=== PATIENT | female | born 1965 | race Caucasian/White ===

== ENCOUNTER 2016-08-18 15:58 | Emergency (ER) | payer SELFPAY ==
[~2016-08-18] VITALS: Ht 157.5 cm; Wt 110.0 kg
[~2016-08-18 15:58] MED LIST: CLON.2 PO; LISI-363 PO
[2016-08-18 16:00] VITALS: BP 185/118; PULSE 101; RESP 15; TEMP 97.7; O2SAT 98
[2016-08-18 16:05] VITALS: BP 176/95; PULSE 94; RESP 16
--- NOTE | 2016-08-18 16:17 | PD ---
HPI Chief Complaint: Skin Problem Time Seen by Provider: 16:17 Travel History International Travel<30 days: No Contact w/Intl Traveler<30days: No Traveled to known affect area: No History of Present Illness HPI 51-year-old female presents to the emergency Department with complaint of an abscess to her left hip area that has been there for a few days. Denies fever, chills, nausea, vomiting. Has history of abscess. Has not taken any medications or tried any treatments to alleviate her symptoms. Reports drainage coming from the abscess. Denies allergies. History of hypertension and ran out of her medications a couple weeks ago. He is asking for refill on her lisinopril. Denies chest pain, shortness of breath, headache, diaphoresis, nausea, vomiting, confusion. Does not know tetanus vaccination status. Denies other significant past medical history. No other modifying factors or associated signs and symptoms. PFSH Past Medical History Diminished Hearing: No Gastrointestinal Disorders: Yes (GALLSTONES) Hypertension: Yes Immunizations Current: No Menopausal: Yes : 1 Para: 0 : 1 Social History Alcohol Use: No Tobacco Use: No Substance Use: No Allergies-Medications (Allergen,Severity, Reaction): Coded Allergies: *MDRO Multi-Drug Resistant Organism (Verified Adverse Reaction, Unknown, 05/20/16) MRSA (abdominal abscess) - 07/22/2015 Reported Meds & Prescriptions Reported Meds & Active Scripts Active Lisinopril 20 Mg Tab 20 Mg PO DAILY Ibuprofen 800 Mg Tab 800 Mg PO Q6HR PRN Keflex (Cephalexin) 500 Mg Cap 500 Mg PO Q6H 10 Days Bactrim DS (Sulfamethoxazole-Trimethoprim) 800-160 Mg Tab 1 Tab PO BID 10 Days Reported Lisinopril 20 mg (Lisinopril) 20 Mg Tab 1 Tab PO DAILY Catapres 0.2 mg (Clonidine HCl) 0.2 Mg Tab 1 Tab PO BID Review of Systems Except as stated in HPI: all other systems reviewed are Neg Physical Exam Narrative GENERAL: Well-nourished, well-developed female patient, in no acute distress; afebrile, nontoxic-appearing SKIN: There is an indurated area to the left hip which measures about 1.5 cm in diameter. It is nonfluctuant and draining foul smelling purulent drainage. There is a zone of inflammation around it but no lymphangitis. No groin lymphadenopathy. HEAD: Atraumatic. Normocephalic. EYES: Pupils equal and round. No scleral icterus. No injection or drainage. ENT: Mucosa pink and moist. Airway patent. NECK: Trachea midline. CARDIOVASCULAR: Regular rate. RESPIRATORY: No accessory muscle use. GASTROINTESTINAL: Obese. MUSCULOSKELETAL: No obvious deformities. No clubbing. No cyanosis. No edema. NEUROLOGICAL: Awake and alert. Oriented 3. No obvious cranial nerve deficits. Motor grossly within normal limits. Normal speech. PSYCHIATRIC: Appropriate mood and affect; insight and judgment normal. Data Data Last Documented VS Vital Signs Date Time Temp Pulse Resp B/P Pulse Ox O2 Delivery O2 Flow Rate FiO2 08/18/16 16:05 94 16 176/95 08/18/16 16:00 97.7 98 Orders Wound Culture And Gram Stain (08/18/16 16:31) Tetanus/Diphtheria Tox Adult (Tetanus/Di (08/18/16 16:45) MDM Medical Decision Making Medical Screen Exam Complete: Yes Emergency Medical Condition: Yes Medical Record Reviewed: Yes Differential Diagnosis Abscess, cellulitis, folliculitis Narrative Course 51-year-old female with an abscess to her left hip area that is draining purulent drainage. The area is nonfluctuant. Area of cellulitis marked with a surgical marker. Wound culture pending. Tetanus updated in the ER. Patient is afebrile and nontoxic-appearing. She denies fever, chills, nausea and vomiting. Keflex, Bactrim, ibuprofen prescribed for home. She is also requesting prescription refill on her lisinopril. Lisinopril prescribed for home. Patient is medically cleared and stable for discharge. Discussed reasons to return to the emergency department. Instructed patient to follow up with primary care provider. Patient agrees with treatment plan. The patients vital signs are stable and the patient is stable for outpatient follow-up and treatment. Patient discharged home, stable and in no acute distress. Diagnosis Primary Impression: Abscess Additional Impression: Medication refill Referrals: Primary Care Physician Patient Instructions: Abscess (ED), Abscess Follow-up (ED), General Instructions, Hypertension (ED), Medication Refill, ED Departure Forms: Tests/Procedures, Work Release Enter return to work date: Aug 19, 2016 Additional Instructions: Complete full course of antibiotics Warm compresses to the affected area Keep area clean and dry Ibuprofen or Tylenol as directed and as needed for pain and inflammation Follow-up with primary care provider Return to emergency department immediately with worsening of symptoms Med/Other Pt SpecificInfo: Prescription(s) given Scripts Lisinopril 20 Mg Tab20 Mg PO DAILY #30 TAB Ref 0 Prov:Maria Guadalupe Toledo 08/18/16 Ibuprofen 800 Mg [id number] Mg PO Q6HR PRN (PAIN) #30 TAB Ref 0 Prov:Maria Guadalupe Toledo 08/18/16 Cephalexin (Keflex)500 Mg [id number] Mg PO Q6H 10 Days Ref 0 Prov:Maria Guadalupe Toledo 08/18/16 Sulfamethoxazole-Trimethoprim (Bactrim DS)800-160 Mg Tab1 Tab PO BID 10 Days Ref 0 Prov:Maria Guadalupe Toledo 08/18/16 Disposition: 01 DISCHARGE HOME Condition: Stable Maria Guadalupe Toledo Aug 18, 2016 16:17
[2016-08-18] MEDS ORDERED: IBUP800T23 PO (16:22)
[2016-08-18] MEDS ORDERED: BACT800T5 PO (16:22)
[2016-08-18] MEDS ORDERED: CEPH-460 PO (16:22)
[2016-08-18] MEDS ORDERED: LISI-515 PO (16:30)
[2016-08-18] MEDS ORDERED: TETANUS/DIPHTHERIA TOXOID ADULT 0.5 ML VIAL IM ONE (16:45)
== END 2016-08-18 17:44 | disposition home or self-care (01) ==
LOC: NEPB 15:58
DX: L02.416 Cutaneous abscess of left lower limb (principal); B95.62 Methicillin resistant Staphylococcus aureus infection as the cause of diseases classified elsewhere; I10 Essential (primary) hypertension; Z23 Encounter for immunization; Z76.0 Encounter for issue of repeat prescription
CPT/HCPCS: 86403; 87070; 87186; 90471; 90714

== ENCOUNTER 2016-08-25 07:57 | Emergency (ER) | payer SELFPAY ==
[~2016-08-25] VITALS: Ht 157.5 cm; Wt 105.0 kg
[~2016-08-25 07:57] MED LIST changes: +BACT800T5 PO; +CEPH-460 PO; +IBUP800T23 PO; +LISI-515 PO
[2016-08-25 07:58] VITALS: BP 193/113; PULSE 80; RESP 20; TEMP 97.8; O2SAT 97
[2016-08-25] MEDS ORDERED: SUDA120T PO (08:28)
[2016-08-25] MEDS ORDERED: IBUP-232 PO (08:28)
[2016-08-25] MEDS ORDERED: MUPI2%T TOPICAL (08:28)
[2016-08-25] MEDS ORDERED: BACT800T5 PO (08:28)
--- NOTE | 2016-08-25 08:33 | PD ---
HPI Chief Complaint: Eye Problems/Injury Time Seen by Provider: 08:28 Travel History International Travel<30 days: No Contact w/Intl Traveler<30days: No Traveled to known affect area: No History of Present Illness HPI 51-year-old female coming in with sudden onset soreness to the left nostril starting 2 days ago which has progressed to increased swelling, erythema , and tenderness. She now has swelling in the left lower and upper eyelid. She denies drainage from the left eye. She denies eye pain. She denies fever, chills, or dental pain. She denies sore throat or postnasal drip. She has no sinus headache. Patient has no ear pain. She does have a sore area under the left jaw but no dental pain. Patient was exposed to MRSA in the past, but has never been diagnosed with it herself. She has no known drug allergies. PFSH Past Medical History Diminished Hearing: No Gastrointestinal Disorders: Yes (GALLSTONES) Hypertension: Yes Immunizations Current: No ?: Not LMP: NONE Menopausal: Yes : 1 Para: 0 : 1 Social History Alcohol Use: No Tobacco Use: No Substance Use: No Allergies-Medications (Allergen,Severity, Reaction): Coded Allergies: *MDRO Multi-Drug Resistant Organism (Verified Adverse Reaction, Unknown, 05/20/16) MRSA (abdominal abscess) - 07/22/2015 Reported Meds & Prescriptions Reported Meds & Active Scripts Active Lisinopril 20 Mg Tab 20 Mg PO DAILY Ibuprofen 800 Mg Tab 800 Mg PO Q6HR PRN Keflex (Cephalexin) 500 Mg Cap 500 Mg PO Q6H 10 Days Bactrim DS (Sulfamethoxazole-Trimethoprim) 800-160 Mg Tab 1 Tab PO BID 10 Days Reported Lisinopril 20 mg (Lisinopril) 20 Mg Tab 1 Tab PO DAILY Catapres 0.2 mg (Clonidine HCl) 0.2 Mg Tab 1 Tab PO BID Review of Systems Except as stated in HPI: all other systems reviewed are Neg General / Constitutional: No: Fever Eyes: No: Visual changes HENT: No: Headaches Cardiovascular: No: Chest Pain or Discomfort Respiratory: No: Shortness of Breath Gastrointestinal: No: Abdominal Pain Genitourinary: No: Dysuria Musculoskeletal: No: Pain Skin: No Rash Neurologic: No: Weakness Psychiatric: No: Depression Endocrine: No: Polydipsia Hematologic/Lymphatic: No: Easy Bruising Physical Exam Narrative GENERAL: Patient appears in mild distress. SKIN: Warm and dry. Patient left naris shows swelling and erythema to the outer nares, without fascicular formations or obvious drainage. The left nasal cleft is somewhat swollen, but patient has no significant pain along the maxillary cheek. HEAD: Atraumatic. Normocephalic. EYES: Pupils equal and round. No scleral icterus. No injection or drainage. Left upper and lower eyelids show swelling, without erythema or drainage. ENT: No nasal bleeding or discharge. Mucous membranes pink and moist. No dental pain. Pharynx is normal. No significant lymphadenopathy. Patient does have 1 tender lymph node on the left jaw, but no rash to the face or scalp noted. NECK: Trachea midline. No JVD. CARDIOVASCULAR: Regular rate and rhythm. RESPIRATORY: No accessory muscle use. Clear to auscultation. Breath sounds equal bilaterally. GASTROINTESTINAL: Abdomen soft, non-tender, nondistended. Hepatic and splenic margins not palpable. NEUROLOGICAL: Awake and alert. No obvious cranial nerve deficits. Motor grossly within normal limits. Five out of 5 muscle strength in the arms and legs. Normal speech. PSYCHIATRIC: Appropriate mood and affect; insight and judgment normal. Data Data Last Documented VS Vital Signs Date Time Temp Pulse Resp B/P Pulse Ox O2 Delivery O2 Flow Rate FiO2 08/25/16 07:58 97.8 80 20 193/113 97 Room Air MDM Medical Decision Making Medical Screen Exam Complete: Yes Emergency Medical Condition: Yes Differential Diagnosis Facial cellulitis. MRSA. Possible early shingles. Narrative Course Patient is medically stable at time of exam. Patient is discussed with and examined with Dr. Gautam. Patient will be treated with Bactrim twice a day 7 days. Patient also given Bactroban to be placed in the nasal cavity as discussed twice daily. Patient is given ibuprofen 600 mg 4 times a day for pain. Patient is given a prescription for Sudafed for decongestant as directed for the next 7 days. Patient is to use hot compresses and ice as discussed. Patient should follow-up with her primary care physician or return to emergency Department with worsening symptoms as necessary. Diagnosis Primary Impression: Facial cellulitis Referrals: Primary Care Physician Patient Instructions: Cellulitis (DC), General Instructions Additional Instructions: Patient will be treated with Bactrim twice a day 7 days. Patient also given Bactroban to be placed in the nasal cavity as discussed twice daily. Patient is given ibuprofen 600 mg 4 times a day for pain. Patient is given a prescription for Sudafed for decongestant as directed for the next 7 days. Patient is to use hot compresses and ice as discussed. Patient should follow-up with her primary care physician or return to emergency Department with worsening symptoms as necessary. Med/Other Pt SpecificInfo: Prescription(s) given Scripts Pseudoephedrine ER 12 HR (Sudafed 12 Hour)120 Mg [id number] Mg PO BID 7 Days Prov:Jania Gautam MD 08/25/16 Ibuprofen 600 Mg [id number] Mg PO Q6H PRN (Pain/Inflammation) #40 TAB Prov:Jania Gautam MD 08/25/16 Mupirocin Topical (Bactroban Topical)2 % Cream1 Applic TOPICAL BID #1 TUBE Prov:Jania Gautam MD 08/25/16 Sulfamethoxazole-Trimethoprim (Bactrim DS)800-160 Mg Tab1 Tab PO BID #14 TAB Prov:Jania Gautam MD 08/25/16 Disposition: 01 DISCHARGE HOME Condition: Stable Scooby Treviño Aug 25, 2016 08:33
== END 2016-08-25 08:42 | disposition home or self-care (01) ==
LOC: NEPB 07:57
DX: L03.211 Cellulitis of face (principal); R51 Headache; I10 Essential (primary) hypertension; Z87.19 Personal history of other diseases of the digestive system
CPT/HCPCS: 99283

== ENCOUNTER 2016-11-17 09:51 | Emergency (ER) | payer SELFPAY ==
[~2016-11-17] VITALS: Ht 157.5 cm; Wt 108.5 kg
[~2016-11-17 09:51] MED LIST changes: +IBUP-232 PO; +MUPI2%T TOPICAL; +SUDA120T PO
[2016-11-17 09:54] VITALS: BP 187/88; PULSE 62; RESP 20; TEMP 97.8; O2SAT 99
[2016-11-17] MEDS ORDERED: SODIUM CHLOR 0.9% 1000 ML INJ 1,000 ML IV ONE (10:11)
[2016-11-17] MEDS ORDERED: diphenhydrAMINE HCL 50 MG/ML VIAL IVP ONE (10:15)
[2016-11-17] MEDS ORDERED: PROCHLORPERAZINE INJ 10 MG/2 ML VIAL IVP ONE (10:15)
[2016-11-17] MEDS ORDERED: KETOROLAC TROMETHAMINE 30 MG/ML (IVP) VIAL IVP ONE (10:15)
[2016-11-17] MEDS ORDERED: SODIUM CHLORIDE 0.9% FLUSH 10 ML FLUSH IVF PRN (10:15)
--- NOTE | 2016-11-17 10:26 | PD ---
HPI Chief Complaint: Headache Time Seen by Provider: 10:11 Travel History International Travel<30 days: No Contact w/Intl Traveler<30days: No Traveled to known affect area: No History of Present Illness HPI Patient is a 51 -year-old female presents emergency Department with headache generalized as well as left-sided neck pain for the past day. Denies any fever denies any nausea vomiting denies any visual changes. Patient states she doesn' t normally get headaches. Denies any history of feeling sick recently. She's tight some aspirin at home without any relief. Patient denies any focalized weakness or numbness. Denies any injury. PFSH Past Medical History Diminished Hearing: No Gastrointestinal Disorders: Yes (GALLSTONES) Hypertension: Yes Immunizations Current: No Influenza Vaccination: Yes ?: Not Menopausal: Yes : 1 Para: 0 : 1 Social History Alcohol Use: No Tobacco Use: No Substance Use: No Allergies-Medications (Allergen,Severity, Reaction): Coded Allergies: *MDRO Multi-Drug Resistant Organism (Verified Adverse Reaction, Unknown, 05/20/16) MRSA (abdominal abscess) - 07/22/2015 Reported Meds & Prescriptions Reported Meds & Active Scripts Active Lisinopril 20 Mg Tab 20 Mg PO DAILY Review of Systems Except as stated in HPI: all other systems reviewed are Neg Physical Exam Narrative GENERAL: Well-developed well-nourished, unkempt but in no apparent distress. SKIN: Focused skin assessment warm/dry. HEAD: Atraumatic. Normocephalic. EYES: Pupils equal and round. No scleral icterus. No injection or drainage. No papilledema ENT: No nasal bleeding or discharge. Mucous membranes pink and moist. Moderate Gingival disease present. NECK: Trachea midline. No JVD. CARDIOVASCULAR: Regular rate and rhythm. No murmur appreciated. RESPIRATORY: No accessory muscle use. Clear to auscultation. Breath sounds equal bilaterally. GASTROINTESTINAL: Abdomen soft, non-tender, nondistended. Hepatic and splenic margins not palpable. MUSCULOSKELETAL: No obvious deformities. No clubbing. No cyanosis. No edema. NEUROLOGICAL: Awake and alert. [place] nerves II through XII are grossly intact nonfocal, 5 out of 5 strength in all 4 extremity's, cerebellar testing negative. PSYCHIATRIC: Appropriate mood and affect; insight and judgment normal. Data Data Last Documented VS Vital Signs Date Time Temp Pulse Resp B/P Pulse Ox O2 Delivery O2 Flow Rate FiO2 11/17/16 09:54 97.8 62 20 187/88 99 Room Air Orders Complete Blood Count With Diff (11/17/16 10:11) Basic Metabolic Panel (Bmp) (11/17/16 10:11) Ecg Monitoring (11/17/16 10:11) Iv Access Insert/Monitor (11/17/16 10:11) Oximetry (11/17/16 10:11) Sodium Chloride 0.9% Flush (Ns Flush) (11/17/16 10:15) Ketorolac Inj (Toradol Inj) (11/17/16 10:15) Prochlorperazine Inj (Compazine Inj) (11/17/16 10:15) Diphenhydramine Inj (Benadryl Inj) (11/17/16 10:15) Sodium Chlor 0.9% 1000 Ml Inj (Ns 1000 M (11/17/16 10:11) Labs Laboratory Tests Test 11/17/16 10:30 White Blood Count 7.2 TH/MM3 Red Blood Count 4.30 MIL/MM3 Hemoglobin 12.5 GM/DL Hematocrit 36.9 % Mean Corpuscular Volume 85.9 FL Mean Corpuscular Hemoglobin 29.0 PG Mean Corpuscular Hemoglobin 33.8 % Concent Red Cell Distribution Width 13.5 % Platelet Count 246 TH/MM3 Mean Platelet Volume 8.3 FL Neutrophils (%) (Auto) 69.5 % Lymphocytes (%) (Auto) 22.7 % Monocytes (%) (Auto) 6.2 % Eosinophils (%) (Auto) 1.3 % Basophils (%) (Auto) 0.3 % Neutrophils # (Auto) 5.0 TH/MM3 Lymphocytes # (Auto) 1.6 TH/MM3 Monocytes # (Auto) 0.5 TH/MM3 Eosinophils # (Auto) 0.1 TH/MM3 Basophils # (Auto) 0.0 TH/MM3 CBC Comment DIFF FINAL Differential Comment Sodium Level 143 MEQ/L Potassium Level 3.3 MEQ/L Chloride Level 109 MEQ/L Carbon Dioxide Level 29.4 MEQ/L Anion Gap 5 MEQ/L Blood Urea Nitrogen 6 MG/DL Creatinine 0.88 MG/DL Estimat Glomerular Filtration 68 ML/MIN Rate Random Glucose 116 MG/DL Calcium Level 8.8 MG/DL MDM Medical Decision Making Medical Screen Exam Complete: Yes Emergency Medical Condition: Yes Differential Diagnosis Migraine, cluster, tension headache, meningitis unlikely, acute intracranial abnormality highly unlikely. Acute neck fracture highly unlikely. Narrative Course Patient roomed in the emergency department, she appears well in no apparent distress. She was given Benadryl and Compazine as she has a ride home. She had near resolution of her headache and felt well enough to go home. There is no indication for emergent imaging as the patient has no neurologic findings. Her labs are reassuring. Discussed symptomatic management of a headache and need follow-up with a primary care physician. She is stable for discharge at this time. Diagnosis Primary Impression: Headache Qualified Code: R51 - Acute nonintractable headache, unspecified headache type Additional Instructions: Follow-up the primary care clinic or the [place] [facility]. Med/Other Pt SpecificInfo: Prescription(s) given Scripts Lisinopril 20 Mg Tab20 Mg PO DAILY #30 TAB Ref 0 Prov:Aristides Russo MD 11/17/16 Disposition: 01 DISCHARGE HOME Condition: Stable Aristides Russo MD Nov 17, 2016 10:25
[2016-11-17 10:51] LABS: BASOPHIL % 0.3 % (0.0-2.0); EOSINOPHIL # 0.1 TH/MM3 (0-0.4); EOSINOPHIL % 1.3 % (0.0-4.0); HEMATOCRIT 36.9 % (35.0-46.0); HEMO FLAGS DIFF FINAL; LYMPH % 22.7 % (9.0-44.0); LYMPHOCYTE # 1.6 TH/MM3 (1.0-4.8); MEAN CELL VOLUME 85.9 FL (80.0-100.0); MEAN CORPUSCULAR HGB CONC 33.8 % (32.0-36.0); MONO % 6.2 % (0.0-8.0); NEUT % 69.5 % (16.0-70.0); PLATELET COUNT 246 TH/MM3 (150-450); RED CELL DISTRIBUTION WIDTH 13.5 % (11.6-17.2); WHITE BLOOD COUNT 7.2 TH/MM3 (4.0-11.0)
[2016-11-17 11:12] LABS: BICARBONATE 29.4 MEQ/L (21.0-32.0); POTASSIUM 3.3 MEQ/L (3.5-5.1)
[2016-11-17] MEDS ORDERED: LISI-515 PO (11:32)
== END 2016-11-17 11:55 | disposition home or self-care (01) ==
LOC: NEPD 09:51
DX: R51 Headache (principal); M54.2 Cervicalgia; I10 Essential (primary) hypertension; Z87.19 Personal history of other diseases of the digestive system
CPT/HCPCS: 80048; 85025; 96374; 96375; 99284; J0780; J1200; J1885; J7030

== ENCOUNTER 2016-11-24 19:17 | Emergency (ER) | payer SELFPAY ==
[~2016-11-24] VITALS: Ht 172.7 cm; Wt 88.0 kg
[~2016-11-24 19:17] MED LIST changes: -BACT800T5 PO; -CEPH-460 PO; -CLON.2 PO; -IBUP-232 PO; -IBUP800T23 PO; -LISI-363 PO; -MUPI2%T TOPICAL; -SUDA120T PO
[2016-11-24 19:19] VITALS: BP 187/106; PULSE 55; RESP 15; TEMP 98; O2SAT 98
[2016-11-24] MEDS ORDERED: SODIUM CHLOR 0.9% 1000 ML INJ 1,000 ML IV ONE (19:54)
--- NOTE | 2016-11-24 19:57 | PD ---
HPI Chief Complaint: Headache Time Seen by Provider: 19:50 Travel History International Travel<30 days: No Contact w/Intl Traveler<30days: No Traveled to known affect area: No History of Present Illness HPI This is a 51-year-old female who returns for reevaluation of a headache. Symptoms started 8 days ago. She describes it as a pressure in the frontal region of her head, associated with the sensation that her ears are clogged. Symptoms are constant with no aggravating or relieving factors. She is tried using [id number] aspirin but the headache persists which prompted evaluation. She was seen here on November 17 for evaluation of this headache. She had a CBC, BMP which were reassuring. She was given a migraine cocktail with near resolution of her symptoms. She was concerned that no neuroimaging had been done. She reports that she does not typically get headaches. There was no thunderclap nature involved in her headache. It was more of a gradual onset. Denies nasal congestion, sore throat, fevers or chills, blurred vision, chest pain or shortness of breath, weakness. She does have some nausea. No other complaints. History is only significant for hypertension. She denies any possibility of because she has not had intercourse in over 3 years. PFSH Past Medical History Diminished Hearing: No Gastrointestinal Disorders: Yes (GALLSTONES) Hypertension: Yes Immunizations Current: No ?: Not Menopausal: Yes : 1 Para: 0 : 1 Past Surgical History Surgical History: No Previous Surgery Social History Alcohol Use: No Tobacco Use: No Substance Use: No Allergies-Medications (Allergen,Severity, Reaction): Coded Allergies: *MDRO Multi-Drug Resistant Organism (Verified Adverse Reaction, Unknown, ) MRSA (abdominal abscess) - 07/22/2015 Reported Meds & Prescriptions Reported Meds & Active Scripts Active Lisinopril 20 Mg Tab 20 Mg PO DAILY Review of Systems Except as stated in HPI: all other systems reviewed are Neg Physical Exam Narrative GENERAL: Well-developed well-nourished female in no acute distress SKIN: Warm and dry. HEAD: Atraumatic. Normocephalic. EYES: Pupils equal and round reactive to light extraocular muscles are intact.. No scleral icterus. No injection or drainage. ENT: No nasal bleeding or discharge. Mucous membranes pink and moist. NECK: Trachea midline. No JVD. Neck supple with full range of motion. No lymphadenopathy. CARDIOVASCULAR: Regular rate and rhythm. No murmur appreciated. RESPIRATORY: No accessory muscle use. Clear to auscultation. Breath sounds equal bilaterally. GASTROINTESTINAL: Abdomen soft, non-tender, nondistended. Hepatic and splenic margins not palpable. MUSCULOSKELETAL: No obvious deformities. No edema. NEUROLOGICAL: Awake and alert. No obvious cranial nerve deficits. Motor grossly within normal limits. Normal speech. PSYCHIATRIC: Appropriate mood and affect; insight and judgment normal. Data Data Last Documented VS Vital Signs Date Time Temp Pulse Resp B/P Pulse Ox O2 Delivery O2 Flow Rate FiO2 11/24/16 19:19 98.0 55 15 187/[address] Brain W/O Iv Contrast(Rout) (11/24/16 19:54) Iv Access Insert/Monitor (11/24/16 19:54) Acetaminophen (Tylenol) (11/24/16 20:00) Diphenhydramine Inj (Benadryl Inj) (11/24/16 20:00) Metoclopramide Inj (Reglan Inj) (11/24/16 20:00) Sodium Chlor 0.9% 1000 Ml Inj (Ns 1000 M (11/24/16 19:54) Ketorolac Inj (Toradol Inj) (11/24/16 20:45) MDM Medical Decision Making Medical Screen Exam Complete: Yes Emergency Medical Condition: Yes Medical Record Reviewed: Yes Differential Diagnosis Tension headache, migraine headache, sinusitis, cluster headache, temporal arteritis, pseudotumor cerebri, intracranial mass Narrative Course 51-year-old female who is been experiencing a frontal headache for 8 days, the sensation of plugged ears. This is her second visit for evaluation of this. Therefore CT of the brain is normal. Physical examination is reassuring with no acute neurologic deficits. She is laughing during history taking and does not appear to be any significant discomfort. She does endorse slight nausea. CT of the brain is unremarkable. Upon reexamination the patient is sleeping. When she was awakened she still complains of a mild headache which has improved. She'll therefore be given Toradol. She is stable for discharge. She is hypertensive, history of hypertension, on lisinopril. She is encouraged to monitor her blood pressure frequently and follow up with primary care for further management. Diagnosis Primary Impression: Headache Qualified Code: R51 - Acute nonintractable headache, unspecified headache type Additional Instructions: Follow-up with primary care physician treated as discussed, monitor blood pressure and a regular basis and discussed with primary care. Return for any emergent medical conditions. Med/Other Pt SpecificInfo: No Change to Meds Disposition: 01 DISCHARGE HOME Condition: Stable Philipp Montesinos November 24, 2016 19:57
[2016-11-24] MEDS ORDERED: diphenhydrAMINE HCL 50 MG/ML VIAL IVP ONE (20:00)
[2016-11-24] MEDS ORDERED: METOCLOPRAMIDE HCL 10 MG/2 ML VIAL IVP ONE (20:00)
[2016-11-24] MEDS ORDERED: ACETAMINOPHEN 325 MG TAB PO ONE (20:00)
--- NOTE | 2016-11-24 20:29 | RADRPT ---
EXAM DATE/TIME: 11/24/2016 20:15 [facility] COMPARISON: No previous studies available for comparison. INDICATIONS : Headache X one week. RADIATION DOSE: 38.13 CTDIvol (mGy) MEDICAL HISTORY : None SURGICAL HISTORY : None. ENCOUNTER: Initial ACUITY: 1 week PAIN SCALE: 7/10 LOCATION: cranial TECHNIQUE: Multiple contiguous axial images were obtained of the head. Using automated exposure control and adj ustment of the mA and/or kV according to patient size, radiation dose was kept as low as reasonably a chievable to obtain optimal diagnostic quality images. FINDINGS: CEREBRUM: The ventricles are normal for age. No evidence of midline shift, mass lesion, hemorrhage or acute in farction. No extra-axial fluid collections are seen. POSTERIOR FOSSA: The cerebellum and brainstem are intact. The 4th ventricle is midline. The cerebellopontine angle i s unremarkable. EXTRACRANIAL: The visualized portion of the orbits is intact. SKULL: The calvaria is intact. No evidence of skull fracture. CONCLUSION: Negative noncontrast head CT. Bruce Sebastian MD on November 24, 2016 at 20:26 Board Certified Radiologist. This report was verified electronically.
[2016-11-24] MEDS ORDERED: KETOROLAC TROMETHAMINE 30 MG/ML (IVP) VIAL IV PUSH ONE (20:45)
[2016-11-24 21:25] VITALS: BP 163/80; PULSE 54; RESP 16; O2SAT 97
== END 2016-11-24 21:37 | disposition home or self-care (01) ==
LOC: NEPD 19:17
DX: R51 Headache (principal); I10 Essential (primary) hypertension
CPT/HCPCS: 70450; 96374; 96375; 99284; J1200; J1885; J2765; J7030

== ENCOUNTER 2016-12-03 19:15 | Inpatient (IN) | payer SELFPAY ==
[2016-12-03] VITALS (9 sets, daily range): BP systolic 139–214; BP diastolic 62–127; PULSE 44–54; RESP 14–20; TEMP 98.3; O2SAT 96–99
[~2016-12-03] VITALS: Ht 157.5 cm; Wt 101.3 kg
[2016-12-03] MEDS ORDERED: SODIUM CHLORIDE 0.9% FLUSH 10 ML FLUSH IVF PRN (19:30)
[2016-12-03] MEDS ORDERED: IOHEXOL 350 MG/ML 10 ML VIAL (for RAD DIAG) IV ONE (19:39)
--- NOTE | 2016-12-03 19:54 | RADRPT ---
EXAM DATE/TIME: 12/03/2016 19:25 [facility] COMPARISON: CT BRAIN W/O CONTRAST, November 24, 2016, 20:15. INDICATIONS : Fall yesterday. Altered mental status since. RADIATION DOSE: 35.18 CTDIvol (mGy) MEDICAL HISTORY : Hypertension. SURGICAL HISTORY : None. ENCOUNTER: Initial ACUITY: 2 days PAIN SCALE: 6/10 LOCATION: cranial TECHNIQUE: Multiple contiguous axial images were obtained of the head. Using automated exposure control and adj ustment of the mA and/or kV according to patient size, radiation dose was kept as low as reasonably a chievable to obtain optimal diagnostic quality images. FINDINGS: Compared to 11/24/16 there is what appears to be subtle subarachnoid hemorrhage in the left orbital fro ntal region. This could be confirmed by MRI. Hyperdense MCA on the 11th entirely excluded. Correla tion to exclude stroke is suggested. Ventricular size is appropriate. There is no probable hemorrha ge. Posterior fossa is unremarkable. CONCLUSION: Possible subtle subarachnoid hemorrhage left orbital frontal region; hyperdense MCA cannot be exclude d.. Schuyler Alcantar MD FACR on December 03, 2016 at 19:47 Board Certified Radiologist. This report was verified electronically.
[2016-12-03] MEDS ORDERED: niCARdipine INJ 25 MG in SODIUM CHLOR 0.9% 250 ML INJ 250 ML IV ONE (20:00)
--- NOTE | 2016-12-03 20:01 | RADRPT ---
EXAM DATE/TIME: 12/03/2016 19:35 [facility] COMPARISON: No previous studies available for comparison. INDICATIONS : Fall yesterday. Altered mental status since. IV CONTRAST: 100 cc Omnipaque 350 (iohexol) IV ; Cumulative dose for multiple exams. RADIATION DOSE: 27.76 CTDIvol (mGy) ; Combined studies MEDICAL HISTORY : Hypertension. SURGICAL HISTORY : None. ENCOUNTER: Initial ACUITY: 2 days PAIN SCALE: 5/10 LOCATION: cranial TECHNIQUE: Volumetric scanning was performed using a multi-row detector CT scanner. The data was post processed with a variety of visualization algorithms including full volume maximum intensity projection, multi -planar sliding thin slab reformation, curved planar reformation, and surface rendering techniques. Using automated exposure control and adjustment of the mA and/or kV according to patient size, radiat ion dose was kept as low as reasonably achievable to obtain optimal diagnostic quality images. FINDINGS: There is no aneurysm, embolic occlusion or vascular displacement. There is no major branch vessel oc clusion. Both vertebral arteries negative for aneurysm, major branch vessel occlusion. Basilar kylee ry is patent. CONCLUSION: Negative for aneurysm or major branch vessel occlusion. Schuyler Alcantar MD FACR on December 03, 2016 at 19:57 Board Certified Radiologist. This report was verified electronically.
[2016-12-03 20:07] LABS: AUTOMATED NEUTROPHIL # 13.9 TH/MM3 (1.8-7.7); BASOPHIL # 0.1 TH/MM3 (0-0.2); BASOPHIL % 0.3 % (0.0-2.0); HEMATOCRIT 37.5 % (35.0-46.0); HEMO FLAGS DIFF FINAL; LYMPH % 7.6 % (9.0-44.0); LYMPHOCYTE # 1.2 TH/MM3 (1.0-4.8); MEAN CORPUSCULAR HEMOGLOBIN 29.1 PG (27.0-34.0); MEAN CORPUSCULAR HGB CONC 34.3 % (32.0-36.0); MONO % 6.1 % (0.0-8.0); PLATELET COUNT 275 TH/MM3 (150-450); RED BLOOD COUNT 4.42 MIL/MM3 (4.00-5.30); RED CELL DISTRIBUTION WIDTH 13.8 % (11.6-17.2); WHITE BLOOD COUNT 16.2 TH/MM3 (4.0-11.0)
--- NOTE | 2016-12-03 20:08 | RADRPT ---
EXAM DATE/TIME: 12/03/2016 19:35 [facility] COMPARISON: No previous studies available for comparison. INDICATIONS : Fall yesterday. Altered mental status since. IV CONTRAST: 100 cc Omnipaque 350 (iohexol) IV ; Cumulative dose for multiple exams. RADIATION DOSE: 27.76 CTDIvol (mGy) ; Combined studies MEDICAL HISTORY : Hypertension. SURGICAL HISTORY : None. ENCOUNTER: Initial ACUITY: 2 days PAIN SCALE: 5/10 LOCATION: neck Elevated flow velocities and ICA/CCA ratios have been found to correlate with increased degrees of vessel stenosis, calculated as percentage of diameter relative to a normal segment of distal ICA/CCA. TECHNIQUE: Volumetric scanning was performed using a multirow detector CT scanner. The data was post processed with a variety of visualization algorithms including full-volume maximum intensity projection, multip lanar sliding thin-slab reformation, curved-planar reformation, and surface-rendering techniques. Us ing automated exposure control and adjustment of the mA and/or kV according to patient size, radiatio n dose was kept as low as reasonably achievable to obtain optimal diagnostic quality images. FINDINGS: AORTIC ARCH: There is a three-vessel origin of the great vessels from the aorta. No evidence of ostial narrowing. RIGHT CAROTID: The common carotid artery is intact. The carotid bulb has a normal configuration without ulceration o r narrowing. The internal carotid artery lumen is smooth without stenosis. The external carotid kylee ry is intact. LEFT CAROTID: The common carotid artery is intact. The carotid bulb has a normal configuration without ulceration or narrowing. The internal carotid artery lumen is smooth without stenosis. The external carotid ar vidal is intact. VERTEBRALS: The vertebral arteries have a symmetric diameter. No stenotic lesions are seen. CONCLUSION: Negative for hemodynamically significant carotid stenosis. Extensive tortuosity sugg esting hypertension. Schuyler Alcantar MD FACR on December 03, 2016 at 20:04 Board Certified Radiologist. This report was verified electronically.
--- NOTE | 2016-12-03 20:12 | RADRPT ---
EXAM DATE/TIME: 12/03/2016 19:25 [facility] COMPARISON: No previous studies available for comparison. INDICATIONS : Fall yesterday. Altered mental status since. RADIATION DOSE: 21.60 CTDIvol (mGy) MEDICAL HISTORY : Hypertension. SURGICAL HISTORY : None. ENCOUNTER: Initial ACUITY: 2 days PAIN SCALE: 6/10 LOCATION: neck TECHNIQUE: Volumetric scanning of the cervical spine was performed. Multiplanar reconstructions in the sagittal, coronal and oblique axial planes were performed. Using automated exposure control and adjustment o f the mA and/or kV according to patient size, radiation dose was kept as low as reasonably achievable to obtain optimal diagnostic quality images. FINDINGS: VERTEBRAE: Normal vertebral body height. ALIGNMENT: No evidence of subluxation. C2-C3: The bony spinal canal is normal in size. No evidence of disc bulge or herniation. The neural forami na are bilaterally patent. C3-C4: The bony spinal canal is normal in size. No evidence of disc bulge or herniation. The neural forami na are bilaterally patent. C4-C5: The bony spinal canal is normal in size. No evidence of disc bulge or herniation. The neural forami na are bilaterally patent. C5-C6: The bony spinal canal is normal in size. Mild uncinate ridging is evident. No evidence of disc bulg e or herniation. The neural foramina are bilaterally patent. C6-C7: The bony spinal canal is normal in size. No evidence of disc bulge or herniation. The neural forami na are bilaterally patent. C7-T1: The bony spinal canal is normal in size. No evidence of disc bulge or herniation. The neural forami na are bilaterally patent. CONCLUSION: Mild degenerative changes without fracture. Schuyler Alcantar MD FACR on December 03, 2016 at 20:07 Board Certified Radiologist. This report was verified electronically.
--- NOTE | 2016-12-03 20:12 | PD ---
HPI Chief Complaint: Fall Time Seen by Provider: 19:18 Travel History International Travel<30 days: No Contact w/Intl Traveler<30days: No Traveled to known affect area: No History of Present Illness HPI Patient is a 51-year-old female presents emergency department with complaint of severe headache after fall. History is obtained per EMS patient is a poor historian. Apparently patient had a fall sometime yesterday. This was unwitnessed. Unclear whether it was mechanical, syncopal. Unclear whether she even hit her head. Since however she's been complaining of a severe headache, primarily left-sided though retro-orbital bilaterally. She has not had any nausea or vomiting. She states that the headache is 10 out of 10 in the worse headache of her life. Friend states that she has been confused, alert to self and place only but not time. She believes it is 1966. Patient has had urinary and fecal incontinence which is new for her. Friend even stated that she took off her soiled clothes and then put them back on. Per EMS patient was hypertensive in the 190s systolic and bradycardic in the 50s. She is not anticoagulated. Interestingly patient was seen here twice recently over the last month with complaint of headache and had negative CT imaging and was treated symptomatically and discharged home. PFSH Past Medical History Diminished Hearing: No Gastrointestinal Disorders: Yes (GALLSTONES) Hypertension: Yes Immunizations Current: No ?: Not LMP: 2016 Menopausal: Yes : 1 Para: 0 : 1 Past Surgical History Surgical History: No Previous Surgery Social History Alcohol Use: No Tobacco Use: No Substance Use: No Allergies-Medications (Allergen,Severity, Reaction): Coded Allergies: *MDRO Multi-Drug Resistant Organism (Verified Adverse Reaction, Unknown, ) MRSA (abdominal abscess) - 07/22/2015 Reported Meds & Prescriptions Reported Meds & Active Scripts Active Lisinopril 20 Mg Tab 20 Mg PO DAILY Review of Systems ROS Limitations: Clinical Condition, Poor Historian Except as stated in HPI: all other systems reviewed are Neg Physical Exam Exam Limitations: Clinical Condition, Poor Historian Narrative GENERAL: Uncomfortable appearing middle-aged female covering eyes with her hands , grimacing SKIN: Focused skin assessment warm/dry. HEAD: Atraumatic. Normocephalic. EYES: Pupils equal and round. 3 mm. EOMI. No scleral icterus. No injection or drainage. ENT: Mucous membranes pink and moist. NECK: Supple without midline tenderness to palpation. In cervical collar CARDIOVASCULAR: Bradycardic with heart rate in the 50s, regular rhythm. No murmur appreciated. Hypertensive. RESPIRATORY: No accessory muscle use. Clear to auscultation. Breath sounds equal bilaterally. GASTROINTESTINAL: Abdomen soft, non-tender, nondistended. Obese MUSCULOSKELETAL: No obvious deformities. No clubbing. No cyanosis. No edema. NEUROLOGICAL: Awake and alert, answers basic questions and follows commands appropriately but confused about the events of the day. Alert to self, place only. Believes it is 1966.. No obvious cranial nerve deficits. Motor grossly within normal limits. Normal speech. PSYCHIATRIC: Deferred given mental status and acuity Data Data Last Documented VS Vital Signs Date Time Temp Pulse Resp B/P Pulse Ox O2 Delivery O2 Flow Rate FiO2 12/03/16 20:01 214/127 12/03/16 19:56 98.3 52 20 99 Room Air Orders Electrocardiogram (12/03/16 19:18) Prothrombin Time / Inr (Pt) (12/03/16 19:18) Act Partial Throm Time (Ptt) (12/03/16 19:18) Complete Blood Count With Diff (12/03/16 19:18) Basic Metabolic Panel (Bmp) (12/03/16 19:18) Troponin I (12/03/16 19:18) Ct Brain W/O Iv Contrast(Rout) (12/03/16 19:18) Ecg Monitoring (12/03/16 19:18) Iv Access Insert/Monitor (12/03/16 19:18) Oximetry (12/03/16 19:18) Sodium Chloride 0.9% Flush (Ns Flush) (12/03/16 19:30) Ct Cerv Spine W/O Contrast (12/03/16 ) Drug Screen, Random Urine (12/03/16 19:21) Alcohol (Ethanol) (12/03/16 19:21) Cta Brain W Iv Contrast W 3d (12/03/16 19:28) Cta Neck W Iv Contrast W 3d (12/03/16 19:28) Iohexol 350 Inj (Omnipaque 350 Inj) (12/03/16 19:39) Nicardipine Inj (Cardene Inj) (12/03/16 20:00) Consult Neurosurgery (12/03/16 ) Morphine Inj (Morphine Inj) (12/03/16 20:15) (Hub Use Only)Inp Phy Cons/Ref (12/03/16 ) Potassium Chloride (Kcl) (12/03/16 20:30) Labs Laboratory Tests Test 12/03/16 19:47 White Blood Count 16.2 TH/MM3 Red Blood Count 4.42 MIL/MM3 Hemoglobin 12.9 GM/DL Hematocrit 37.5 % Mean Corpuscular Volume 85.0 FL Mean Corpuscular Hemoglobin 29.1 PG Mean Corpuscular Hemoglobin 34.3 % Concent Red Cell Distribution Width 13.8 % Platelet Count 275 TH/MM3 Mean Platelet Volume 8.6 FL Neutrophils (%) (Auto) 86.0 % Lymphocytes (%) (Auto) 7.6 % Monocytes (%) (Auto) 6.1 % Eosinophils (%) (Auto) 0.0 % Basophils (%) (Auto) 0.3 % Neutrophils # (Auto) 13.9 TH/MM3 Lymphocytes # (Auto) 1.2 TH/MM3 Monocytes # (Auto) 1.0 TH/MM3 Eosinophils # (Auto) 0.0 TH/MM3 Basophils # (Auto) 0.1 TH/MM3 CBC Comment DIFF FINAL Differential Comment Prothrombin Time 11.2 SEC Prothromb Time International 1.0 RATIO Ratio Activated Partial 24.2 SEC Thromboplast Time Sodium Level 138 MEQ/L Potassium Level 3.0 MEQ/L Chloride Level 101 MEQ/L Carbon Dioxide Level 28.0 MEQ/L Anion Gap 9 MEQ/L Blood Urea Nitrogen 12 MG/DL Creatinine 0.85 MG/DL Estimat Glomerular Filtration 71 ML/MIN Rate Random Glucose 108 MG/DL Calcium Level 8.2 MG/DL Troponin I LESS THAN 0.02 NG/ML MDM Medical Decision Making Medical Screen Exam Complete: Yes Emergency Medical Condition: Yes Medical Record Reviewed: Yes Differential Diagnosis 51-year-old female here with complaint of severe headache, change in mentation and urinary/fecal incontinence since a fall yesterday. Differential includes closed head injury, skull fracture, ICH, SAH, hypertensive emergency, syncope, UTI, arrhythmia. Narrative Course Patient placed on monitor, IV established and blood obtained. Patient was expedited emergently to CT for imaging of the brain and neck. CT of the brain shows a possible subarachnoid hemorrhage left frontal orbital region. Hyperdense MCA cannot be excluded. Based on her physical exam she does not have any signs consistent with stroke. CTA of the brain and neck were then ordered which were negative for aneurysm or major branch vessel occlusion. No hemodynamically significant carotid stenosis. Tortuosity of the vessels suggesting hypertension. I spoke with Dr. Garcia of neurosurgery who recommended medical management given the question will CT findings. Patient remains hypertensive and was placed on nicardipine. Given morphine for headache. Twelve-lead EKG shows poor quality due to wavy baseline and patient' s tremor but looks like sinus bradycardia with rate of 46. CBC, BMP, troponin, coags, blood alcohol level and urine drug screen were obtained and notable for potassium 3.0, replaced with 60 mg orally. WBC 16.2. Patient will be admitted to intensive us for further management of blood pressure and frequent neuro exam. Critical Care Narrative Aggregate critical care time was 55 minutes. Time to perform other separately billable procedures was not included in the critical care time. My time did not include minutes spent treating any other patients simultaneously or on activities that did not directly contribute to the patient's treatment. The services I provided to this patient were to treat and/or prevent clinically significant deterioration that could result in: Cardiopulmonary decompensation, neurologic decompensation, , disability I provided critical care services requiring my management, as noted below: Chart data review, documentation time, medication orders and management, vital sign assessments/reviewing monitor data, ordering and reviewing lab tests, ordering and interpreting/reviewing x-rays and diagnostic studies, care of the patient and discussion of the patient with the admitting physicians. Diagnosis Primary Impression: Subarachnoid hemorrhage Additional Impressions: Severe headache Hypertensive emergency Hypokalemia Leukocytosis Qualified Code: D72.829 - Leukocytosis, unspecified type Admitting Information Admitting Physician Requests: Admit Paula Silva MD December 03, 2016 20:12
[2016-12-03 20:14] LABS: APTT (PATIENT) 24.2 SEC (24.3-30.1); PROTHROMBIN TIME - PATIENT 11.2 SEC (9.8-11.6)
[2016-12-03] MEDS ORDERED: MORPHINE SULFATE 4 MG/ML INJ IV PUSH ONE (20:15)
[2016-12-03 20:24] LABS: ANION GAP 9 MEQ/L (5-15); BLOOD UREA NITROGEN 12 MG/DL (7-18); CHLORIDE 101 MEQ/L (98-107); GLOMERULAR FILTRATION RATE 71 ML/MIN (>89); SODIUM (NA) 138 MEQ/L (136-145)
[2016-12-03] MEDS ORDERED: POTASSIUM CHLORIDE 20 MEQ CONTROLLED RELEASE TAB PO ONE (20:30)
[2016-12-03] MEDS ORDERED: METOCLOPRAMIDE HCL 10 MG/2 ML VIAL IV PRN (22:15)
[2016-12-03] MEDS ORDERED: CHLORHEXIDINE GLUCONATE 2 % 1 PACK (2 CLOTHS) TOP PRN (22:15)
[2016-12-03] MEDS ORDERED: RESP: ALBUTEROL 2.5 MG/IPRATROPIUM 0.5 MG NEB (PRN) INH (22:15)
[2016-12-03] MEDS ORDERED: MISCELLANEOUS NURSING INFORMATION XX SCH (22:15)
[2016-12-03] MEDS ORDERED: niCARdipine INJ 25 MG in SODIUM CHLOR 0.9% 250 ML INJ 250 ML IV SCH (22:15)
--- NOTE | 2016-12-03 22:20 | HHI.HP ---
HPI Service Critical Care Medicine Primary Care Physician No Primary Care Physician Admission Diagnosis SAH, htn emergency Diagnosis: Travel History International Travel<30 Days: No Contact w/Intl Traveler <30 Da: No Traveled to Known Affected Are: No History of Present Illness 51-year-old female presents with complaint of severe headache after fall. History is obtained per chart since patient is a poor historian. Apparently patient had a fall sometime yesterday. This was unwitnessed. Unclear whether it was mechanical, syncopal. Unclear whether she even hit her head. Since however she's been complaining of a severe headache, primarily left-sided though retro-orbital bilaterally. She has not had any nausea or vomiting. Her headache is 10 out of 10 and is the worse headache of her life. Friend states that she has been confused, alert to self and place only but not time. She believes it is 1966. Patient has had urinary and fecal incontinence which is new for her. Per EMS patient was hypertensive in the 190s systolic and bradycardic in the 50s. She is not anticoagulated. The patient was seen here twice recently over the last month with complaint of headache and had negative CT imaging, was treated symptomatically and discharged home. Review of Systems Constitutional: DENIES: Diaphoretic episodes, Fatigue, Fever, Weight gain, Weight loss, Chills, Dizziness, Change in appetite, Night Sweats Endocrine: DENIES: Abnorml menstrual pattern, Heat/cold intolerance, Polydipsia , Polyuria, Polyphagia Eyes: DENIES: Blurred vision, Diplopia, Eye inflammation, Eye pain, Vision loss , Photosensitivity, Double Vision Ears, nose, mouth, throat: DENIES: Tinnitus, Hearing loss, Vertigo, Nasal discharge, Oral lesions, Throat pain, Hoarseness, Ear Pain, Running Nose, Epistaxis, Sinus Pain, Toothache, Odynophagia Respiratory: DENIES: Apneas, Cough, Snoring, Wheezing, Hemoptysis, Sputum production, Shortness of breath Cardiovascular: DENIES: Chest pain, Palpitations, Syncope, Dyspnea on Exertion , PND, Lower Extremity Edema, Orthopnea, Claudication Gastrointestinal: DENIES: Abdominal pain, Black stools, Bloody stools, Constipation, Diarrhea, Nausea, Vomiting, Difficulty Swallowing, Anorexia Genitourinary: DENIES: Abnormal vaginal bleeding, Dysmenorrhea, Dyspareunia, Sexual dysfunction, Urinary frequency, Urinary incontinence, Urgency, Hematuria , Dysuria, Nocturia, Vaginal discharge Musculoskeletal: DENIES: Joint pain, Muscle aches, Stiffness, Joint Swelling, Back pain, Neck pain Integumentary: DENIES: Abnormal pigmentation, Pruritus, Rash, Nail changes, Breast masses, Breast skin changes, Nipple discharge Hematologic/lymphatic: DENIES: Bruising, Lymphadenopathy Immunologic/allergic: DENIES: Eczema, Urticaria Neurologic: COMPLAINS OF: Headache, DENIES: Abnormal gait, Localized weakness , Paresthesias, Seizures, Speech Problems, Tremor, Poor Balance Psychiatric: DENIES: Anxiety, Confusion, Mood changes, Depression, Hallucinations, Agitation, Suicidal Ideation, Homicidal Ideation, Delusions Past Family Social History Allergies: Coded Allergies: *MDRO Multi-Drug Resistant Organism (Verified Adverse Reaction, Unknown, ) MRSA (abdominal abscess) - 07/22/2015 Past Medical History Hypertension Gallstones Past Surgical History None Reported Medications Reported Meds & Active Scripts Active Lisinopril 20 Mg Tab 20 Mg PO DAILY Active Ordered Medications Current Medications Medications (Trade) Dose Ordered Sig/Rachel Route PRN Reason Start Time Stop Time Status Last Admin Dose Admin Sodium Chloride (NS 1000 ml Inj) 1,000 ml @ 84 mls/hr [id number] IV 12/03/16 22:11 Sodium Chloride (NS Flush) 2 ml UNSCH PRN .XX FLUSH AFTER USING IV ACCESS 12/03/16 22:15 Sodium Chloride (NS Flush) 2 ml BID .XX 12/04/16 09:00 Acetaminophen (Tylenol) 650 mg Q6H PRN PO PAIN 1-10 AND/OR FEVER >101F 12/03/16 22:15 Morphine Sulfate (Morphine Inj) 2 mg Q2H PRN IV PAIN SCALE 6 TO 10 12/03/16 22:15 Famotidine (Pepcid Inj) 20 mg Q12HR IV PUSH 12/04/16 09:00 Ondansetron HCl (Zofran Inj) 4 mg Q6H PRN IV NAUSEA OR VOMITING 12/03/16 22:15 Metoclopramide HCl (Reglan Inj) 10 mg Q6H PRN IV NAUSEA OR VOMITING 12/03/16 22:15 Docusate Sodium (Colace) 100 mg BID PO 12/04/16 09:00 Miscellaneous Information 1 [id number] XX 12/03/16 22:15 Chlorhexidine Gluconate (Chlorhexidine 2% Cloth) 3 pack Taper DAILY@04 TOP 12/04/16 04:00 11/30/17 03:59 Chlorhexidine Gluconate 3 pack 3 pack UNSCH PRN TOP HYGIENIC CARE 12/03/16 22:15 Nicardipine HCl/ Sodium Chloride (Cardene Inj/NS 250 ml Inj) 260 ml @ 0 mls/hr TITRATE IV 12/03/16 22:15 Hydralazine HCl (Apresoline Inj) 20 mg Q4H PRN IV PUSH SBP>160, DBP>90 12/03/16 22:15 Nimodipine (Nimotop) 60 mg Q4HR PO 12/04/16 00:00 Family History Unable to obtain patient is confused Social History Unable to obtain patient is confused Physical Exam Vital Signs Vital Signs Date Time Temp Pulse Resp B/P Pulse Ox O2 Delivery O2 Flow Rate FiO2 12/03/16 22:07 52 14 139/68 99 Room Air 12/03/16 21:45 54 14 155/64 96 Room Air 12/03/16 21:12 44 16 175/78 99 Room Air 12/03/16 20:51 44 211/93 12/03/16 20:01 214/127 12/03/16 19:56 98.3 52 20 99 Room Air 12/03/16 19:18 53 16 178/98 97 Physical Exam GENERAL: Well-nourished, well-developed patient. SKIN: Warm and dry. HEAD: Normocephalic. EYES: No scleral icterus. No injection or drainage. NECK: Supple, trachea midline. No JVD or lymphadenopathy. CARDIOVASCULAR: Regular rate and rhythm without murmurs, gallops, or rubs. RESPIRATORY: Breath sounds equal bilaterally. No accessory muscle use. GASTROINTESTINAL: Abdomen soft, non-tender, nondistended. MUSCULOSKELETAL: No cyanosis, or edema. BACK: Nontender without obvious deformity. No CVA tenderness. EXTREMITIES: No clubbing cyanosis or edema Laboratory Laboratory Tests Test 12/03/16 19:47 White Blood Count 16.2 Red Blood Count 4.42 Hemoglobin 12.9 Hematocrit 37.5 Mean Corpuscular Volume 85.0 Mean Corpuscular Hemoglobin 29.1 Mean Corpuscular Hemoglobin 34.3 Concent Red Cell Distribution Width 13.8 Platelet Count 275 Mean Platelet Volume 8.6 Neutrophils (%) (Auto) 86.0 Lymphocytes (%) (Auto) 7.6 Monocytes (%) (Auto) 6.1 Eosinophils (%) (Auto) 0.0 Basophils (%) (Auto) 0.3 Neutrophils # (Auto) 13.9 Lymphocytes # (Auto) 1.2 Monocytes # (Auto) 1.0 Eosinophils # (Auto) 0.0 Basophils # (Auto) 0.1 CBC Comment DIFF FINAL Differential Comment Prothrombin Time 11.2 Prothromb Time International 1.0 Ratio Activated Partial 24.2 Thromboplast Time Sodium Level 138 Potassium Level 3.0 Chloride Level 101 Carbon Dioxide Level 28.0 Anion Gap 9 Blood Urea Nitrogen 12 Creatinine 0.85 Estimat Glomerular Filtration 71 Rate Random Glucose 108 Calcium Level 8.2 Troponin I LESS THAN 0.02 Result Diagram: 12/03/16194612/03/161946 Imaging Last 24 hours Impressions Neck CTA 12/03/[id number] Signed Impressions: Service Date/Time: Saturday, December 03, 2016 19:35 - CONCLUSION: Negative for hemodynamically significant carotid stenosis. Extensive tortuosity suggesting hypertension. Schuyler Alcantar MD FACR Head CTA [id number] Signed Impressions: Service Date/Time: Saturday, December 03, 2016 19:35 - CONCLUSION: Negative for aneurysm or major branch vessel occlusion. Schuyler Alcantar MD FACR Head CT [id number] Signed Impressions: Service Date/Time: Saturday, December 03, 2016 19:25 - CONCLUSION: Possible subtle subarachnoid hemorrhage left orbital frontal region; hyperdense MCA cannot be excluded.. Schuyler Alcantar MD FACR Cervical Spine CT 12/03/16 0000 Signed Impressions: Service Date/Time: Saturday, December 03, 2016 19:25 - CONCLUSION: Mild degenerative changes without fracture. Schuyler Alcantar MD FACR Assessment and Plan Assessment and Plan Altered mental status - Status post questionable for - CT head with possible small subarachnoid humeri - Urine drug screen - LP Headaches - MRI brain to rule out mass - Considering cerebral angiogram to rule out aneurysm bleed - Neurology consult Subarachnoid hemorrhage - Lumbar puncture stat - Analysis for xanthochromia - Cerebral angiogram - if indicated by neurosurgery - Blood pressure control - Nimodipine prophylaxis Hypertension - Cardene drip - Hydralazine when necessary - SBP goal less than 140 DVT GI prophylaxis - Teds SCDs - No chemical DVT prophylaxis due to ICH - Pepcid Critical Care: The total critical care time was 35 minutes. Time to perform other separately billable procedures was not included in the critical care time. Lalo Pond MD December 03, 2016 22:20
[2016-12-03] MEDS ORDERED: SODIUM CHLOR 0.9% 250 ML INJ 250 ML ONE (23:42)
[2016-12-03] MEDS: niMODipine 30 MG CAP PO SCH (23:44)
[2016-12-03] MEDS ORDERED: MAGNESIUM SULFATE INJ 2 GM in SODIUM CHLORIDE 0.9% INJ 96 ML IV PRN (23:45)
[2016-12-03] MEDS ORDERED: MAGNESIUM SULFATE INJ 4 GM in SODIUM CHLORIDE 0.9% INJ 92 ML IV PRN (23:45)
[2016-12-03] MEDS ORDERED: POTASSIUM CHLORIDE 25 MEQ EFFERVESCENT TAB PO PRN (23:45)
[2016-12-03] MEDS ORDERED: MAGNESIUM OXIDE 400 MG TAB PO PRN (23:45)
[2016-12-03] MEDS ORDERED: POTASSIUM PHOSPHATE MONOBASIC 500 MG TAB PO PRN (23:45)
[2016-12-03] MEDS ORDERED: POTASSIUM PHOSPHATE MONOBASIC 500 MG TAB PO/TUBE PRN (23:45)
[2016-12-03] MEDS ORDERED: SODIUM PHOSPHATE INJ 30 MMOL in SODIUM CHLOR 0.9% 250 ML INJ 240 ML IV PRN (23:45)
[2016-12-03] MEDS ORDERED: POTASSIUM CHLOR 20 MEQ PREMIX 100 ML IV PRN (23:45)
[2016-12-04] VITALS (14 sets, daily range): BP systolic 104–156; BP diastolic 51–80; PULSE 42–74; RESP 15–27; TEMP 98.3–98.8; O2SAT 91–99
[2016-12-04 00:48] LABS: AMPHETAMINE, URINE NEG (NEG); BARBITURATES, URINE NEG (NEG); COCAINE, URINE NEG (NEG)
[2016-12-04] MEDS: SODIUM CHLOR 0.9% 1000 ML INJ 1,000 ML IV SCH ×3 (00:50→19:29)
[2016-12-04 01:09] LABS: GROSS BLOOD TUBE #1 4+ (0); GROSS BLOOD TUBE #2 4+ (0); SUPERNATE COLOR TUBE #1 SLIGHTLY XANTHOCHROM (CLEAR); SUPERNATE COLOR TUBE #2 SLIGHTLY XANTHOCHROM (CLEAR)
[2016-12-04 01:10] LABS: GROSS BLOOD TUBE #3 4+ (0); GROSS BLOOD TUBE #4 4+ (0); SUPERNATE COLOR TUBE #3 SLIGHTLY XANTHOCHROM (CLEAR); SUPERNATE COLOR TUBE #4 SLIGHTLY XANTHOCHROM (CLEAR); VOLUME TUBE # 2 2.5 ML; VOLUME TUBE # 3 1.5 ML
[2016-12-04 01:21] LABS: LACTIC ACID,CSF 3.7 MMOL/L (0.0-3.0)
[2016-12-04 01:27] LABS: WBC TUBE #4 46 /MM3 (0-10)
[2016-12-04 02:47] LABS: CSF LYMPHOCYTES 32 %; CSF NEUTROPHILS 68 %
[2016-12-04] MEDS: CHLORHEXIDINE GLUCONATE 2 % 1 PACK (2 CLOTHS) TOP SCH (03:10)
[2016-12-04] MEDS: MORPHINE SULFATE 4 MG/ML INJ IV PRN ×3 (03:10→14:38)
[2016-12-04] MEDS: niMODipine 30 MG CAP PO SCH ×5 (03:10→20:52)
[2016-12-04 04:08] LABS: AUTOMATED NEUTROPHIL # 16.6 TH/MM3 (1.8-7.7); BASOPHIL % 0.2 % (0.0-2.0); HEMATOCRIT 39.5 % (35.0-46.0); HEMO FLAGS DIFF FINAL; LYMPH % 6.2 % (9.0-44.0); LYMPHOCYTE # 1.2 TH/MM3 (1.0-4.8); MEAN CELL VOLUME 86.2 FL (80.0-100.0); MEAN CORPUSCULAR HEMOGLOBIN 29.4 PG (27.0-34.0); MEAN CORPUSCULAR HGB CONC 34.2 % (32.0-36.0); MONO % 4.1 % (0.0-8.0); NEUT % 89.5 % (16.0-70.0); PLATELET COUNT 257 TH/MM3 (150-450); RED BLOOD COUNT 4.58 MIL/MM3 (4.00-5.30); RED CELL DISTRIBUTION WIDTH 13.8 % (11.6-17.2); WHITE BLOOD COUNT 18.6 TH/MM3 (4.0-11.0)
[2016-12-04 04:57] LABS: ALKALINE PHOSPHATASE 79 U/L (45-117); ALT (GPT) 22 U/L (10-53); ANION GAP 10 MEQ/L (5-15); AST (GOT) 17 U/L (15-37); BICARBONATE 26.3 MEQ/L (21.0-32.0); BLOOD UREA NITROGEN 13 MG/DL (7-18); CHLORIDE 107 MEQ/L (98-107); GLOMERULAR FILTRATION RATE 81 ML/MIN (>89); MAGNESIUM 2.6 MG/DL (1.5-2.5); POTASSIUM 3.2 MEQ/L (3.5-5.1); SODIUM (NA) 143 MEQ/L (136-145); TOTAL BILIRUBIN ADULT 0.7 MG/DL (0.2-1.0)
[2016-12-04] MEDS: POTASSIUM CHLOR 20 MEQ PREMIX 100 ML IV PRN ×4 (05:41→11:39)
--- NOTE | 2016-12-04 08:00 | HHI.CCPN ---
Subjective Remarks/Hospital Course 51-year-old female presents with complaint of severe headache after fall. History is obtained per chart since patient is a poor historian. Apparently patient had a fall sometime yesterday. This was unwitnessed. Unclear whether it was mechanical, syncopal. Unclear whether she even hit her head. Since however she's been complaining of a severe headache, primarily left-sided though retro-orbital bilaterally. She has not had any nausea or vomiting. Her headache is 10 out of 10 and is the worse headache of her life. Friend states that she has been confused, alert to self and place only but not time. She believes it is 1966. Patient has had urinary and fecal incontinence which is new for her. Per EMS patient was hypertensive in the 190s systolic and bradycardic in the 50s. She is not anticoagulated. The patient was seen here twice recently over the last month with complaint of headache and had negative CT imaging, was treated symptomatically and discharged home. SUBJ 12/04: Patient continues to have headache and vomiting. Variable level of alertness, orientation. MRI shows septal subarachnoid hemorrhage ACOM towards left. Neurosurgery Dr. Garcia, neurology Dr. Montilla Objective Vital Signs Date Time Temp Pulse Resp B/P Pulse Ox O2 Delivery O2 Flow Rate FiO2 12/04/16 06:00 42 17 133/68 95 12/04/16 04:00 98.8 12/04/16 00:00 Room Air Result Diagram: 12/04/16 0356 12/04/16 0356 Imaging Last 24 hours Impressions Neck CTA 12/03/161927 Signed Impressions: Service Date/Time: Saturday, December 03, 2016 19:35 - CONCLUSION: Negative for hemodynamically significant carotid stenosis. Extensive tortuosity suggesting hypertension. Schuyler Alcantar MD FACR Head CTA 12/03/161927 Signed Impressions: Service Date/Time: Saturday, December 03, 2016 19:35 - CONCLUSION: Negative for aneurysm or major branch vessel occlusion. Schuyler Alcantar MD FACR Head CT 12/03/161917 Signed Impressions: Service Date/Time: Saturday, December 03, 2016 19:25 - CONCLUSION: Possible subtle subarachnoid hemorrhage left orbital frontal region; hyperdense MCA cannot be excluded.. Schuyler Alcantar MD FACR Cervical Spine CT 12/03/16 0000 Signed Impressions: Service Date/Time: Saturday, December 03, 2016 19:25 - CONCLUSION: Mild degenerative changes without fracture. Schuyler Alcantar MD FACR Objective Remarks GENERAL: Well-nourished, well-developed patient. Moderate distress due to headache and nausea vomiting SKIN: Warm and dry. HEAD: Normocephalic. EYES: No scleral icterus. No injection or drainage. MANJU NECK: Supple, trachea midline. No JVD or lymphadenopathy. CARDIOVASCULAR: Bradycardic rate and rhythm without murmurs, gallops, or rubs. RESPIRATORY: Breath sounds equal bilaterally. No accessory muscle use. GASTROINTESTINAL: Abdomen soft, non-tender, nondistended. MUSCULOSKELETAL: No cyanosis, or edema. BACK: Nontender without obvious deformity. No CVA tenderness. EXTREMITIES: No clubbing cyanosis or edema NEURO: Patient is alert awake complaints of severe headache. No focal deficits. Oriented to person place and time but intermittently oriented to person only Urinary Catheter: Yes Assessment to: Continue A/P Assessment and Plan A/P NEURO: Acute subarachnoid hemorrhage Acute encephalopathy Severe headaches - CT head with possible small subarachnoid hemorrhage. MRI confirms SAH to the left side of ACOM - CTA did not show aneurysm, will need cerebral angio. Defer to neurosurgery - Neurosurgery Dr. Garcia, Neurology Dr. Victoria - Keep Na >145, Mag>2. Avoid hypoxia hypercarbia - Nimodipine 60 mg every 4 hours to prevent vasospasm - Urine drug screen positive for opiates only - LP xanthochromia, no evidence of infection CVS Uncontrolled hypertension Hypertensive emergency - Target SBP <140-150. Currently off Cardene - Nimodipine prophylaxis - Cardene drip - Hydralazine when necessary RESP: - Aggressive pulmonary toilet - O2 by NC GI: - Nothing by mouth except meds - IV Protonix. Zofran when necessary : - Monitor renal function closely. Maintain urine output more than 0.5 mL per KG per hour ID: Leukocytosis - Monitor for infection - UA, blood cultures Endo: - Electrolyte replacement per protocol DVT GI prophylaxis - Teds SCDs - No chemical DVT prophylaxis due to ICH - Pepcid Critical Care: The total critical care time was 35 minutes. Time to perform other separately billable procedures was not included in the critical care time. Lonnie Barrera MD December 04, 2016 08:00
[2016-12-04] MEDS: DOCUSATE SODIUM 100 MG CAP PO SCH ×2 (08:03→19:39)
[2016-12-04] MEDS: SODIUM CHLORIDE 0.9% FLUSH 10 ML FLUSH SCH ×2 (08:03→19:41)
[2016-12-04] MEDS: FAMOTIDINE 20 MG/2 ML VIAL IV PUSH SCH ×2 (08:03→19:39)
--- NOTE | 2016-12-04 08:55 | MB ---
cc: JOSEF NEGRON DATE OF CONSULTATION: 12/04/2016 HISTORY OF PRESENT ILLNESS A 51-year-old right-handed woman with hypertension, otherwise has been very healthy with no history of headache. She does not take any aspirin or blood thinners. On about November 22 she had a sudden onset worst headache of her life. She has had a headache ever since, had some vomiting yesterday and came to the hospital. She had a CAT scan of the brain done on November 24 in the ER that was read as negative with normal ventricle size for her age. She has not had a fever, no double vision. No blood was evident at that time. She presented yesterday with a headache after a fall unwitnessed. A CAT scan showed some blood in the posterior falx and the left MCA region, small amount, along with increased ventricular size now compared to the CAT scan done on November 24. CTA of the neck and [place] were no abnormal. She had an LP done which showed xanthochromia, 88,000 red cells, protein 62, glucose 54. Opening pressure not stated. 68% polys, 32% lymphocytes. No organisms seen on the Gram stain. REVIEW OF SYSTEMS Denies any diabetes, hypercholesterolemia, [place], stent, angioplasty, atrial fibrillation, Coumadin, renal, hepatic or pulmonary disease, thyroid disease, lupus, ulcer, cancer, seizure, stroke or significant headache history. SOCIAL HISTORY Non-smoker, non-drinker. Lives with her cousin. FAMILY HISTORY Negative for cancer, seizure or stroke. PHYSICAL EXAMINATION VITAL SIGNS: Highest blood pressure yesterday 214/127, down to 133/68. She has been afebrile. Pulse 52. Respiratory rate 17. NECK: No carotid bruits. HEART: Regular rhythm. I do not detect a murmur. NEUROLOGIC: Disk is sharp on the right. Pupils are equal. Visual leal are full. Extraocular movements intact without nystagmus. Face is symmetric with normal station. Tongue is midline. No drift. Normal strength in upper and lower extremities bilaterally. Toes downgoing bilaterally. DTRs 2+ symmetric. She is awake and alert. Speech fluent. She is not aphasic. IMAGING CT and CTA as noted above. LABORATORY LP results as above. Urine drug screen positive for opiates only. Basic metabolic profile essentially normal. LFTs normal. Troponin negative. IMPRESSION AND RECOMMENDATIONS Some hydrocephalous. Some subarachnoid blood. I would check an MRI of the brain, MR venogram. Have neurosurgery way in. I am not sure why she has developed hydrocephalous since November 24. I will be following her with you in the hospital. MD XI Johns/AMELIA /8:30 AM /8:46 AM
[2016-12-04] MEDS ORDERED: GADODIAMIDE PF 287 MG/ML 20 ML VIAL (for RAD MRI) IV ONE (09:26)
--- NOTE | 2016-12-04 09:52 | RADRPT ---
EXAM DATE/TIME: 12/04/2016 08:46 [facility] COMPARISON: CTA BRAIN W 3D RECON, December 03, 2016, 19:35. CT BRAIN W/O CONTRAST, December 03, 2016, 19:25. INDICATIONS : Cephalgia. Mass. CONTRAST: 20 cc Omniscan (gadodiamide) IV MEDICAL HISTORY : Hypertension. Cholelithiasis. SURGICAL HISTORY : None. ENCOUNTER: Initial ACUITY: 2 day PAIN SCORE: 5/10 LOCATION: Head TECHNIQUE: Multiplanar, multisequence MRI of the brain was performed both prior to and following the administrat ion of paramagnetic contrast. FINDINGS: There are scattered areas of high signal intensity in the periventricular white matter. There is no evidence for restricted diffusion. Ventricular size is appropriate. There are no extraaxial fluid collections appreciated. There is some very subtle hemorrhage adjacent to the A-com slightly to the left of midline. The ante rior cerebral artery through this area looks very normal. There is no abnormal contrast enhancement. The posterior fossa is unremarkable. CONCLUSION: 1. Subtle hemorrhage as described above. Etiology for this is not apparent. 2. Careful followup is suggested. 3. Minimal periventricular white matter changes. Schuyler Alcantar MD FACR on December 04, 2016 at 9:34 Board Certified Radiologist. This report was verified electronically.
[2016-12-04] MEDS: ONDANSETRON HCL 4 MG/2 ML VIAL IV PRN ×2 (10:33→14:38)
[2016-12-04 11:11] LABS: BLOOD, URINE TRACE (NEG); GLUCOSE,URINE NEG (NEG); HYALINE CAST, URINE 1 /lpf (RARE); KETONE, URINE 40 mg/dL (NEG); MUCUS URINE FEW /lpf (OCC); NITRITE,URINE NEG (NEG); URINE COLOR YELLOW (YELLW/STRAW)
[2016-12-04 11:26] LABS: COMMENT (UR) CULT NOT INDICATED; CULTURE IF INDICATED CULT NOT INDICATED
--- NOTE | 2016-12-04 11:47 | RADRPT ---
EXAM DATE/TIME: 12/04/2016 00:00 COMPARISON: No previous studies available for comparison. INDICATIONS : Cephalgia. CONTRAST: 20 cc Omniscan (gadodiamide) IV MEDICAL HISTORY : Hypertension. Cholelithiasis. SURGICAL HISTORY : None. ENCOUNTER: Initial ACUITY: 2 day PAIN SCORE: 5/10 LOCATION: Head FINDINGS: The superior sagittal sinus, cortical veins, internal cerebral veins, straight sinus, transverse sinu ses, sigmoid sinuses and proximal jugular veins are patent. CONCLUSION: No findings to indicate venous sinus thrombosis identified. Nic Alcantar MD on December 04, 2016 at 11:21 Board Certified Radiologist. This report was verified electronically.
[2016-12-04 12:31] LABS: FREE T4 1.28 NG/DL (0.76-1.46)
--- NOTE | 2016-12-04 13:30 | EC ---
Study Study Date:12/04/2016 STUDY CONCLUSIONS SUMMARY - Left ventricle: The cavity size was normal. Wall thickness was normal. Systolic function was normal. The estimated ejection fraction was in the range of 55% to 60%. Wall motion was normal; there were no regional wall motion abnormalities. - Pulmonary arteries: PA peak pressure: 42mm Hg (S). Impressions: No cardiac source of emboli was indentified. If LV function is below 40, please consider prescribing an ACEI or ARB or document rationale for non-use. PROCEDURE DATA STUDY STATUS: Elective. Procedure: Transthoracic echocardiography. Image quality was good. Scanning was performed from the parasternal, apical, and subcostal acoustic windows. Study completion: The patient tolerated the procedure well. Transthoracic echocardiography. M-mode, complete 2D, complete spectral Doppler, and color Doppler. Patient status: Inpatient. CARDIAC ANATOMY LEFT VENTRICLE: The cavity size was normal. Wall thickness was normal. Systolic function was normal. The estimated ejection fraction was in the range of 55% to 60%. Wall motion was normal; there were no regional wall motion abnormalities. AORTIC VALVE: Trileaflet; normal thickness leaflets. Doppler: Transvalvular velocity was within the normal range. There was no stenosis. No regurgitation. AORTA: Aortic root: The aortic root was normal in size. MITRAL VALVE: Structurally normal valve. Doppler: Transvalvular velocity was within the normal range. There was no evidence for stenosis. No regurgitation. LEFT ATRIUM: The atrium was normal in size. RIGHT VENTRICLE: The cavity size was normal. Wall thickness was normal. PULMONIC VALVE: Doppler: Transvalvular velocity was within the normal range. There was no evidence for stenosis. No regurgitation. TRICUSPID VALVE: Structurally normal valve. Doppler: Transvalvular velocity was within the normal range. No regurgitation. PULMONARY ARTERY: The main pulmonary artery was normal-sized. Systolic pressure was within the normal range. RIGHT ATRIUM: The atrium was normal in size. PERICARDIUM: There was no pericardial effusion. SYSTEMIC VEINS: Inferior vena cava: The vessel was normal in size. BASIC MEASUREMENTS ADULT Normal Left ventricle LV internal dimension, ED, chordal level, 46.6 mm 43-52 PLAX LV internal dimension, ES, chordal level, 30.7 mm 23-38 PLAX Fractional shortening, chordal level, PLAX 34 % >29 LV posterior wall thickness, ED 10.6 mm IVS/LVPW ratio, ED *1.33 <1.3 Ventricular septum Septal thickness, ED 14.1 mm Aortic valve Leaflet separation 21 mm 15-26 Right ventricle RV internal dimension, ED, PLAX 27.2 mm 19-38 BASIC MEASUREMENTS ADULT Normal Aortic valve Leaflet separation 21 mm 15-26 Aorta Root diameter, ED 27 mm 20-37 Left atrium Anterior-posterior dimension, ES 40 mm 19-40 LA/aortic root ratio 1.48 DOPPLER MEASUREMENTS ADULT Normal Main pulmonary artery Pressure, S *42 mm Hg =30 Mitral valve Peak E-wave velocity 62.2 cm/s Peak A-wave velocity 62.2 cm/s Peak E/A ratio 1 Tricuspid valve Regurgitant peak velocity 276 cm/s Peak RV-RA gradient, S 30 mm Hg Maximal regurgitant velocity 276 cm/s Systemic veins Estimated CVP 10 mm Hg Right ventricle RV pressure, S *42 mm Hg <30 LEGEND: Mean values are shown as u=mean value. Asterisk (*) pruitt values outside specified normal range. Prepared and signed by Jaime Hdz [id number]
--- NOTE | 2016-12-04 14:47 | MB ---
cc: ENDY GIBSON M.D. DATE OF CONSULTATION 12/04/2016 REASON FOR CONSULTATION Possible subarachnoid hemorrhage. HISTORY OF PRESENT ILLNESS A 51-year-old female who presented to the emergency room last evening with complaints of headaches which apparently she has had for the last several weeks and has had two previous evaluations initially on November 17 and then on November [address] of the head obtained at that time was negative. She has undergone extensive imaging studies as well as neurology evaluation since last evening. CT of the head suggests small areas of hyperdensity in the interhemispheric fissure and the frontal aspect and the sylvian fissure and questionable subarachnoid hemorrhage. CT angiogram of the brain is negative for any obvious aneurysm. She also had a lumbar puncture undertaken by the [employer] architect which was basically grossly bloody with a slight xanthochromia. Subsequently, this morning she has also had an MRI scan of the brain which did not reveal any underlying mass or abnormality. The radiologist mention of the ventricle size is appropriate with no restricted diffusion changes. There is a subtle hemorrhage adjacent to the anterior communicating artery left of the midline. Magnetic resonance venogram of the brain does not reveal any venous thrombosis. CT of the cervical spine reveals a mild degenerate changes. In comparison to the current CT from 12/03/2016 and the previous one on 11/24/2016 the ventricle size does appear to be slightly enlarged. The patient other than complaints of headache and some nausea denies any other symptoms. She was hypertensive during the initial presentation of the systolic blood pressure in the 214 and diastolic 127 with bradycardia. At this point blood pressure has been normalized although still has heart rate in the 40s to 50s. Neurology was undertaken for further workup for vasculitis. An EEG is pending. PAST MEDICAL HISTORY Hypertension, cholelithiasis. MEDICATIONS 1. Lisinopril 20 milligrams daily. ALLERGIES No known drug allergies. SOCIAL HISTORY Denies alcohol or tobacco use. She is a . REVIEW OF SYSTEMS Complains of headache, complaints of nausea, complains of vomiting. Denies any double vision or blurred vision. Denies any chest pain. Complains of abdominal pain. Denies any shortness of breath. Denies any numbness or paresthesias of the face, arms or legs. She does relate that she fell yesterday, although, unclear whether she struck her head or lost consciousness and had some incontinence subsequently. No history of easy bleeding or bruising. No fevers or chills. No recent weight gain or weight loss and. PHYSICAL EXAMINATION HEENT: Normocephalic, atraumatic. Neck is supple with no guarding or rigidity. CHEST: Clear to auscultation bilaterally. HEART: Mild bradycardia. Normal S1-S2. ABDOMEN: Soft, nontender. EXTREMITIES: No cyanosis or edema. NEUROLOGIC: She is awake. Pupils are equal, reactive. Extraocular muscles are intact. Face is symmetric. Tongue is midline. She moves all four extremities with 5/5 strength. Negative Babinski. Speech is fluent. She is oriented to name, location and knows the year but not the exact date. VITAL SIGNS: Temperature 98.6, pulse is 44, respiratory rate 18, blood pressure 128/61, oxygen saturations 95% on 2 liters nasal canula, oxygen saturation 93% on room air. IMPRESSION 1. Probable frontal interhemispheric and proximal MCA area subarachnoid hemorrhage. It is unclear whether this is a post traumatic or spontaneous. At this point we do not find any cerebral aneurysm or vascular abnormality or venous thrombosis on the CT angiogram, MR venogram and MRI of the brain with contrast. The ventricles on the MRI scan seem fairly normal in size, although, when compared to the CT scan from a few weeks ago there does appear to be a slight enlargement. 2. Hypertension which at this point is well regulated. PLAN Continue with regulation of her hypertension and close neurologic monitoring. Keep her head of bed elevated at 30 degrees. Sequential compression device for DVT prophylaxis along with gastrointestinal stress ulcer prophylaxis. We may have to undertake a conventional cerebral angiogram to rule out any small aneurysm that was not visualized on the CT angiogram. If her ventricle increase in size or she becomes more symptomatic then we may entertain either ventriculostomy placement or lumbar spinal drain since this appears to be a communicating CSF space and there is no obvious obstruction of the ventricle space. I have discussed with the [employer] architect, Dr. Barrera. MD ELEONORA Berumen/MOHINDER /12:26 PM /2:30 PM DERRICK
--- NOTE | 2016-12-04 14:50 | EKG ---
Date Performed: 12/03/2016 Time Performed: 19:58:04 PTAGE: 51 years EKG: Ectopic Atrial Bradycardia LEFT VENTRICULAR HYPERTROPHY AND ST-T CHANGE ABNORMAL ECG Since prior tracing, heart rate is slightly slower. Origin of rhythm appears to be from an ectopic focus. T wave appears more permanent, consider hypokalemia. PREVIOUS TRACING : 01/15/2016 17.28 DOCTOR: Romel Ansari Interpretating Date/Time 12/04/2016 14:44:49
[2016-12-04] MEDS: MUPIROCIN 2% OINT 1 APPLIC/GM SYR NASAL SCH (19:39)
--- NOTE | 2016-12-04 19:39 | HHI.PR ---
Subjective Remarks i see some blood in occipital horn right side on flairs i wonder if a third vent mass or intraventricular bleed on 11/22/16? unclear Objective Vital Signs Date Time Temp Pulse Resp B/P Pulse Ox O2 Delivery O2 Flow Rate FiO2 12/04/16 18:00 46 12/04/16 16:00 98.3 47 18 156/80 95 12/04/16 16:00 47 12/04/16 14:00 53 12/04/16 12:00 98.6 54 20 135/64 94 12/04/16 12:00 54 12/04/16 10:52 93 Room Air 12/04/16 10:00 44 12/04/16 08:00 43 12/04/16 08:00 98 Nasal Cannula 2.00 12/04/16 08:00 98.6 43 18 128/61 98 12/04/16 06:00 42 17 133/68 95 12/04/16 06:00 42 12/04/16 05:00 44 18 116/61 97 12/04/16 04:00 48 12/04/16 04:00 98.8 48 23 117/56 91 12/04/16 03:00 52 27 140/73 95 12/04/16 02:00 98.3 48 27 132/69 95 12/04/16 02:00 48 12/04/16 01:00 48 20 104/51 95 12/04/16 00:00 98.3 74 19 121/65 94 12/04/16 00:00 74 12/04/16 00:00 94 Room Air 12/03/16 23:03 140/65 12/03/16 22:46 54 16 142/62 96 Room Air 12/03/16 22:07 52 14 139/68 99 Room Air 12/03/16 21:45 54 14 155/64 96 Room Air 12/03/16 21:12 44 16 175/78 99 Room Air 12/03/16 20:51 44 211/93 12/03/16 20:01 214/127 12/03/16 19:56 98.3 52 20 99 Room Air I/O 12/03/16 12/03/16 12/03/16 12/04/16 12/04/16 12/04/16 07:00 15:00 23:00 07:00 15:00 23:00 Intake Total 889 ml 448 ml Output Total 400 ml 325 ml Balance 489 ml 123 ml Intake IV Total 889 ml 448 ml Output Urine Total 400 ml 325 ml Result Diagram: 12/04/16 0356 12/04/16 0356 Rayray Victoria MD December 04, 2016 19:39
[2016-12-04] MEDS: CYANOCOBALAMIN 1000 MCG/ML VIAL SQ SCH (20:52)
[2016-12-04] MEDS: hydrALAZINE HCL 20 MG/ML VIAL IV PUSH PRN (22:32)
[2016-12-05] VITALS (11 sets, daily range): BP systolic 123–165; BP diastolic 60–92; PULSE 47–70; RESP 10–20; TEMP 98.4–98.8; O2SAT 96–99
[2016-12-05] MEDS: niMODipine 30 MG CAP PO SCH ×6 (00:16→20:07)
[2016-12-05] MEDS: CHLORHEXIDINE GLUCONATE 2 % 1 PACK (2 CLOTHS) TOP SCH (03:18)
--- NOTE | 2016-12-05 07:31 | MG ---
cc: JOSEF NEGRON Lab No: [id number] Date: 12/05/2016 Age: 51 Sex: F Race: __ INDICATIONS This is a 51 year-old. Hyperventilation not performed. Subarachnoid hemorrhage. Some increased size of the ventricle, headache. MEDICATIONS Nimodipine DESCRIPTION A 7 Hz 60-70 microvolt diffuse rhythm is seen. At times, some slowing down into the 5 Hz region is noted bilaterally. Movement artifact is noted. Diffuse 6 Hz slowing is then seen. Some bitemporal slowing is noted in the delta range. At times, this slowing is slightly sharply contoured. Overall the recording is synchronous and symmetric. Photic stimulation was performed without significant posterior driving. Hyperventilation is not performed. IMPRESSION Diffuse slowing consistent with a moderate diffuse encephalopathy. Some slightly sharply contoured features are seen. No sheri seizure is noted. MD XI Johns/SHAR /6:20 AM /7:26 AM
--- NOTE | 2016-12-05 07:46 | HHI.PR ---
Subjective Remarks i see some blood in occipital horn right side on flairs i wonder if a third vent mass or intraventricular bleed on 11/22/16? unclear Objective Vital Signs Date Time Temp Pulse Resp B/P Pulse Ox O2 Delivery O2 Flow Rate FiO2 12/05/16 07:00 98 Room Air 12/05/16 04:00 98.8 54 18 123/60 97 12/05/16 00:00 98.4 59 20 136/60 98 12/04/16 20:00 98.8 44 15 155/75 99 12/04/16 20:00 48 12/04/16 19:53 Room Air 2.00 12/04/16 18:00 46 12/04/16 16:00 98.3 47 18 156/80 95 12/04/16 16:00 47 12/04/16 14:00 53 12/04/16 12:00 98.6 54 20 135/64 94 12/04/16 12:00 54 12/04/16 10:52 93 Room Air 12/04/16 10:00 44 12/04/16 08:00 43 12/04/16 08:00 98 Nasal Cannula 2.00 12/04/16 08:00 98.6 43 18 128/61 98 I/O 12/04/16 12/04/16 12/04/16 12/05/16 12/05/16 12/05/16 07:00 15:00 23:00 07:00 15:00 23:00 Intake Total 889 ml 448 ml 822 ml 662 ml Output Total 400 ml 325 ml 400 ml 500 ml Balance 489 ml 123 ml 422 ml 162 ml Intake Oral 240 ml IV Total 889 ml 448 ml 582 ml 662 ml Output Urine Total 400 ml 325 ml 400 ml 500 ml # Bowel Movements 0 0 Result Diagram: 12/04/16 0356 12/04/162036 Objective Remarks awake alert vff face sym moves all well odell a bit better Assessment and Plan Assessment and Plan imp feels a bit better eeg mild sharp keppra started some blood in r occ horn for john alicea and Rayray Wilde MD December 05, 2016 07:46
[2016-12-05] MEDS: DOCUSATE SODIUM 100 MG CAP PO SCH ×2 (07:51→20:06)
[2016-12-05] MEDS: levETIRAcetam 500 MG TAB PO SCH ×2 (07:51→20:06)
[2016-12-05] MEDS: FAMOTIDINE 20 MG/2 ML VIAL IV PUSH SCH ×2 (07:51→20:07)
[2016-12-05] MEDS: SODIUM CHLORIDE 0.9% FLUSH 10 ML FLUSH SCH ×2 (07:51→20:07)
[2016-12-05] MEDS: MUPIROCIN 2% OINT 1 APPLIC/GM SYR NASAL SCH ×2 (07:52→20:07)
[2016-12-05] MEDS: CYANOCOBALAMIN 1000 MCG/ML VIAL SQ SCH (08:40)
[2016-12-05] MEDS: SODIUM CHLOR 0.9% 1000 ML INJ 1,000 ML IV SCH (09:08)
[2016-12-05 09:44] LABS: RAPID PLASMA REAGIN SCREEN NON-REACTIVE (NON-REACTVE)
--- NOTE | 2016-12-05 10:20 | HHI.NSPN ---
(Floyd Dior) History Chief Complaint: headache. (Folyd Dior) Interval History A 51-year-old female who presented to the emergency room last evening with complaints of headaches which apparently she has had for the last several weeks and has had two previous evaluations initially on November 17 and then on November [address] of the head obtained at that time was negative. She has undergone extensive imaging studies as well as neurology evaluation since last evening. CT of the head suggests small areas of hyperdensity in the interhemispheric fissure and the frontal aspect and the sylvian fissure and questionable subarachnoid hemorrhage. CT angiogram of the brain is negative for any obvious aneurysm. She also had a lumbar puncture undertaken by the equipment scheduler which was basically grossly bloody with a slight xanthochromia. Subsequently, this morning she has also had an MRI scan of the brain which did not reveal any underlying mass or abnormality. The radiologist mention of the ventricle size is appropriate with no restricted diffusion changes. There is a subtle hemorrhage adjacent to the anterior communicating artery left of the midline. Magnetic resonance venogram of the brain does not reveal any venous thrombosis. CT of the cervical spine reveals a mild degenerate changes. In comparison to the current CT from 12/03/2016 and the previous one on 11/24/2016 the ventricle size does appear to be slightly enlarged. The patient other than complaints of headache and some nausea denies any other symptoms. She was hypertensive during the initial presentation of the systolic blood pressure in the 214 and diastolic 127 with bradycardia. At this point blood pressure has been normalized although still has heart rate in the 40s to 50s. Neurology was undertaken for further workup for vasculitis. An EEG is pending. 12/05/16: Pt awake and alert. Complains of frontal headache with mild blurred vision. No nausea or vomiting. No muscle weakness other than generalized. ( Floyd Dior) Review of Systems General: Negative for: fever, chills, insomnia Respiratory: Negative for: shortness of breath, cough, sputum Cardiovascular: Negative for: chest pain Gastrointestinal: Negative for: nausea, vomitting, diarrhea, constipation ( Floyd Dior) Exam Results Vital Signs Date Time Temp Pulse Resp B/P Pulse Ox O2 Delivery O2 Flow Rate FiO2 12/05/16 08:00 48 12/05/16 08:00 98.6 15 155/70 99 12/05/16 07:00 Room Air 12/04/16 19:53 2.00 Intake and Output 12/04/16 12/04/16 12/05/16 08:00 16:00 00:00 Intake Total 889 ml 448 ml 822 ml Output Total 400 ml 325 ml 400 ml Balance 489 ml 123 ml 422 ml (Floyd Dior) Physical Examination Resp: CTA bilaterally Heart: NSR no murmurs Abd: Soft positive bs. Obese Skin: No cyanosis or erythema. Muscle: Moves all 4 extremities symmetrically. Neuro: Pt awake and alert. Pupils equal. Speech clear and appropriate. Follows commands well. (Floyd Dior) Lab, Micro, Other Results Last Impressions Head/Brain Mag Res Venography 12/04/16 0000 Signed Impressions: Service Date/Time: Sunday, December 04, 2016 00:00 - CONCLUSION: No findings to indicate venous sinus thrombosis identified. Nic Alcantar MD Neck CTA 12/03/161927 Signed Impressions: Service Date/Time: Saturday, December 03, 2016 19:35 - CONCLUSION: Negative for hemodynamically significant carotid stenosis. Extensive tortuosity suggesting hypertension. Schuyler Alcantar MD FACR Head CTA 12/03/161927 Signed Impressions: Service Date/Time: Saturday, December 03, 2016 19:35 - CONCLUSION: Negative for aneurysm or major branch vessel occlusion. Schuyler Alcantar MD FACR Head CT 12/03/161917 Signed Impressions: Service Date/Time: Saturday, December 03, 2016 19:25 - CONCLUSION: Possible subtle subarachnoid hemorrhage left orbital frontal region; hyperdense MCA cannot be excluded.. Schuyler Alcantar MD FACR Cervical Spine CT 12/03/16 0000 Signed Impressions: Service Date/Time: Saturday, December 03, 2016 19:25 - CONCLUSION: Mild degenerative changes without fracture. Schuyler Alcantar MD FACR Laboratory Tests Test 12/04/16 12/04/16 12/04/16 10:30 10:47 20:37 Urine Color YELLOW Urine Turbidity CLEAR Urine pH 6.0 Urine Specific Johnson 1.032 Urine Protein TRACE mg/dL Urine Glucose (UA) NEG mg/dL Urine Ketones 40 mg/dL Urine Occult Blood TRACE Urine Nitrite NEG Urine Bilirubin NEG Urine Urobilinogen LESS THAN 2.0 MG/DL Urine Leukocyte Esterase TRACE Urine RBC 1 /hpf Urine WBC 5 /hpf Urine Hyaline Casts 1 /lpf Urine Mucus FEW /lpf Microscopic Urinalysis Comment CULT NOT INDICATED Vitamin B12 Level 291 PG/ML Free Thyroxine 1.28 NG/DL Thyroid Stimulating Hormone 1.020 uIU/ML 3rd Gen Rapid Plasma Reagin NON-REACTIVE Potassium Level 3.7 MEQ/L 12/04/16 12/04/16 12/05/16 15:00 23:00 07:00 Intake Total 448 ml 822 ml 662 ml Output Total 325 ml 400 ml 500 ml Balance 123 ml 422 ml 162 ml Intake Oral 240 ml IV Total 448 ml 582 ml 662 ml Output Urine Total 325 ml 400 ml 500 ml # Bowel Movements 0 0 (Floyd Dior) Medical Decision Making Impression and Plan A: 51 y/o FM with probable frontal interhemispheric and proximal MCA area subarachnoid hemorrhage. It is unclear whether this is a post traumatic or spontaneous. At this point we do not find any cerebral aneurysm or vascular abnormality or venous thrombosis on the CT angiogram, MR venogram and MRI of the brain with contrast. The ventricles on the MRI scan seem fairly normal in size, although, when compared to the CT scan from a few weeks ago there does appear to be a slight enlargement. 2. Hypertension which at this point is well regulated. PLAN Continue blood pressure control. Continue with neuro checks Continue with Sequential compression device for DVT prophylaxis Continue with gastrointestinal stress ulcer prophylaxis. conventional cerebral angiogram has been ordered by critical care to rule out any small aneurysm that was not visualized on the CT angiogram. If her ventricle increase in size or she becomes more symptomatic then we may entertain either ventriculostomy placement or lumbar spinal drain since this appears to be a communicating CSF space and there is no obvious obstruction of the ventricle space. (Floyd Dior) Attending Statement The exam, history, and the medical decision-making described in the above note were completed with the assistance of the mid-level provider. I reviewed and agree with the findings presented. I attest that I had a [id number] encounter with the patient on the same day, and personally performed and documented my assessment and findings in the medical record. More alert today but complains of persistent headache. Scheduled for cerebral angiogram to rule out any vascular abnormality or aneurysm not visualized on the CT angiogram. Continue with supportive care. (Dayton Garcia MD) Floyd Dior December 05, 2016 10:20 Dayton Garcia MD December 05, 2016 12:40
--- NOTE | 2016-12-05 11:28 | HHI.CCPN ---
Subjective Remarks/Hospital Course 51-year-old female presents with complaint of severe headache after fall. History is obtained per chart since patient is a poor historian. Apparently patient had a fall sometime yesterday. This was unwitnessed. Unclear whether it was mechanical, syncopal. Unclear whether she even hit her head. Since however she's been complaining of a severe headache, primarily left-sided though retro-orbital bilaterally. She has not had any nausea or vomiting. Her headache is 10 out of 10 and is the worse headache of her life. Friend states that she has been confused, alert to self and place only but not time. She believes it is 1968. Patient has had urinary and fecal incontinence which is new for her. Per EMS patient was hypertensive in the 190s systolic and bradycardic in the 50s. She is not anticoagulated. The patient was seen here twice recently over the last month with complaint of headache and had negative CT imaging, was treated symptomatically and discharged home. SUBJ 12/04: Patient continues to have headache and vomiting. Variable level of alertness, orientation. MRI shows septal subarachnoid hemorrhage ACOM towards left. Neurosurgery Dr. Garcia, neurology Dr. Montilla 12/05: Clinically improving slowly still has headache. MRI showing some blood in occipital horn right side on flair imaging per Dr. Victoria. According no his notes, he suspecting possibility of third ventricular mass or intraventricular bleed present from 11/22/16. Cerebral angiogram pending today Objective Vital Signs Date Time Temp Pulse Resp B/P Pulse Ox O2 Delivery O2 Flow Rate FiO2 12/05/16 10:00 47 12/05/16 08:00 98.6 15 155/70 99 12/05/16 07:00 Room Air 12/04/16 19:53 2.00 Intake and Output 12/04/16 12/04/16 12/04/16 07:59 15:59 23:59 Intake Total 889 ml 448 ml 822 ml Output Total 400 ml 325 ml 400 ml Balance 489 ml 123 ml 422 ml Result Diagram: 12/04/166 12/04/162036 Imaging Last 24 hours Impressions Neck CTA 12/03/161927 Signed Impressions: Service Date/Time: Saturday, December 03, 2016 19:35 - CONCLUSION: Negative for hemodynamically significant carotid stenosis. Extensive tortuosity suggesting hypertension. Schuyler Alcantar MD FACR Head CTA 12/03/161927 Signed Impressions: Service Date/Time: Saturday, December 03, 2016 19:35 - CONCLUSION: Negative for aneurysm or major branch vessel occlusion. Scuhyler Alcantar MD FACR Head CT 12/03/161917 Signed Impressions: Service Date/Time: Saturday, December 03, 2016 19:25 - CONCLUSION: Possible subtle subarachnoid hemorrhage left orbital frontal region; hyperdense MCA cannot be excluded.. Schuyler Alcantar MD FACR Cervical Spine CT 12/03/16 0000 Signed Impressions: Service Date/Time: Saturday, December 03, 2016 19:25 - CONCLUSION: Mild degenerative changes without fracture. Schuyler Alcantar MD FACR Objective Remarks GENERAL: Well-nourished, well-developed patient. Mild distress due to headache and nausea vomiting SKIN: Warm and dry. HEAD: Normocephalic. EYES: No scleral icterus. No injection or drainage. MANJU NECK: Supple, trachea midline. No JVD or lymphadenopathy. CARDIOVASCULAR: Bradycardic rate and rhythm without murmurs, gallops, or rubs. RESPIRATORY: Breath sounds equal bilaterally. No accessory muscle use. GASTROINTESTINAL: Abdomen soft, non-tender, nondistended. MUSCULOSKELETAL: No cyanosis, or edema. BACK: Nontender without obvious deformity. No CVA tenderness. EXTREMITIES: No clubbing cyanosis or edema NEURO: Patient is alert awake. No focal deficits. Oriented to person place and time A/P Assessment and Plan A/P NEURO: Acute subarachnoid hemorrhage Acute encephalopathy Severe headaches - CT head with possible small subarachnoid hemorrhage. MRI confirms SAH to the left side of ACOM - CTA did not show aneurysm, Cerebral angiogram today. - Keppra for seizure prophylaxis per Dr. Victoria - Neurosurgery Dr. Garcia, Neurology Dr. Victoria - Keep Na >145, Mag>2. Avoid hypoxia hypercarbia - Nimodipine 60 mg every 4 hours to prevent vasospasm - Urine drug screen positive for opiates only - LP xanthochromia, no evidence of infection, CSF culture negative CVS Uncontrolled hypertension Hypertensive emergency - Target SBP <140-150. Currently off Cardene - Nimodipine prophylaxis - Hydralazine when necessary RESP: - Aggressive pulmonary toilet - O2 by NC GI: - Heart healthy diet after cerebral angiogram - IV Protonix. Zofran when necessary : - Monitor renal function closely. Maintain urine output more than 0.5 mL per KG per hour ID: Leukocytosis - Monitor for infection - UA, blood cultures Endo: - Electrolyte replacement per protocol DVT GI prophylaxis - Teds SCDs - No chemical DVT prophylaxis due to ICH - Pepcid Critical Care: Level 3. Time to perform other separately billable procedures was not included in the critical care time. Lonnie Barrera MD December 05, 2016 11:28
[2016-12-05 11:35] LABS: HSV 1,PCR Negative (Negative)
[2016-12-05 13:12] LABS: ALBUMIN SERUM 4140 mg/dL (3200 - 4800); IGG CSF 7.3 mg/dL (<=8.1); IGG INDEX CSF 0.73 (<=0.85); IGG SERUM 1090 mg/dL (767 - 1590); IGG/ALBUMIN CSF 0.19 (<=0.21); IGG/ALBUMIN SERUM 0.26 (<=0.40); SYNTHESIS RATE CSF 12.42 mg/24 h (<=12)
[2016-12-05 13:15] LABS: AUTOMATED NEUTROPHIL # 11.3 TH/MM3 (1.8-7.7); BASOPHIL # 0.1 TH/MM3 (0-0.2); BASOPHIL % 0.4 % (0.0-2.0); EOSINOPHIL % 0.2 % (0.0-4.0); HEMATOCRIT 39.1 % (35.0-46.0); HEMO FLAGS DIFF FINAL; LYMPH % 11.5 % (9.0-44.0); LYMPHOCYTE # 1.6 TH/MM3 (1.0-4.8); MEAN CELL VOLUME 86.1 FL (80.0-100.0); MEAN CORPUSCULAR HEMOGLOBIN 29.4 PG (27.0-34.0); MEAN CORPUSCULAR HGB CONC 34.1 % (32.0-36.0); MONO % 6.4 % (0.0-8.0); NEUT % 81.5 % (16.0-70.0); PLATELET COUNT 275 TH/MM3 (150-450); RED BLOOD COUNT 4.54 MIL/MM3 (4.00-5.30); RED CELL DISTRIBUTION WIDTH 13.9 % (11.6-17.2); WHITE BLOOD COUNT 13.9 TH/MM3 (4.0-11.0)
[2016-12-05] MEDS: hydrALAZINE HCL 20 MG/ML VIAL IV PUSH PRN (15:27)
[2016-12-06] VITALS (11 sets, daily range): BP systolic 146–163; BP diastolic 67–89; PULSE 48–68; RESP 16–25; TEMP 98.2–99; O2SAT 95–100
[2016-12-06] MEDS: niMODipine 30 MG CAP PO SCH ×7 (00:17→23:58)
[2016-12-06] MEDS: SODIUM CHLOR 0.9% 1000 ML INJ 1,000 ML IV SCH ×4 (00:19→23:59)
[2016-12-06] MEDS: CHLORHEXIDINE GLUCONATE 2 % 1 PACK (2 CLOTHS) TOP SCH (03:27)
[2016-12-06] MEDS: CYANOCOBALAMIN 1000 MCG/ML VIAL SQ SCH (07:25)
[2016-12-06] MEDS: SODIUM CHLORIDE 0.9% FLUSH 10 ML FLUSH SCH ×2 (07:25→21:23)
[2016-12-06] MEDS: FAMOTIDINE 20 MG/2 ML VIAL IV PUSH SCH ×2 (07:25→21:23)
[2016-12-06] MEDS: hydrALAZINE HCL 20 MG/ML VIAL IV PUSH PRN ×2 (07:25→15:04)
[2016-12-06] MEDS: levETIRAcetam 500 MG TAB PO SCH ×2 (07:26→21:23)
[2016-12-06] MEDS: DOCUSATE SODIUM 100 MG CAP PO SCH ×2 (07:26→21:23)
[2016-12-06] MEDS: MUPIROCIN 2% OINT 1 APPLIC/GM SYR NASAL SCH ×2 (07:26→21:24)
--- NOTE | 2016-12-06 10:03 | HHI.NSPN ---
(Floyd Dior) History Chief Complaint: headache. (Floyd Dior) Interval History A 51-year-old female who presented to the emergency room last evening with complaints of headaches which apparently she has had for the last several weeks and has had two previous evaluations initially on November 17 and then on November [address] of the head obtained at that time was negative. She has undergone extensive imaging studies as well as neurology evaluation since last evening. CT of the head suggests small areas of hyperdensity in the interhemispheric fissure and the frontal aspect and the sylvian fissure and questionable subarachnoid hemorrhage. CT angiogram of the brain is negative for any obvious aneurysm. She also had a lumbar puncture undertaken by the automatic lathe operator which was basically grossly bloody with a slight xanthochromia. Subsequently, this morning she has also had an MRI scan of the brain which did not reveal any underlying mass or abnormality. The radiologist mention of the ventricle size is appropriate with no restricted diffusion changes. There is a subtle hemorrhage adjacent to the anterior communicating artery left of the midline. Magnetic resonance venogram of the brain does not reveal any venous thrombosis. CT of the cervical spine reveals a mild degenerate changes. In comparison to the current CT from 12/03/2016 and the previous one on 11/24/2016 the ventricle size does appear to be slightly enlarged. The patient other than complaints of headache and some nausea denies any other symptoms. She was hypertensive during the initial presentation of the systolic blood pressure in the 214 and diastolic 127 with bradycardia. At this point blood pressure has been normalized although still has heart rate in the 40s to 50s. Neurology was undertaken for further workup for vasculitis. An EEG is pending. 12/05/16: Pt awake and alert. Complains of frontal headache with mild blurred vision. No nausea or vomiting. No muscle weakness other than generalized. 12/06/16: Pt awakens to voice. Complains of frontal headache. No nausea or vomiting. No weakness or paresthesias. (Floyd Dior) Review of Systems General: Negative for: fever, chills, insomnia Respiratory: Negative for: shortness of breath, cough, sputum Cardiovascular: Negative for: chest pain Gastrointestinal: Negative for: nausea, vomitting, diarrhea, constipation ( Floyd Diro) Exam Results Vital Signs Date Time Temp Pulse Resp B/P Pulse Ox O2 Delivery O2 Flow Rate FiO2 12/06/16 08:00 63 12/06/16 08:00 98.9 16 155/68 95 12/06/16 07:00 Room Air 12/04/16 19:53 2.00 Intake and Output 12/05/16 12/05/16 12/06/16 08:00 16:00 00:00 Intake Total 662 ml 939 ml 1076 ml Output Total 500 ml 500 ml 500 ml Balance 162 ml 439 ml 576 ml (Floyd Dior) Physical Examination Resp: CTA bilaterally Heart: NSR no murmurs Abd: Soft positive bs. Obese Skin: No cyanosis or erythema. Muscle: Moves all 4 extremities symmetrically. Neuro: Pt awake and alert. Pupils equal. Speech clear and appropriate. Follows commands well. (Floyd Dior) Lab, Micro, Other Results Last Impressions Head/Brain Mag Res Venography 12/04/16 0000 Signed Impressions: Service Date/Time: Sunday, December 04, 2016 00:00 - CONCLUSION: No findings to indicate venous sinus thrombosis identified. Nic Alcantar MD Neck CTA 12/03/161927 Signed Impressions: Service Date/Time: Saturday, December 03, 2016 19:35 - CONCLUSION: Negative for hemodynamically significant carotid stenosis. Extensive tortuosity suggesting hypertension. Schuyler Alcantar MD FACR Head CTA 12/03/161927 Signed Impressions: Service Date/Time: Saturday, December 03, 2016 19:35 - CONCLUSION: Negative for aneurysm or major branch vessel occlusion. Schuyler Alcantar MD FACR Head CT 12/03/161917 Signed Impressions: Service Date/Time: Saturday, December 03, 2016 19:25 - CONCLUSION: Possible subtle subarachnoid hemorrhage left orbital frontal region; hyperdense MCA cannot be excluded.. Schuyler Alcantar MD FACR Cervical Spine CT 12/03/16 0000 Signed Impressions: Service Date/Time: Saturday, December 03, 2016 19:25 - CONCLUSION: Mild degenerative changes without fracture. Schuyler Alcantar MD FACR Laboratory Tests Test 12/05/16 12:20 White Blood Count 13.9 TH/MM3 Red Blood Count 4.54 MIL/MM3 Hemoglobin 13.3 GM/DL Hematocrit 39.1 % Mean Corpuscular Volume 86.1 FL Mean Corpuscular Hemoglobin 29.4 PG Mean Corpuscular Hemoglobin 34.1 % Concent Red Cell Distribution Width 13.9 % Platelet Count 275 TH/MM3 Mean Platelet Volume 8.7 FL Neutrophils (%) (Auto) 81.5 % Lymphocytes (%) (Auto) 11.5 % Monocytes (%) (Auto) 6.4 % Eosinophils (%) (Auto) 0.2 % Basophils (%) (Auto) 0.4 % Neutrophils # (Auto) 11.3 TH/MM3 Lymphocytes # (Auto) 1.6 TH/MM3 Monocytes # (Auto) 0.9 TH/MM3 Eosinophils # (Auto) 0.0 TH/MM3 Basophils # (Auto) 0.1 TH/MM3 CBC Comment DIFF FINAL Differential Comment Magnesium Level 2.4 MG/DL 12/05/16 12/05/16 12/06/16 15:00 23:00 07:00 Intake Total 939 ml 1076 ml 638 ml Output Total 500 ml 500 ml 450 ml Balance 439 ml 576 ml 188 ml Intake Oral 200 ml 360 ml 60 ml IV Total 739 ml 716 ml 578 ml Output Urine Total 500 ml 500 ml 450 ml # Bowel Movements 0 0 0 (Floyd Dior) Medical Decision Making Impression and Plan A: 51 y/o FM with probable frontal interhemispheric and proximal MCA area subarachnoid hemorrhage. It is unclear whether this is a post traumatic or spontaneous. At this point we do not find any cerebral aneurysm or vascular abnormality or venous thrombosis on the CT angiogram, MR venogram and MRI of the brain with contrast. The ventricles on the MRI scan seem fairly normal in size, although, when compared to the CT scan from a few weeks ago there does appear to be a slight enlargement. 2. Hypertension which at this point is well regulated. PLAN Continue blood pressure control. Continue with neuro checks Continue with Sequential compression device for DVT prophylaxis Continue with gastrointestinal stress ulcer prophylaxis. conventional cerebral angiogram has been ordered by critical care for today to rule out any small aneurysm that was not visualized on the CT angiogram. If her ventricle increase in size or she becomes more symptomatic then we may entertain either ventriculostomy placement or lumbar spinal drain since this appears to be a communicating CSF space and there is no obvious obstruction of the ventricle space. (Floyd Dior) Attending Statement The exam, history, and the medical decision-making described in the above note were completed with the assistance of the mid-level provider. I reviewed and agree with the findings presented. I attest that I had a [id number] encounter with the patient on the same day, and personally performed and documented my assessment and findings in the medical record. Stable neurologically with persistent headache. Scheduled for cerebral angiogram today. (Dayton Garcia MD) Floyd Dior December 06, 2016 10:03 Dayton Garcia MD December 06, 2016 12:47
--- NOTE | 2016-12-06 10:25 | HHI.CCPN ---
Subjective Remarks/Hospital Course 51-year-old female presents with complaint of severe headache after fall. History is obtained per chart since patient is a poor historian. Apparently patient had a fall sometime yesterday. This was unwitnessed. Unclear whether it was mechanical, syncopal. Unclear whether she even hit her head. Since however she's been complaining of a severe headache, primarily left-sided though retro-orbital bilaterally. She has not had any nausea or vomiting. Her headache is 10 out of 10 and is the worse headache of her life. Friend states that she has been confused, alert to self and place only but not time. She believes it is 1968. Patient has had urinary and fecal incontinence which is new for her. Per EMS patient was hypertensive in the 190s systolic and bradycardic in the 50s. She is not anticoagulated. The patient was seen here twice recently over the last month with complaint of headache and had negative CT imaging, was treated symptomatically and discharged home. SUBJ 12/04: Patient continues to have headache and vomiting. Variable level of alertness, orientation. MRI shows septal subarachnoid hemorrhage ACOM towards left. Neurosurgery Dr. Garcia, neurology Dr. Montilla 12/05: Clinically improving slowly still has headache. MRI showing some blood in occipital horn right side on flair imaging per Dr. Victoria. According no his notes, he suspecting possibility of third ventricular mass or intraventricular bleed present from 11/22/16. Cerebral angiogram pending today 12/06: headache persists. plan for 4-vessel angio today to r/o aneurysm. neuro exam stable from prior documented exams. Objective Vital Signs Date Time Temp Pulse Resp B/P Pulse Ox O2 Delivery O2 Flow Rate FiO2 12/06/16 10:00 55 12/06/16 08:00 98.9 16 155/68 95 12/06/16 07:00 Room Air 12/04/16 19:53 2.00 Intake and Output 12/05/16 12/05/16 12/06/16 08:00 16:00 00:00 Intake Total 662 ml 939 ml 1076 ml Output Total 500 ml 500 ml 500 ml Balance 162 ml 439 ml 576 ml Result Diagram: 12/05/16 1220 12/04/162036 Imaging Last 24 hours Impressions Neck CTA 12/03/161927 Signed Impressions: Service Date/Time: Saturday, December 03, 2016 19:35 - CONCLUSION: Negative for hemodynamically significant carotid stenosis. Extensive tortuosity suggesting hypertension. Schuyler Alcantar MD FACR Head CTA 12/03/161927 Signed Impressions: Service Date/Time: Saturday, December 03, 2016 19:35 - CONCLUSION: Negative for aneurysm or major branch vessel occlusion. Schuyler Alcantar MD FACR Head CT 12/03/161917 Signed Impressions: Service Date/Time: Saturday, December 03, 2016 19:25 - CONCLUSION: Possible subtle subarachnoid hemorrhage left orbital frontal region; hyperdense MCA cannot be excluded.. Schuyler Alcantar MD FACR Cervical Spine CT 12/03/16 0000 Signed Impressions: Service Date/Time: Saturday, December 03, 2016 19:25 - CONCLUSION: Mild degenerative changes without fracture. Schuyler Alcantar MD FACR Objective Remarks GENERAL: Well-nourished, well-developed patient. Mild distress due to headache and nausea vomiting SKIN: Warm and dry. HEAD: Normocephalic. EYES: No scleral icterus. No injection or drainage. MANJU NECK: Supple, trachea midline. No JVD or lymphadenopathy. CARDIOVASCULAR: normal rate, regular rhythm. sinus by tele. RESPIRATORY: Breath sounds equal bilaterally. No accessory muscle use. GASTROINTESTINAL: Abdomen soft, non-tender, nondistended. MUSCULOSKELETAL: No cyanosis, or edema. EXTREMITIES: No clubbing cyanosis or edema NEURO: Patient is alert awake. No focal deficits. Oriented to person place and time A/P Assessment and Plan A/P NEURO: Acute subarachnoid hemorrhage Acute encephalopathy Severe headaches - CT head with possible small subarachnoid hemorrhage. MRI confirms SAH to the left side of ACOM - CTA did not show aneurysm, Cerebral angiogram today. - Keppra for seizure prophylaxis per Dr. Victoria - Neurosurgery Dr. Garcia, Neurology Dr. Victoria - Keep Na >145, Mag>2. Avoid hypoxia hypercarbia - Nimodipine 60 mg every 4 hours to prevent vasospasm - Urine drug screen positive for opiates only - LP xanthochromia, no evidence of infection, CSF culture negative - will add 1 time dose of dexamethasone 2mg iv to see if it will help her headache. CVS Uncontrolled hypertension Hypertensive emergency- resolving. - Target SBP <140-150. Currently off Cardene - Nimodipine prophylaxis - Hydralazine when necessary - start hydralazine 50mg po q8hr. RESP: - Aggressive pulmonary toilet - O2 by NC GI: - Heart healthy diet after cerebral angiogram - IV Protonix. Zofran when necessary : - Monitor renal function closely. Maintain urine output more than 0.5 mL per KG per hour - d/c verde after angio. ID: Leukocytosis - Monitor for infection - UA, blood cultures Endo: - Electrolyte replacement per protocol DVT GI prophylaxis - Teds SCDs - No chemical DVT prophylaxis due to ICH - Pepcid Dispo: will discuss with neurosurgery, if angio is negative and this is more likely to be traumatic, then could transfer to the floor, but will discuss with neuro/nsgy after angio. Bryce Hobbs MD December 06, 2016 10:25
[2016-12-06] MEDS ORDERED: DEXAMETHASONE 0.5 MG TAB PO ONE (10:30)
[2016-12-06] MEDS: hydrALAZINE HCL 50 MG TAB PO SCH ×3 (11:00→15:25)
[2016-12-06] MEDS ORDERED: MIDAZOLAM HCL 5 MG/5 ML VIAL ONE ×2 (11:22→13:34)
[2016-12-06] MEDS ORDERED: fentaNYL CITRATE 250 MCG/5 ML AMP ONE ×2 (11:22→13:34)
[2016-12-06] MEDS ORDERED: HEPARIN SODIUM - IV 10,000 UNITS/10 ML VIAL ONE (13:03)
[2016-12-06] MEDS ORDERED: VERAPAMIL HCL 5 MG/2 ML VIAL ONE (13:03)
[2016-12-06 14:22] LABS: ANA SCREEN NEG (NEG)
--- NOTE | 2016-12-06 14:28 | PD.RAD ---
Post Procedure Progress Note Pre Procedure Diagnosis: (1) Subarachnoid hemorrhage (2) Severe headache Post Procedure Diagnosis: (1) Subarachnoid hemorrhage (2) Severe headache Procedure Date: December 06, 2016 Supervising Radiologist: Nic Alcantar Estimated blood loss: 20cc Anesthesia: Local, Conscious Sedation Plan of Activity Patient to Unit: Critical Care Patient Condition: Poor Additional Comments: cerebral angio completed 5mm right PCOM aneurism identified and coiled Good exclusion of the aneurism on the post coiling angio. excellent flow to the intracranial circulation See PACS Report for procedural detail/treatment Nic Alcantar MD December 06, 2016 14:28
[2016-12-06] MEDS ORDERED: ceFAZolin 2 GM PREMIX 50 ML ONE (14:39)
[2016-12-06] MEDS ORDERED: IODIXANOL 320 MG/ML 50 ML VIAL (for RAD SPEC) I-ARTERIAL ONE (14:49)
[2016-12-06] MEDS ORDERED: SODIUM CHLOR 0.9% 1000 ML INJ 1,000 ML IV SCH (15:00)
--- NOTE | 2016-12-06 15:31 | RADRPT ---
EXAM DATE/TIME: 12/06/2016 12:38 [facility] COMPARISON: CTA BRAIN W 3D RECON, December 03, 2016, 19:35. F/U THRU EXISTING CATHETER, December 06, 2016, 0:00. INDICATIONS : Patient with a history of subarachnoid hemmorhage, aneurysm. MEDICAL HISTORY : HTN Gallstones SURGICAL HISTORY : None ENCOUNTER: Initial ACUITY: 4-6 days PAIN SCORE: 10/10 LOCATION: Headache FLUORO TIME: 51.2 minutes IMAGE SERIES: 22 ACCESS SITE: Right Femoral artery SEDATION TIME: 120 minutes CONTRAST: 140 cc Visipaque (iodixanol) MEDICATION(S): 1.) 5.5 mg midazolam (Versed) IV 2.) 275 mcg fentanyl (Sublimaze) IV 3.) 10,000 units Heparin IV DEVICE(S): 1.) Posterior communicating artery [id number] embolic coil(s) 2.) Right common femoral artery 6FR Angio-Seal 3.) Right common femoral artery Syvek patch PROCEDURE : 1. Ultrasound-guided puncture of the access site. 2. Angiography of the access site prior to closure device. 3. Conscious sedation with continuous EKG and Oximetry monitoring. 4. Percutaneous closure of the access site. 5. Angiography of the right sided intracranial circulation 6. Angiography of the left internal carotid circulation 7. angiography of the posterior fossa via the left vertebral. 8. 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 The risks, benefits and alternatives to the procedure were explained to the patient's brother and the patient herself. Verbal and written consent was obtained. The site was prepped in sterile fashion. Full sterile technique was used, including cap, mask, sterile gloves and gown and a large sterile sh eet. Hand hygiene and 2% chlorhexidine and/or betadine/alcohol prep was utilized per protocol for cu taneous antisepsis. The skin and subcutaneous tissues were infiltrated with local anesthetic solutio n. With ultrasound and fluoroscopic guidance the selected artery was punctured and a vascular sheath was placed. Angiography of the common femoral artery was performed for evaluation prior to percutaneous closure device placement. A SHERYL 2 catheter was advanced from the right groin and into the origin of the right common carotid art esteban. Selective angiography of the intracranial circulation was performed. The catheter was withdrawn through the origin of the left common carotid was selected. Evaluation of the left cranial circulatio n was performed. The catheter was removed. It was advanced into the origin of the left vertebral kylee ry. Evaluation of the posterior fossa was performed. Results: The exam demonstrates a 4-5 mm aneurysm arising at the origin of the right P-comm. The P-comm itself on the right is not identified. The remainder of the intracranial circulation on the right is unremar kable. Injection on the left side was somewhat limited due to motion artifact. AP and lateral injecti ons were performed. No intracranial aneurysm was seen arising from the left circulation. The basilar and posterior cerebral circulation or unremarkable in appearance. A 7 [place] [employer] sheath was placed in the right groin. The right external carotid circulation was easily selected with a SHERYL 2 catheter and 0.035 angle Glidewire. This was exchanged for a Magic torque wire. A neuron guide sheath and glide catheter were combined and advanced over the Magic torque wire . This was pulled down advanced into the internal carotid circulation. This combination was advanced into the distal cervical carotid. A Prowler microcatheter and wire were advanced through the neuron guide catheter and positioned withi n the aneurysm. Initial attempt was made to place a 5 mm x 10 cm embolization coil into the lesion. T he lesion could be well filled however the distal portion of the coil prolapsed into the carotid circ ulation. This was removed. A 4 mm x 4 cm coil were advanced through the microcatheter. The aneurysm w as coiled. Followup angiography demonstrated complete exclusion of aneurysm from the circulation. The re was brisk flow within the intracranial circulation. On the lateral portion of the examination there is a small portion of the aneurysm which is filled wi th coil mass with some central lucency within the coil mass. Patient will need a followup exam in 3-6 months to assess for coil compaction. Hemostasis was obtained with the prescribed medicated closure device. Conscious sedation was perform ed with the prescribed dosages and duration as above in the presence of an independent trained radiol ogy nurse to assist in the monitoring of the patient. EKG and oximetry remained stable throughout th e procedure. CONCLUSION: 1. 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 Nic Alcantar MD on December 06, 2016 at 15:09 Board Certified Radiologist. This report was verified electronically.
[2016-12-06 17:32] LABS: LYME IGG IMMUNOBLOT CSF None Detected bands (None Detected); LYME IGM IMMUNOBLOT CSF None Detected bands (None Detected)
--- NOTE | 2016-12-06 17:42 | RADRPT ---
EXAM DATE/TIME: 12/06/2016 07:39 [facility] COMPARISON: No previous studies available for comparison. INDICATIONS : Subarachnoid hemorrhage. MEDICAL HISTORY : Hypertension. Headache. Gallstones. SURGICAL HISTORY : . ENCOUNTER: Initial ACUITY: 1 day PAIN SCORE: Nonresponsive. LOCATION: Bilateral cranial Current Exam: December 06, 2016 [place] Ratio: Right: 7.2 Left: 5.9 R[place]ussen Ratio: Right: 2.6 Left: 3.6 FINDINGS: Examination performed at bedside. Real-time ultrasound with the assistance of color and spectral Dop pler was utilized to evaluate the intracerebral circulation. Time-averaged maximal velocities are ca lculated in cm/s. There are findings of severe vasospasm on the right and moderate to severe vasospasm on the left. CT angiography is recommended for further evaluation if clinically indicated. CONCLUSION: 1. Findings characteristic of severe vasospasm as above. CT angiography is recommended for further ev aluation if clinically indicated. Rayray Iglesias MD on December 06, 2016 at 17:38 Board Certified Radiologist. This report was verified electronically.
[2016-12-06 17:54] LABS: B. BURGDORFERI DNA PCR CSF NOT DETECTED (())
[2016-12-06] MEDS ORDERED: HYDROmorphone HCL PF 1 MG/ML VIAL IV PUSH ONE (21:15)
--- NOTE | 2016-12-06 21:41 | RADRPT ---
EXAM DATE/TIME: 12/06/2016 21:06 [facility] COMPARISON: CHEST SINGLE AP, January 15, 2016, 14:16. INDICATIONS : Post central line placement. MEDICAL HISTORY : Hypertension. SURGICAL HISTORY : None. ENCOUNTER: Initial ACUITY: 1 day PAIN SCORE: Non-responsive. LOCATION: Bilateral chest FINDINGS: The cardiac silhouette is enlarged in transverse diameter. The lungs are free of acute parenchymal op acity. No effusions are identified. A left sided internal jugular vein catheter is in place without p neumothorax with its tip in the superior vena cava. CONCLUSION: 1. Uncomplicated line placement. No evidence of pneumothorax. Rayray Iglesias MD on December 06, 2016 at 21:38 Board Certified Radiologist. This report was verified electronically.
[2016-12-06] MEDS ORDERED: SODIUM CHLOR 0.9% 250 ML INJ 250 ML ONE (22:11)
[2016-12-06 22:20] LABS: AUTOMATED NEUTROPHIL # 14.2 TH/MM3 (1.8-7.7); BASOPHIL # 0.1 TH/MM3 (0-0.2); BASOPHIL % 0.4 % (0.0-2.0); HEMATOCRIT 35.5 % (35.0-46.0); HEMO FLAGS DIFF FINAL; LYMPH % 6.5 % (9.0-44.0); LYMPHOCYTE # 1.1 TH/MM3 (1.0-4.8); MEAN CELL VOLUME 85.8 FL (80.0-100.0); MEAN CORPUSCULAR HEMOGLOBIN 29.9 PG (27.0-34.0); MEAN CORPUSCULAR HGB CONC 34.8 % (32.0-36.0); MONO % 7.9 % (0.0-8.0); NEUT % 85.2 % (16.0-70.0); PLATELET COUNT 301 TH/MM3 (150-450); RED BLOOD COUNT 4.14 MIL/MM3 (4.00-5.30); RED CELL DISTRIBUTION WIDTH 13.8 % (11.6-17.2); WHITE BLOOD COUNT 16.6 TH/MM3 (4.0-11.0)
--- NOTE | 2016-12-06 23:22 | PD.PROCEDR ---
Procedure Note Procedure Left IJ Lalo Pond MD December 06, 2016 23:22
--- NOTE | 2016-12-06 23:22 | PD.PROCEDR ---
Procedure Note Procedure A.line - Radial Lalo Pond MD December 06, 2016 23:22
[2016-12-07] VITALS (14 sets, daily range): BP systolic 104–188; BP diastolic 73–87; PULSE 54–66; RESP 19–22; TEMP 98.1–98.6; O2SAT 94–98
[2016-12-07 00:05] LABS: ALKALINE PHOSPHATASE 80 U/L (45-117); ALT (GPT) 18 U/L (10-53); ANION GAP 13 MEQ/L (5-15); AST (GOT) 12 U/L (15-37); BICARBONATE 24.4 MEQ/L (21.0-32.0); BLOOD UREA NITROGEN 9 MG/DL (7-18); CHLORIDE 103 MEQ/L (98-107); GLOMERULAR FILTRATION RATE 144 ML/MIN (>89); MAGNESIUM 2.2 MG/DL (1.5-2.5); POTASSIUM 3.3 MEQ/L (3.5-5.1); SODIUM (NA) 140 MEQ/L (136-145); TOTAL BILIRUBIN ADULT 0.7 MG/DL (0.2-1.0)
[2016-12-07] MEDS: SODIUM CHLOR 0.9% 1000 ML INJ 1,000 ML IV SCH ×7 (01:54→23:12)
[2016-12-07] MEDS: niMODipine 30 MG CAP PO SCH ×6 (03:44→23:08)
[2016-12-07] MEDS: POTASSIUM CHLOR 40 MEQ PREMIX 100 ML IV PRN (03:44)
[2016-12-07] MEDS: CHLORHEXIDINE GLUCONATE 2 % 1 PACK (2 CLOTHS) TOP SCH (03:45)
[2016-12-07] MEDS: HYDROmorphone HCL PF 1 MG/ML VIAL IV PUSH PRN ×2 (05:15→20:35)
[2016-12-07] MEDS: SODIUM CHLORIDE 0.9% FLUSH 10 ML FLUSH PRN (05:15)
[2016-12-07] MEDS: ALBUMIN HUMAN 5% 25 GM/500 ML BOTTLE IV SCH ×4 (05:15→22:58)
[2016-12-07 05:48] LABS: BLOOD GAS BASE EXCESS -2.9 mmol/L (-2-2); BLOOD GAS CARBOXYHEMOGLOBIN 1.4 % (0-4); BLOOD GAS HCO3 21 mmol/L (22-26); BLOOD GAS METHEMOGLOBIN 0.8 % (0-2); BLOOD GAS O2 HGB SATURATION 95 % (90-100); BLOOD GAS OXYGEN CONTENT 16.1 Vol % (12.0-20.0); BLOOD GAS PCO2 33 mmHg (38-42); BLOOD GAS PO2 87 mmHg (61-120); CRITICAL VALUE NO; DRAW SITE LT RADIAL; FIO2 21 %; NUMBER OF ARTERIAL PUNCTURES 1; OXYGEN DEVICE ROOM AIR; STAT NO; TEMP CORR TO 98.6; ULNAR PULSE PRESENT
--- NOTE | 2016-12-07 07:07 | HHI.CCPN ---
Subjective Remarks/Hospital Course 51-year-old female presents with complaint of severe headache after fall. History is obtained per chart since patient is a poor historian. Apparently patient had a fall sometime yesterday. This was unwitnessed. Unclear whether it was mechanical, syncopal. Unclear whether she even hit her head. Since however she's been complaining of a severe headache, primarily left-sided though retro-orbital bilaterally. She has not had any nausea or vomiting. Her headache is 10 out of 10 and is the worse headache of her life. Friend states that she has been confused, alert to self and place only but not time. She believes it is 1965. Patient has had urinary and fecal incontinence which is new for her. Per EMS patient was hypertensive in the 190s systolic and bradycardic in the 50s. She is not anticoagulated. The patient was seen here twice recently over the last month with complaint of headache and had negative CT imaging, was treated symptomatically and discharged home. SUBJ 12/04: Patient continues to have headache and vomiting. Variable level of alertness, orientation. MRI shows septal subarachnoid hemorrhage ACOM towards left. Neurosurgery Dr. Garcia, neurology Dr. Montilla 12/05: Clinically improving slowly still has headache. MRI showing some blood in occipital horn right side on flair imaging per Dr. Victoria. According no his notes, he suspecting possibility of third ventricular mass or intraventricular bleed present from 11/22/16. Cerebral angiogram pending today 12/06: headache persists. plan for 4-vessel angio today to r/o aneurysm. neuro exam stable from prior documented exams. 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 now PBD 4. TCDs yesterday showed evidence of severe vasospasm, but 4-vessel angio done immediately prior demonstrated excellent flow without vasospasm. net euvolemic. Objective Vital Signs Date Time Temp Pulse Resp B/P Pulse Ox O2 Delivery O2 Flow Rate FiO2 12/07/16 06:00 54 12/07/16 04:00 98.1 19 94 104/79 12/06/16 20:08 Nasal Cannula 2.00 Intake and Output 12/06/16 12/06/16 12/07/16 08:00 16:00 00:00 Intake Total 638 ml 1332 ml Output Total 450 ml 450 ml 900 ml Balance 188 ml -450 ml 432 ml Result Diagram: 12/06/16220412/06/162204 Other Results Laboratory Tests Test 12/07/16 05:35 Blood Gas Puncture Site LT RADIAL Blood Gas Patient Temperature 98.6 Blood Gas HCO3 21 mmol/L (22-26) Blood Gas Base Excess -2.9 mmol/L (-2-2) Blood Gas Oxygen Saturation 95 % (90-100) Arterial Blood pH 7.41 (7.380-7.420) Arterial Blood Partial 33 mmHg (38-42) Pressure CO2 Arterial Blood Partial 87 mmHg Pressure O2 (61-120) Arterial Blood Oxygen Content 16.1 Vol % (12.0-20.0) Arterial Blood 1.4 % (0-4) Carboxyhemoglobin Arterial Blood Methemoglobin 0.8 % (0-2) Blood Gas Hemoglobin 12.0 G/DL (12.0-16.0) Oxygen Delivery Device ROOM AIR Blood Gas Inspired Oxygen 21 % Imaging Last 24 hours Impressions Neck CTA 12/03/[id number] Signed Impressions: Service Date/Time: Saturday, December 03, 2016 19:35 - CONCLUSION: Negative for hemodynamically significant carotid stenosis. Extensive tortuosity suggesting hypertension. Schuyler Alcantar MD FACR Head CTA [id number]/03/161927 Signed Impressions: Service Date/Time: Saturday, December 03, 2016 19:35 - CONCLUSION: Negative for aneurysm or major branch vessel occlusion. Schuyler Alcantar MD FACR Head CT 12/03/[id number] Signed Impressions: Service Date/Time: Saturday, December 03, 2016 19:25 - CONCLUSION: Possible subtle subarachnoid hemorrhage left orbital frontal region; hyperdense MCA cannot be excluded.. Schuyler Alcantar MD FACR Cervical Spine CT 12/03/16 0000 Signed Impressions: Service Date/Time: Saturday, December 03, 2016 19:25 - CONCLUSION: Mild degenerative changes without fracture. Schuyler Alcantar MD FACR Objective Remarks GENERAL: Well-nourished, well-developed patient. no distress this morning. SKIN: Warm and dry. HEAD: Normocephalic. EYES: No scleral icterus. No injection or drainage. MANJU NECK: trachea midline. No JVD. CARDIOVASCULAR: normal rate, regular rhythm. sinus by tele. RESPIRATORY: Breath sounds equal bilaterally. No accessory muscle use. GASTROINTESTINAL: Abdomen soft, non-tender, nondistended. MUSCULOSKELETAL: No cyanosis, or edema. EXTREMITIES: No clubbing cyanosis or edema NEURO: Patient is alert awake. No focal deficits. She does have a mild pronator drift on the right. Oriented to person place and time A/P Assessment and Plan Assessment: 51yF with aneurysmal SAH now PBD 4 and POD 1 s/p endovascular coiling of 5mm right PCOM aneurysm. Clinically stable, though getting into the vasospasm window. continue frequent neuro checks and goal euvolemia. continue nimodipine. A/P NEURO: Aneurysmal SAH, PBD 4 s/p endovascular coiling 5mm right PCOM aneurysm, 12/06 Acute encephalopathy- resolved. Severe headaches - Keppra for seizure prophylaxis per Dr. Victoria - Neurosurgery Dr. Garcia, Neurology Dr. Victoria - Keep Na >145, Mag>2. Avoid hypoxia hypercarbia - Nimodipine 60 mg every 4 hours to prevent vasospasm - Urine drug screen positive for opiates only - LP xanthochromia, no evidence of infection, CSF culture negative - frequent neuro checks - goal SBP 120 - 180. CVS Uncontrolled hypertension Hypertensive emergency- resolving. - Target SBP 120 - 180. Currently off Cardene - Nimodipine prophylaxis - Hydralazine when necessary - start hydralazine 50mg po q8hr. RESP: - Aggressive pulmonary toilet - O2 by NC - OOB and ambulating. PT consult. GI: Intravascular volume depletion - Heart healthy diet after cerebral angiogram - IV Protonix. Zofran when necessary - continue NS @ 160 cc/hr. : - Monitor renal function closely. - keep verde given getting into vasospasm window. q1h uop. ID: Leukocytosis - Monitor for infection - UA, blood cultures NGTD. Endo: - Electrolyte replacement per protocol DVT GI prophylaxis - Teds SCDs - No chemical DVT prophylaxis due to ICH - Pepcid Dispo: remain in ICU given aneurysmal SAH entering vasospasm window. Bryce Hobbs MD December 07, 2016 07:07
[2016-12-07 07:15] LABS: BASOPHIL % 0.2 % (0.0-2.0); EOSINOPHIL % 0.1 % (0.0-4.0); HEMATOCRIT 33.8 % (35.0-46.0); HEMO FLAGS DIFF FINAL; LYMPH % 7.3 % (9.0-44.0); LYMPHOCYTE # 1.1 TH/MM3 (1.0-4.8); MEAN CELL VOLUME 86.4 FL (80.0-100.0); MEAN CORPUSCULAR HEMOGLOBIN 29.7 PG (27.0-34.0); MEAN CORPUSCULAR HGB CONC 34.4 % (32.0-36.0); MONO % 8.3 % (0.0-8.0); NEUT % 84.1 % (16.0-70.0); PLATELET COUNT 243 TH/MM3 (150-450); RED BLOOD COUNT 3.91 MIL/MM3 (4.00-5.30); RED CELL DISTRIBUTION WIDTH 13.7 % (11.6-17.2); WHITE BLOOD COUNT 15.4 TH/MM3 (4.0-11.0)
[2016-12-07 07:33] LABS: ALKALINE PHOSPHATASE 70 U/L (45-117); ALT (GPT) 16 U/L (10-53); ANION GAP 9 MEQ/L (5-15); AST (GOT) 12 U/L (15-37); BICARBONATE 24.3 MEQ/L (21.0-32.0); BLOOD UREA NITROGEN 7 MG/DL (7-18); CHLORIDE 107 MEQ/L (98-107); GLOMERULAR FILTRATION RATE 144 ML/MIN (>89); MAGNESIUM 2.2 MG/DL (1.5-2.5); POTASSIUM 3.8 MEQ/L (3.5-5.1); SODIUM (NA) 140 MEQ/L (136-145); TOTAL BILIRUBIN ADULT 0.9 MG/DL (0.2-1.0)
[2016-12-07] MEDS: levETIRAcetam 500 MG TAB PO SCH ×2 (08:11→20:14)
[2016-12-07] MEDS: FAMOTIDINE 20 MG/2 ML VIAL IV PUSH SCH ×2 (08:12→20:14)
[2016-12-07] MEDS: CYANOCOBALAMIN 1000 MCG/ML VIAL SQ SCH (08:12)
[2016-12-07] MEDS: SODIUM CHLORIDE 0.9% FLUSH 10 ML FLUSH SCH ×2 (08:12→20:14)
[2016-12-07] MEDS: MUPIROCIN 2% OINT 1 APPLIC/GM SYR NASAL SCH ×2 (08:12→20:14)
[2016-12-07] MEDS: DOCUSATE SODIUM 100 MG CAP PO SCH ×2 (08:12→20:14)
[2016-12-07 08:18] LABS: BACTERIA, URINE OCC /hpf; BLOOD, URINE NEG (NEG); GLUCOSE,URINE NEG (NEG); KETONE, URINE 10 mg/dL (NEG); NITRITE,URINE NEG (NEG); PH, URINE 6.5 (5.0-8.5); URINE COLOR LIGHT-YELLOW (YELLW/STRAW)
[2016-12-07] MEDS: ONDANSETRON HCL 4 MG/2 ML VIAL IV PRN (09:00)
--- NOTE | 2016-12-07 09:19 | HHI.PR ---
Subjective Remarks agram showed pcomm aneurism right and coiled Objective Vital Signs Date Time Temp Pulse Resp B/P Pulse Ox O2 Delivery O2 Flow Rate FiO2 12/07/16 08:00 56 12/07/16 08:00 98.3 56 19 167/73 98 Arterial Line 12/07/16 07:00 100 Room Air 12/07/16 06:00 54 12/07/16 04:33 54 12/07/16 04:00 54 12/07/16 04:00 98.1 55 19 94 104/79 12/07/16 02:00 54 12/07/16 00:00 55 12/07/16 00:00 98.6 55 19 94 162/78 12/06/16 22:00 52 12/06/16 20:08 100 Nasal Cannula 2.00 12/06/16 20:00 68 12/06/16 20:00 98.9 68 25 148/89 100 12/06/16 19:00 100 Room Air 12/06/16 18:00 54 12/06/16 16:00 99.0 63 16 163/71 100 12/06/16 16:00 64 12/06/16 10:00 55 I/O 12/06/16 12/06/16 12/06/16 12/07/16 12/07/16 12/07/16 07:00 15:00 23:00 07:00 15:00 23:00 Intake Total 638 ml 1332 ml 2346 ml 1492 ml Output Total 450 ml 450 ml 900 ml 1800 ml 2400 ml Balance 188 ml -450 ml 432 ml 546 ml -908 ml Intake Oral 60 ml 60 ml 60 ml IV Total 578 ml 1272 ml 2286 ml 492 ml Albumin 1000 ml Output Urine Total 450 ml 450 ml 900 ml 1800 ml 2400 ml # Bowel Movements 0 0 0 Result Diagram: 12/07/16 0658 12/07/16 0752 Objective Remarks awake alert vff face sym moves all well odell a bit better still still 8/10 odell Assessment and Plan Assessment and Plan imp try some decadron for odell protonix eeg mild sharp keppra started some blood in r occ horn aneurism on agram 5mm agram echo neg Rayray Victoria MD December 07, 2016 09:19
[2016-12-07] MEDS ORDERED: DEXAMETHASONE SOD PHOS 20 MG/5 ML VIAL IV PUSH ONE (09:30)
[2016-12-07] MEDS: PANTOPRAZOLE SODIUM 40 MG VIAL IV PUSH SCH (09:30)
--- NOTE | 2016-12-07 10:11 | HHI.NSPN ---
(Floyd Dior) History Chief Complaint: headache. (Floyd Dior) Interval History A 51-year-old female who presented to the emergency room last evening with complaints of headaches which apparently she has had for the last several weeks and has had two previous evaluations initially on November 17 and then on November [address] of the head obtained at that time was negative. She has undergone extensive imaging studies as well as neurology evaluation since last evening. CT of the head suggests small areas of hyperdensity in the interhemispheric fissure and the frontal aspect and the sylvian fissure and questionable subarachnoid hemorrhage. CT angiogram of the brain is negative for any obvious aneurysm. She also had a lumbar puncture undertaken by the account relationship manager which was basically grossly bloody with a slight xanthochromia. Subsequently, this morning she has also had an MRI scan of the brain which did not reveal any underlying mass or abnormality. The radiologist mention of the ventricle size is appropriate with no restricted diffusion changes. There is a subtle hemorrhage adjacent to the anterior communicating artery left of the midline. Magnetic resonance venogram of the brain does not reveal any venous thrombosis. CT of the cervical spine reveals a mild degenerate changes. In comparison to the current CT from 12/03/2016 and the previous one on 11/24/2016 the ventricle size does appear to be slightly enlarged. The patient other than complaints of headache and some nausea denies any other symptoms. She was hypertensive during the initial presentation of the systolic blood pressure in the 214 and diastolic 127 with bradycardia. At this point blood pressure has been normalized although still has heart rate in the 40s to 50s. Neurology was undertaken for further workup for vasculitis. An EEG is pending. 12/05/16: Pt awake and alert. Complains of frontal headache with mild blurred vision. No nausea or vomiting. No muscle weakness other than generalized. 12/06/16: Pt awakens to voice. Complains of frontal headache. No nausea or vomiting. No weakness or paresthesias. 12/07/16: Pt complains of headache. Had nausea this morning. No paresthesias or weakness in extremities. Follows commands. Speech clear. (Floyd Dior ) Review of Systems General: Negative for: fever, chills, insomnia Respiratory: Negative for: shortness of breath, cough, sputum Cardiovascular: Negative for: chest pain Gastrointestinal: Positive for: nausea, vomitting, Negative for: diarrhea, constipation (Floyd Dior) Exam Results Vital Signs Date Time Temp Pulse Resp B/P Pulse Ox O2 Delivery O2 Flow Rate FiO2 12/07/16 08:00 56 12/07/16 08:00 98.3 19 167/73 98 Arterial Line 12/07/16 07:00 Room Air 12/06/16 20:08 2.00 Intake and Output 12/06/16 12/06/16 12/07/16 08:00 16:00 00:00 Intake Total 638 ml 1332 ml Output Total 450 ml 450 ml 900 ml Balance 188 ml -450 ml 432 ml (Floyd Dior) Physical Examination Resp: CTA bilaterally Heart: NSR no murmurs Abd: Soft positive bs. Obese Skin: No cyanosis or erythema. Muscle: Moves all 4 extremities symmetrically. Neuro: Pt awake and alert. Pupils equal 3 mm bilaterally. Speech clear and appropriate. Follows commands well. (Floyd Dior) Lab, Micro, Other Results Last Impressions Transcranial Doppler Study Complete 12/06/16 0600 Signed Impressions: Service Date/Time: Tuesday, December 06, 2016 07:39 - CONCLUSION: 1. Findings characteristic of severe vasospasm as above. CT angiography is recommended for further evaluation if clinically indicated. Rayray Iglesias MD Cerebral Arteriogram 12/06/16 0600 Signed Impressions: Service Date/Time: Tuesday, December 06, 2016 12:38 - CONCLUSION: 1. 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 Nic Alcantar MD Chest X-Ray 12/06/16 0000 Signed Impressions: Service Date/Time: Tuesday, December 06, 2016 21:06 - CONCLUSION: 1. Uncomplicated line placement. No evidence of pneumothorax. Rayray Iglesias MD Brain MRI 12/04/16 0412 Signed Impressions: Service Date/Time: Sunday, December 04, 2016 08:46 - CONCLUSION: 1. Subtle hemorrhage as described above. Etiology for this is not apparent. 2. Careful followup is suggested. 3. Minimal periventricular white matter changes. Schuyler Alcantar MD FACR Head/Brain Mag Res Venography 12/04/16 0000 Signed Impressions: Service Date/Time: Sunday, December 04, 2016 00:00 - CONCLUSION: No findings to indicate venous sinus thrombosis identified. Nic Alcantar MD Neck CTA [id number] Signed Impressions: Service Date/Time: Saturday, December 03, 2016 19:35 - CONCLUSION: Negative for hemodynamically significant carotid stenosis. Extensive tortuosity suggesting hypertension. Schuyler Alcantar MD FACR Head CTA [id number] Signed Impressions: Service Date/Time: Saturday, December 03, 2016 19:35 - CONCLUSION: Negative for aneurysm or major branch vessel occlusion. Schuyler Alcantar MD FACR Head CT [id number] Signed Impressions: Service Date/Time: Saturday, December 03, 2016 19:25 - CONCLUSION: Possible subtle subarachnoid hemorrhage left orbital frontal region; hyperdense MCA cannot be excluded.. Schuyler Alcantar MD FACR Cervical Spine CT 12/03/16 0000 Signed Impressions: Service Date/Time: Saturday, December 03, 2016 19:25 - CONCLUSION: Mild degenerative changes without fracture. Schuyler Alcantar MD FACR Laboratory Tests Test 12/06/16 12/07/16 12/07/16 12/07/16 22:05 05:35 06:58 07:52 White Blood Count 16.6 TH/MM3 15.4 TH/MM3 Red Blood Count 4.14 MIL/MM3 3.91 MIL/MM3 Hemoglobin 12.4 GM/DL 11.6 GM/DL Hematocrit 35.5 % 33.8 % Mean Corpuscular Volume 85.8 FL 86.4 FL Mean Corpuscular Hemoglobin 29.9 PG 29.7 PG Mean Corpuscular Hemoglobin 34.8 % 34.4 % Concent Red Cell Distribution Width 13.8 % 13.7 % Platelet Count 301 TH/MM3 243 TH/MM3 Mean Platelet Volume 8.1 FL 8.2 FL Neutrophils (%) (Auto) 85.2 % 84.1 % Lymphocytes (%) (Auto) 6.5 % 7.3 % Monocytes (%) (Auto) 7.9 % 8.3 % Eosinophils (%) (Auto) 0.0 % 0.1 % Basophils (%) (Auto) 0.4 % 0.2 % Neutrophils # (Auto) 14.2 TH/MM3 13.0 TH/MM3 Lymphocytes # (Auto) 1.1 TH/MM3 1.1 TH/MM3 Monocytes # (Auto) 1.3 TH/MM3 1.3 TH/MM3 Eosinophils # (Auto) 0.0 TH/MM3 0.0 TH/MM3 Basophils # (Auto) 0.1 TH/MM3 0.0 TH/MM3 CBC Comment DIFF FINAL DIFF FINAL Differential Comment Sodium Level 140 MEQ/L 140 MEQ/L 141 MEQ/L Potassium Level 3.3 MEQ/L 3.8 MEQ/L Chloride Level 103 MEQ/L 107 MEQ/L Carbon Dioxide Level 24.4 MEQ/L 24.3 MEQ/L Anion Gap 13 MEQ/L 9 MEQ/L Blood Urea Nitrogen 9 MG/DL 7 MG/DL Creatinine 0.46 MG/DL 0.46 MG/DL Estimat Glomerular Filtration 144 ML/MIN 144 ML/MIN Rate Random Glucose 104 MG/DL 108 MG/DL Calcium Level 8.3 MG/DL 8.1 MG/DL Phosphorus Level 3.5 MG/DL 2.2 MG/DL Magnesium Level 2.2 MG/DL 2.2 MG/DL Total Bilirubin 0.7 MG/DL 0.9 MG/DL Aspartate Amino Transf 12 U/L 12 U/L (AST/SGOT) Alanine Aminotransferase 18 U/L 16 U/L (ALT/SGPT) Alkaline Phosphatase 80 U/L 70 U/L Total Protein 6.4 GM/DL 6.4 GM/DL Albumin 3.2 GM/DL 3.5 GM/DL Blood Gas Puncture Site LT RADIAL Blood Gas Patient Temperature 98.6 Blood Gas HCO3 21 mmol/L Blood Gas Base Excess -2.9 mmol/L Blood Gas Oxygen Saturation 95 % Arterial Blood pH 7.41 Arterial Blood Partial 33 mmHg Pressure CO2 Arterial Blood Partial 87 mmHg Pressure O2 Arterial Blood Oxygen Content 16.1 Vol % Arterial Blood 1.4 % Carboxyhemoglobin Arterial Blood Methemoglobin 0.8 % Blood Gas Hemoglobin 12.0 G/DL Oxygen Delivery Device ROOM AIR Blood Gas Inspired Oxygen 21 % Urine Color LIGHT-YELLOW Urine Turbidity CLEAR Urine pH 6.5 Urine Specific [place] 1.006 Urine Protein NEG mg/dL Urine Glucose (UA) NEG mg/dL Urine Ketones 10 mg/dL Urine Occult Blood NEG Urine Nitrite NEG Urine Bilirubin NEG Urine Urobilinogen LESS THAN 2.0 MG/DL Urine Leukocyte Esterase NEG Urine RBC 3 /hpf Urine WBC 1 /hpf Urine Bacteria OCC /hpf Urine Osmolality 281 MOSM/KG Urine Random Sodium 122 MEQ/L Serum Osmolality 289 MOSM/KG 12/06/16 12/06/16 12/07/16 15:00 23:00 07:00 Intake Total 1332 ml 2346 ml Output Total 450 ml 900 ml 1800 ml Balance -450 ml 432 ml 546 ml Intake Oral 60 ml 60 ml IV Total 1272 ml 2286 ml Output Urine Total 450 ml 900 ml 1800 ml # Bowel Movements 0 0 (Floyd Dior) Medical Decision Making Impression and Plan A: 51 y/o FM with probable frontal interhemispheric and proximal MCA area subarachnoid hemorrhage. Pt had a 5mm right pcom aneurysm found on angiogram and underwent coiling by radiology special procedures. 2. Hypertension which at this point is well regulated. PLAN Continue blood pressure control. Continue with neuro checks Continue with Sequential compression device for DVT prophylaxis Continue with gastrointestinal stress ulcer prophylaxis. (Floyd Dior) Attending Statement The exam, history, and the medical decision-making described in the above note were completed with the assistance of the mid-level provider. I reviewed and agree with the findings presented. I attest that I had a [id number] encounter with the patient on the same day, and personally performed and documented my assessment and findings in the medical record. No significant vasospasm on cerebral arteriogram although did have a right posterior communicating artery aneurysm that was coiled yesterday. Headaches are slightly better today. Continue with close neurologic observation and monitoring for vasospasm. (Dayton Garcia MD) Floyd Dior December 07, 2016 10:11 Dayton Garcia MD December 07, 2016 18:41
--- NOTE | 2016-12-07 15:51 | RADRPT ---
EXAM DATE/TIME: 12/07/2016 11:08 [facility] COMPARISON: US TRANSCRANIAL DOPPLER COMPLETE, December 06, 2016, 7:39. INDICATIONS : Subarachnoid hemorrhage. MEDICAL HISTORY : Hypertension. Headache. Gallstones. SURGICAL HISTORY : Abdominal aortic aneurysm repair. . ENCOUNTER: Subsequent ACUITY: 2 days PAIN SCORE: 0/10 LOCATION: Bilateral cranial Current Exam: December 07, 2016 [place] Ratio: Right: 5.63 Left: 4.39 [place] Ratio: Right: 4.72 Left: 2.67 Previous Exam: December 06, 2016 [place] Ratio: Right: 7.2 Left: 5.9 [place]ussen Ratio: Right: 2.6 Left: 3.6 FINDINGS: Examination performed at bedside. Real-time ultrasound with the assistance of color and spectral Dop pler was utilized to evaluate the intracerebral circulation. Time-averaged maximal velocities are ca lculated in cm/s. There are findings of moderate vasospasm on the right with also findings of vasospasm involving the r ight anterior cerebral artery. The left side appears normal. When compared to the prior exam the rati o is decreased. CONCLUSION: Moderate right-sided spasm including the anterior cerebral artery. The ratios have improved when comp ared to the prior study Rayray Iglesias MD on December 07, 2016 at 15:47 Board Certified Radiologist. This report was verified electronically. 8
[2016-12-07] MEDS ORDERED: SODIUM CHLOR 0.9% 1000 ML INJ 1,000 ML IV ONE (16:15)
[2016-12-07 19:53] LABS: VDRL CSF NON-REACTIVE (())
[2016-12-08] VITALS (13 sets, daily range): BP systolic 154–196; BP diastolic 78–92; PULSE 52–66; RESP 13–24; TEMP 97.6–98.9; O2SAT 96–100
[2016-12-08] MEDS: SODIUM CHLOR 0.9% 1000 ML INJ 1,000 ML IV SCH ×6 (03:41→21:01)
[2016-12-08] MEDS: CHLORHEXIDINE GLUCONATE 2 % 1 PACK (2 CLOTHS) TOP SCH (03:52)
[2016-12-08] MEDS: niMODipine 30 MG CAP PO SCH ×6 (04:00→23:09)
[2016-12-08] MEDS: HYDROmorphone HCL PF 1 MG/ML VIAL IV PUSH PRN ×3 (04:12→23:09)
[2016-12-08 04:27] LABS: HEMATOCRIT 30.6 % (35.0-46.0); MEAN CELL VOLUME 86.2 FL (80.0-100.0); MEAN CORPUSCULAR HEMOGLOBIN 29.6 PG (27.0-34.0); MEAN CORPUSCULAR HGB CONC 34.3 % (32.0-36.0); PLATELET COUNT 180 TH/MM3 (150-450); RED BLOOD COUNT 3.55 MIL/MM3 (4.00-5.30); RED CELL DISTRIBUTION WIDTH 13.7 % (11.6-17.2); WHITE BLOOD COUNT 18.4 TH/MM3 (4.0-11.0)
[2016-12-08 04:33] LABS: REVIEW FLAG FINAL
[2016-12-08 04:41] LABS: BICARBONATE 25.5 MEQ/L (21.0-32.0)
[2016-12-08] MEDS ORDERED: SODIUM CHLOR 0.9% 1000 ML INJ 1,000 ML IV ONE (06:15)
--- NOTE | 2016-12-08 07:17 | HHI.CCPN ---
Subjective Remarks/Hospital Course 51-year-old female presents with complaint of severe headache after fall. History is obtained per chart since patient is a poor historian. Apparently patient had a fall sometime yesterday. This was unwitnessed. Unclear whether it was mechanical, syncopal. Unclear whether she even hit her head. Since however she's been complaining of a severe headache, primarily left-sided though retro-orbital bilaterally. She has not had any nausea or vomiting. Her headache is 10 out of 10 and is the worse headache of her life. Friend states that she has been confused, alert to self and place only but not time. She believes it is 1965. Patient has had urinary and fecal incontinence which is new for her. Per EMS patient was hypertensive in the 190s systolic and bradycardic in the 50s. She is not anticoagulated. The patient was seen here twice recently over the last month with complaint of headache and had negative CT imaging, was treated symptomatically and discharged home. SUBJ 12/04: Patient continues to have headache and vomiting. Variable level of alertness, orientation. MRI shows septal subarachnoid hemorrhage ACOM towards left. Neurosurgery Dr. Garcia, neurology Dr. Montilla 12/05: Clinically improving slowly still has headache. MRI showing some blood in occipital horn right side on flair imaging per Dr. Victoria. According no his notes, he suspecting possibility of third ventricular mass or intraventricular bleed present from 11/22/16. Cerebral angiogram pending today 12/06: headache persists. plan for 4-vessel angio today to r/o aneurysm. neuro exam stable from prior documented exams. 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 now PBD 4. TCDs yesterday showed evidence of severe vasospasm, but 4-vessel angio done immediately prior demonstrated excellent flow without vasospasm. net euvolemic. 12/08: moderate vasospasm by TCD. very high uop. Na stable. neuro exam stable. still complains of headache. sbp 160s-180s without supplementation. Objective Vital Signs Date Time Temp Pulse Resp B/P Pulse Ox O2 Delivery O2 Flow Rate FiO2 12/08/16 06:00 57 12/08/16 04:00 98.2 13 177/78 99 12/07/16 19:00 Room Air 12/06/16 20:08 2.00 Intake and Output 12/07/16 12/07/16 12/08/16 08:00 16:00 00:00 Intake Total 3667 ml 4128 ml 3195 ml Output Total 3650 ml 3800 ml 3600 ml Balance 17 ml 328 ml -405 ml Result Diagram: 12/08/16 0400 12/08/16 0400 Objective Remarks GENERAL: middle-aged female, lying in bed, mild distress due to headache this morning. SKIN: Warm and dry. HEAD: Normocephalic. EYES: No scleral icterus. No injection or drainage. MANJU NECK: trachea midline. No JVD. CARDIOVASCULAR: normal rate, regular rhythm. sinus by tele. RESPIRATORY: Breath sounds equal bilaterally. No accessory muscle use. GASTROINTESTINAL: Abdomen soft, non-tender, nondistended. MUSCULOSKELETAL: No cyanosis, or edema. EXTREMITIES: No clubbing cyanosis or edema NEURO: Patient is alert awake. No focal deficits. the pronator drift that was present yesterday on the right has almost completely resolved. Oriented to person place and time A/P Assessment and Plan Assessment: 51yF with aneurysmal SAH now PBD 5 and POD 2 s/p endovascular coiling of 5mm right PCOM aneurysm. Moderate vasospasm by TCD. continue frequent neuro checks and goal euvolemia. it continues to be difficult to maintain euvolemia due to high uop. continue nimodipine. will liberalize sbp goals 160 - 200. given TCD evidence of vasospasm, very high risk of morbidity and mortality with SAH with vasospasm, patient is critically ill at this time. A/P NEURO: Aneurysmal SAH, PBD 5 s/p endovascular coiling 5mm right PCOM aneurysm, 12/06 Acute encephalopathy- resolved. Severe headaches - Keppra for seizure prophylaxis per Dr. Victoria - Neurosurgery Dr. Garcia, Neurology Dr. Victoria - Keep Na >145, Mag>2. Avoid hypoxia hypercarbia - Nimodipine 60 mg every 4 hours to prevent vasospasm - Urine drug screen positive for opiates only - LP xanthochromia, no evidence of infection, CSF culture negative - frequent neuro checks - goal SBP 160 - 200. CVS Uncontrolled hypertension Hypertensive emergency- resolving. - Target SBP 160 - 200. - Nimodipine prophylaxis - Hydralazine when necessary RESP: - Aggressive pulmonary toilet - O2 by NC - OOB and ambulating. PT consult. GI: Intravascular volume depletion - Heart healthy diet after cerebral angiogram - IV Protonix. Zofran when necessary - continue NS @ 250 cc/hr. - 1 L NS bolus x 1 now. - aggressively replace uop losses. - continue serial sodiums q8h. : - Monitor renal function closely. - keep verde given getting into vasospasm window. q1h uop. ID: Leukocytosis - Monitor for infection - UA, blood cultures NGTD. Endo: - Electrolyte replacement per protocol DVT GI prophylaxis - Teds SCDs - No chemical DVT prophylaxis due to ICH - Pepcid Dispo: remain in ICU given aneurysmal SAH with moderate vasospasm. Critical care time: 49 minutes, exclusive of procedures. Bryce Hobbs MD December 08, 2016 07:17
[2016-12-08] MEDS: FAMOTIDINE 20 MG/2 ML VIAL IV PUSH SCH ×2 (08:29→21:01)
[2016-12-08] MEDS: PANTOPRAZOLE SODIUM 40 MG VIAL IV PUSH SCH (08:29)
[2016-12-08] MEDS: levETIRAcetam 500 MG TAB PO SCH ×2 (08:29→21:01)
[2016-12-08] MEDS: SODIUM CHLORIDE 0.9% FLUSH 10 ML FLUSH SCH ×2 (08:29→21:01)
[2016-12-08] MEDS: MUPIROCIN 2% OINT 1 APPLIC/GM SYR NASAL SCH ×2 (08:29→21:01)
[2016-12-08] MEDS: DOCUSATE SODIUM 100 MG CAP PO SCH ×2 (08:29→21:01)
--- NOTE | 2016-12-08 08:38 | HHI.PR ---
Subjective Remarks agram showed pcomm aneurism right and coiled Objective Vital Signs Date Time Temp Pulse Resp B/P Pulse Ox O2 Delivery O2 Flow Rate FiO2 12/08/16 06:00 57 12/08/16 04:00 98.2 53 13 177/78 99 12/08/16 04:00 53 12/08/16 02:00 55 12/08/16 00:00 52 12/08/16 00:00 97.6 52 16 154/78 96 12/07/16 22:00 64 12/07/16 20:00 64 12/07/16 20:00 98.4 64 22 188/87 95 12/07/16 19:35 97 12/07/16 19:00 100 Room Air 12/07/16 18:00 55 12/07/16 16:00 98.3 55 21 176/84 96 12/07/16 16:00 55 12/07/16 14:00 66 12/07/16 12:00 98.3 54 19 187/84 98 12/07/16 12:00 54 12/07/16 10:00 55 I/O 12/07/16 12/07/16 12/07/16 12/08/16 12/08/16 12/08/16 07:00 15:00 23:00 07:00 15:00 23:00 Intake Total 2346 ml 4302 ml 4117 ml 1819 ml Output Total 1800 ml 5450 ml 3400 ml 2950 ml Balance 546 ml -1148 ml 717 ml -1131 ml Intake Oral 60 ml 200 ml IV Total 2286 ml 2802 ml 2917 ml 1819 ml Albumin 1500 ml 1000 ml Output Urine Total 1800 ml 5450 ml 3400 ml 2950 ml # Bowel Movements 0 Result Diagram: 12/08/16 0400 12/08/16 0400 Objective Remarks awake alert vff face sym moves all well odell a bit better still still 8/10 odell no nystag Assessment and Plan Assessment and Plan imp try some steroids no effect yest retry today for odell protonix eeg mild sharp keppra started aneurism on agram 5mm agram echo neg will try some solumedrol and recheck ct as i would hope odell would get better on steroids make sure vent size not larger watch for any inc odell sitting in case some post LP odell? Rayray Conley MD December 08, 2016 08:38
[2016-12-08] MEDS ORDERED: methylPREDNISolone SOD SUCC 125 MG/2 ML VIAL IV PUSH ONE (08:45)
[2016-12-08] MEDS: POTASSIUM CHLOR 40 MEQ PREMIX 100 ML IV PRN ×2 (10:36→18:29)
--- NOTE | 2016-12-08 12:58 | RADRPT ---
EXAM DATE/TIME: 12/08/2016 12:15 [facility] COMPARISON: CT BRAIN W/O CONTRAST, December 03, 2016, 19:25. CTA CAROTID ARTERIES W 3D RECON, December 03, 2016, 19:35. INDICATIONS : Abnormal doppler, possible increased ventricular size RADIATION DOSE: 39.08 CTDIvol (mGy) MEDICAL HISTORY : Hypertension. SURGICAL HISTORY : None. ENCOUNTER: Subsequent ACUITY: 1 week PAIN SCALE: 0/10 LOCATION: cranial TECHNIQUE: Multiple contiguous axial images were obtained of the head. Using automated exposure control and adj ustment of the mA and/or kV according to patient size, radiation dose was kept as low as reasonably a chievable to obtain optimal diagnostic quality images. FINDINGS: The ventricles are normal in size and configuration. The ventricles have decreased in size when chrissie red to previous examination. There is a punctate area of increased density along the lateral wall of the left lateral ventricular system I believe this represents some calcified choroid plexus. It was n ot clearly evident on previous exam. Followup CT to assure this does not represent hemorrhage would b e warranted. No extra-axial hemorrhage is seen. Note is made of streak artifact from the patient's right P-comm aneurysm coiling. There is no evidenc e of acute cortical infarction. No mass lesion is seen. No extra-axial fluid collections are identified. The appearance of the certified hand therapist ior fossa is unremarkable. CONCLUSION: 1. Streak artifact from the coils in the patient's posterior communicating artery aneurysm. There is no evidence of acute cortical infarct. 2. 4 mm area of increased density along the lateral wall of the left lateral ventricle. I believe thi s may represent choroid however patient will need a followup to insure this does not represent a punc rodriguez area of hemorrhage. The ventricles themselves are decreased in size when compared to the patient 's previous examination. 3. No significant extra-axial hemorrhage is seen. Nic Alcantar MD on December 08, 2016 at 12:53 Board Certified Radiologist. This report was verified electronically.
--- NOTE | 2016-12-08 13:45 | RADRPT ---
EXAM DATE/TIME: 12/08/2016 10:05 [facility] COMPARISON: US TRANSCRANIAL DOPPLER COMPLETE, December 07, 2016, 11:08. INDICATIONS : Subarachnoid hemorrhage. MEDICAL HISTORY : Hypertension. Headache. Gallstones. SURGICAL HISTORY : Abdominal aortic aneurysm repair. . ENCOUNTER: Subsequent ACUITY: 2 days PAIN SCORE: 1/10 LOCATION: Bilateral cranial Current Exam: December 08, 2016 [place] Ratio: Right: 5.2 Left: 3.8 [place] Ratio: Right: 1.8 Left: 3.8 Previous Exam: December 07, 2016 [place] Ratio: Right: 5.63 Left: 4.39 [place] Ratio: Right: 4.72 Left: 2.67 FINDINGS: Examination performed at bedside. Real-time ultrasound with the assistance of color and spectral Dop pler was utilized to evaluate the intracerebral circulation. Time-averaged maximal velocities are ca lculated in cm/s. There is moderate vasospasm on the right though this improved when compare with the prior study. Ther e is mild spasm on the left CONCLUSION: 1. Findings of moderate spasm on the right and mild spasm on the left. This has improved when compare d with the prior study. Rayray Iglesias MD on December 08, 2016 at 13:33 Board Certified Radiologist. This report was verified electronically.
--- NOTE | 2016-12-08 15:35 | HHI.NSPN ---
History Chief Complaint: headache. Interval History 51-year-old female who presented to the emergency room last evening with complaints of headaches which apparently she has had for the last several weeks and has had two previous evaluations initially on November 17 and then on November [address] of the head obtained at that time was negative. She has undergone extensive imaging studies as well as neurology evaluation since last evening. CT of the head suggests small areas of hyperdensity in the interhemispheric fissure and the frontal aspect and the sylvian fissure and questionable subarachnoid hemorrhage. CT angiogram of the brain is negative for any obvious aneurysm. She also had a lumbar puncture undertaken by the hot metal mixer operator which was basically grossly bloody with a slight xanthochromia. Subsequently, this morning she has also had an MRI scan of the brain which did not reveal any underlying mass or abnormality. The radiologist mention of the ventricle size is appropriate with no restricted diffusion changes. There is a subtle hemorrhage adjacent to the anterior communicating artery left of the midline. Magnetic resonance venogram of the brain does not reveal any venous thrombosis. CT of the cervical spine reveals a mild degenerate changes. In comparison to the current CT from 12/03/2016 and the previous one on 11/24/2016 the ventricle size does appear to be slightly enlarged. The patient other than complaints of headache and some nausea denies any other symptoms. She was hypertensive during the initial presentation of the systolic blood pressure in the 214 and diastolic 127 with bradycardia. At this point blood pressure has been normalized although still has heart rate in the 40s to 50s. Neurology was undertaken for further workup for vasculitis. An EEG is pending. 12/05/16: Pt awake and alert. Complains of frontal headache with mild blurred vision. No nausea or vomiting. No muscle weakness other than generalized. 12/06/16: Pt awakens to voice. Complains of frontal headache. No nausea or vomiting. No weakness or paresthesias. 12/07/16: Pt complains of headache. Had nausea this morning. No paresthesias or weakness in extremities. Follows commands. Speech clear. 12/08/16: Headaches have improved and sitting in chair. More conversant and smiling today. Exam Results Vital Signs Date Time Temp Pulse Resp B/P Pulse Ox O2 Delivery O2 Flow Rate FiO2 12/08/16 14:00 64 12/08/16 12:00 97.6 21 196/92 99 12/08/16 07:00 Room Air 12/06/16 20:08 2.00 Intake and Output 12/07/16 12/07/16 12/08/16 08:00 16:00 00:00 Intake Total 3667 ml 4128 ml 3195 ml Output Total 3650 ml 3800 ml 3600 ml Balance 17 ml 328 ml -405 ml Physical Examination Resp: CTA bilaterally Heart: NSR no murmurs Abd: Soft positive bs. Obese Skin: No cyanosis or erythema. Muscle: Moves all 4 extremities symmetrically. Neuro: Pt awake and alert. Pupils equal 3 mm bilaterally. Face is symmetric and tongue is midline. Speech clear and appropriate. Follows commands well. Lab, Micro, Other Results Last Impressions Transcranial Doppler Study Complete 12/08/16 06 Signed Impressions: Service Date/Time: Thursday, December 08, 2016 10:05 - CONCLUSION: 1. Findings of moderate spasm on the right and mild spasm on the left. This has improved when compared with the prior study. Rayray Iglesias MD Head CT 12/08/16 0000 Signed Impressions: Service Date/Time: Thursday, December 08, 2016 12:15 - CONCLUSION: 1. Streak artifact from the coils in the patient's posterior communicating artery aneurysm. There is no evidence of acute cortical infarct. 2. 4 mm area of increased density along the lateral wall of the left lateral ventricle. I believe this may represent choroid however patient will need a followup to insure this does not represent a punctate area of hemorrhage. The ventricles themselves are decreased in size when compared to the patient's previous examination. 3. No significant extra-axial hemorrhage is seen. Nic Alcantar MD Cerebral Arteriogram 12/06/16 0600 Signed Impressions: Service Date/Time: Tuesday, December 06, 2016 12:38 - CONCLUSION: 1. 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 Nic Alcantar MD Chest X-Ray 12/06/16 0000 Signed Impressions: Service Date/Time: Tuesday, December 06, 2016 21:06 - CONCLUSION: 1. Uncomplicated line placement. No evidence of pneumothorax. Rayray Iglesias MD Brain MRI 12/04/16 0412 Signed Impressions: Service Date/Time: Sunday, December 04, 2016 08:46 - CONCLUSION: 1. Subtle hemorrhage as described above. Etiology for this is not apparent. 2. Careful followup is suggested. 3. Minimal periventricular white matter changes. Schuyler Alcantar MD FACR Head/Brain Mag Res Venography 12/04/16 0000 Signed Impressions: Service Date/Time: Sunday, December 04, 2016 00:00 - CONCLUSION: No findings to indicate venous sinus thrombosis identified. Nic Alcantar MD Neck CTA [id number] Signed Impressions: Service Date/Time: Saturday, December 03, 2016 19:35 - CONCLUSION: Negative for hemodynamically significant carotid stenosis. Extensive tortuosity suggesting hypertension. Schuyler Alcantar MD FACR Head CTA [id number] Signed Impressions: Service Date/Time: Saturday, December 03, 2016 19:35 - CONCLUSION: Negative for aneurysm or major branch vessel occlusion. Schuyler Alcantar MD FACR Cervical Spine CT 12/03/16 0000 Signed Impressions: Service Date/Time: Saturday, December 03, 2016 19:25 - CONCLUSION: Mild degenerative changes without fracture. Schuyler Alcantar MD FACR Laboratory Tests Test 12/07/16 12/08/16 12/08/16 12/08/16 15:50 00:00 04:00 12:50 Sodium Level 142 143 142 138 White Blood Count 18.4 Red Blood Count 3.55 Hemoglobin 10.5 Hematocrit 30.6 Mean Corpuscular Volume 86.2 Mean Corpuscular Hemoglobin 29.6 Mean Corpuscular Hemoglobin 34.3 Concent Red Cell Distribution Width 13.7 Platelet Count 180 Mean Platelet Volume 8.8 Potassium Level 3.0 Chloride Level 108 Carbon Dioxide Level 25.5 Anion Gap 9 Blood Urea Nitrogen 6 Creatinine 0.46 Estimat Glomerular Filtration 144 Rate Random Glucose 86 Calcium Level 8.5 Date/Time Procedure Status Source Growth 12/04/16 12:51 Aerobic Blood Culture - Preliminary Resulted Blood Peripheral NO GROWTH IN 4 DAYS 12/04/16 12:51 Anaerobic Blood Culture - Preliminary Resulted Blood Peripheral NO GROWTH IN 4 DAYS 12/04/16 00:00 Gram Stain - Final Complete Cerebral Spinal Fluid Lumbar Puncture 12/04/16 00:00 CSF Culture - Final Complete Cerebral Spinal Fluid Lumbar Puncture NO GROWTH IN 72 HOURS Medical Decision Making Impression and Plan A: 51 y/o FM with frontal interhemispheric and proximal MCA area subarachnoid hemorrhage along with a slight intraventricular hemorrhage and hydrocephalus. Pt had a 5mm right pcom aneurysm found on angiogram and underwent coiling by radiology special procedures. Follow-up CT scan shows a ventricle size slightly decreased in her headaches have improved along with her level of alertness. 2. Hypertension on presentation currently on hypervolemic, hypertensive treatment for vasospasm. Continue with the transcranial Doppler monitoring, nimotop, and close observation in intensive care unit. Dayton Garcia MD December 08, 2016 15:35
[2016-12-08] MEDS ORDERED: ALBUMIN HUMAN 5% 25 GM/500 ML BOTTLE IV ONE (18:30)
[2016-12-09] VITALS (14 sets, daily range): BP systolic 151–191; BP diastolic 76–104; PULSE 43–74; RESP 16–20; TEMP 97.7–99.4; O2SAT 95–99
[2016-12-09] MEDS: SODIUM CHLOR 0.9% 1000 ML INJ 1,000 ML IV SCH ×6 (00:52→20:33)
[2016-12-09] MEDS: CHLORHEXIDINE GLUCONATE 2 % 1 PACK (2 CLOTHS) TOP SCH ×2 (03:24→19:45)
[2016-12-09] MEDS: niMODipine 30 MG CAP PO SCH ×5 (03:24→20:31)
[2016-12-09 03:38] LABS: HEMATOCRIT 30.3 % (35.0-46.0); MEAN CELL VOLUME 86.2 FL (80.0-100.0); MEAN CORPUSCULAR HEMOGLOBIN 29.8 PG (27.0-34.0); MEAN CORPUSCULAR HGB CONC 34.6 % (32.0-36.0); PLATELET COUNT 198 TH/MM3 (150-450); RED BLOOD COUNT 3.52 MIL/MM3 (4.00-5.30); RED CELL DISTRIBUTION WIDTH 13.6 % (11.6-17.2); REVIEW FLAG FINAL; WHITE BLOOD COUNT 16.2 TH/MM3 (4.0-11.0)
[2016-12-09 03:54] LABS: BICARBONATE 27.3 MEQ/L (21.0-32.0); POTASSIUM 3.7 MEQ/L (3.5-5.1)
[2016-12-09] MEDS ORDERED: SODIUM CHLOR 0.9% 1000 ML INJ 1,000 ML IV ONE (06:30)
--- NOTE | 2016-12-09 06:42 | HHI.CCPN ---
Subjective Remarks/Hospital Course 51-year-old female presents with complaint of severe headache after fall. History is obtained per chart since patient is a poor historian. Apparently patient had a fall sometime yesterday. This was unwitnessed. Unclear whether it was mechanical, syncopal. Unclear whether she even hit her head. Since however she's been complaining of a severe headache, primarily left-sided though retro-orbital bilaterally. She has not had any nausea or vomiting. Her headache is 10 out of 10 and is the worse headache of her life. Friend states that she has been confused, alert to self and place only but not time. She believes it is 1965. Patient has had urinary and fecal incontinence which is new for her. Per EMS patient was hypertensive in the 190s systolic and bradycardic in the 50s. She is not anticoagulated. The patient was seen here twice recently over the last month with complaint of headache and had negative CT imaging, was treated symptomatically and discharged home. SUBJ 12/04: Patient continues to have headache and vomiting. Variable level of alertness, orientation. MRI shows septal subarachnoid hemorrhage ACOM towards left. Neurosurgery Dr. Garcia, neurology Dr. Montilla 12/05: Clinically improving slowly still has headache. MRI showing some blood in occipital horn right side on flair imaging per Dr. Victoria. According no his notes, he suspecting possibility of third ventricular mass or intraventricular bleed present from 11/22/16. Cerebral angiogram pending today 12/06: headache persists. plan for 4-vessel angio today to r/o aneurysm. neuro exam stable from prior documented exams. 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 now PBD 4. TCDs yesterday showed evidence of severe vasospasm, but 4-vessel angio done immediately prior demonstrated excellent flow without vasospasm. net euvolemic. 12/08: moderate vasospasm by TCD. very high uop. Na stable. neuro exam stable. still complains of headache. sbp 160s-180s without supplementation. 12/09: slight improvement in TCDs yesterday. still net -1500/24h. neuro intact. sbp in the 190s with a goal of 160 - 200. Objective Vital Signs Date Time Temp Pulse Resp B/P Pulse Ox O2 Delivery O2 Flow Rate FiO2 12/09/16 06:00 47 12/09/16 04:00 98.7 16 191/90 97 12/08/16 19:00 Room Air 12/08/16 16:39 21 12/06/16 20:08 2.00 Intake and Output 12/08/16 12/08/16 12/09/16 08:00 16:00 00:00 Intake Total 2278 ml 2370 ml 1769 ml Output Total 3600 ml 2225 ml 675 ml Balance -1322 ml 145 ml 1094 ml Result Diagram: 12/09/16 0320 12/09/16 0320 Objective Remarks GENERAL: middle-aged female, lying in bed, no distress this morning. SKIN: Warm and dry. HEAD: Normocephalic. EYES: No scleral icterus. No injection or drainage. MANJU NECK: trachea midline. No JVD. CARDIOVASCULAR: normal rate, regular rhythm. sinus by tele. RESPIRATORY: Breath sounds equal bilaterally. No accessory muscle use. GASTROINTESTINAL: Abdomen soft, non-tender, nondistended. MUSCULOSKELETAL: No cyanosis, or edema. EXTREMITIES: No clubbing cyanosis or edema NEURO: Patient is alert awake. No focal deficits. no more pronator drift. Oriented to person place and time A/P Assessment and Plan Assessment: 51yF with aneurysmal SAH now PBD 6 and POD 3 s/p endovascular coiling of 5mm right PCOM aneurysm. Moderate vasospasm by TCD. continue frequent neuro checks and goal euvolemia. it continues to be difficult to maintain euvolemia due to high uop. continue nimodipine. Continue sbp goals of 160 - 200 while in moderate vasospasm. needs to remain in ICU. high risk. A/P NEURO: Aneurysmal SAH, PBD 6 s/p endovascular coiling 5mm right PCOM aneurysm, 12/06 Acute encephalopathy- resolved. Severe headaches - Keppra for seizure prophylaxis per Dr. Victoria - Neurosurgery Dr. Garcia, Neurology Dr. Victoria - Keep Na >145, Mag>2. Avoid hypoxia hypercarbia - Nimodipine 60 mg every 4 hours to prevent vasospasm - Urine drug screen positive for opiates only - LP xanthochromia, no evidence of infection, CSF culture negative - frequent neuro checks - goal SBP 160 - 200. CVS Uncontrolled hypertension Hypertensive emergency- resolving. - Target SBP 160 - 200. - Nimodipine prophylaxis - Hydralazine when necessary RESP: - Aggressive pulmonary toilet - O2 by NC - OOB and ambulating. PT consult. GI: Intravascular volume depletion - Heart healthy diet after cerebral angiogram - IV Protonix. Zofran when necessary - continue NS @ 250 cc/hr. - 1 L NS bolus x 1 now. - aggressively replace uop losses. - continue serial sodiums q8h. : - Monitor renal function closely. - keep verde given getting into vasospasm window. q1h uop. ID: Leukocytosis - Monitor for infection - UA, blood cultures NGTD. Endo: - Electrolyte replacement per protocol DVT GI prophylaxis - Teds SCDs - No chemical DVT prophylaxis due to ICH - Pepcid Lines: left IJ TLC 12/07, Verde. keep during vasospasm. Dispo: remain in ICU given aneurysmal SAH with moderate vasospasm. Bryce Hobbs MD December 09, 2016 06:42
[2016-12-09] MEDS: HYDROmorphone HCL PF 1 MG/ML VIAL IV PUSH PRN ×2 (08:15→13:54)
[2016-12-09] MEDS: FAMOTIDINE 20 MG/2 ML VIAL IV PUSH SCH ×2 (08:47→20:32)
[2016-12-09] MEDS: DOCUSATE SODIUM 100 MG CAP PO SCH ×2 (08:47→20:31)
[2016-12-09] MEDS: levETIRAcetam 500 MG TAB PO SCH ×2 (08:47→20:31)
[2016-12-09] MEDS: MUPIROCIN 2% OINT 1 APPLIC/GM SYR NASAL SCH ×2 (08:47→20:32)
[2016-12-09] MEDS: PANTOPRAZOLE SODIUM 40 MG VIAL IV PUSH SCH (08:48)
[2016-12-09] MEDS: SODIUM CHLORIDE 0.9% FLUSH 10 ML FLUSH SCH ×2 (08:48→20:32)
[2016-12-09] MEDS: MORPHINE SULFATE 4 MG/ML INJ IV PRN (08:50)
--- NOTE | 2016-12-09 15:21 | RADRPT ---
EXAM DATE/TIME: 12/09/2016 10:04 [facility] COMPARISON: US TRANSCRANIAL DOPPLER COMPLETE, December 08, 2016, 10:05. INDICATIONS : Subarachnoid hemorrhage. MEDICAL HISTORY : Hypertension. Headache. Gallstones. MRSA. SURGICAL HISTORY : Abdominal aortic aneurysm repair. . ENCOUNTER: [facility] ACUITY: 4-6 days PAIN SCORE: 4/10 LOCATION: Bilateral cranial Current Exam: December 09, 2016 [place] Ratio: Right: 4.6 Left: 4.0 Rasmussen Ratio: Right: 3.3 Left: 2.3 Previous Exam: December 08, 2016 [place] Ratio: Right: 5.2 Left: 3.8 Rasmussen Ratio: Right: 1.8 Left: 3.8 FINDINGS: Examination performed at bedside. Real-time ultrasound with the assistance of color and spectral Dop pler was utilized to evaluate the intracerebral circulation. Time-averaged maximal velocities are ca lculated in cm/s. There is elevated velocities on the right side and in the left middle cerebral artery. The Lindegaard ratios are elevated. There has been mild improvement in the Lindegaard ratio on the right and slight worsening on the left. CONCLUSION: Persistent moderate spasm. Bruce Whitman MD on December 09, 2016 at 15:18 Board Certified Radiologist. This report was verified electronically.
--- NOTE | 2016-12-09 18:43 | HHI.PR ---
Review/Management Diagnosis SAH Headache s/p PCOM aneurysm rupture s/p coiling Plan Neuro checks q 1h Keppra 500mg Q12h Dexamethasone 4mg Q12h - Nimodipine 60mg Q4h Follow up head CT scan next am Diagnosis/Plan: Subjective Subjective Comments Mild frontal headache Denies visual blurring, nausea or speech difficulty, no position related headache Angiogram revealed right PCOM aneurysm Head CT scan revealed Streak artifact from the coils in the patient's PCOM, aneurysm. There is no evidence of acute cortical infarct. 4 mm area of increased density along the lateral wall of the left lateral ventricle.The ventricles themselves are decreased in size when compared to the patient's previous examination.No significant extra-axial hemorrhage is seen. Active Medications Current Medications Medications (Trade) Dose Ordered Sig/Rachel Route Start Time Stop Time Status Last Admin (NS 1000 ml Inj) 1,000 ml @ 250 mls/hr Q4H IV 12/03/16 22:11 12/09/16 17:13 (NS Flush) 2 ml UNSCH PRN .XX 12/03/16 22:15 12/07/16 05:15 (NS Flush) 2 ml BID .XX 12/04/16 09:00 12/09/16 08:48 (Tylenol) 650 mg Q6H PRN PO 12/03/16 22:15 (Morphine Inj) 2 mg Q2H PRN IV 12/03/16 22:15 12/09/16 08:50 (Pepcid Inj) 20 mg Q12HR IV PUSH 12/04/16 09:00 12/09/16 08:47 (Zofran Inj) 4 mg Q6H PRN IV 12/03/16 22:15 12/07/16 09:00 (Reglan Inj) 10 mg Q6H PRN IV 12/03/16 22:15 (Colace) 100 mg BID PO 12/04/16 09:00 12/09/16 08:47 Miscellaneous Information 1 Q361D XX 12/03/16 22:15 (Chlorhexidine 2% Cloth) Taper DAILY@04 TOP 12/04/16 04:00 11/30/17 03:59 12/08/16 03:52 (Chlorhexidine 2% Cloth) 3 pack UNSCH PRN TOP 12/03/16 22:15 Nimodipine 60 mg 60 mg Q4HR PO 12/04/16 00:00 12/09/16 16:00 Potassium Chloride 100 ml @ 50 mls/hr Q2H PRN IV 12/03/16 23:45 12/08/16 10:36 (KCl 20 Meq Premix Inj) 100 ml @ 50 mls/hr Q2H PRN IV 12/03/16 23:45 12/04/16 11:39 Potassium Bicarb/ Potassium Chloride 50 meq 50 meq UNSCH PRN PO 12/03/16 23:45 Potassium Chloride 100 ml @ 25 mls/hr UNSCH PRN IV 12/03/16 23:45 12/08/16 18:29 Potassium Chloride 100 ml @ 50 mls/hr Q2H PRN IV 12/03/16 23:45 (Magnesium Sulfate Inj/NS Inj) 100 ml @ 50 mls/hr UNSCH PRN IV 12/03/16 23:45 Magnesium Oxide 800 mg 800 mg UNSCH PRN PO 12/03/16 23:45 (Magnesium Sulfate Inj/NS Inj) 100 ml @ 50 mls/hr UNSCH PRN IV 12/03/16 23:45 Potassium Phosphate 2000 mg 2,000 mg Q4H PRN PO 12/03/16 23:45 (Sodium Phosphate Inj/NS 250 ml Inj) 250 ml @ 42 mls/hr UNSCH PRN IV 12/03/16 23:45 (K-Phos) 2,000 mg UNSCH PRN PO/TUBE 12/03/16 23:45 (Bactroban Nasal 2% Oint) 1 applic BID NASAL 12/04/16 21:00 12/09/16 08:47 (Keppra) 500 mg Q12HR PO 12/05/16 09:00 12/09/16 08:47 (Dilaudid Pf Inj) 0.2 mg Q4H PRN IV PUSH 12/07/16 05:00 12/09/16 13:54 (Protonix Inj) 40 mg Q24H IV PUSH 12/07/16 10:00 12/09/16 08:48 (Oramorph Sr) 15 mg Q12HR PO 12/09/16 21:00 Allergies Allergies Coded Allergies *MDRO Multi-Drug Resistant Organism (Verified Adverse Reaction, Unknown, ) Exam I&O / VS 12/08/16 12/08/16 12/09/16 14:59 22:59 06:59 Intake Total 2497 ml 2326 ml 1898 ml Output Total 2975 ml 975 ml 4275 ml Balance -478 ml 1351 ml -2377 ml Intake Oral 240 ml IV Total 2257 ml 1826 ml 1898 ml Albumin 500 ml Output Urine Total 2975 ml 975 ml 4275 ml # Bowel Movements 2 0 Vital Signs Date Time Temp Pulse Resp B/P Pulse Ox O2 Delivery O2 Flow Rate FiO2 12/09/16 18:00 62 12/09/16 16:00 58 12/09/16 16:00 99.0 66 18 173/104 99 12/09/16 14:48 16 12/09/16 14:00 64 12/09/16 12:00 98.1 54 20 170/93 99 12/09/16 12:00 60 12/09/16 10:00 60 12/09/16 09:45 14 12/09/16 08:00 58 12/09/16 08:00 97.7 60 16 182/90 98 12/09/16 07:33 99 21 12/09/16 07:00 98 Room Air 12/09/16 06:00 47 12/09/16 04:00 56 12/09/16 04:00 98.7 56 16 191/90 97 12/09/16 02:00 43 12/09/16 00:00 64 12/09/16 00:00 99.4 64 20 151/76 95 12/08/16 22:00 66 12/08/16 20:34 100 12/08/16 20:00 62 12/08/16 20:00 98.8 62 20 195/91 96 12/08/16 19:00 97 Room Air General: Alert and Oriented, No acute distress Eye: PERRL, EOMI, Vision unchanged Respiratory: Lungs CTA, Non-labored respirations Cardiology: Normal rate, Normal peripheral perfusion Neurologic: Alert, Oriented, Normal sensory, Normal motor, No focal defects, CN II-XII intact, Normal DTR's Psychiatric: Cooperative, Appropriate mood & affect Objective Radiology Results Last 72 hours Impressions Transcranial Doppler Study Complete 12/09/16 0600 Signed Impressions: Service Date/Time: Friday, December 09, 2016 10:04 - CONCLUSION: Persistent moderate spasm. Bruce Whimtan MD Transcranial Doppler Study Complete 12/08/16 0600 Signed Impressions: Service Date/Time: Thursday, December 08, 2016 10:05 - CONCLUSION: 1. Findings of moderate spasm on the right and mild spasm on the left. This has improved when compared with the prior study. Rayray Iglesias MD Head CT 12/08/16 0000 Signed Impressions: Service Date/Time: Thursday, December 08, 2016 12:15 - CONCLUSION: 1. Streak artifact from the coils in the patient's posterior communicating artery aneurysm. There is no evidence of acute cortical infarct. 2. 4 mm area of increased density along the lateral wall of the left lateral ventricle. I believe this may represent choroid however patient will need a followup to insure this does not represent a punctate area of hemorrhage. The ventricles themselves are decreased in size when compared to the patient's previous examination. 3. No significant extra-axial hemorrhage is seen. Nic Alcantar MD Transcranial Doppler Study Complete 12/07/16 06 Signed Impressions: Service Date/Time: November 11:08 - CONCLUSION: Moderate right-sided spasm including the anterior cerebral artery. The ratios have improved when compared to the prior study Rayray Iglesias MD Micro and Labs Laboratory Tests Test 12/08/16 12/09/16 12/09/16 12/09/16 20:40 03:20 08:00 16:00 Sodium Level 138 143 142 140 White Blood Count 16.2 Red Blood Count 3.52 Hemoglobin 10.5 Hematocrit 30.3 Mean Corpuscular Volume 86.2 Mean Corpuscular Hemoglobin 29.8 Mean Corpuscular Hemoglobin 34.6 Concent Red Cell Distribution Width 13.6 Platelet Count 198 Mean Platelet Volume 8.2 Potassium Level 3.7 Chloride Level 109 Carbon Dioxide Level 27.3 Anion Gap 7 Blood Urea Nitrogen 6 Creatinine 0.55 Estimat Glomerular Filtration 117 Rate Random Glucose 119 Calcium Level 8.8 Jax Whitt MD December 09, 2016 18:43
[2016-12-09] MEDS: DEXAMETHASONE 4 MG TAB PO SCH (20:31)
[2016-12-09] MEDS: MORPHINE SULFATE 15 MG CONTROLLED RELEASE TAB PO SCH (20:31)
[2016-12-09] MEDS: ACETAMINOPHEN 325 MG TAB PO PRN (20:32)
[2016-12-10] VITALS (15 sets, daily range): BP systolic 155–201; BP diastolic 63–94; PULSE 52–72; RESP 13–25; TEMP 98.3–99; O2SAT 95–100
[2016-12-10] MEDS: niMODipine 30 MG CAP PO SCH ×7 (00:09→23:28)
[2016-12-10] MEDS: SODIUM CHLOR 0.9% 1000 ML INJ 1,000 ML IV SCH ×5 (01:13→19:57)
[2016-12-10 04:36] LABS: HEMATOCRIT 31.2 % (35.0-46.0); MEAN CELL VOLUME 85.7 FL (80.0-100.0); MEAN CORPUSCULAR HEMOGLOBIN 29.4 PG (27.0-34.0); MEAN CORPUSCULAR HGB CONC 34.3 % (32.0-36.0); PLATELET COUNT 223 TH/MM3 (150-450); RED BLOOD COUNT 3.64 MIL/MM3 (4.00-5.30); RED CELL DISTRIBUTION WIDTH 13.5 % (11.6-17.2); REVIEW FLAG FINAL; WHITE BLOOD COUNT 11.7 TH/MM3 (4.0-11.0)
[2016-12-10 04:47] LABS: BICARBONATE 26.6 MEQ/L (21.0-32.0); POTASSIUM 3.7 MEQ/L (3.5-5.1)
--- NOTE | 2016-12-10 06:09 | RADRPT ---
EXAM DATE/TIME: 12/10/2016 05:05 [facility] COMPARISON: CT BRAIN W/O CONTRAST, December 08, 2016, 12:15. INDICATIONS : Follow up subarachnoid hemorrhage; aneurysm. RADIATION DOSE: 43.48 CTDIvol (mGy) MEDICAL HISTORY : Hypertension. SURGICAL HISTORY : None. ENCOUNTER: Subsequent ACUITY: 3 days PAIN SCALE: 3/10 LOCATION: cranial TECHNIQUE: Multiple contiguous axial images were obtained of the head. Using automated exposure control and adj ustment of the mA and/or kV according to patient size, radiation dose was kept as low as reasonably a chievable to obtain optimal diagnostic quality images. FINDINGS: Aneurysm coil is again noted on the right in the parasellar region. No new intracranial hemorrhage. P reviously identified 4 mm suspected hemorrhage in the left lateral ventricle is less dense on the cur rent exam and probably represents a small evolving hemorrhage. Probable small lacunar infarct left ce rebellar hemisphere. CONCLUSION: 1. Evolving small hemorrhage in the wall of the left lateral ventricle. No new intracranial hemorrhag e. Ventricular size is stable. Bernard Vasquez MD on December 10, 2016 at 6:04 Board Certified Radiologist. This report was verified electronically.
--- NOTE | 2016-12-10 07:14 | HHI.CCPN ---
Subjective Remarks/Hospital Course 51-year-old female presents with complaint of severe headache after fall. History is obtained per chart since patient is a poor historian. Apparently patient had a fall sometime yesterday. This was unwitnessed. Unclear whether it was mechanical, syncopal. Unclear whether she even hit her head. Since however she's been complaining of a severe headache, primarily left-sided though retro-orbital bilaterally. She has not had any nausea or vomiting. Her headache is 10 out of 10 and is the worse headache of her life. Friend states that she has been confused, alert to self and place only but not time. She believes it is 1965. Patient has had urinary and fecal incontinence which is new for her. Per EMS patient was hypertensive in the 190s systolic and bradycardic in the 50s. She is not anticoagulated. The patient was seen here twice recently over the last month with complaint of headache and had negative CT imaging, was treated symptomatically and discharged home. SUBJ 12/04: Patient continues to have headache and vomiting. Variable level of alertness, orientation. MRI shows septal subarachnoid hemorrhage ACOM towards left. Neurosurgery Dr. Garcia, neurology Dr. Montilla 12/05: Clinically improving slowly still has headache. MRI showing some blood in occipital horn right side on flair imaging per Dr. Victoria. According no his notes, he suspecting possibility of third ventricular mass or intraventricular bleed present from 11/22/16. Cerebral angiogram pending today 12/06: headache persists. plan for 4-vessel angio today to r/o aneurysm. neuro exam stable from prior documented exams. 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 now PBD 4. TCDs yesterday showed evidence of severe vasospasm, but 4-vessel angio done immediately prior demonstrated excellent flow without vasospasm. net euvolemic. 12/08: moderate vasospasm by TCD. very high uop. Na stable. neuro exam stable. still complains of headache. sbp 160s-180s without supplementation. 12/09: slight improvement in TCDs yesterday. still net -1500/24h. neuro intact. sbp in the 190s with a goal of 160 - 200. 12/10: continues to be neuro intact. TCDs with persistence of moderate vasospasm. net euvolemic over last 24h. sodium stable. Objective Vital Signs Date Time Temp Pulse Resp B/P Pulse Ox O2 Delivery O2 Flow Rate FiO2 12/10/16 06:00 58 12/10/16 04:00 98.3 13 165/91 98 12/09/16 19:20 21 12/09/16 19:00 Room Air 12/06/16 20:08 2.00 Intake and Output 12/09/16 12/09/16 12/09/16 07:59 15:59 23:59 Intake Total 1898 ml 3539 ml 2549 ml Output Total 4275 ml 3400 ml 2350 ml Balance -2377 ml 139 ml 199 ml Result Diagram: 12/10/1641412/10/16414 Objective Remarks GENERAL: middle-aged female, lying in bed, no distress this morning. SKIN: Warm and dry. HEAD: Normocephalic. EYES: No scleral icterus. No injection or drainage. MANJU NECK: trachea midline. No JVD. CARDIOVASCULAR: normal rate, regular rhythm. sinus by tele. RESPIRATORY: Breath sounds equal bilaterally. No accessory muscle use. GASTROINTESTINAL: Abdomen soft, non-tender, nondistended. MUSCULOSKELETAL: No cyanosis, or edema. EXTREMITIES: No clubbing cyanosis or edema NEURO: Patient is alert awake. No focal deficits. no pronator drift. 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 Moderate vasospasm by TCD. continue frequent neuro checks and goal euvolemia. euvolemic today. continue nimodipine. Continue sbp goals of 160 - 200 while in moderate vasospasm. needs to remain in ICU. high risk. A/P NEURO: Aneurysmal SAH, PBD 6 s/p endovascular coiling 5mm right PCOM aneurysm, 12/06 Acute encephalopathy- resolved. Severe headaches - Keppra for seizure prophylaxis per Dr. Victoria - Neurosurgery Dr. Garcia, Neurology Dr. Victoria - Keep Na >145, Mag>2. Avoid hypoxia hypercarbia - Nimodipine 60 mg every 4 hours to prevent vasospasm - Urine drug screen positive for opiates only - LP xanthochromia, no evidence of infection, CSF culture negative - frequent neuro checks - goal SBP 160 - 200. CVS Uncontrolled hypertension Hypertensive emergency- resolving. - Target SBP 160 - 200. - Nimodipine prophylaxis - Hydralazine when necessary RESP: - Aggressive pulmonary toilet - O2 by NC - OOB and ambulating. PT consult. GI: Intravascular volume depletion- resolving. - Heart healthy diet - IV Protonix. Zofran when necessary - slight decrease in NS to 200cc/hr. - aggressively replace uop losses. - continue serial sodiums q8h. : - Monitor renal function closely. - keep verde given getting into vasospasm window. q1h uop. ID: Leukocytosis - Monitor for infection - UA, blood cultures NGTD. Endo: - Electrolyte replacement per protocol DVT GI prophylaxis - Teds SCDs - No chemical DVT prophylaxis due to ICH - Pepcid Lines: left IJ TLC 12/07, Verde. keep during vasospasm. Dispo: remain in ICU given aneurysmal SAH with moderate vasospasm. Bryce Hobbs MD December 10, 2016 07:14
[2016-12-10] MEDS: SODIUM CHLORIDE 0.9% FLUSH 10 ML FLUSH SCH ×2 (08:00→19:55)
[2016-12-10] MEDS: levETIRAcetam 500 MG TAB PO SCH ×2 (08:01→19:54)
[2016-12-10] MEDS: MORPHINE SULFATE 15 MG CONTROLLED RELEASE TAB PO SCH ×2 (08:01→19:54)
[2016-12-10] MEDS: MUPIROCIN 2% OINT 1 APPLIC/GM SYR NASAL SCH ×2 (08:01→19:54)
[2016-12-10] MEDS: FAMOTIDINE 20 MG/2 ML VIAL IV PUSH SCH ×2 (08:01→19:54)
[2016-12-10] MEDS: DOCUSATE SODIUM 100 MG CAP PO SCH ×2 (08:01→19:54)
[2016-12-10] MEDS: DEXAMETHASONE 4 MG TAB PO SCH ×2 (08:01→19:54)
[2016-12-10] MEDS: PANTOPRAZOLE SODIUM 40 MG VIAL IV PUSH SCH (10:00)
--- NOTE | 2016-12-10 10:24 | RADRPT ---
EXAM DATE/TIME: 12/10/2016 08:18 [facility] COMPARISON: US TRANSCRANIAL DOPPLER COMPLETE, December 06, 2016, 7:39. US TRANSCRANIAL DOPPLER COMPLETE, December 09, 2016 , 10:04. INDICATIONS : Subarachnoid hemorrhage. MEDICAL HISTORY : Hypertension. Methicillin-resistant Staphylococcus aureus. Headache. Gallstones. SURGICAL HISTORY : Abdominal aortic aneurysm repair. . ENCOUNTER: Subsequent ACUITY: 4-6 days PAIN SCORE: 2/10 LOCATION: Bilateral cranial Current Exam: December 10, 2016 [place] Ratio: Right: 5.0 Left: 2.4 [place] Ratio: Right: 2.1 Left: 1.6 Previous Exam: December 09, 2016 [place] Ratio: Right: 4.6 Left: 4.0 [place] Ratio: Right: 3.3 Left: 2.3 FINDINGS: Examination performed at bedside. Real-time ultrasound with the assistance of color and spectral Dop pler was utilized to evaluate the intracerebral circulation. Time-averaged maximal velocities are ca lculated in cm/s. Since the previous examination, there is moderate vasospasm noted at the right MCA, and this is incre ased from the previous study. There is improvement on the left since the previous examination with no rmalization of the ratio data. CONCLUSION: Moderate vasospasm on the right with improvement on the left. Marc Wren MD on December 10, 2016 at 10:18 Board Certified Radiologist. This report was verified electronically.
--- NOTE | 2016-12-10 10:25 | HHI.NSPN ---
(Regulo Dickinson) Note Status Status: Progress Note (Regulo Dickinson) Interval History Interval History 51-year-old female who presented to the emergency room last evening with complaints of headaches which apparently she has had for the last several weeks and has had two previous evaluations initially on November 17 and then on November [address] of the head obtained at that time was negative. She has undergone extensive imaging studies as well as neurology evaluation since last evening. CT of the head suggests small areas of hyperdensity in the interhemispheric fissure and the frontal aspect and the sylvian fissure and questionable subarachnoid hemorrhage. CT angiogram of the brain is negative for any obvious aneurysm. She also had a lumbar puncture undertaken by the steel hanger which was basically grossly bloody with a slight xanthochromia. Subsequently, this morning she has also had an MRI scan of the brain which did not reveal any underlying mass or abnormality. The radiologist mention of the ventricle size is appropriate with no restricted diffusion changes. There is a subtle hemorrhage adjacent to the anterior communicating artery left of the midline. Magnetic resonance venogram of the brain does not reveal any venous thrombosis. CT of the cervical spine reveals a mild degenerate changes. In comparison to the current CT from 12/03/2016 and the previous one on 11/24/2016 the ventricle size does appear to be slightly enlarged. The patient other than complaints of headache and some nausea denies any other symptoms. She was hypertensive during the initial presentation of the systolic blood pressure in the 214 and diastolic 127 with bradycardia. At this point blood pressure has been normalized although still has heart rate in the 40s to 50s. Neurology was undertaken for further workup for vasculitis. An EEG is pending. 12/05/16: Pt awake and alert. Complains of frontal headache with mild blurred vision. No nausea or vomiting. No muscle weakness other than generalized. 12/06/16: Pt awakens to voice. Complains of frontal headache. No nausea or vomiting. No weakness or paresthesias. 12/07/16: Pt complains of headache. Had nausea this morning. No paresthesias or weakness in extremities. Follows commands. Speech clear. 12/08/16: Headaches have improved and sitting in chair. More conversant and smiling today. 12/10/16: Patient wake & alert. Still with headache. Readily interacts & smiles. (Regulo Dickinson) Labs, Micro, & Vital Signs Results Allergies Coded Allergies Type Severity Reaction Last Updated Verified *MDRO Multi-Drug Resistant Organism Adverse Reaction Unknown 12/04/16 Yes Recent Impressions Head CT 12/10/16 06 Signed Impressions: Service Date/Time: Saturday, December 10, 2016 05:05 - CONCLUSION: 1. Evolving small hemorrhage in the wall of the left lateral ventricle. No new intracranial hemorrhage. Ventricular size is stable. Bernard Vasquez MD Transcranial Doppler Study Complete 12/09/16 06 Signed Impressions: Service Date/Time: Friday, December 09, 2016 10:04 - CONCLUSION: Persistent moderate spasm. Bruce Whitman MD Transcranial Doppler Study Complete 12/08/16 06 Signed Impressions: Service Date/Time: Thursday, December 08, 2016 10:05 - CONCLUSION: 1. Findings of moderate spasm on the right and mild spasm on the left. This has improved when compared with the prior study. Rayray Iglesias MD Head CT 12/08/16 0000 Signed Impressions: Service Date/Time: Thursday, December 08, 2016 12:15 - CONCLUSION: 1. Streak artifact from the coils in the patient's posterior communicating artery aneurysm. There is no evidence of acute cortical infarct. 2. 4 mm area of increased density along the lateral wall of the left lateral ventricle. I believe this may represent choroid however patient will need a followup to insure this does not represent a punctate area of hemorrhage. The ventricles themselves are decreased in size when compared to the patient's previous examination. 3. No significant extra-axial hemorrhage is seen. Nic Alcantar MD /// 06:00 18:00 06:00 18:00 06: 18:00 Intake Total 3802 ml 3559 ml 3162 ml 3539 ml 4309 ml Output Total 5050 ml 3600 ml 4625 ml 3400 ml 3625 ml Balance -1248 ml -41 ml -1463 ml 139 ml 684 ml Intake Oral 200 ml 240 ml 360 ml 960 ml IV Total 3102 ml 3319 ml 2662 ml 3179 ml 3349 ml Albumin 500 ml 500 ml Output Urine Total 5050 ml 3600 ml 4625 ml 3400 ml 3625 ml # Bowel Movements 2 1 1 Laboratory Tests Test 12/07/16 12/08/16 12/08/16 12/08/16 15:50 00:00 04:00 12:50 Sodium Level 142 MEQ/L 143 MEQ/L 142 MEQ/L 138 MEQ/L White Blood Count 18.4 TH/MM3 Red Blood Count 3.55 MIL/MM3 Hemoglobin 10.5 GM/DL Hematocrit 30.6 % Mean Corpuscular Volume 86.2 FL Mean Corpuscular Hemoglobin 29.6 PG Mean Corpuscular Hemoglobin 34.3 % Concent Red Cell Distribution Width 13.7 % Platelet Count 180 TH/MM3 Mean Platelet Volume 8.8 FL Potassium Level 3.0 MEQ/L Chloride Level 108 MEQ/L Carbon Dioxide Level 25.5 MEQ/L Anion Gap 9 MEQ/L Blood Urea Nitrogen 6 MG/DL Creatinine 0.46 MG/DL Estimat Glomerular Filtration 144 ML/MIN Rate Random Glucose 86 MG/DL Calcium Level 8.5 MG/DL Test 12/08/16 12/08/16 12/09/16 12/09/16 17:00 20:40 03:20 08:00 Potassium Level 3.4 MEQ/L 3.7 MEQ/L Sodium Level 138 MEQ/L 143 MEQ/L 142 MEQ/L White Blood Count 16.2 TH/MM3 Red Blood Count 3.52 MIL/MM3 Hemoglobin 10.5 GM/DL Hematocrit 30.3 % Mean Corpuscular Volume 86.2 FL Mean Corpuscular Hemoglobin 29.8 PG Mean Corpuscular Hemoglobin 34.6 % Concent Red Cell Distribution Width 13.6 % Platelet Count 198 TH/MM3 Mean Platelet Volume 8.2 FL Chloride Level 109 MEQ/L Carbon Dioxide Level 27.3 MEQ/L Anion Gap 7 MEQ/L Blood Urea Nitrogen 6 MG/DL Creatinine 0.55 MG/DL Estimat Glomerular Filtration 117 ML/MIN Rate Random Glucose 119 MG/DL Calcium Level 8.8 MG/DL Test 12/09/16 12/10/16 12/10/16 12/10/16 16:00 00:00 04:15 08:00 Sodium Level 140 MEQ/L 143 MEQ/L 143 MEQ/L 141 MEQ/L White Blood Count 11.7 TH/MM3 Red Blood Count 3.64 MIL/MM3 Hemoglobin 10.7 GM/DL Hematocrit 31.2 % Mean Corpuscular Volume 85.7 FL Mean Corpuscular Hemoglobin 29.4 PG Mean Corpuscular Hemoglobin 34.3 % Concent Red Cell Distribution Width 13.5 % Platelet Count 223 TH/MM3 Mean Platelet Volume 8.2 FL Potassium Level 3.7 MEQ/L Chloride Level 107 MEQ/L Carbon Dioxide Level 26.6 MEQ/L Anion Gap 9 MEQ/L Blood Urea Nitrogen 7 MG/DL Creatinine 0.59 MG/DL Estimat Glomerular Filtration 108 ML/MIN Rate Random Glucose 111 MG/DL Calcium Level 8.6 MG/DL Constitutional Vital Signs Date Time Temp Pulse Resp B/P Pulse Ox O2 Delivery O2 Flow Rate FiO2 12/10/16 08:43 14 12/10/16 08:00 99.0 52 16 201/94 100 12/10/16 08:00 56 12/10/16 07:46 100 21 12/10/16 07:45 100 21 12/10/16 06:00 58 12/10/16 04:00 98.3 58 13 165/91 98 12/10/16 04:00 58 12/10/16 02:00 53 12/10/16 00:00 98.6 60 14 169/94 95 12/10/16 00:00 60 12/09/16 22:00 70 12/09/16 20:00 69 12/09/16 20:00 99.3 74 17 184/97 99 12/09/16 19:20 99 21 12/09/16 19:00 100 Room Air 12/09/16 18:00 62 12/09/16 16:00 58 12/09/16 16:00 99.0 66 18 173/104 99 12/09/16 14:48 16 12/09/16 14:00 64 12/09/16 12:00 98.1 54 20 170/93 99 12/09/16 12:00 60 12/10/16 07:00 Intake Total 7848 ml Output Total 7025 ml Balance 823 ml (Regulo Dickinson) Review of Systems/Exam ROS Constitutional: The patient denies any fever or chills. Respiratory: The patient denies any shortness of breath or productive cough. Cardiac: The patient states she has an irregular heart beat. She denies any chest pain or palpitations. Gastrointestinal: The patient denies any abdominal, nausea, vomiting or bowel incontinence. Genitourinary: The patient denies bladder incontinence. Extremities: The patient states that she has pain to the right arm secondary to the blood pressure cuff having been on it. She denies any weakness or other pain to the extremities. Neurological: The patient states she does have a headache. She denies any dizziness, numbness or tingling. Exam General: Well developed, well nourished female who appears her stated age. No apparent distress. Affect normal. HEENT: Normocephalic, atraumatic. PERRL, EOM intact. MMM & pink. Respiratory: CTAB w/o W/R/R, equal excursion, non-laboured, on RA. Cardiovascular: S1S2 w/RRR w/o M/G/R, radial & pedal pulses 2+ bilaterally, cap refill < 2 sec. Monitor is sinus rhythm w/o any ectopy noted. Gastrointestinal: Abdomen soft & nontender, positive bowel sounds. Extremities: WRIGHT, right arm TTP, no evident deformity or clubbing. Neurological: AAOx3 Speech clear & appropriate CN II-XII appear grossly intact Sensation intact grossly intact to light touch to all extremities. Motor strength symmetrical & strong to all major flexion & extension muscle groups. (Regulo Dickinson) Medications Current Medications Current Medications Medications (Trade) Dose Ordered Sig/Rachel Route Start Time Stop Time Status Last Admin (NS 1000 ml Inj) 1,000 ml @ 200 mls/hr Q5H IV 12/03/16 22:11 12/10/16 05:23 (NS Flush) 2 ml UNSCH PRN .XX 12/03/16 22:15 12/07/16 05:15 (NS Flush) 2 ml BID .XX 12/04/16 09:00 12/10/16 08:00 (Tylenol) 650 mg Q6H PRN PO 12/03/16 22:15 12/09/16 20:32 (Morphine Inj) 2 mg Q2H PRN IV 12/03/16 22:15 12/09/16 08:50 (Pepcid Inj) 20 mg Q12HR IV PUSH 12/04/16 09:00 12/10/16 08:01 (Zofran Inj) 4 mg Q6H PRN IV 12/03/16 22:15 12/07/16 09:00 (Reglan Inj) 10 mg Q6H PRN IV 12/03/16 22:15 (Colace) 100 mg BID PO 12/04/16 09:00 12/10/16 08:01 Miscellaneous Information 1 Q361D XX 12/03/16 22:15 (Chlorhexidine 2% Cloth) Taper DAILY@04 TOP 12/04/16 04:00 11/30/17 03:59 12/08/16 03:52 (Chlorhexidine 2% Cloth) 3 pack UNSCH PRN TOP 12/03/16 22:15 Nimodipine 60 mg 60 mg Q4HR PO 12/04/16 00:00 12/10/16 08:00 Potassium Chloride 100 ml @ 50 mls/hr Q2H PRN IV 12/03/16 23:45 12/08/16 10:36 (KCl 20 Meq Premix Inj) 100 ml @ 50 mls/hr Q2H PRN IV 12/03/16 23:45 12/04/16 11:39 Potassium Bicarb/ Potassium Chloride 50 meq 50 meq UNSCH PRN PO 12/03/16 23:45 Potassium Chloride 100 ml @ 25 mls/hr UNSCH PRN IV 12/03/16 23:45 12/08/16 18:29 Potassium Chloride 100 ml @ 50 mls/hr Q2H PRN IV 12/03/16 23:45 (Magnesium Sulfate Inj/NS Inj) 100 ml @ 50 mls/hr UNSCH PRN IV 12/03/16 23:45 Magnesium Oxide 800 mg 800 mg UNSCH PRN PO 12/03/16 23:45 (Magnesium Sulfate Inj/NS Inj) 100 ml @ 50 mls/hr UNSCH PRN IV 12/03/16 23:45 Potassium Phosphate 2000 mg 2,000 mg Q4H PRN PO 12/03/16 23:45 (Sodium Phosphate Inj/NS 250 ml Inj) 250 ml @ 42 mls/hr UNSCH PRN IV 12/03/16 23:45 (K-Phos) 2,000 mg UNSCH PRN PO/TUBE 12/03/16 23:45 (Bactroban Nasal 2% Oint) 1 applic BID NASAL 12/04/16 21:00 12/10/16 08:01 (Keppra) 500 mg Q12HR PO 12/05/16 09:00 12/10/16 08:01 (Dilaudid Pf Inj) 0.2 mg Q4H PRN IV PUSH 12/07/16 05:00 12/09/16 13:54 (Protonix Inj) 40 mg Q24H IV PUSH 12/07/16 10:00 12/09/16 08:48 (Oramorph Sr) 15 mg Q12HR PO 12/09/16 21:00 12/10/16 08:01 (Decadron) 4 mg Q12HR PO 12/09/16 21:00 12/10/16 08:01 (Regulo Dickinson) Medical Decision Making MDM Remarks Impression 1. 51 y/o FM with frontal interhemispheric and proximal MCA area subarachnoid hemorrhage along with a slight intraventricular hemorrhage and hydrocephalus. Pt had a 5mm right pcom aneurysm found on angiogram and underwent coiling by radiology special procedures. Follow-up CT scan shows a ventricle size slightly decreased in her headaches have improved along with her level of alertness. 2. Hypertension on presentation currently on hypervolemic, hypertensive treatment for vasospasm. Patient remains neurologically intact. Still with headache. CT brain with evolving small haemorrhage left lateral ventricle wall , no new haemorrhage, ventricular size stable (Regulo Dickinson) Plan Plan Remarks Continue ISC monitoring Continue neuro checks Continue TCD studies Continue Nimotop (Regulo Dickinson) Attending Statement I have personally seen and examined the patient on the date of this note. Pertinent documentation and study results have been reviewed by the undersigned. I have personally developed the treatment plan and performed medical decision making. Agree with findings, exam, and treatment plan as noted above. Patient remains awake and alert No focal neurologic deficit Monitoring for vasospasm (Mikael Davey MD) Regulo Dickinson December 10, 2016 10:24 Mikael Davey MD December 10, 2016 16:00
--- NOTE | 2016-12-10 19:11 | HHI.PR ---
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 No new intracranial hemorrhage. Ventricular size is stable. Active Medications Current Medications Medications (Trade) Dose Ordered Sig/Rachel Route Start Time Stop Time Status Last Admin (NS 1000 ml Inj) 1,000 ml @ 150 mls/hr Q6H40M IV 12/03/16 22:11 12/10/16 15:00 (NS Flush) 2 ml UNSCH PRN .XX 12/03/16 22:15 12/07/16 05:15 (NS Flush) 2 ml BID .XX 12/04/16 09:00 12/10/16 08:00 (Tylenol) 650 mg Q6H PRN PO 12/03/16 22:15 12/09/16 20:32 (Morphine Inj) 2 mg Q2H PRN IV 12/03/16 22:15 12/09/16 08:50 (Pepcid Inj) 20 mg Q12HR IV PUSH 12/04/16 09:00 12/10/16 08:01 (Zofran Inj) 4 mg Q6H PRN IV 12/03/16 22:15 12/07/16 09:00 (Reglan Inj) 10 mg Q6H PRN IV 12/03/16 22:15 (Colace) 100 mg BID PO 12/04/16 09:00 12/10/16 08:01 Miscellaneous Information 1 Q361D XX 12/03/16 22:15 (Chlorhexidine 2% Cloth) Taper DAILY@04 TOP 12/04/16 04:00 11/30/17 03:59 12/08/16 03:52 (Chlorhexidine 2% Cloth) 3 pack UNSCH PRN TOP 12/03/16 22:15 Nimodipine 60 mg 60 mg Q4HR PO 12/04/16 00:00 12/10/16 16:00 Potassium Chloride 100 ml @ 50 mls/hr Q2H PRN IV 12/03/16 23:45 12/08/16 10:36 (KCl 20 Meq Premix Inj) 100 ml @ 50 mls/hr Q2H PRN IV 12/03/16 23:45 12/04/16 11:39 Potassium Bicarb/ Potassium Chloride 50 meq 50 meq UNSCH PRN PO 12/03/16 23:45 Potassium Chloride 100 ml @ 25 mls/hr UNSCH PRN IV 12/03/16 23:45 12/08/16 18:29 Potassium Chloride 100 ml @ 50 mls/hr Q2H PRN IV 12/03/16 23:45 (Magnesium Sulfate Inj/NS Inj) 100 ml @ 50 mls/hr UNSCH PRN IV 12/03/16 23:45 Magnesium Oxide 800 mg 800 mg UNSCH PRN PO 12/03/16 23:45 (Magnesium Sulfate Inj/NS Inj) 100 ml @ 50 mls/hr UNSCH PRN IV 12/03/16 23:45 Potassium Phosphate 2000 mg 2,000 mg Q4H PRN PO 12/03/16 23:45 (Sodium Phosphate Inj/NS 250 ml Inj) 250 ml @ 42 mls/hr UNSCH PRN IV 12/03/16 23:45 (K-Phos) 2,000 mg UNSCH PRN PO/TUBE 12/03/16 23:45 (Bactroban Nasal 2% Oint) 1 applic BID NASAL 12/04/16 21:00 12/10/16 08:01 (Keppra) 500 mg Q12HR PO 12/05/16 09:00 12/10/16 08:01 (Dilaudid Pf Inj) 0.2 mg Q4H PRN IV PUSH 12/07/16 05:00 12/09/16 13:54 (Oramorph Sr) 15 mg Q12HR PO 12/09/16 21:00 12/10/16 08:01 (Decadron) 4 mg Q12HR PO 12/09/16 21:00 12/10/16 08:01 Allergies Allergies Coded Allergies *MDRO Multi-Drug Resistant Organism (Verified Adverse Reaction, Unknown, ) Exam I&O / VS 12/09/16 12/09/16 12/10/16 15:00 23:00 07:00 Intake Total 3539 ml 2549 ml 1760 ml Output Total 3400 ml 2350 ml 1275 ml Balance 139 ml 199 ml 485 ml Intake Oral 360 ml 720 ml 240 ml IV Total 3179 ml 1829 ml 1520 ml Output Urine Total 3400 ml 2350 ml 1275 ml # Bowel Movements 1 1 0 Vital Signs Date Time Temp Pulse Resp B/P Pulse Ox O2 Delivery O2 Flow Rate FiO2 12/10/16 18:00 62 12/10/16 16:00 72 12/10/16 16:00 98.8 64 25 179/89 100 12/10/16 14:00 64 12/10/16 12:00 67 12/10/16 12:00 98.4 60 19 155/77 100 12/10/16 10:00 62 12/10/16 08:43 14 12/10/16 08:00 99.0 52 16 201/94 100 12/10/16 08:00 56 12/10/16 07:46 100 21 12/10/16 07:45 100 21 12/10/16 06:00 58 12/10/16 04:00 98.3 58 13 165/91 98 12/10/16 04:00 58 12/10/16 02:00 53 12/10/16 00:00 98.6 60 14 169/94 95 12/10/16 00:00 60 12/09/16 22:00 70 12/09/16 20:00 69 12/09/16 20:00 99.3 74 17 184/97 99 12/09/16 19:20 99 21 General: Alert and Oriented, No acute distress Eye: PERRL, EOMI, Vision unchanged Respiratory: Lungs CTA, Non-labored respirations Cardiology: Normal rate, Normal peripheral perfusion Neurologic: Alert, Oriented, Normal sensory, Normal motor, No focal defects, CN II-XII intact, Normal DTR's Psychiatric: Cooperative, Appropriate mood & affect Objective Radiology Results Last 72 hours Impressions Transcranial Doppler Study Complete 12/10/16599 Signed Impressions: Service Date/Time: Saturday, December 10, 2016 08:18 - CONCLUSION: Moderate vasospasm on the right with improvement on the left. Marc Wren MD Head CT 12/10/16599 Signed Impressions: Service Date/Time: Saturday, December 10, 2016 05:05 - CONCLUSION: 1. Evolving small hemorrhage in the wall of the left lateral ventricle. No new intracranial hemorrhage. Ventricular size is stable. Bernard Vasquez MD Transcranial Doppler Study Complete 12/09/16 06 Signed Impressions: Service Date/Time: Friday, December 09, 2016 10:04 - CONCLUSION: Persistent moderate spasm. Bruce Whitman MD Transcranial Doppler Study Complete 12/08/16 0600 Signed Impressions: Service Date/Time: Thursday, December 08, 2016 10:05 - CONCLUSION: 1. Findings of moderate spasm on the right and mild spasm on the left. This has improved when compared with the prior study. Rayray Iglesias MD Micro and Labs Laboratory Tests Test 12/10/16 12/10/16 12/10/16 12/10/16 00:00 04:15 08:00 16:00 Sodium Level 143 143 141 139 White Blood Count 11.7 Red Blood Count 3.64 Hemoglobin 10.7 Hematocrit 31.2 Mean Corpuscular Volume 85.7 Mean Corpuscular Hemoglobin 29.4 Mean Corpuscular Hemoglobin 34.3 Concent Red Cell Distribution Width 13.5 Platelet Count 223 Mean Platelet Volume 8.2 Potassium Level 3.7 Chloride Level 107 Carbon Dioxide Level 26.6 Anion Gap 9 Blood Urea Nitrogen 7 Creatinine 0.59 Estimat Glomerular Filtration 108 Rate Random Glucose 111 Calcium Level 8.6 Jax Whitt MD December 10, 2016 19:11
[2016-12-10] MEDS: HYDROmorphone HCL PF 1 MG/ML VIAL IV PUSH PRN (23:42)
[2016-12-11] VITALS (13 sets, daily range): BP systolic 152–192; BP diastolic 79–96; PULSE 44–86; RESP 10–20; TEMP 98.8–99.1; O2SAT 96–100
[2016-12-11] MEDS: SODIUM CHLOR 0.9% 1000 ML INJ 1,000 ML IV SCH ×4 (01:24→21:18)
[2016-12-11] MEDS: CHLORHEXIDINE GLUCONATE 2 % 1 PACK (2 CLOTHS) TOP SCH (03:19)
[2016-12-11] MEDS: niMODipine 30 MG CAP PO SCH ×6 (03:19→22:34)
[2016-12-11 05:53] LABS: HEMATOCRIT 28.9 % (35.0-46.0); MEAN CELL VOLUME 84.7 FL (80.0-100.0); MEAN CORPUSCULAR HEMOGLOBIN 30.1 PG (27.0-34.0); MEAN CORPUSCULAR HGB CONC 35.5 % (32.0-36.0); PLATELET COUNT 224 TH/MM3 (150-450); RED BLOOD COUNT 3.41 MIL/MM3 (4.00-5.30); RED CELL DISTRIBUTION WIDTH 13.5 % (11.6-17.2); REVIEW FLAG FINAL; WHITE BLOOD COUNT 12.8 TH/MM3 (4.0-11.0)
[2016-12-11 06:29] LABS: BICARBONATE 28.8 MEQ/L (21.0-32.0); POTASSIUM 3.4 MEQ/L (3.5-5.1)
[2016-12-11] MEDS: FAMOTIDINE 20 MG/2 ML VIAL IV PUSH SCH ×2 (08:14→20:38)
[2016-12-11] MEDS: levETIRAcetam 500 MG TAB PO SCH ×2 (08:15→20:38)
[2016-12-11] MEDS: DOCUSATE SODIUM 100 MG CAP PO SCH ×2 (08:15→20:38)
[2016-12-11] MEDS: DEXAMETHASONE 4 MG TAB PO SCH ×2 (08:15→20:39)
[2016-12-11] MEDS: MUPIROCIN 2% OINT 1 APPLIC/GM SYR NASAL SCH ×2 (08:15→20:39)
[2016-12-11] MEDS: SODIUM CHLORIDE 0.9% FLUSH 10 ML FLUSH SCH ×2 (08:15→20:39)
[2016-12-11] MEDS: MORPHINE SULFATE 15 MG CONTROLLED RELEASE TAB PO SCH ×2 (08:15→20:39)
--- NOTE | 2016-12-11 08:49 | HHI.PR ---
Subjective Remarks agram showed pcomm aneurism right and coiled Objective Vital Signs Date Time Temp Pulse Resp B/P Pulse Ox O2 Delivery O2 Flow Rate FiO2 12/11/16 06:00 46 12/11/16 04:00 99.0 46 14 161/79 97 12/11/16 04:00 46 12/11/16 02:00 52 12/11/16 00:00 52 12/11/16 00:00 99.0 52 18 192/95 97 12/10/16 22:00 62 12/10/16 20:00 98.6 66 20 177/63 100 12/10/16 20:00 66 12/10/16 19:05 99 21 12/10/16 18:00 62 12/10/16 16:00 72 12/10/16 16:00 98.8 64 25 179/89 100 12/10/16 14:00 64 12/10/16 12:00 67 12/10/16 12:00 98.4 60 19 155/77 100 12/10/16 10:00 62 I/O 12/10/16 12/10/16 12/10/16 12/11/16 12/11/16 12/11/16 06:59 14:59 22:59 06:59 14:59 22:59 Intake Total 1760 ml 2079 ml 1748 ml 1383 ml Output Total 1275 ml 2050 ml 1775 ml 1725 ml Balance 485 ml 29 ml -27 ml -342 ml Intake Oral 240 ml 480 ml 480 ml 240 ml IV Total 1520 ml 1599 ml 1268 ml 1143 ml Output Urine Total 1275 ml 2050 ml 1775 ml 1725 ml # Bowel Movements 0 1 0 1 Result Diagram: 12/11/16 0535 12/11/16 0535 Objective Remarks awake alert vff face sym moves all well hagone Assessment and Plan Assessment and Plan imp try some steroids no effect yest retry today for odell protonix eeg mild sharp keppra started aneurism on agram 5mm agram echo neg will try some solumedrol and recheck ct as i would hope odell would get better on steroids make sure vent size not larger watch for any inc odell sitting in case some post LP odell? oob 12/11/16 odell gone small left lat vent wall bleed up walking looks fine ok dc by me will sign off Rayray Victoria MD December 11, 2016 08:49
--- NOTE | 2016-12-11 10:30 | RADRPT ---
EXAM DATE/TIME: 12/11/2016 08:57 [facility] COMPARISON: US TRANSCRANIAL DOPPLER COMPLETE, December 10, 2016, 8:18. INDICATIONS : Subarachnoid hemorrhage. MEDICAL HISTORY : Hypertension. Methicillin-resistant Staphylococcus aureus. Headache. Gallstones. SURGICAL HISTORY : Abdominal aortic aneurysm repair. . ENCOUNTER: Subsequent ACUITY: 1 week PAIN SCORE: 2/10 LOCATION: Bilateral cranial Current Exam: December 11, 2016 [place] Ratio: Right: 2.6 Left: 2.3 [place] Ratio: Right: 1.1 Left: 1.3 Previous Exam: December 10, 2016 [place] Ratio: Right: 5.0 Left: 4.0 [place] Ratio: Right: 2.1 Left: 1.6 FINDINGS: Examination performed at bedside. Real-time ultrasound with the assistance of color and spectral Dop pler was utilized to evaluate the intracerebral circulation. Time-averaged maximal velocities are ca lculated in cm/s. There is a mildly elevated mean flow velocity in the right MCA distribution. However, ratios are with in normal limits. CONCLUSION: There are no findings to indicate vasospasm. Bruce Martinez MD on December 11, 2016 at 10:24 Board Certified Radiologist. This report was verified electronically.
--- NOTE | 2016-12-11 11:10 | HHI.CCPN ---
Subjective Remarks/Hospital Course 51-year-old female presents with complaint of severe headache after fall. History is obtained per chart since patient is a poor historian. Apparently patient had a fall sometime yesterday. This was unwitnessed. Unclear whether it was mechanical, syncopal. Unclear whether she even hit her head. Since however she's been complaining of a severe headache, primarily left-sided though retro-orbital bilaterally. She has not had any nausea or vomiting. Her headache is 10 out of 10 and is the worse headache of her life. Friend states that she has been confused, alert to self and place only but not time. She believes it is 1965. Patient has had urinary and fecal incontinence which is new for her. Per EMS patient was hypertensive in the 190s systolic and bradycardic in the 50s. She is not anticoagulated. The patient was seen here twice recently over the last month with complaint of headache and had negative CT imaging, was treated symptomatically and discharged home. SUBJ 12/04: Patient continues to have headache and vomiting. Variable level of alertness, orientation. MRI shows septal subarachnoid hemorrhage ACOM towards left. Neurosurgery Dr. Garcia, neurology Dr. Montilla 12/05: Clinically improving slowly still has headache. MRI showing some blood in occipital horn right side on flair imaging per Dr. Victoria. According no his notes, he suspecting possibility of third ventricular mass or intraventricular bleed present from 11/22/16. Cerebral angiogram pending today 12/06: headache persists. plan for 4-vessel angio today to r/o aneurysm. neuro exam stable from prior documented exams. 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 now PBD 4. TCDs yesterday showed evidence of severe vasospasm, but 4-vessel angio done immediately prior demonstrated excellent flow without vasospasm. net euvolemic. 12/08: moderate vasospasm by TCD. very high uop. Na stable. neuro exam stable. still complains of headache. sbp 160s-180s without supplementation. 12/09: slight improvement in TCDs yesterday. still net -1500/24h. neuro intact. sbp in the 190s with a goal of 160 - 200. 12/10: continues to be neuro intact. TCDs with persistence of moderate vasospasm. net euvolemic over last 24h. sodium stable. 12/11: no evidence of vasospasm on TCD this morning. net euvolemic. headache stable and tolerable. tolerating regular diet. sodium stable. ambulating. Objective Vital Signs Date Time Temp Pulse Resp B/P Pulse Ox O2 Delivery O2 Flow Rate FiO2 12/11/16 10:00 55 12/11/16 08:00 99.1 10 166/87 97 12/11/16 07:15 21 12/09/16 19:00 Room Air Intake and Output 12/10/16 12/10/16 12/11/16 08:00 16:00 00:00 Intake Total 1760 ml 2079 ml 1748 ml Output Total 1275 ml 2050 ml 1775 ml Balance 485 ml 29 ml -27 ml Result Diagram: 12/11/16 0535 12/11/16 1020 Objective Remarks GENERAL: middle-aged female, sitting in chair, no distress this morning. SKIN: Warm and dry. HEAD: Normocephalic. EYES: No scleral icterus. No injection or drainage. MANJU NECK: trachea midline. No JVD. CARDIOVASCULAR: normal rate, regular rhythm. sinus by tele. RESPIRATORY: Breath sounds equal bilaterally. No accessory muscle use. GASTROINTESTINAL: Abdomen soft, non-tender, nondistended. MUSCULOSKELETAL: No cyanosis, or edema. EXTREMITIES: No clubbing cyanosis or edema NEURO: Patient is alert awake. No focal deficits. no pronator drift. Oriented to person place and time A/P Assessment and Plan Assessment: 51yF with aneurysmal SAH now PBD 8 and POD 5 s/p endovascular coiling of 5mm right PCOM aneurysm. No evidence of vasospasm today by TCD. continue frequent neuro checks and goal euvolemia. euvolemic today. continue nimodipine. Slightly liberalize SBP goals to 140 - 200. needs to remain in ICU. high risk. A/P NEURO: Aneurysmal SAH, PBD 8 s/p endovascular coiling 5mm right PCOM aneurysm, 12/06 Acute encephalopathy- resolved. Severe headaches - Keppra for seizure prophylaxis per Dr. Victoria - Neurosurgery Dr. Garcia, Neurology Dr. Victoria - Keep Na >145, Mag>2. Avoid hypoxia hypercarbia - Nimodipine 60 mg every 4 hours to prevent vasospasm - Urine drug screen positive for opiates only - LP xanthochromia, no evidence of infection, CSF culture negative - frequent neuro checks - goal SBP 140 - 200. CVS Uncontrolled hypertension Hypertensive emergency- resolving. - Target SBP 140 - 200. - Nimodipine prophylaxis - Hydralazine when necessary RESP: - Aggressive pulmonary toilet - O2 by NC - OOB and ambulating. PT consult. GI: Intravascular volume depletion- resolving. - regular diet as tolerated. - IV Protonix. Zofran when necessary - slight decrease in NS to 150cc/hr. - aggressively replace uop losses. - continue serial sodiums q8h. : - Monitor renal function closely. - keep verde given getting into vasospasm window. q1h uop. ID: Leukocytosis - Monitor for infection - UA, blood cultures NGTD. Endo: - Electrolyte replacement per protocol DVT GI prophylaxis - Teds SCDs - No chemical DVT prophylaxis due to ICH - Pepcid Lines: left IJ TLC 12/07, Verde. keep during vasospasm. Dispo: remain in ICU given aneurysmal SAH with moderate vasospasm. Bryce Hobbs MD December 11, 2016 11:10
--- NOTE | 2016-12-11 11:20 | HHI.NSPN ---
(Floyd Dior) History Chief Complaint: headache. (Floyd Dior) Interval History A 51-year-old female who presented to the emergency room last evening with complaints of headaches which apparently she has had for the last several weeks and has had two previous evaluations initially on November 17 and then on November [address] of the head obtained at that time was negative. She has undergone extensive imaging studies as well as neurology evaluation since last evening. CT of the head suggests small areas of hyperdensity in the interhemispheric fissure and the frontal aspect and the sylvian fissure and questionable subarachnoid hemorrhage. CT angiogram of the brain is negative for any obvious aneurysm. She also had a lumbar puncture undertaken by the media specialist which was basically grossly bloody with a slight xanthochromia. Subsequently, this morning she has also had an MRI scan of the brain which did not reveal any underlying mass or abnormality. The radiologist mention of the ventricle size is appropriate with no restricted diffusion changes. There is a subtle hemorrhage adjacent to the anterior communicating artery left of the midline. Magnetic resonance venogram of the brain does not reveal any venous thrombosis. CT of the cervical spine reveals a mild degenerate changes. In comparison to the current CT from 12/03/2016 and the previous one on 11/24/2016 the ventricle size does appear to be slightly enlarged. The patient other than complaints of headache and some nausea denies any other symptoms. She was hypertensive during the initial presentation of the systolic blood pressure in the 214 and diastolic 127 with bradycardia. At this point blood pressure has been normalized although still has heart rate in the 40s to 50s. Neurology was undertaken for further workup for vasculitis. An EEG is pending. 12/05/16: Pt awake and alert. Complains of frontal headache with mild blurred vision. No nausea or vomiting. No muscle weakness other than generalized. 12/06/16: Pt awakens to voice. Complains of frontal headache. No nausea or vomiting. No weakness or paresthesias. 12/07/16: Pt complains of headache. Had nausea this morning. No paresthesias or weakness in extremities. Follows commands. Speech clear. 12/11/16: Patient complains of frontal headache. No nausea or vomiting. No weakness or paresthesias in the upper extremity. No blurred or double vision. She is sitting up in a chair. (Floyd Dior) Review of Systems General: Negative for: fever, chills, insomnia Respiratory: Negative for: shortness of breath, cough, sputum Cardiovascular: Negative for: chest pain Gastrointestinal: Negative for: nausea, vomitting, diarrhea, constipation ( Floyd Dior) Exam Results Vital Signs Date Time Temp Pulse Resp B/P Pulse Ox O2 Delivery O2 Flow Rate FiO2 12/11/16 10:00 55 12/11/16 08:00 99.1 10 166/87 97 12/11/16 07:15 21 12/09/16 19:00 Room Air Intake and Output 12/10/16 12/10/16 12/11/16 08:00 16:00 00:00 Intake Total 1760 ml 2079 ml 1748 ml Output Total 1275 ml 2050 ml 1775 ml Balance 485 ml 29 ml -27 ml (Floyd Dior) Physical Examination Resp: CTA bilaterally Heart: NSR no murmurs Abd: Soft positive bs Skin: No cyanosis or erythema Muscle: moves all 4 extremities symmetrically. Neuro: Pt awake and alert. Sitting up in chair. Speech clear and appropriate. Face symmetric. Pupils 3 mm bilaterally reactive bilaterally. ( Floyd Dior) Lab, Micro, Other Results Laboratory Tests Test 12/10/16 12/10/16 12/11/16 12/11/16 16:00 23:40 05:35 10:20 Sodium Level 139 MEQ/L 143 MEQ/L 142 MEQ/L 141 MEQ/L White Blood Count 12.8 TH/MM3 Red Blood Count 3.41 MIL/MM3 Hemoglobin 10.3 GM/DL Hematocrit 28.9 % Mean Corpuscular Volume 84.7 FL Mean Corpuscular Hemoglobin 30.1 PG Mean Corpuscular Hemoglobin 35.5 % Concent Red Cell Distribution Width 13.5 % Platelet Count 224 TH/MM3 Mean Platelet Volume 8.2 FL Potassium Level 3.4 MEQ/L Chloride Level 106 MEQ/L Carbon Dioxide Level 28.8 MEQ/L Anion Gap 7 MEQ/L Blood Urea Nitrogen 7 MG/DL Creatinine 0.59 MG/DL Estimat Glomerular Filtration 108 ML/MIN Rate Random Glucose 112 MG/DL Calcium Level 8.6 MG/DL 12/10/16 12/10/16 12/11/16 15:00 23:00 07:00 Intake Total 2079 ml 1748 ml 1383 ml Output Total 2050 ml 1775 ml 1725 ml Balance 29 ml -27 ml -342 ml Intake Oral 480 ml 480 ml 240 ml IV Total 1599 ml 1268 ml 1143 ml Output Urine Total 2050 ml 1775 ml 1725 ml # Bowel Movements 1 0 1 (Floyd Dior) Medical Decision Making Impression and Plan A: 51 y/o FM with probable frontal interhemispheric and proximal MCA area subarachnoid hemorrhage. Pt had a 5mm right pcom aneurysm found on angiogram and underwent coiling by radiology special procedures. 2. Hypertension which at this point is well regulated. PLAN Continue vasospasm prophylaxis. Continue with neuro checks Continue with Sequential compression device for DVT prophylaxis Continue with gastrointestinal stress ulcer prophylaxis. (Floyd Dior) Attending Statement The exam, history, and the medical decision-making described in the above note were completed with the assistance of the mid-level provider. I reviewed and agree with the findings presented. I attest that I had a [id number] encounter with the patient on the same day, and personally performed and documented my assessment and findings in the medical record. (Dayton Garcia MD) Floyd Dior December 11, 2016 11:20 Dayton Garcia MD December 11, 2016 17:44
[2016-12-11] MEDS: POTASSIUM CHLOR 40 MEQ PREMIX 100 ML IV PRN ×3 (15:33→23:34)
[2016-12-11 22:25] LABS: POTASSIUM 3.2 MEQ/L (3.5-5.1)
[2016-12-12] VITALS (15 sets, daily range): BP systolic 152–172; BP diastolic 77–89; PULSE 46–78; RESP 13–23; TEMP 98.5–99; O2SAT 96–100
[2016-12-12] MEDS: niMODipine 30 MG CAP PO SCH ×6 (03:05→22:28)
[2016-12-12] MEDS ORDERED: SODIUM CHLOR 0.9% 1000 ML INJ 1,000 ML IV ONE (03:15)
[2016-12-12] MEDS: CHLORHEXIDINE GLUCONATE 2 % 1 PACK (2 CLOTHS) TOP SCH (04:00)
[2016-12-12] MEDS: SODIUM CHLOR 0.9% 1000 ML INJ 1,000 ML IV SCH ×4 (04:32→23:41)
[2016-12-12] MEDS: HYDROmorphone HCL PF 1 MG/ML VIAL IV PUSH PRN (05:48)
[2016-12-12 06:07] LABS: HEMATOCRIT 29.4 % (35.0-46.0); MEAN CELL VOLUME 85.8 FL (80.0-100.0); MEAN CORPUSCULAR HEMOGLOBIN 29.9 PG (27.0-34.0); MEAN CORPUSCULAR HGB CONC 34.8 % (32.0-36.0); PLATELET COUNT 231 TH/MM3 (150-450); RED BLOOD COUNT 3.43 MIL/MM3 (4.00-5.30); RED CELL DISTRIBUTION WIDTH 13.8 % (11.6-17.2); REVIEW FLAG FINAL; WHITE BLOOD COUNT 14.3 TH/MM3 (4.0-11.0)
[2016-12-12 06:28] LABS: BICARBONATE 30.2 MEQ/L (21.0-32.0); POTASSIUM 4.1 MEQ/L (3.5-5.1)
--- NOTE | 2016-12-12 07:08 | HHI.CCPN ---
Subjective Remarks/Hospital Course 51-year-old female presents with complaint of severe headache after fall. History is obtained per chart since patient is a poor historian. Apparently patient had a fall sometime yesterday. This was unwitnessed. Unclear whether it was mechanical, syncopal. Unclear whether she even hit her head. Since however she's been complaining of a severe headache, primarily left-sided though retro-orbital bilaterally. She has not had any nausea or vomiting. Her headache is 10 out of 10 and is the worse headache of her life. Friend states that she has been confused, alert to self and place only but not time. She believes it is 1965. Patient has had urinary and fecal incontinence which is new for her. Per EMS patient was hypertensive in the 190s systolic and bradycardic in the 50s. She is not anticoagulated. The patient was seen here twice recently over the last month with complaint of headache and had negative CT imaging, was treated symptomatically and discharged home. SUBJ 12/04: Patient continues to have headache and vomiting. Variable level of alertness, orientation. MRI shows septal subarachnoid hemorrhage ACOM towards left. Neurosurgery Dr. Garcia, neurology Dr. Montilla 12/05: Clinically improving slowly still has headache. MRI showing some blood in occipital horn right side on flair imaging per Dr. Victoria. According no his notes, he suspecting possibility of third ventricular mass or intraventricular bleed present from 11/22/16. Cerebral angiogram pending today 12/06: headache persists. plan for 4-vessel angio today to r/o aneurysm. neuro exam stable from prior documented exams. 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 now PBD 4. TCDs yesterday showed evidence of severe vasospasm, but 4-vessel angio done immediately prior demonstrated excellent flow without vasospasm. net euvolemic. 12/08: moderate vasospasm by TCD. very high uop. Na stable. neuro exam stable. still complains of headache. sbp 160s-180s without supplementation. 12/09: slight improvement in TCDs yesterday. still net -1500/24h. neuro intact. sbp in the 190s with a goal of 160 - 200. 12/10: continues to be neuro intact. TCDs with persistence of moderate vasospasm. net euvolemic over last 24h. sodium stable. 12/11: no evidence of vasospasm on TCD this morning. net euvolemic. headache stable and tolerable. tolerating regular diet. sodium stable. ambulating. 12/12: uop increased overnight requiring ivf bolus. otherwise, no change. labs stable. neuro exam stable. Objective Vital Signs Date Time Temp Pulse Resp B/P Pulse Ox O2 Delivery O2 Flow Rate FiO2 12/12/16 06:00 48 12/12/16 04:00 98.9 14 152/77 97 12/12/16 00:20 21 12/09/16 19:00 Room Air Intake and Output 12/11/16 12/11/16 12/12/16 08:00 16:00 00:00 Intake Total 1383 ml 2514 ml 964 ml Output Total 1725 ml 1950 ml 400 ml Balance -342 ml 564 ml 564 ml Result Diagram: 12/12/1653912/12/16539 Objective Remarks GENERAL: middle-aged female, sitting in chair, no distress this morning. SKIN: Warm and dry. HEAD: Normocephalic. EYES: No scleral icterus. No injection or drainage. MANJU NECK: trachea midline. No JVD. CARDIOVASCULAR: normal rate, regular rhythm. sinus by tele. RESPIRATORY: Breath sounds equal bilaterally. No accessory muscle use. GASTROINTESTINAL: Abdomen soft, non-tender, nondistended. MUSCULOSKELETAL: No cyanosis, or edema. EXTREMITIES: No clubbing cyanosis or edema NEURO: Patient is alert awake. No focal deficits. slight right pronator drift this morning. 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 No evidence of vasospasm today by TCD. continue frequent neuro checks and goal euvolemia. continue nimodipine. SBP goals 140 - 200. needs to remain in ICU. high risk. A/P NEURO: Aneurysmal SAH, PBD 9 s/p endovascular coiling 5mm right PCOM aneurysm, 12/06 Acute encephalopathy- resolved. Severe headaches - Keppra for seizure prophylaxis per Dr. Victoria - Neurosurgery Dr. Garcia, Neurology Dr. Victoria - Keep Na >145, Mag>2. Avoid hypoxia hypercarbia - Nimodipine 60 mg every 4 hours to prevent vasospasm - Urine drug screen positive for opiates only - LP xanthochromia, no evidence of infection, CSF culture negative - frequent neuro checks - goal SBP 140 - 200. CVS Uncontrolled hypertension Hypertensive emergency- resolving. - Target SBP 140 - 200. - Nimodipine prophylaxis - Hydralazine when necessary RESP: - Aggressive pulmonary toilet - O2 by NC - OOB and ambulating. PT consult. GI: Intravascular volume depletion- resolving. - regular diet as tolerated. - IV Protonix. Zofran when necessary - NS at 150cc/hr. - aggressively replace uop losses. - continue serial sodiums q8h. : - Monitor renal function closely. - keep verde given getting into vasospasm window. q1h uop. ID: Leukocytosis - Monitor for infection - UA, blood cultures NGTD. Endo: - Electrolyte replacement per protocol DVT GI prophylaxis - Teds SCDs - No chemical DVT prophylaxis due to ICH - Pepcid Lines: left IJ TLC 5/18, Verde. keep during vasospasm. Dispo: remain in ICU given aneurysmal SAH with moderate vasospasm. Bryce Hobbs MD December 12, 2016 07:08
[2016-12-12] MEDS: MUPIROCIN 2% OINT 1 APPLIC/GM SYR NASAL SCH ×2 (09:00→20:12)
[2016-12-12] MEDS: DEXAMETHASONE 4 MG TAB PO SCH ×2 (10:00→20:12)
[2016-12-12] MEDS: levETIRAcetam 500 MG TAB PO SCH ×2 (10:00→20:12)
[2016-12-12] MEDS: FAMOTIDINE 20 MG/2 ML VIAL IV PUSH SCH ×2 (10:00→20:12)
[2016-12-12] MEDS: DOCUSATE SODIUM 100 MG CAP PO SCH ×2 (10:00→20:12)
[2016-12-12] MEDS: MORPHINE SULFATE 15 MG CONTROLLED RELEASE TAB PO SCH ×2 (10:01→20:12)
[2016-12-12] MEDS: SODIUM CHLORIDE 0.9% FLUSH 10 ML FLUSH SCH ×2 (10:02→20:12)
--- NOTE | 2016-12-12 10:14 | RADRPT ---
EXAM DATE/TIME: 12/12/2016 08:42 [facility] COMPARISON: US TRANSCRANIAL DOPPLER COMPLETE, December 11, 2016, 8:57. INDICATIONS : Subarachnoid hemorrhage. MEDICAL HISTORY : Hypertension. Methicillin-resistant Staphylococcus aureus. Headache. Gallstones. SURGICAL HISTORY : Abdominal aortic aneurysm repair. . ENCOUNTER: [facility] ACUITY: 1 day PAIN SCORE: 2/10 LOCATION: Bilateral cranial Current Exam: December 12, 2016 [place]ard Ratio: Right: 1.9 Left: 3.9 Rasmussen Ratio: Right: 2.3 Left: 3.8 Previous Exam: December 11, 2016 [place]ard Ratio: Right: 2.6 Left: 4.0 Rasmussen Ratio: Right: 2.1 Left: 1.6 FINDINGS: Examination performed at bedside. Real-time ultrasound with the assistance of color and spectral Dop pler was utilized to evaluate the intracerebral circulation. Time-averaged maximal velocities are ca lculated in cm/s. Velocities and ratios are within normal limits. CONCLUSION: There are no findings to indicate vasospasm. Bruce Martinez MD on December 12, 2016 at 10:12 Board Certified Radiologist. This report was verified electronically.
--- NOTE | 2016-12-12 12:50 | HHI.NSPN ---
(Floyd Dior) History Chief Complaint: headache. (Floyd Dior) Interval History A 51-year-old female who presented to the emergency room last evening with complaints of headaches which apparently she has had for the last several weeks and has had two previous evaluations initially on November 17 and then on November [address] of the head obtained at that time was negative. She has undergone extensive imaging studies as well as neurology evaluation since last evening. CT of the head suggests small areas of hyperdensity in the interhemispheric fissure and the frontal aspect and the sylvian fissure and questionable subarachnoid hemorrhage. CT angiogram of the brain is negative for any obvious aneurysm. She also had a lumbar puncture undertaken by the clinical resource director which was basically grossly bloody with a slight xanthochromia. Subsequently, this morning she has also had an MRI scan of the brain which did not reveal any underlying mass or abnormality. The radiologist mention of the ventricle size is appropriate with no restricted diffusion changes. There is a subtle hemorrhage adjacent to the anterior communicating artery left of the midline. Magnetic resonance venogram of the brain does not reveal any venous thrombosis. CT of the cervical spine reveals a mild degenerate changes. In comparison to the current CT from 12/03/2016 and the previous one on 11/24/2016 the ventricle size does appear to be slightly enlarged. The patient other than complaints of headache and some nausea denies any other symptoms. She was hypertensive during the initial presentation of the systolic blood pressure in the 214 and diastolic 127 with bradycardia. At this point blood pressure has been normalized although still has heart rate in the 40s to 50s. Neurology was undertaken for further workup for vasculitis. An EEG is pending. 12/05/16: Pt awake and alert. Complains of frontal headache with mild blurred vision. No nausea or vomiting. No muscle weakness other than generalized. 12/06/16: Pt awakens to voice. Complains of frontal headache. No nausea or vomiting. No weakness or paresthesias. 12/07/16: Pt complains of headache. Had nausea this morning. No paresthesias or weakness in extremities. Follows commands. Speech clear. 12/11/16: Patient complains of frontal headache. No nausea or vomiting. No weakness or paresthesias in the upper extremity. No blurred or double vision. She is sitting up in a chair. 12/12/16: Pt states frontal headache improving, not much h/a today. No nausea or vomiting. No paresthesias in face or extremities. Denies weakness. (Floyd Dior) Review of Systems General: Negative for: fever, chills, insomnia Respiratory: Negative for: shortness of breath, cough, sputum Cardiovascular: Negative for: chest pain Gastrointestinal: Negative for: nausea, vomitting, diarrhea, constipation ( Floyd Dior) Exam Results Vital Signs Date Time Temp Pulse Resp B/P Pulse Ox O2 Delivery O2 Flow Rate FiO2 12/12/16 10:00 56 12/12/16 08:18 100 12/12/16 08:00 98.5 13 170/83 12/12/16 00:20 21 12/09/16 19:00 Room Air Intake and Output 12/11/16 12/11/16 12/11/16 07:59 15:59 23:59 Intake Total 1383 ml 2514 ml 964 ml Output Total 1725 ml 1950 ml 400 ml Balance -342 ml 564 ml 564 ml (Floyd Dior) Physical Examination Resp: CTA bilaterally Heart: NSR no murmurs Abd: Soft positive bs Skin: No cyanosis or erythema Muscle: moves all 4 extremities symmetrically. Neuro: Pt awake and alert. Sitting up in chair. Speech clear and appropriate. Face symmetric. Pupils 3 mm bilaterally reactive bilaterally. ( Floyd Dior) Lab, Micro, Other Results Last Impressions Transcranial Doppler Study Complete 12/12/16599 Signed Impressions: Service Date/Time: Monday, December 12, 2016 08:42 - CONCLUSION: There are no findings to indicate vasospasm. Bruce Martinez MD Head CT 12/10/16599 Signed Impressions: Service Date/Time: Saturday, December 10, 2016 05:05 - CONCLUSION: 1. Evolving small hemorrhage in the wall of the left lateral ventricle. No new intracranial hemorrhage. Ventricular size is stable. Bernard Vasquez MD Cerebral Arteriogram 5/17/17 0600 Signed Impressions: Service Date/Time: Tuesday, December 06, 2016 12:38 - CONCLUSION: 1. 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 Nic Alcantar MD Chest X-Ray 12/06/16 0000 Signed Impressions: Service Date/Time: Tuesday, December 06, 2016 21:06 - CONCLUSION: 1. Uncomplicated line placement. No evidence of pneumothorax. Rayray Iglesias MD Brain MRI 12/04/16 0412 Signed Impressions: Service Date/Time: Sunday, December 04, 2016 08:46 - CONCLUSION: 1. Subtle hemorrhage as described above. Etiology for this is not apparent. 2. Careful followup is suggested. 3. Minimal periventricular white matter changes. Schuyler Alcantar MD FACR Head/Brain Mag Res Venography 12/04/16 0000 Signed Impressions: Service Date/Time: Sunday, December 04, 2016 00:00 - CONCLUSION: No findings to indicate venous sinus thrombosis identified. Nic Alcantar MD Neck CTA 12/03/168 Signed Impressions: Service Date/Time: Saturday, December 03, 2016 19:35 - CONCLUSION: Negative for hemodynamically significant carotid stenosis. Extensive tortuosity suggesting hypertension. Schuyler Alcantar MD FACR Head CTA 12/03/161927 Signed Impressions: Service Date/Time: Saturday, December 03, 2016 19:35 - CONCLUSION: Negative for aneurysm or major branch vessel occlusion. Schuyler Alcantar MD FACR Cervical Spine CT 12/03/16 0000 Signed Impressions: Service Date/Time: Saturday, December 03, 2016 19:25 - CONCLUSION: Mild degenerative changes without fracture. Schuyler Alcantar MD FACR Laboratory Tests Test 12/11/16 12/11/16 12/12/16 15:40 21:30 05:40 Sodium Level 139 MEQ/L 140 MEQ/L 143 MEQ/L Potassium Level 3.2 MEQ/L 4.1 MEQ/L White Blood Count 14.3 TH/MM3 Red Blood Count 3.43 MIL/MM3 Hemoglobin 10.2 GM/DL Hematocrit 29.4 % Mean Corpuscular Volume 85.8 FL Mean Corpuscular Hemoglobin 29.9 PG Mean Corpuscular Hemoglobin 34.8 % Concent Red Cell Distribution Width 13.8 % Platelet Count 231 TH/MM3 Mean Platelet Volume 8.2 FL Chloride Level 106 MEQ/L Carbon Dioxide Level 30.2 MEQ/L Anion Gap 7 MEQ/L Blood Urea Nitrogen 7 MG/DL Creatinine 0.62 MG/DL Estimat Glomerular Filtration 102 ML/MIN Rate Random Glucose 116 MG/DL Calcium Level 8.6 MG/DL 12/11/16 12/11/16 12/12/16 14:59 22:59 06:59 Intake Total 2234 ml 1244 ml 1862 ml Output Total 1750 ml 600 ml 3500 ml Balance 484 ml 644 ml -1638 ml Intake Oral 960 ml 480 ml 360 ml IV Total 1274 ml 764 ml 1502 ml Output Urine Total 1750 ml 600 ml 3500 ml # Bowel Movements 0 1 0 (Floyd Dior) Medical Decision Making Impression and Plan A: 51 y/o FM with probable frontal interhemispheric and proximal MCA area subarachnoid hemorrhage. Pt had a 5mm right pcom aneurysm found on angiogram and underwent coiling by radiology special procedures. 2. Hypertension which at this point is well regulated. PLAN Continue vasospasm prophylaxis. Continue with neuro checks Continue with Sequential compression device for DVT prophylaxis Continue with gastrointestinal stress ulcer prophylaxis. (Floyd Dior) Attending Statement The exam, history, and the medical decision-making described in the above note were completed with the assistance of the mid-level provider. I reviewed and agree with the findings presented. I attest that I had a [id number] encounter with the patient on the same day, and personally performed and documented my assessment and findings in the medical record. No vasospasm on transcranial Doppler studies. Headaches improved and overall she is doing well. If she remains stable next few days we can discontinue prophylactic hypervolemic hypertensive vasospasm treatment. (Dayton Garcia MD) Floyd Dior December 12, 2016 12:50 Dayton Garcia MD December 12, 2016 18:47
[2016-12-12] MEDS ORDERED: FLUCONAZOLE 100 MG TAB PO ONE (14:00)
[2016-12-12] MEDS: POTASSIUM CHLOR 40 MEQ PREMIX 100 ML IV PRN (20:02)
[2016-12-12 23:11] LABS: POTASSIUM 4.1 MEQ/L (3.5-5.1)
[2016-12-13] VITALS (12 sets, daily range): BP systolic 142–182; BP diastolic 74–88; PULSE 42–96; RESP 12–22; TEMP 97.9–100.7; O2SAT 97–99
[2016-12-13] MEDS: niMODipine 30 MG CAP PO SCH ×5 (03:49→19:53)
[2016-12-13] MEDS: CHLORHEXIDINE GLUCONATE 2 % 1 PACK (2 CLOTHS) TOP SCH (03:49)
[2016-12-13 04:42] LABS: MEAN CELL VOLUME 84.9 FL (80.0-100.0); MEAN CORPUSCULAR HEMOGLOBIN 30.1 PG (27.0-34.0); MEAN CORPUSCULAR HGB CONC 35.5 % (32.0-36.0); PLATELET COUNT 255 TH/MM3 (150-450); RED BLOOD COUNT 3.53 MIL/MM3 (4.00-5.30); REVIEW FLAG FINAL; WHITE BLOOD COUNT 13.8 TH/MM3 (4.0-11.0)
[2016-12-13 05:09] LABS: BICARBONATE 30.7 MEQ/L (21.0-32.0); POTASSIUM 4.3 MEQ/L (3.5-5.1)
[2016-12-13] MEDS: SODIUM CHLOR 0.9% 1000 ML INJ 1,000 ML IV SCH ×4 (05:56→19:54)
[2016-12-13] MEDS ORDERED: SODIUM CHLOR 0.9% 1000 ML INJ 1,000 ML IV ONE (06:30)
[2016-12-13] MEDS ORDERED: SODIUM CHLOR 0.9% 1000 ML INJ 2,000 ML IV ONE ×2 (06:30→08:45)
[2016-12-13] MEDS: MUPIROCIN 2% OINT 1 APPLIC/GM SYR NASAL SCH ×2 (09:00→19:53)
[2016-12-13] MEDS: SODIUM CHLORIDE 0.9% FLUSH 10 ML FLUSH SCH ×2 (09:03→19:52)
[2016-12-13] MEDS: FAMOTIDINE 20 MG/2 ML VIAL IV PUSH SCH ×2 (09:04→19:53)
[2016-12-13] MEDS: levETIRAcetam 500 MG TAB PO SCH ×2 (09:04→19:52)
[2016-12-13] MEDS: MORPHINE SULFATE 15 MG CONTROLLED RELEASE TAB PO SCH ×2 (09:04→19:52)
[2016-12-13] MEDS: DOCUSATE SODIUM 100 MG CAP PO SCH ×2 (09:04→19:52)
--- NOTE | 2016-12-13 13:51 | RADRPT ---
EXAM DATE/TIME: 12/13/2016 09:06 [facility] COMPARISON: US TRANSCRANIAL DOPPLER COMPLETE, December 12, 2016, 8:42. INDICATIONS : Subarachnoid hemorrhage. MEDICAL HISTORY : Hypertension. Methicillin-resistant Staphylococcus aureus. Headache. Gallstones. SURGICAL HISTORY : Abdominal aortic aneurysm repair. . ENCOUNTER: Subsequent ACUITY: 1 week PAIN SCORE: 2/10 LOCATION: Bilateral cranial Current Exam: December 13, 2016 Lind[place]ard Ratio: Right: 2.7 Left: 2.9 Rasmussen Ratio: Right: 1.6 Left: 1.8 Previous Exam: December 12, 2016 [place]ard Ratio: Right: 1.9 Left: 3.9 Rasmussen Ratio: Right: 2.3 Left: 3.8 FINDINGS: Examination performed at bedside. Real-time ultrasound with the assistance of color and spectral Dop pler was utilized to evaluate the intracerebral circulation. Time-averaged maximal velocities are ca lculated in cm/s. Right Lindegard ratio is slightly increased but still within the range of normal. Significant increas e in the left Lindegard ratio which has also returned to normal CONCLUSION: Normal ratios and velocities bilaterally with no Doppler evidence of significant vasospasm. Britton Nicole MD on December 13, 2016 at 13:48 Board Certified Radiologist. This report was verified electronically.
--- NOTE | 2016-12-13 14:34 | HHI.NSPN ---
History Chief Complaint: Denies any headaches today Interval History 51-year-old female who presented to the emergency room last evening with complaints of headaches which apparently she has had for the last several weeks and has had two previous evaluations initially on November 17 and then on November [address] of the head obtained at that time was negative. She has undergone extensive imaging studies as well as neurology evaluation since last evening. CT of the head suggests small areas of hyperdensity in the interhemispheric fissure and the frontal aspect and the sylvian fissure and questionable subarachnoid hemorrhage. CT angiogram of the brain is negative for any obvious aneurysm. She also had a lumbar puncture undertaken by the box nailer which was basically grossly bloody with a slight xanthochromia. Subsequently, this morning she has also had an MRI scan of the brain which did not reveal any underlying mass or abnormality. The radiologist mention of the ventricle size is appropriate with no restricted diffusion changes. There is a subtle hemorrhage adjacent to the anterior communicating artery left of the midline. Magnetic resonance venogram of the brain does not reveal any venous thrombosis. CT of the cervical spine reveals a mild degenerate changes. In comparison to the current CT from 12/03/2016 and the previous one on 11/24/2016 the ventricle size does appear to be slightly enlarged. The patient other than complaints of headache and some nausea denies any other symptoms. She was hypertensive during the initial presentation of the systolic blood pressure in the 214 and diastolic 127 with bradycardia. At this point blood pressure has been normalized although still has heart rate in the 40s to 50s. Neurology was undertaken for further workup for vasculitis. An EEG is pending. 12/05/16: Pt awake and alert. Complains of frontal headache with mild blurred vision. No nausea or vomiting. No muscle weakness other than generalized. 12/06/16: Pt awakens to voice. Complains of frontal headache. No nausea or vomiting. No weakness or paresthesias. 12/07/16: Pt complains of headache. Had nausea this morning. No paresthesias or weakness in extremities. Follows commands. Speech clear. 12/08/16: Headaches have improved and sitting in chair. More conversant and smiling today. 12/13/16: Headaches have resolved and she is awake and alert and eating breakfast. Wants to go home. Transcranial Doppler studies for the past few days reveal no vasospasm. Exam Results Vital Signs Date Time Temp Pulse Resp B/P Pulse Ox O2 Delivery O2 Flow Rate FiO2 12/13/16 10:30 15 12/13/16 10:00 58 12/13/16 08:00 98.0 182/88 99 12/12/16 00:20 21 12/09/16 19:00 Room Air Intake and Output 12/12/16 12/12/16 12/13/16 08:00 16:00 00:00 Intake Total 1862 ml 2180 ml 2044 ml Output Total 3500 ml 1450 ml 4000 ml Balance -1638 ml 730 ml -1956 ml Physical Examination Head: Normal cephalic atraumatic Neck: Supple Resp: CTA bilaterally Heart: NSR no murmurs Abd: Soft positive bs Skin: No cyanosis or erythema Muscle: moves all 4 extremities symmetrically. Neuro: Pt awake and alert. Sitting up in chair. Speech clear and appropriate. Face symmetric. Pupils 3 mm bilaterally reactive bilaterally. Lab, Micro, Other Results Laboratory Tests Test 12/12/16 12/13/16 22:35 04:35 Sodium Level 140 140 Potassium Level 4.1 4.3 White Blood Count 13.8 Red Blood Count 3.53 Hemoglobin 10.6 Hematocrit 30.0 Mean Corpuscular Volume 84.9 Mean Corpuscular Hemoglobin 30.1 Mean Corpuscular Hemoglobin 35.5 Concent Red Cell Distribution Width 14.0 Platelet Count 255 Mean Platelet Volume 7.7 Chloride Level 103 Carbon Dioxide Level 30.7 Anion Gap 6 Blood Urea Nitrogen 9 Creatinine 0.58 Estimat Glomerular Filtration 110 Rate Random Glucose 133 Calcium Level 9.1 Medical Decision Making Impression and Plan A: 51 y/o FM with frontal interhemispheric and proximal MCA area subarachnoid hemorrhage along with a slight intraventricular hemorrhage and hydrocephalus. Pt had a 5mm right pcom aneurysm found on angiogram and underwent coiling by radiology special procedures. Follow-up CT scan shows a ventricle size slightly decreased and her headaches have resolved. 2. Hypertension on presentation currently on hypervolemic, hypertensive treatment for vasospasm. Transcranial Doppler studies of last few days reveal no vasospasm. At this point we'll discontinue prophylactic vasospasm treatment and monitor neurologic status. Discussed with box nailer Dr. Joseph. Dayton Garcia MD December 13, 2016 14:34
--- NOTE | 2016-12-13 15:11 | HHI.CCPN ---
Subjective Remarks/Hospital Course 51-year-old female presents with complaint of severe headache after fall. History is obtained per chart since patient is a poor historian. Apparently patient had a fall sometime yesterday. This was unwitnessed. Unclear whether it was mechanical, syncopal. Unclear whether she even hit her head. Since however she's been complaining of a severe headache, primarily left-sided though retro-orbital bilaterally. She has not had any nausea or vomiting. Her headache is 10 out of 10 and is the worse headache of her life. Friend states that she has been confused, alert to self and place only but not time. She believes it is 1965. Patient has had urinary and fecal incontinence which is new for her. Per EMS patient was hypertensive in the 190s systolic and bradycardic in the 50s. She is not anticoagulated. The patient was seen here twice recently over the last month with complaint of headache and had negative CT imaging, was treated symptomatically and discharged home. SUBJ 12/04: Patient continues to have headache and vomiting. Variable level of alertness, orientation. MRI shows septal subarachnoid hemorrhage ACOM towards left. Neurosurgery Dr. Gracia, neurology Dr. Montilla 12/05: Clinically improving slowly still has headache. MRI showing some blood in occipital horn right side on flair imaging per Dr. Victoria. According no his notes, he suspecting possibility of third ventricular mass or intraventricular bleed present from 11/22/16. Cerebral angiogram pending today 12/06: headache persists. plan for 4-vessel angio today to r/o aneurysm. neuro exam stable from prior documented exams. 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 now PBD 4. TCDs yesterday showed evidence of severe vasospasm, but 4-vessel angio done immediately prior demonstrated excellent flow without vasospasm. net euvolemic. 12/08: moderate vasospasm by TCD. very high uop. Na stable. neuro exam stable. still complains of headache. sbp 160s-180s without supplementation. 12/09: slight improvement in TCDs yesterday. still net -1500/24h. neuro intact. sbp in the 190s with a goal of 160 - 200. 12/10: continues to be neuro intact. TCDs with persistence of moderate vasospasm. net euvolemic over last 24h. sodium stable. 12/11: no evidence of vasospasm on TCD this morning. net euvolemic. headache stable and tolerable. tolerating regular diet. sodium stable. ambulating. 12/12: uop increased overnight requiring ivf bolus. otherwise, no change. labs stable. neuro exam stable. 12/13: no evidence of vasospasm x 48h now. patient without headache. still with high uop, but this may be normalizing prior high volume resuscitation. Objective Vital Signs Date Time Temp Pulse Resp B/P Pulse Ox O2 Delivery O2 Flow Rate FiO2 12/13/16 10:30 15 12/13/16 10:00 58 12/13/16 08:00 98.0 182/88 99 12/12/16 00:20 21 12/09/16 19:00 Room Air Intake and Output 12/12/16 12/12/16 12/13/16 08:00 16:00 00:00 Intake Total 1862 ml 2180 ml 2044 ml Output Total 3500 ml 1450 ml 4000 ml Balance -1638 ml 730 ml -1956 ml Result Diagram: 12/13/16 0435 12/13/16 0435 Objective Remarks GENERAL: middle-aged female, sitting in chair, no distress this morning. SKIN: Warm and dry. HEAD: Normocephalic. EYES: No scleral icterus. No injection or drainage. MANJU NECK: trachea midline. No JVD. CARDIOVASCULAR: normal rate, regular rhythm. sinus by tele. RESPIRATORY: Breath sounds equal bilaterally. No accessory muscle use. GASTROINTESTINAL: Abdomen soft, non-tender, nondistended. MUSCULOSKELETAL: No cyanosis, or edema. EXTREMITIES: No clubbing cyanosis or edema NEURO: Patient is alert awake. No focal deficits. 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 No evidence of vasospasm today by TCD. continue frequent neuro checks. liberalize SBP goals to 120 - 180. needs to remain in ICU. high risk. A/P NEURO: Aneurysmal SAH, PBD 9 s/p endovascular coiling 5mm right PCOM aneurysm, 12/06 Acute encephalopathy- resolved. Severe headaches - Keppra for seizure prophylaxis per Dr. Victoria - Neurosurgery Dr. Garcia, Neurology Dr. Victoria - Keep Na >145, Mag>2. Avoid hypoxia hypercarbia - Nimodipine 60 mg every 4 hours to prevent vasospasm - Urine drug screen positive for opiates only - LP xanthochromia, no evidence of infection, CSF culture negative - frequent neuro checks - goal SBP 120 - 180 CVS Uncontrolled hypertension Hypertensive emergency- resolving. - Target SBP 120 - 180. - Nimodipine prophylaxis - Hydralazine when necessary RESP: - Aggressive pulmonary toilet - O2 by NC - OOB and ambulating. PT consult. GI: Intravascular volume depletion- resolving. - regular diet as tolerated. - IV Protonix. Zofran when necessary - decrease NS to 75 cc/hr. - aggressively replace uop losses. - d/c serial sodiums. : - Monitor renal function closely. - keep verde given getting into vasospasm window. q1h uop. if remains stable, will remove tomorrow. ID: Leukocytosis - Monitor for infection - UA, blood cultures NGTD. Endo: - Electrolyte replacement per protocol DVT GI prophylaxis - Teds SCDs - No chemical DVT prophylaxis due to ICH - Pepcid Lines: left IJ TLC 12/07, Verde. keep during vasospasm. Dispo: remain in ICU given aneurysmal SAH Bryce Hobbs MD December 13, 2016 15:11
[2016-12-14] VITALS (12 sets, daily range): BP systolic 111–131; BP diastolic 60–77; PULSE 50–94; RESP 10–18; TEMP 97.9–100.8; O2SAT 95–100
[2016-12-14] MEDS: niMODipine 30 MG CAP PO SCH ×6 (00:17→21:29)
[2016-12-14] MEDS: SODIUM CHLOR 0.9% 1000 ML INJ 1,000 ML IV SCH ×2 (01:07→04:17)
[2016-12-14] MEDS: CHLORHEXIDINE GLUCONATE 2 % 1 PACK (2 CLOTHS) TOP SCH (04:00)
[2016-12-14 05:47] LABS: HEMATOCRIT 28.4 % (35.0-46.0); MEAN CELL VOLUME 86.8 FL (80.0-100.0); MEAN CORPUSCULAR HEMOGLOBIN 29.4 PG (27.0-34.0); MEAN CORPUSCULAR HGB CONC 33.9 % (32.0-36.0); PLATELET COUNT 200 TH/MM3 (150-450); RED BLOOD COUNT 3.27 MIL/MM3 (4.00-5.30); RED CELL DISTRIBUTION WIDTH 14.4 % (11.6-17.2); REVIEW FLAG FINAL; WHITE BLOOD COUNT 20.4 TH/MM3 (4.0-11.0)
[2016-12-14 06:18] LABS: BICARBONATE 29.8 MEQ/L (21.0-32.0); POTASSIUM 3.5 MEQ/L (3.5-5.1)
--- NOTE | 2016-12-14 07:07 | HHI.CCPN ---
Subjective Remarks/Hospital Course 51-year-old female presents with complaint of severe headache after fall. History is obtained per chart since patient is a poor historian. Apparently patient had a fall sometime yesterday. This was unwitnessed. Unclear whether it was mechanical, syncopal. Unclear whether she even hit her head. Since however she's been complaining of a severe headache, primarily left-sided though retro-orbital bilaterally. She has not had any nausea or vomiting. Her headache is 10 out of 10 and is the worse headache of her life. Friend states that she has been confused, alert to self and place only but not time. She believes it is 1965. Patient has had urinary and fecal incontinence which is new for her. Per EMS patient was hypertensive in the 190s systolic and bradycardic in the 50s. She is not anticoagulated. The patient was seen here twice recently over the last month with complaint of headache and had negative CT imaging, was treated symptomatically and discharged home. SUBJ 12/04: Patient continues to have headache and vomiting. Variable level of alertness, orientation. MRI shows septal subarachnoid hemorrhage ACOM towards left. Neurosurgery Dr. Garcia, neurology Dr. Montilla 12/05: Clinically improving slowly still has headache. MRI showing some blood in occipital horn right side on flair imaging per Dr. Victoria. According no his notes, he suspecting possibility of third ventricular mass or intraventricular bleed present from 11/22/16. Cerebral angiogram pending today 12/06: headache persists. plan for 4-vessel angio today to r/o aneurysm. neuro exam stable from prior documented exams. 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 now PBD 4. TCDs yesterday showed evidence of severe vasospasm, but 4-vessel angio done immediately prior demonstrated excellent flow without vasospasm. net euvolemic. 12/08: moderate vasospasm by TCD. very high uop. Na stable. neuro exam stable. still complains of headache. sbp 160s-180s without supplementation. 12/09: slight improvement in TCDs yesterday. still net -1500/24h. neuro intact. sbp in the 190s with a goal of 160 - 200. 12/10: continues to be neuro intact. TCDs with persistence of moderate vasospasm. net euvolemic over last 24h. sodium stable. 12/11: no evidence of vasospasm on TCD this morning. net euvolemic. headache stable and tolerable. tolerating regular diet. sodium stable. ambulating. 12/12: uop increased overnight requiring ivf bolus. otherwise, no change. labs stable. neuro exam stable. 12/13: no evidence of vasospasm x 48h now. patient without headache. still with high uop, but this may be normalizing prior high volume resuscitation. 12/14: doing well. de-escalating ivf resuscitation. will continue to liberalize blood pressure goals. could go to floor today if remains stable. Objective Vital Signs Date Time Temp Pulse Resp B/P Pulse Ox O2 Delivery O2 Flow Rate FiO2 12/14/16 04:00 100.2 62 16 111/60 96 12/12/16 00:20 21 Intake and Output 12/13/16 12/13/16 12/14/16 08:00 16:00 00:00 Intake Total 1503 ml 4732 ml 646 ml Output Total 2700 ml 3950 ml 2000 ml Balance -1197 ml 782 ml -1354 ml Result Diagram: 12/14/16 0535 12/14/16 0535 Objective Remarks GENERAL: middle-aged female, sitting in chair, no distress this morning. SKIN: Warm and dry. HEAD: Normocephalic. EYES: No scleral icterus. No injection or drainage. MANJU NECK: trachea midline. No JVD. CARDIOVASCULAR: normal rate, regular rhythm. sinus by tele. RESPIRATORY: Breath sounds equal bilaterally. No accessory muscle use. GASTROINTESTINAL: Abdomen soft, non-tender, nondistended. MUSCULOSKELETAL: No cyanosis, or edema. EXTREMITIES: No clubbing cyanosis or edema NEURO: Patient is alert awake. No focal deficits. Oriented to person place and time A/P Assessment and Plan Assessment: 51yF with aneurysmal SAH now PBD 11 and POD 8 s/p endovascular coiling of 5mm right PCOM aneurysm. now out of vasospasm. liberalize SBP goals to 100 - 180. A/P NEURO: Aneurysmal SAH, PBD 11 s/p endovascular coiling 5mm right PCOM aneurysm, 12/06 Acute encephalopathy- resolved. Severe headaches - Keppra for seizure prophylaxis per Dr. Victoria - Neurosurgery Dr. Garcia, Neurology Dr. Victoria - Keep Na >145, Mag>2. Avoid hypoxia hypercarbia - Nimodipine 60 mg every 4 hours to prevent vasospasm - Urine drug screen positive for opiates only - LP xanthochromia, no evidence of infection, CSF culture negative - frequent neuro checks - goal SBP 100 - 180 CVS Uncontrolled hypertension Hypertensive emergency- resolving. - Target SBP 100 - 180. - Nimodipine prophylaxis - Hydralazine when necessary RESP: - Aggressive pulmonary toilet - O2 by NC - OOB and ambulating. PT consult. GI: Intravascular volume depletion- resolving. - regular diet as tolerated. - IV Protonix. Zofran when necessary - saline lock ivf - aggressively replace uop losses. : - Monitor renal function closely. - d/c verde ID: Leukocytosis - Monitor for infection - UA, blood cultures NGTD. - resent u/a. Endo: - Electrolyte replacement per protocol DVT GI prophylaxis - Teds SCDs - No chemical DVT prophylaxis due to ICH - Pepcid Lines: d/c CVL. Dispo: if she continues to improve, will transfer out of ICU. Bryce Hobbs MD December 14, 2016 07:07
[2016-12-14 07:31] LABS: BLOOD, URINE SMALL (NEG); GLUCOSE,URINE NEG (NEG); KETONE, URINE NEG (NEG); MUCUS URINE FEW /lpf (OCC); PH, URINE 5.5 (5.0-8.5); URINE COLOR LIGHT-YELLOW (YELLW/STRAW)
[2016-12-14 07:43] LABS: NITRITE,URINE POS (NEG)
[2016-12-14 07:44] LABS: BACTERIA, URINE MOD /hpf; COMMENT (UR) CATH-CULTURE IND; CULTURE IF INDICATED CATH CULTURE IND
[2016-12-14] MEDS: MUPIROCIN 2% OINT 1 APPLIC/GM SYR NASAL SCH ×2 (09:00→21:29)
--- NOTE | 2016-12-14 09:10 | HHI.NSPN ---
(Floyd Dior) History Chief Complaint: Denies any headaches today (Floyd Dior) Interval History A 51-year-old female who presented to the emergency room last evening with complaints of headaches which apparently she has had for the last several weeks and has had two previous evaluations initially on November 17 and then on November [address] of the head obtained at that time was negative. She has undergone extensive imaging studies as well as neurology evaluation since last evening. CT of the head suggests small areas of hyperdensity in the interhemispheric fissure and the frontal aspect and the sylvian fissure and questionable subarachnoid hemorrhage. CT angiogram of the brain is negative for any obvious aneurysm. She also had a lumbar puncture undertaken by the scrap iron cutter which was basically grossly bloody with a slight xanthochromia. Subsequently, this morning she has also had an MRI scan of the brain which did not reveal any underlying mass or abnormality. The radiologist mention of the ventricle size is appropriate with no restricted diffusion changes. There is a subtle hemorrhage adjacent to the anterior communicating artery left of the midline. Magnetic resonance venogram of the brain does not reveal any venous thrombosis. CT of the cervical spine reveals a mild degenerate changes. In comparison to the current CT from 12/03/2016 and the previous one on 11/24/2016 the ventricle size does appear to be slightly enlarged. The patient other than complaints of headache and some nausea denies any other symptoms. She was hypertensive during the initial presentation of the systolic blood pressure in the 214 and diastolic 127 with bradycardia. At this point blood pressure has been normalized although still has heart rate in the 40s to 50s. Neurology was undertaken for further workup for vasculitis. An EEG is pending. 12/05/16: Pt awake and alert. Complains of frontal headache with mild blurred vision. No nausea or vomiting. No muscle weakness other than generalized. 12/06/16: Pt awakens to voice. Complains of frontal headache. No nausea or vomiting. No weakness or paresthesias. 12/07/16: Pt complains of headache. Had nausea this morning. No paresthesias or weakness in extremities. Follows commands. Speech clear. 12/11/16: Patient complains of frontal headache. No nausea or vomiting. No weakness or paresthesias in the upper extremity. No blurred or double vision. She is sitting up in a chair. 12/12/16: Pt states frontal headache improving, not much h/a today. No nausea or vomiting. No paresthesias in face or extremities. Denies weakness. 12/14/16: Mild headache this morning. Follows commands well. Moves all 4 extremities. (Floyd Dior) Review of Systems General: Negative for: fever, chills, insomnia Respiratory: Negative for: shortness of breath, cough, sputum Cardiovascular: Negative for: chest pain Gastrointestinal: Negative for: nausea, vomitting, diarrhea, constipation ( Floyd Dior) Exam Results Vital Signs Date Time Temp Pulse Resp B/P Pulse Ox O2 Delivery O2 Flow Rate FiO2 12/14/16 08:40 100 21 12/14/16 04:00 100.2 62 16 111/60 Intake and Output 12/13/16 12/13/16 12/13/16 07:59 15:59 23:59 Intake Total 1503 ml 4732 ml 646 ml Output Total 2700 ml 3950 ml 2000 ml Balance -1197 ml 782 ml -1354 ml (Floyd Dior) Physical Examination Head: Normal cephalic atraumatic Resp: CTA bilaterally Heart: NSR no murmurs Abd: Soft positive bs Skin: No cyanosis or erythema Muscle: moves all 4 extremities symmetrically. Neuro: Pt awake and alert. Sits up to side of bed to eat breakfast. Speech clear and appropriate. Face symmetric. Pupils 3 mm bilaterally reactive bilaterally. (Floyd Dior) Lab, Micro, Other Results Last Impressions Transcranial Doppler Study Complete 12/13/16 06 Signed Impressions: Service Date/Time: Tuesday, December 13, 2016 09:06 - CONCLUSION: Normal ratios and velocities bilaterally with no Doppler evidence of significant vasospasm. Britton Nicole MD Head CT 12/10/16 0600 Signed Impressions: Service Date/Time: Saturday, December 10, 2016 05:05 - CONCLUSION: 1. Evolving small hemorrhage in the wall of the left lateral ventricle. No new intracranial hemorrhage. Ventricular size is stable. Bernard Vasquez MD Cerebral Arteriogram 12/06/16 0600 Signed Impressions: Service Date/Time: Tuesday, December 06, 2016 12:38 - CONCLUSION: 1. 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 Nic Alcantar MD Chest X-Ray 12/06/16 0000 Signed Impressions: Service Date/Time: Tuesday, December 06, 2016 21:06 - CONCLUSION: 1. Uncomplicated line placement. No evidence of pneumothorax. Rayray Iglesias MD Brain MRI 12/04/16 0412 Signed Impressions: Service Date/Time: Sunday, December 04, 2016 08:46 - CONCLUSION: 1. Subtle hemorrhage as described above. Etiology for this is not apparent. 2. Careful followup is suggested. 3. Minimal periventricular white matter changes. Schuyler Alcantar MD FACR Head/Brain Mag Res Venography 12/04/16 0000 Signed Impressions: Service Date/Time: Sunday, December 04, 2016 00:00 - CONCLUSION: No findings to indicate venous sinus thrombosis identified. Nic Alcantar MD Neck CTA [id number] Signed Impressions: Service Date/Time: Saturday, December 03, 2016 19:35 - CONCLUSION: Negative for hemodynamically significant carotid stenosis. Extensive tortuosity suggesting hypertension. Schuyler Alcantar MD FACR Head CTA [id number] Signed Impressions: Service Date/Time: Saturday, December 03, 2016 19:35 - CONCLUSION: Negative for aneurysm or major branch vessel occlusion. Schuyler Alcantar MD FACR Cervical Spine CT 12/03/16 0000 Signed Impressions: Service Date/Time: Saturday, December 03, 2016 19:25 - CONCLUSION: Mild degenerative changes without fracture. Schuyler Alcantar MD FACR Laboratory Tests Test 12/13/16 12/14/16 12/14/16 20:05 05:35 07:02 Sodium Level 140 MEQ/L 140 MEQ/L White Blood Count 20.4 TH/MM3 Red Blood Count 3.27 MIL/MM3 Hemoglobin 9.6 GM/DL Hematocrit 28.4 % Mean Corpuscular Volume 86.8 FL Mean Corpuscular Hemoglobin 29.4 PG Mean Corpuscular Hemoglobin 33.9 % Concent Red Cell Distribution Width 14.4 % Platelet Count 200 TH/MM3 Mean Platelet Volume 7.4 FL Potassium Level 3.5 MEQ/L Chloride Level 102 MEQ/L Carbon Dioxide Level 29.8 MEQ/L Anion Gap 8 MEQ/L Blood Urea Nitrogen 13 MG/DL Creatinine 0.81 MG/DL Estimat Glomerular Filtration 75 ML/MIN Rate Random Glucose 120 MG/DL Calcium Level 8.1 MG/DL Urine Color LIGHT-YELLOW Urine Turbidity HAZY Urine pH 5.5 Urine Specific [place] 1.012 Urine Protein 30 mg/dL Urine Glucose (UA) NEG mg/dL Urine Ketones NEG mg/dL Urine Occult Blood SMALL Urine Nitrite POS Urine Bilirubin NEG Urine Urobilinogen LESS THAN 2.0 MG/DL Urine Leukocyte Esterase LARGE Urine RBC 13 /hpf Urine WBC /hpf Urine WBC Clumps MOD Urine Amorphous Sediment RARE Urine Bacteria MOD /hpf Urine Mucus FEW /lpf Microscopic Urinalysis Comment CATH-CULTURE IND 12/13/16 12/13/16 12/14/16 14:59 22:59 06:59 Intake Total 4732 ml 646 ml 1226 ml Output Total 3950 ml 2000 ml 980 ml Balance 782 ml -1354 ml 246 ml Intake Oral 590 ml 240 ml 300 ml IV Total 4142 ml 406 ml 926 ml Output Urine Total 3950 ml 2000 ml 980 ml # Bowel Movements 0 0 0 (Floyd Dior) Medical Decision Making Impression and Plan A: 51 y/o FM with probable frontal interhemispheric and proximal MCA area subarachnoid hemorrhage. Pt had a 5mm right pcom aneurysm found on angiogram and underwent coiling by radiology special procedures. 2. Hypertension which at this point is well regulated. PLAN Continue vasospasm prophylaxis. Continue with neuro checks Continue with Sequential compression device for DVT prophylaxis Continue with gastrointestinal stress ulcer prophylaxis. Transfer to floor/Rehab placement. (Floyd Dior) Attending Statement The exam, history, and the medical decision-making described in the above note were completed with the assistance of the mid-level provider. I reviewed and agree with the findings presented. I attest that I had a [id number] encounter with the patient on the same day, and personally performed and documented my assessment and findings in the medical record. Stable neurologically with discontinuing prophylactic vasospasm treatment. Does have a UTI on urinalysis and was started on Cipro. Okay for floor transfer. (Dayton Garcia MD) Floyd Dior December 14, 2016 09:10 Dayton Garcia MD December 14, 2016 16:13
[2016-12-14] MEDS: levETIRAcetam 500 MG TAB PO SCH ×2 (09:23→21:29)
[2016-12-14] MEDS: FAMOTIDINE 20 MG/2 ML VIAL IV PUSH SCH ×2 (09:23→21:29)
[2016-12-14] MEDS: DOCUSATE SODIUM 100 MG CAP PO SCH ×2 (09:23→21:29)
[2016-12-14] MEDS: SODIUM CHLORIDE 0.9% FLUSH 10 ML FLUSH SCH ×2 (09:24→21:29)
[2016-12-14] MEDS: MORPHINE SULFATE 15 MG CONTROLLED RELEASE TAB PO SCH (09:24)
--- NOTE | 2016-12-14 11:04 | RADRPT ---
EXAM DATE/TIME: 12/14/2016 08:56 [facility] COMPARISON: US TRANSCRANIAL DOPPLER COMPLETE, December 13, 2016, 9:06. INDICATIONS : Subarachnoid hemorrhage. MEDICAL HISTORY : Hypertension. Methicillin-resistant Staphylococcus aureus. Headache. Gallstones. SURGICAL HISTORY : Abdominal aortic aneurysm repair. ENCOUNTER: Sequela ACUITY: 1 week PAIN SCORE: 1/10 LOCATION: Bilateral cranial Current Exam: December 14, 2016 [place] Ratio: Right: 3.4 Left: 3.9 [place] Ratio: Right: 1.1 Left: 2.8 Previous Exam: December 13, 2016 [place] Ratio: Right: 1.9 Left: 3.9 [place] Ratio: Right: 2.3 Left: 3.8 FINDINGS: Examination performed at bedside. Real-time ultrasound with the assistance of color and spectral Dop pler was utilized to evaluate the intracerebral circulation. Time-averaged maximal velocities are ca lculated in cm/s. The [place]ard ratios are mildly elevated bilaterally. However, the middle cerebral artery velocities remain within the normal range. CONCLUSION: 1. Mildly elevated [place]ard ratios bilaterally. However, the middle cerebral artery velocities are w ithin normal limits suggesting that this change is related to physiologic effects. 2. Remaining velocities and ratios are within normal limits. Bruce Martinez MD on December 14, 2016 at 11:00 Board Certified Radiologist. This report was verified electronically.
[2016-12-14] MEDS: CIPROFLOXACIN 500 MG TAB PO SCH ×2 (12:04→21:29)
[2016-12-14] MEDS ORDERED: cefTRIAXone INJ 1,000 MG in SODIUM CHLORIDE 0.9% INJ 100 ML IV SCH (19:15)
[2016-12-15] VITALS (8 sets, daily range): BP systolic 102–134; BP diastolic 67–75; PULSE 68–83; RESP 16–20; TEMP 96.4–100.4; O2SAT 93–99
[2016-12-15] MEDS: niMODipine 30 MG CAP PO SCH ×7 (00:48→23:20)
[2016-12-15] MEDS: CHLORHEXIDINE GLUCONATE 2 % 1 PACK (2 CLOTHS) TOP SCH (04:00)
[2016-12-15] MEDS: levETIRAcetam 500 MG TAB PO SCH (08:27)
[2016-12-15] MEDS: CIPROFLOXACIN 500 MG TAB PO SCH ×2 (08:27→20:00)
[2016-12-15] MEDS: DOCUSATE SODIUM 100 MG CAP PO SCH ×2 (08:27→19:59)
[2016-12-15] MEDS: FAMOTIDINE 20 MG/2 ML VIAL IV PUSH SCH ×2 (08:27→20:00)
[2016-12-15] MEDS: MUPIROCIN 2% OINT 1 APPLIC/GM SYR NASAL SCH ×2 (08:27→20:00)
[2016-12-15] MEDS: SODIUM CHLORIDE 0.9% FLUSH 10 ML FLUSH SCH ×2 (09:00→20:00)
--- NOTE | 2016-12-15 09:17 | HHI.NSPN ---
(Floyd Dior) History Chief Complaint: Denies any headaches today (Floyd Dior) Interval History A 51-year-old female who presented to the emergency room last evening with complaints of headaches which apparently she has had for the last several weeks and has had two previous evaluations initially on November 17 and then on November [address] of the head obtained at that time was negative. She has undergone extensive imaging studies as well as neurology evaluation since last evening. CT of the head suggests small areas of hyperdensity in the interhemispheric fissure and the frontal aspect and the sylvian fissure and questionable subarachnoid hemorrhage. CT angiogram of the brain is negative for any obvious aneurysm. She also had a lumbar puncture undertaken by the it account manager which was basically grossly bloody with a slight xanthochromia. Subsequently, this morning she has also had an MRI scan of the brain which did not reveal any underlying mass or abnormality. The radiologist mention of the ventricle size is appropriate with no restricted diffusion changes. There is a subtle hemorrhage adjacent to the anterior communicating artery left of the midline. Magnetic resonance venogram of the brain does not reveal any venous thrombosis. CT of the cervical spine reveals a mild degenerate changes. In comparison to the current CT from 12/03/2016 and the previous one on 11/24/2016 the ventricle size does appear to be slightly enlarged. The patient other than complaints of headache and some nausea denies any other symptoms. She was hypertensive during the initial presentation of the systolic blood pressure in the 214 and diastolic 127 with bradycardia. At this point blood pressure has been normalized although still has heart rate in the 40s to 50s. Neurology was undertaken for further workup for vasculitis. An EEG is pending. 12/05/16: Pt awake and alert. Complains of frontal headache with mild blurred vision. No nausea or vomiting. No muscle weakness other than generalized. 12/06/16: Pt awakens to voice. Complains of frontal headache. No nausea or vomiting. No weakness or paresthesias. 12/07/16: Pt complains of headache. Had nausea this morning. No paresthesias or weakness in extremities. Follows commands. Speech clear. 12/11/16: Patient complains of frontal headache. No nausea or vomiting. No weakness or paresthesias in the upper extremity. No blurred or double vision. She is sitting up in a chair. 12/12/16: Pt states frontal headache improving, not much h/a today. No nausea or vomiting. No paresthesias in face or extremities. Denies weakness. 12/14/16: Mild headache this morning. Follows commands well. Moves all 4 extremities. 12/15/16: No headaches today. Follows commands. Moves all 4 extremities symmetrically. Speech clear and appropriate. (Floyd Dior) Review of Systems General: Negative for: fever, chills, insomnia Respiratory: Negative for: shortness of breath, cough, sputum Cardiovascular: Negative for: chest pain Gastrointestinal: Negative for: nausea, vomitting, diarrhea, constipation ( Floyd Dior) Exam Results Vital Signs Date Time Temp Pulse Resp B/P Pulse Ox O2 Delivery O2 Flow Rate FiO2 12/15/16 04:00 100.4 77 18 134/74 98 12/14/16 08:40 21 Intake and Output 12/14/16 12/14/16 12/15/16 08:00 16:00 00:00 Intake Total 1226 ml 1475 ml Output Total 980 ml 850 ml Balance 246 ml 625 ml (Floyd Dior) Physical Examination Head: Normal cephalic atraumatic Resp: CTA bilaterally Heart: NSR no murmurs Abd: Soft positive bs Skin: No cyanosis or erythema Muscle: moves all 4 extremities symmetrically. Neuro: Pt awake and alert. Speech clear and appropriate. Face symmetric. Pupils 3 mm bilaterally reactive bilaterally. (Floyd Dior) Lab, Micro, Other Results Last Impressions Transcranial Doppler Study Complete 12/14/16 06 Signed Impressions: Service Date/Time: November 08:56 - CONCLUSION: 1. Mildly elevated Lindegard ratios bilaterally. However, the middle cerebral artery velocities are within normal limits suggesting that this change is related to physiologic effects. 2. Remaining velocities and ratios are within normal limits. Bruce Matrinez MD Head CT 12/10/16 06 Signed Impressions: Service Date/Time: Saturday, December 10, 2016 05:05 - CONCLUSION: 1. Evolving small hemorrhage in the wall of the left lateral ventricle. No new intracranial hemorrhage. Ventricular size is stable. Bernard Vasquez MD Cerebral Arteriogram 12/06/16 0600 Signed Impressions: Service Date/Time: Tuesday, December 06, 2016 12:38 - CONCLUSION: 1. 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 Nic Alcantar MD Chest X-Ray 12/06/16 0000 Signed Impressions: Service Date/Time: Tuesday, December 06, 2016 21:06 - CONCLUSION: 1. Uncomplicated line placement. No evidence of pneumothorax. Rayray Iglesias MD Brain MRI 12/04/16 0412 Signed Impressions: Service Date/Time: Sunday, December 04, 2016 08:46 - CONCLUSION: 1. Subtle hemorrhage as described above. Etiology for this is not apparent. 2. Careful followup is suggested. 3. Minimal periventricular white matter changes. Schuyler Alcantar MD FACR Head/Brain Mag Res Venography 12/04/16 0000 Signed Impressions: Service Date/Time: Sunday, December 04, 2016 00:00 - CONCLUSION: No findings to indicate venous sinus thrombosis identified. Nic Alcantar MD Neck CTA 12/03/161927 Signed Impressions: Service Date/Time: Saturday, December 03, 2016 19:35 - CONCLUSION: Negative for hemodynamically significant carotid stenosis. Extensive tortuosity suggesting hypertension. Schuyler Alcantar MD FACR Head CTA 12/03/161927 Signed Impressions: Service Date/Time: Saturday, December 03, 2016 19:35 - CONCLUSION: Negative for aneurysm or major branch vessel occlusion. Schuyler Alcantar MD FACR Cervical Spine CT 12/03/16 0000 Signed Impressions: Service Date/Time: Saturday, December 03, 2016 19:25 - CONCLUSION: Mild degenerative changes without fracture. Schuyler Alcantar MD FACR 12/14/16 12/14/16 12/15/16 15:00 23:00 07:00 Intake Total 1475 ml Output Total 850 ml 475 ml Balance 625 ml -475 ml Intake Oral 1180 ml IV Total 295 ml Output Urine Total 850 ml 475 ml # Voids 2 4 2 (Floyd Dior) Medical Decision Making Impression and Plan A: 51 y/o FM with probable frontal interhemispheric and proximal MCA area subarachnoid hemorrhage. Pt had a 5mm right pcom aneurysm found on angiogram and underwent coiling by radiology special procedures. 2. Hypertension which at this point is well regulated. PLAN Continue with neuro checks Continue with Sequential compression device for DVT prophylaxis Continue with gastrointestinal stress ulcer prophylaxis. Transfer to floor/Rehab placement. (Floyd Dior) Attending Statement The exam, history, and the medical decision-making described in the above note were completed with the assistance of the mid-level provider. I reviewed and agree with the findings presented. I attest that I had a [id number] encounter with the patient on the same day, and personally performed and documented my assessment and findings in the medical record. Stable neurologically. Okay from my standpoint to discharge home and follow-up with primary care physician. (Dayton Garcia MD) Floyd Dior December 15, 2016 09:17 Dayton Garcia MD December 15, 2016 13:33
[2016-12-15] MEDS: ACETAMINOPHEN 325 MG TAB PO PRN (12:35)
--- NOTE | 2016-12-15 14:23 | HHI.PR ---
Subjective Remarks Patient reports she is feeling tired. No headache or focal weakness. MAXIMUM TEMPERATURE 100.4 this morning Objective Vitals Vital Signs Date Time Temp Pulse Resp B/P Pulse Ox O2 Delivery O2 Flow Rate FiO2 12/15/16 12:00 99.4 74 16 131/70 93 12/15/16 12:00 74 12/15/16 10:10 94 21 12/15/16 08:00 68 12/15/16 08:00 99.4 68 17 134/73 96 12/15/16 04:00 100.4 77 18 134/74 98 12/15/16 04:00 77 12/15/16 00:00 100.3 80 20 127/72 97 12/15/16 00:00 80 12/14/16 22:00 79 12/14/16 20:05 98 12/14/16 20:00 68 12/14/16 20:00 99.1 68 17 131/77 98 12/14/16 18:00 86 12/14/16 16:00 99.0 65 18 127/69 97 12/14/16 16:00 65 I/O 12/14/16 12/14/16 12/14/16 12/15/16 12/15/16 12/15/16 06:59 14:59 22:59 06:59 14:59 22:59 Intake Total 1226 ml 1475 ml Output Total 980 ml 850 ml 475 ml Balance 246 ml 625 ml -475 ml Intake Oral 300 ml 1180 ml IV Total 926 ml 295 ml Output Urine Total 980 ml 850 ml 475 ml # Voids 2 4 2 # Bowel Movements 0 Result Diagram: 12/14/1635 12/14/16534 Imaging Last Impressions Transcranial Doppler Study Complete 12/14/16599 Signed Impressions: Service Date/Time: November 08:56 - CONCLUSION: 1. Mildly elevated Lindegard ratios bilaterally. However, the middle cerebral artery velocities are within normal limits suggesting that this change is related to physiologic effects. 2. Remaining velocities and ratios are within normal limits. Bruce Martinez MD Head CT 12/10/16599 Signed Impressions: Service Date/Time: Saturday, December 10, 2016 05:05 - CONCLUSION: 1. Evolving small hemorrhage in the wall of the left lateral ventricle. No new intracranial hemorrhage. Ventricular size is stable. Bernard Vasquez MD Cerebral Arteriogram 12/06/16 0600 Signed Impressions: Service Date/Time: Tuesday, December 06, 2016 12:38 - CONCLUSION: 1. 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 Nic Alcantar MD Chest X-Ray 12/06/16 0000 Signed Impressions: Service Date/Time: Tuesday, December 06, 2016 21:06 - CONCLUSION: 1. Uncomplicated line placement. No evidence of pneumothorax. Rayray Iglesias MD Brain MRI 12/04/16 0412 Signed Impressions: Service Date/Time: Sunday, December 04, 2016 08:46 - CONCLUSION: 1. Subtle hemorrhage as described above. Etiology for this is not apparent. 2. Careful followup is suggested. 3. Minimal periventricular white matter changes. Schuyler Alcantar MD FACR Head/Brain Mag Res Venography 12/04/16 0000 Signed Impressions: Service Date/Time: Sunday, December 04, 2016 00:00 - CONCLUSION: No findings to indicate venous sinus thrombosis identified. Nic Alcantar MD Neck CTA 12/03/161927 Signed Impressions: Service Date/Time: Saturday, December 03, 2016 19:35 - CONCLUSION: Negative for hemodynamically significant carotid stenosis. Extensive tortuosity suggesting hypertension. Schuyler Alcantar MD FACR Head CTA 12/03/161927 Signed Impressions: Service Date/Time: Saturday, December 03, 2016 19:35 - CONCLUSION: Negative for aneurysm or major branch vessel occlusion. Schuyler Alcantar MD FACR Cervical Spine CT 12/03/16 0000 Signed Impressions: Service Date/Time: Saturday, December 03, 2016 19:25 - CONCLUSION: Mild degenerative changes without fracture. Schuyler Alcantar MD FACR Objective Remarks GENERAL: This is a well-nourished, well-developed patient, in no apparent distress. CARDIOVASCULAR: Normal rate and regular rhythm without murmurs, gallops, or rubs. RESPIRATORY: Good respiratory efforts. Breath sounds equal and clear to auscultation bilaterally. GASTROINTESTINAL: Abdomen soft, non-tender, non-distended. Normal active bowel sounds MUSCULOSKELETAL: Extremities without cyanosis, or edema. NEURO: Alert & Oriented x4 to person, place, time, situation. Moves all ext x4 PSYCH: Somewhat flat affect. A/P Assessment and Plan 51 Y/O F admitted with a subarachnoid hemorrhage. Patient underwent endovascular coiling of 5 mm right PCO M aneurysm Aneurysmal SAH, patient is status post endovascular coiling 5mm right PCOM aneurysm, 12/06 Severe headaches - Kepp[place] for seizure prophylaxis per Dr. Victoria - Neurosurgery Dr. Garcia following. Patient cleared from a neurological and neurosurgical standpoint for discharge. - Nimodipine 60 mg every 4 hours to prevent vasospasm - Urine drug screen positive for opiates only - LP xanthochromia, no evidence of infection, CSF culture negative - frequent neuro checks - goal SBP 100 - 180 Uncontrolled hypertension Hypertensive emergency-resolved - Target SBP 100 - 180. - Nimodipine prophylaxis - Hydralazine when necessary UTI: Urine growing gram-negative rods. Continue ciprofloxacin. Follow urine cultures Leukocytosis - Patient previously received steroid. UTI may be contributing as well. - blood cultures NGTD. -Treat UTI as above DVT GI prophylaxis - Teds SCDs - No chemical DVT prophylaxis due to ICH - Pepcid Discharge Planning Transfer to floor. Follow urine cultures. Plan to discharge home tomorrow. Ranjan Raygoza MD December 15, 2016 14:22
[2016-12-16] VITALS (7 sets, daily range): BP systolic 120–144; BP diastolic 65–88; PULSE 62–96; RESP 18–22; TEMP 97–99.3; O2SAT 95–100
[2016-12-16] MEDS: CHLORHEXIDINE GLUCONATE 2 % 1 PACK (2 CLOTHS) TOP SCH (04:00)
[2016-12-16] MEDS: niMODipine 30 MG CAP PO SCH ×6 (04:57→23:58)
[2016-12-16] MEDS: MUPIROCIN 2% OINT 1 APPLIC/GM SYR NASAL SCH ×2 (08:27→20:56)
[2016-12-16] MEDS: FAMOTIDINE 20 MG/2 ML VIAL IV PUSH SCH ×2 (08:27→20:58)
[2016-12-16] MEDS: DOCUSATE SODIUM 100 MG CAP PO SCH ×2 (08:28→20:58)
[2016-12-16] MEDS: CIPROFLOXACIN 500 MG TAB PO SCH ×2 (08:28→20:58)
[2016-12-16] MEDS: SODIUM CHLORIDE 0.9% FLUSH 10 ML FLUSH PRN (08:32)
[2016-12-16] MEDS: SODIUM CHLORIDE 0.9% FLUSH 10 ML FLUSH SCH ×2 (08:35→20:59)
[2016-12-16 12:21] LABS: HEMATOCRIT 31.1 % (35.0-46.0); MEAN CORPUSCULAR HEMOGLOBIN 29.5 PG (27.0-34.0); MEAN CORPUSCULAR HGB CONC 33.9 % (32.0-36.0); PLATELET COUNT 205 TH/MM3 (150-450); RED BLOOD COUNT 3.58 MIL/MM3 (4.00-5.30); RED CELL DISTRIBUTION WIDTH 13.9 % (11.6-17.2); REVIEW FLAG FINAL; WHITE BLOOD COUNT 10.9 TH/MM3 (4.0-11.0)
[2016-12-17] VITALS: BP 143/91; PULSE 79; RESP 22; TEMP 98.3; O2SAT 98
[2016-12-17 04:00] VITALS: BP 161/93; PULSE 67; RESP 18; TEMP 97.8; O2SAT 94
[2016-12-17] MEDS: CHLORHEXIDINE GLUCONATE 2 % 1 PACK (2 CLOTHS) TOP SCH (04:06)
[2016-12-17] MEDS: niMODipine 30 MG CAP PO SCH ×2 (04:46→07:56)
[2016-12-17] MEDS: ACETAMINOPHEN/HYDROcodone 325 MG/10 MG TAB PO PRN ×2 (04:51→23:57)
[2016-12-17] MEDS: DOCUSATE SODIUM 100 MG CAP PO SCH ×2 (07:56→21:10)
[2016-12-17] MEDS: CIPROFLOXACIN 500 MG TAB PO SCH ×2 (07:56→21:10)
[2016-12-17] MEDS: FAMOTIDINE 20 MG/2 ML VIAL IV PUSH SCH ×2 (07:57→21:10)
[2016-12-17] MEDS: MUPIROCIN 2% OINT 1 APPLIC/GM SYR NASAL SCH ×2 (07:58→21:10)
[2016-12-17] MEDS: SODIUM CHLORIDE 0.9% FLUSH 10 ML FLUSH SCH ×2 (07:58→21:10)
[2016-12-17 08:00] VITALS: BP 113/77; PULSE 59; RESP 16; TEMP 97.6; O2SAT 96
[2016-12-17] MEDS ORDERED: CIPR500T2 PO (11:43)
[2016-12-17] MEDS ORDERED: [UNRECOGNIZED DRUG - CODE] PO (11:43)
[2016-12-17 12:11] VITALS: BP 138/79; PULSE 60; RESP 16; TEMP 97.6; O2SAT 97
[2016-12-17] MEDS ORDERED: NIFEdipine 30 MG SUSTAINED RELEASE TAB PO SCH (13:15)
[2016-12-17] MEDS ORDERED: LISI-515 PO (13:18)
[2016-12-17 14:51] VITALS: BP 148/90; PULSE 78; RESP 20; TEMP 98.3; O2SAT 98
[2016-12-17] MEDS ORDERED: LISINOPRIL 20 MG TAB PO ONE (16:00)
[2016-12-17] MEDS ORDERED: NIFEdipine 30 MG SUSTAINED RELEASE TAB PO ONE (18:00)
[2016-12-17 20:00] VITALS: BP 158/97; PULSE 86; RESP 24; TEMP 99; O2SAT 99
--- NOTE | 2016-12-17 23:12 | HHI.PR ---
Subjective Remarks Patient seen this morning. Says she feels all right. He would like to go home. Denies any focal signs or symptoms. patient seen [facility] afternoon, and blood pressure 175 systolic. She says she is upset due to her cousin not paying the rent at her [place] apartment. She is working on making sure she has a place to stay. Objective Vital Signs Date Time Temp Pulse Resp B/P Pulse Ox O2 Delivery O2 Flow Rate FiO2 12/17/16 20:00 99.0 86 24 158/97 99 12/17/16 14:51 98.3 78 20 148/90 98 12/17/16 12:11 97.6 60 16 138/79 97 12/17/16 08:00 97.6 59 16 113/77 96 12/17/16 04:00 97.8 67 18 161/93 94 12/17/16 00:00 98.3 79 22 143/91 98 I/O 12/16/16 12/16/16 12/16/16 12/17/16 12/17/16 12/17/16 07:00 15:00 23:00 07:00 15:00 23:00 Intake Total 600 ml 720 ml 120 ml 480 ml Output Total 650 ml 200 ml 900 ml 100 ml Balance 600 ml 70 ml -80 ml -900 ml 480 ml -100 ml Intake Oral 600 ml 720 ml 120 ml 480 ml Output Urine Total 650 ml 200 ml 900 ml 100 ml # Voids 2 # Bowel Movements 0 1 Result Diagram: 12/16/16 1208 12/14/16 0535 Objective Remarks GENERAL: patient sitting in chair. appears comfortable. SKIN: Warm and dry. HEAD: Normocephalic. EYES: No scleral icterus. No injection or drainage. NECK: Supple, trachea midline. No JVD or lymphadenopathy. CARDIOVASCULAR: Regular rate and rhythm without murmurs, gallops, or rubs. RESPIRATORY: Breath sounds equal bilaterally. No accessory muscle use. GASTROINTESTINAL: Abdomen soft, non-tender, nondistended. MUSCULOSKELETAL: No cyanosis, or edema. BACK: Nontender without obvious deformity. No CVA tenderness. A/P Assessment and Plan ==== 12/17/16 Had hoped to discharge patient home, however she has been on nimodipine every 4 hours for the past 12 days, and this medication cost thousands of dollars for a month's supply. Tried to switch to nifedipine, however blood pressure still elevated up to 175 systolic, will add back patient's lisinopril as well. Blood pressure. Important in this patient with aneurysmal subarachnoid hemorrhage. Continuing to treat UTI 51 Y/O F admitted with a subarachnoid hemorrhage. Patient underwent endovascular coiling of 5 mm right PCO M aneurysm //Aneurysmal SAH, patient is status post endovascular coiling 5mm right PCOM aneurysm, 12/06 Severe headaches - [place] for seizure prophylaxis per Dr. Victoria - Neurosurgery Dr. Garcia following. Patient cleared from a neurological and neurosurgical standpoint for discharge. - Nimodipine 60 mg every 4 hours to prevent vasospasm - Urine drug screen positive for opiates only - LP xanthochromia, no evidence of infection, CSF culture negative - frequent neuro checks - goal SBP 100 - 180 //Uncontrolled hypertension Hypertensive emergency-resolved - Target SBP 100 - 180. -Initially managed with nimodipine, however will need to switch to nifedipine, back on patient's lisinopril. - Hydralazine when necessary //UTI: Urine growing gram-negative rods. Continue ciprofloxacin. Follow urine cultures //Leukocytosis - Patient previously received steroid. UTI may be contributing as well. - blood cultures NGTD. -Treat UTI as above //DVT GI prophylaxis - Teds SCDs - No chemical DVT prophylaxis due to ICH - Pepcid Discharge Planning plan for discharge home tomorrow Sharath White MD December 17, 2016 23:12
[2016-12-18] VITALS: PULSE 75; RESP 20; TEMP 98.6; O2SAT 97
[2016-12-18 04:00] VITALS: BP 129/80; PULSE 67; RESP 16; TEMP 97.8; O2SAT 97
[2016-12-18] MEDS: CHLORHEXIDINE GLUCONATE 2 % 1 PACK (2 CLOTHS) TOP SCH (04:00)
[2016-12-18 08:00] VITALS: BP 109/71; PULSE 67; RESP 18; TEMP 96.7; O2SAT 98
[2016-12-18] MEDS ORDERED: NIFEdipine 60 MG SUSTAINED RELEASE TAB PO SCH (09:00)
[2016-12-18] MEDS ORDERED: LISINOPRIL 20 MG TAB PO SCH (09:00)
[2016-12-18] MEDS: SODIUM CHLORIDE 0.9% FLUSH 10 ML FLUSH SCH (09:26)
[2016-12-18] MEDS: CIPROFLOXACIN 500 MG TAB PO SCH (09:27)
[2016-12-18] MEDS: MUPIROCIN 2% OINT 1 APPLIC/GM SYR NASAL SCH (09:28)
[2016-12-18] MEDS: DOCUSATE SODIUM 100 MG CAP PO SCH (09:28)
[2016-12-18] MEDS: FAMOTIDINE 20 MG/2 ML VIAL IV PUSH SCH (09:36)
[2016-12-18] MEDS ORDERED: NIFE60TA8 PO (09:37)
--- NOTE | 2016-12-18 12:17 | HHI.NSPN ---
History Chief Complaint: Denies any headaches today Interval History A 51-year-old female who presented to the emergency room last evening with complaints of headaches which apparently she has had for the last several weeks and has had two previous evaluations initially on November 17 and then on November [address] of the head obtained at that time was negative. She has undergone extensive imaging studies as well as neurology evaluation since last evening. CT of the head suggests small areas of hyperdensity in the interhemispheric fissure and the frontal aspect and the sylvian fissure and questionable subarachnoid hemorrhage. CT angiogram of the brain is negative for any obvious aneurysm. She also had a lumbar puncture undertaken by the auto brake technician which was basically grossly bloody with a slight xanthochromia. Subsequently, this morning she has also had an MRI scan of the brain which did not reveal any underlying mass or abnormality. The radiologist mention of the ventricle size is appropriate with no restricted diffusion changes. There is a subtle hemorrhage adjacent to the anterior communicating artery left of the midline. Magnetic resonance venogram of the brain does not reveal any venous thrombosis. CT of the cervical spine reveals a mild degenerate changes. In comparison to the current CT from 12/03/2016 and the previous one on 11/24/2016 the ventricle size does appear to be slightly enlarged. The patient other than complaints of headache and some nausea denies any other symptoms. She was hypertensive during the initial presentation of the systolic blood pressure in the 214 and diastolic 127 with bradycardia. At this point blood pressure has been normalized although still has heart rate in the 40s to 50s. Neurology was undertaken for further workup for vasculitis. An EEG is pending. 12/05/16: Pt awake and alert. Complains of frontal headache with mild blurred vision. No nausea or vomiting. No muscle weakness other than generalized. 12/06/16: Pt awakens to voice. Complains of frontal headache. No nausea or vomiting. No weakness or paresthesias. 12/07/16: Pt complains of headache. Had nausea this morning. No paresthesias or weakness in extremities. Follows commands. Speech clear. 12/11/16: Patient complains of frontal headache. No nausea or vomiting. No weakness or paresthesias in the upper extremity. No blurred or double vision. She is sitting up in a chair. 12/12/16: Pt states frontal headache improving, not much h/a today. No nausea or vomiting. No paresthesias in face or extremities. Denies weakness. 12/14/16: Mild headache this morning. Follows commands well. Moves all 4 extremities. 12/15/16: No headaches today. Follows commands. Moves all 4 extremities symmetrically. Speech clear and appropriate. 12/18/16: Pt awake and alert. Denies headaches. no nausea or vomiting. Follows commands well. Review of Systems General: Negative for: fever, chills, insomnia Respiratory: Negative for: shortness of breath, cough, sputum Cardiovascular: Negative for: chest pain Gastrointestinal: Negative for: nausea, vomitting, diarrhea, constipation Exam Results Vital Signs Date Time Temp Pulse Resp B/P Pulse Ox O2 Delivery O2 Flow Rate FiO2 12/18/16 08:00 96.7 67 18 109/71 98 12/15/16 10:10 21 Intake and Output 12/17/16 12/17/16 12/18/16 08:00 16:00 00:00 Intake Total 480 ml Output Total 900 ml 100 ml Balance -900 ml 480 ml -100 ml Physical Examination Head: Normal cephalic atraumatic Resp: CTA bilaterally Heart: NSR no murmurs Abd: Soft positive bs Skin: No cyanosis or erythema Muscle: moves all 4 extremities symmetrically. Neuro: Pt awake and alert. Speech clear and appropriate. Face symmetric. Pupils 3 mm bilaterally reactive bilaterally. Lab, Micro, Other Results Last Impressions Transcranial Doppler Study Complete 12/14/16599 Signed Impressions: Service Date/Time: November 08:56 - CONCLUSION: 1. Mildly elevated Lindegard ratios bilaterally. However, the middle cerebral artery velocities are within normal limits suggesting that this change is related to physiologic effects. 2. Remaining velocities and ratios are within normal limits. Bruce Martienz MD Head CT 12/10/16599 Signed Impressions: Service Date/Time: Saturday, December 10, 2016 05:05 - CONCLUSION: 1. Evolving small hemorrhage in the wall of the left lateral ventricle. No new intracranial hemorrhage. Ventricular size is stable. Bernard Vasquez MD Cerebral Arteriogram 5/17/17 0600 Signed Impressions: Service Date/Time: Tuesday, December 06, 2016 12:38 - CONCLUSION: 1. 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 Nic Alcanatr MD Chest X-Ray 12/06/16 0000 Signed Impressions: Service Date/Time: Tuesday, December 06, 2016 21:06 - CONCLUSION: 1. Uncomplicated line placement. No evidence of pneumothorax. Rayray Iglesias MD Brain MRI 12/04/16 0412 Signed Impressions: Service Date/Time: Sunday, December 04, 2016 08:46 - CONCLUSION: 1. Subtle hemorrhage as described above. Etiology for this is not apparent. 2. Careful followup is suggested. 3. Minimal periventricular white matter changes. Schuyler Alcantar MD FACR Head/Brain Mag Res Venography 12/04/16 0000 Signed Impressions: Service Date/Time: Sunday, December 04, 2016 00:00 - CONCLUSION: No findings to indicate venous sinus thrombosis identified. Nic Alcantar MD Neck CTA 12/03/161927 Signed Impressions: Service Date/Time: Saturday, December 03, 2016 19:35 - CONCLUSION: Negative for hemodynamically significant carotid stenosis. Extensive tortuosity suggesting hypertension. Schuyler Alcantar MD FACR Head CTA 12/03/161927 Signed Impressions: Service Date/Time: Saturday, December 03, 2016 19:35 - CONCLUSION: Negative for aneurysm or major branch vessel occlusion. Schuyler Alcantar MD FACR Cervical Spine CT 12/03/16 0000 Signed Impressions: Service Date/Time: Saturday, December 03, 2016 19:25 - CONCLUSION: Mild degenerative changes without fracture. Schuyler Alcantar MD FACR 12/17/16 12/17/16 12/18/16 15:00 23:00 07:00 Intake Total 480 ml 240 ml Output Total 100 ml 500 ml Balance 480 ml -100 ml -260 ml Intake Oral 480 ml 240 ml Output Urine Total 100 ml 500 ml # Bowel Movements 1 Medical Decision Making Impression and Plan A: 51 y/o FM with probable frontal interhemispheric and proximal MCA area subarachnoid hemorrhage. Pt had a 5mm right pcom aneurysm found on angiogram and underwent coiling by radiology special procedures. 2. Hypertension which at this point is well regulated. PLAN Continue with neuro checks Continue with Sequential compression device for DVT prophylaxis Continue with gastrointestinal stress ulcer prophylaxis. Rehab placement. Floyd Dior December 18, 2016 12:17
[2016-12-18 12:56] VITALS: BP 125/84; PULSE 90; RESP 20; TEMP 98.6; O2SAT 99
[2016-12-18] MEDS ORDERED: NIFEdipine 30 MG SUSTAINED RELEASE TAB PO SCH (14:00)
--- NOTE | 2016-12-21 08:27 | HHI.DS ---
Discharge Summary Admission Date December 03, 2016 at 20:35 Discharge Date: December 18, 2016 Admitting Diagnosis SAH, htn emergency (1) Subarachnoid hemorrhage ICD Code: I60.9 Procedures endovascular coiling of 5 mm right PCOM aneurysm by interventional radiology Brief History - From Admission 51-year-old female presents with complaint of severe headache after fall. History is obtained per chart since patient is a poor historian. Apparently patient had a fall sometime yesterday. This was unwitnessed. Unclear whether it was mechanical, syncopal. Unclear whether she even hit her head. Since however she's been complaining of a severe headache, primarily left-sided though retro-orbital bilaterally. She has not had any nausea or vomiting. Her headache is 10 out of 10 and is the worse headache of her life. Friend states that she has been confused, alert to self and place only but not time. She believes it is 1966. Patient has had urinary and fecal incontinence which is new for her. Per EMS patient was hypertensive in the 190s systolic and bradycardic in the 50s. She is not anticoagulated. The patient was seen here twice recently over the last month with complaint of headache and had negative CT imaging, was treated symptomatically and discharged home. Imaging Last Impressions Transcranial Doppler Study Complete 12/14/16599 Signed Impressions: Service Date/Time: November 08:56 - CONCLUSION: 1. Mildly elevated Lindegard ratios bilaterally. However, the middle cerebral artery velocities are within normal limits suggesting that this change is related to physiologic effects. 2. Remaining velocities and ratios are within normal limits. Bruce Martinez MD Head CT 12/10/16599 Signed Impressions: Service Date/Time: Saturday, December 10, 2016 05:05 - CONCLUSION: 1. Evolving small hemorrhage in the wall of the left lateral ventricle. No new intracranial hemorrhage. Ventricular size is stable. Bernard Vasquez MD Cerebral Arteriogram 12/06/16599 Signed Impressions: Service Date/Time: Tuesday, December 06, 2016 12:38 - CONCLUSION: 1. 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 Nic Alcantar MD Chest X-Ray 12/06/16 0000 Signed Impressions: Service Date/Time: Tuesday, December 06, 2016 21:06 - CONCLUSION: 1. Uncomplicated line placement. No evidence of pneumothorax. Rayray Iglesias MD Brain MRI 12/04/16 0412 Signed Impressions: Service Date/Time: Sunday, December 04, 2016 08:46 - CONCLUSION: 1. Subtle hemorrhage as described above. Etiology for this is not apparent. 2. Careful followup is suggested. 3. Minimal periventricular white matter changes. Schuyler Alcantar MD FACR Head/Brain Mag Res Venography 12/04/16 0000 Signed Impressions: Service Date/Time: Sunday, December 04, 2016 00:00 - CONCLUSION: No findings to indicate venous sinus thrombosis identified. Nic Alcantar MD Neck CTA 12/03/161927 Signed Impressions: Service Date/Time: Saturday, December 03, 2016 19:35 - CONCLUSION: Negative for hemodynamically significant carotid stenosis. Extensive tortuosity suggesting hypertension. Schuyler Alcantar MD FACR Head CTA 12/03/161927 Signed Impressions: Service Date/Time: Saturday, December 03, 2016 19:35 - CONCLUSION: Negative for aneurysm or major branch vessel occlusion. Schuyler Alcantar MD FACR Cervical Spine CT 12/03/16 0000 Signed Impressions: Service Date/Time: Saturday, December 03, 2016 19:25 - CONCLUSION: Mild degenerative changes without fracture. Schuyler Alcantar MD FACR PE at Discharge GENERAL: This is a well-nourished, well-developed patient, in no apparent distress.sitting up in chair. Exam unchanged from day prior. CARDIOVASCULAR: Normal rate and regular rhythm without murmurs, gallops, or rubs. RESPIRATORY: Good respiratory efforts. Breath sounds equal and clear to auscultation bilaterally. GASTROINTESTINAL: Abdomen soft, non-tender, non-distended. Normal active bowel sounds MUSCULOSKELETAL: Extremities without cyanosis, or edema. NEURO: Alert & Oriented x4 to person, place, time, situation. Moves all ext x4 PSYCH: Somewhat flat affect. Pt update on day of discharge patient says she is feeling well. Would like to go home. She says that living arrangements have been resolved. Hospital Course Patient found to have subarachnoid hemorrhage, secondary to aneurysm. Patient underwent close blood pressure control, evaluation by neurosurgery. Patient underwent endovascular coiling of 5 mm right PCOM aneurysm by interventional radiology. Follow-up CT head showed stability of subarachnoid hemorrhage. Patient was also treated for UTI, for which she was discharged on Cipro to complete treatment course. On pressure elevated with systolics in the 180s, and transition to nifedipine. For problem-based summary from most recent progress note, please see below. ==== 12/17/16 Had hoped to discharge patient home, however she has been on nimodipine every 4 hours for the past 12 days, and this medication cost thousands of dollars for a month's supply. Tried to switch to nifedipine, however blood pressure still elevated up to 175 systolic, will add back patient's lisinopril as well. Blood pressure. Important in this patient with aneurysmal subarachnoid hemorrhage. Continuing to treat UTI 51 Y/O F admitted with a subarachnoid hemorrhage. Patient underwent endovascular coiling of 5 mm right PCO M aneurysm //Aneurysmal SAH, patient is status post endovascular coiling 5mm right PCOM aneurysm, 12/06 Severe headaches - Keppra for seizure prophylaxis per Dr. Victoria - Neurosurgery Dr. Garcia following. Patient cleared from a neurological and neurosurgical standpoint for discharge. - Nimodipine 60 mg every 4 hours to prevent vasospasm - Urine drug screen positive for opiates only - LP xanthochromia, no evidence of infection, CSF culture negative - frequent neuro checks - goal SBP 100 - 180 //Uncontrolled hypertension Hypertensive emergency-resolved - Target SBP 100 - 180. -Initially managed with nimodipine, however will need to switch to nifedipine, back on patient's lisinopril. - Hydralazine when necessary //UTI: Urine growing gram-negative rods. Continue ciprofloxacin. Follow urine cultures //Leukocytosis - Patient previously received steroid. UTI may be contributing as well. - blood cultures NGTD. -Treat UTI as above //DVT GI prophylaxis - Teds SCDs - No chemical DVT prophylaxis due to ICH - Pepcid Discharge Planning plan for discharge home tomorrow Pt Condition on Discharge: Good Discharge Disposition: Discharge Home Discharge Time: > 30 minutes Discharge Instructions DIET: Follow Instructions for: Heart Healthy Diet Activities you can perform: Regular-No Restrictions, See Additionl Instruction Activities to Avoid: Strenuous Activity Follow up Referrals: Neurology - 1 Week with Rayray Victoria MD Neurosurgery - 1 Week with Dayton Garcia MD PCP Follow-up - 1 Week New Medications: Ciprofloxacin (Ciprofloxacin) 500 Mg Tab 500 MG PO Q12HR uti Days 7 TAB Nifedipine ER 24 HR (Nifedipine ER 24 HR) 60 Mg Tab 60 MG PO DAILY prevent brain bleed Days 30 TAB Continued Medications: Lisinopril (Lisinopril) 20 Mg Tab 20 MG PO DAILY #30 Ref 0 TAB (This prescription has been renewed) Sharath White MD Dec 21, 2016 08:26
== END 2016-12-18 20:13 | disposition home or self-care (01) | DRG 20 ==
LOC: NEPE 19:15 → NEDA 20:35 → N03B 23:15 → N03A 12-08 19:28 → N05A 12-15 17:15
PROVIDERS: ADMIT Internal Medicine; ATTEND Internal Medicine
PROC: 0T9B70Z Drainage of Bladder with Drainage Device, Via Natural or Artificial Opening (ICD-10-PCS; 2016-12-03)
PROC: 05HN33Z Insertion of Infusion Device into Left Internal Jugular Vein, Percutaneous Approach (ICD-10-PCS; principal; 2016-12-06)
PROC: 03LG3DZ Occlusion of Intracranial Artery with Intraluminal Device, Percutaneous Approach (ICD-10-PCS; 2016-12-06)
PROC: 03HY32Z Insertion of Monitoring Device into Upper Artery, Percutaneous Approach (ICD-10-PCS; 2016-12-06)
PROC: 4A133B1 Monitoring of Arterial Pressure, Peripheral, Percutaneous Approach (ICD-10-PCS; 2016-12-06)
PROC: 4A133J1 Monitoring of Arterial Pulse, Peripheral, Percutaneous Approach (ICD-10-PCS; 2016-12-06)
PROC: B34 Imaging, Upper Arteries, Ultrasonography (ICD-10-PCS; 2016-12-06)
PROC: 009U3ZX Drainage of Spinal Canal, Percutaneous Approach, Diagnostic (ICD-10-PCS; 2016-12-06)
DX: I60.9 Nontraumatic subarachnoid hemorrhage, unspecified (principal); G93.40 Encephalopathy, unspecified; G91.9 Hydrocephalus, unspecified; I67.1 Cerebral aneurysm, nonruptured; I16.1 Hypertensive emergency; I67.848 Other cerebrovascular vasospasm and vasoconstriction; N39.0 Urinary tract infection, site not specified; I65.29 Occlusion and stenosis of unspecified carotid artery; I10 Essential (primary) hypertension; R00.1 Bradycardia, unspecified; E87.6 Hypokalemia; R15.9 Full incontinence of feces; R32 Unspecified urinary incontinence; W19.XXXA Unspecified fall, initial encounter; Z86.14 Personal history of Methicillin resistant Staphylococcus aureus infection; H53.8 Other visual disturbances; E66.9 Obesity, unspecified; E86.9 Volume depletion, unspecified
CPT/HCPCS: 36223; 36224; 36226; 36556; 36600; 61624; 70450; 70496; 70498; 70546; 70553; 71010; 72125; 75894; 76937; 80048; 80053; 80307; 81001; 82040; 82042; 82607; 82784; 82805; 82945; 82948; 83605; 83615; 83735; 83873; 83930; 83935; 84100; 84132; 84157; 84295; 84300; 84439; 84443; 84484; 85025; 85027; 85347; 85610; 85652; 85730; 86038; 86592; 86618; 87040; 87070; 87077; 87086; 87186; 87205; 87529; 87641; 87801; 89051; 93005; 93306; 93886; 95819; 96374; 99152; 99153; A9579; C1760; C1769; C1887; C1894; C9113; J0360; J0690; J1100; J1170; J1644; J2250; J2270; J2405; J2930; J3010; J3420; J3480; J7030; J7050; J8540; P9045; Q9967

== ENCOUNTER 2016-12-20 17:23 | Emergency (ER) | payer SELFPAY ==
[~2016-12-20] VITALS: Ht 157.5 cm; Wt 110.0 kg
[~2016-12-20 17:23] MED LIST changes: +CIPR500T2 PO; +NIFE60TA8 PO
[2016-12-20 17:25] VITALS: BP 130/69; PULSE 96; RESP 20; TEMP 98.6; O2SAT 98
--- NOTE | 2016-12-20 17:51 | PD ---
Physical Exam Time Seen by Provider: 17:48 Narrative 51yo F c/o AVILA and abd pain that started this morning. Was dc from here on Sunday after being seen for c/o AVILA. Denies N, V. Reports Subjective fever. Gennaro focal deficits or weakness. Patient seen in triage. VS reviewed. Awaiting bed placement. Data Data Last Documented VS Vital Signs Date Time Temp Pulse Resp B/P Pulse Ox O2 Delivery O2 Flow Rate FiO2 12/20/16 17:25 98.6 96 20 130/69 98 Room Air MDM Supervised Visit with BLANQUITA: Maria Guadalupe Walker December 20, 2016 17:51
--- NOTE | 2016-12-20 18:28 | PD ---
HPI Chief Complaint: Headache Time Seen by Provider: 17:57 Travel History International Travel<30 days: No Contact w/Intl Traveler<30days: No Traveled to known affect area: No History of Present Illness HPI 51yo F presents to the ED with c/o frontal headache that started at 7am today. States it has improved over time and feels product trainer the head. Denies any trauma , fever, neck pain, visual changes, chest pain, sob, n/v, abdominal pain, focal weakness or numbness. Pt was recently admitted for subarachnoid hemorrhage and discharged 2 days ago. 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 Pt has been taking her blood pressure medication and BP is controlled. [facility] Past Medical History Medical History: Denies Significant Hx Autoimmune Disease: No Cancer: No Diabetes: No Diminished Hearing: No Endocrine: No Gastrointestinal Disorders: Yes (GALLSTONES) Genitourinary: No Hypertension: Yes Immune Disorder: No Musculoskeletal: No Neurologic: No Reproductive: No Respiratory: No Immunizations Current: No Thyroid Disease: No ?: Not Menopausal: Yes : 1 Para: 0 : 1 Past Surgical History Section: Yes Eye Surgery: Yes Social History Alcohol Use: No Tobacco Use: No Substance Use: No Allergies-Medications (Allergen,Severity, Reaction): Coded Allergies: *MDRO Multi-Drug Resistant Organism (Verified Adverse Reaction, Unknown, ) MRSA (abdominal abscess) - 07/22/2015 MRSA PCR screen positive-12/03/16 Reported Meds & Prescriptions Reported Meds & Active Scripts Active Nifedipine ER 24 HR (Nifedipine) 60 Mg Tab 60 Mg PO DAILY 30 Days Lisinopril 20 Mg Tab 20 Mg PO DAILY Ciprofloxacin (Ciprofloxacin HCl) 500 Mg Tab 500 Mg PO Q12HR 7 Days Review of Systems Except as stated in HPI: all other systems reviewed are Neg Physical Exam Narrative GENERAL: 51yo F not in distress. SKIN: Focused skin assessment warm/dry. HEAD: Atraumatic. Normocephalic. EYES: Pupils equal and round at 3mm bilaterally. EOMI. No scleral icterus. No injection or drainage. ENT: No nasal bleeding or discharge. Mucous membranes pink and moist. NECK: Trachea midline. No JVD. CARDIOVASCULAR: Regular rate and rhythm. No murmur appreciated. RESPIRATORY: No accessory muscle use. Clear to auscultation. Breath sounds equal bilaterally. GASTROINTESTINAL: Abdomen soft, non-tender, nondistended. No rebound tenderness or guarding. MUSCULOSKELETAL: No obvious deformities. No clubbing. No cyanosis. No edema. NEUROLOGICAL: Awake and alert. No obvious cranial nerve deficits. Motor grossly within normal limits. Normal speech. PSYCHIATRIC: Appropriate mood and affect; insight and judgment normal. Data Data Last Documented VS Vital Signs Date Time Temp Pulse Resp B/P Pulse Ox O2 Delivery O2 Flow Rate FiO2 12/20/16 17:25 98.6 96 20 130/[address] Brain W/O Iv Contrast(Rout) (12/20/16 ) Complete Blood Count With Diff (12/20/16 18:16) Prothrombin Time / Inr (Pt) (12/20/16 18:16) Act Partial Throm Time (Ptt) (12/20/16 18:16) Prochlorperazine Inj (Compazine Inj) (12/20/16 18:30) Labs Laboratory Tests Test 12/20/16 18:27 White Blood Count 10.9 TH/MM3 Red Blood Count 3.84 MIL/MM3 Hemoglobin 11.3 GM/DL Hematocrit 34.2 % Mean Corpuscular Volume 89.0 FL Mean Corpuscular Hemoglobin 29.4 PG Mean Corpuscular Hemoglobin 33.0 % Concent Red Cell Distribution Width 14.0 % Platelet Count 384 TH/MM3 Mean Platelet Volume 7.6 FL Neutrophils (%) (Auto) 68.8 % Lymphocytes (%) (Auto) 18.7 % Monocytes (%) (Auto) 10.6 % Eosinophils (%) (Auto) 0.9 % Basophils (%) (Auto) 1.0 % Neutrophils # (Auto) 7.5 TH/MM3 Lymphocytes # (Auto) 2.0 TH/MM3 Monocytes # (Auto) 1.2 TH/MM3 Eosinophils # (Auto) 0.1 TH/MM3 Basophils # (Auto) 0.1 TH/MM3 CBC Comment DIFF FINAL Differential Comment Prothrombin Time 10.3 SEC Prothromb Time International 0.9 RATIO Ratio Activated Partial 24.9 SEC Thromboplast Time MDM Medical Decision Making Medical Screen Exam Complete: Yes Emergency Medical Condition: Yes Interpretation(s) Laboratory Tests Test 12/20/16 18:27 White Blood Count 10.9 TH/MM3 (4.0-11.0) Red Blood Count 3.84 MIL/MM3 (4.00-5.30) Hemoglobin 11.3 GM/DL (11.6-15.3) Hematocrit 34.2 % (35.0-46.0) Mean Corpuscular Volume 89.0 FL (80.0-100.0) Mean Corpuscular Hemoglobin 29.4 PG (27.0-34.0) Mean Corpuscular Hemoglobin 33.0 % Concent (32.0-36.0) Red Cell Distribution Width 14.0 % (11.6-17.2) Platelet Count 384 TH/MM3 (150-450) Mean Platelet Volume 7.6 FL (7.0-11.0) Neutrophils (%) (Auto) 68.8 % (16.0-70.0) Lymphocytes (%) (Auto) 18.7 % (9.0-44.0) Monocytes (%) (Auto) 10.6 % (0.0-8.0) Eosinophils (%) (Auto) 0.9 % (0.0-4.0) Basophils (%) (Auto) 1.0 % (0.0-2.0) Neutrophils # (Auto) 7.5 TH/MM3 (1.8-7.7) Lymphocytes # (Auto) 2.0 TH/MM3 (1.0-4.8) Monocytes # (Auto) 1.2 TH/MM3 (0-0.9) Eosinophils # (Auto) 0.1 TH/MM3 (0-0.4) Basophils # (Auto) 0.1 TH/MM3 (0-0.2) CBC Comment DIFF FINAL Differential Comment Prothrombin Time 10.3 SEC (9.8-11.6) Prothromb Time International 0.9 RATIO Ratio Activated Partial 24.9 SEC Thromboplast Time (24.3-30.1) Differential Diagnosis SAH vs. migraine headache vs. sinus headache vs. tension headache Narrative Course 51yo F with frontal headache that started at 7am today. Labs reviewed, normal platelet count. Normal coagulation. CT brain showed prior aneurysm coiling involving the middle cranial fossa on the right. Otherwise unremarkable CT. No acute hemorrhage observed. Pt given compazine 10mg IV and headache has completely resolved. However, due to pt's history of aneurysm and recently diagnosed SAH and the fact that she came to the ED more than 6 hours after start of her headache, the negative CT brain cannot 100% rule out SAH. I advised lumbar puncture to rule out SAH. However, pt is refusing lumbar puncture and knows that I cannot rule out SAH without it. I emphasized the importance of the exam since she has a recent history of SAH and aneurysm. She understands the risks and is leaving against medical advise without lumbar puncture. AMA: The risks of leaving against medical advice without further evaluation treatment were discussed with the patient. These risks include cardiac dysfunction, cardiac dysrhythmia, possible heart attack, possible stroke or . The patient indicated understanding of these risks and appeared to have the capacity to make this decision. Diagnosis Primary Impression: Headache Qualified Code: R51 - Acute nonintractable headache, unspecified headache type Patient Instructions: General Instructions Departure Forms: Tests/Procedures Additional Instructions: Please follow up with your PMD in 1-2 days. Return to the ED immediately if you change your mind. Med/Other Pt SpecificInfo: No Change to Meds Disposition: 07 AGAINST MEDICAL ADVICE Condition: Stable Latonya Infante DO December 20, 2016 18:28
[2016-12-20] MEDS ORDERED: PROCHLORPERAZINE INJ 10 MG/2 ML VIAL IV PUSH ONE (18:30)
[2016-12-20 18:47] LABS: AUTOMATED NEUTROPHIL # 7.5 TH/MM3 (1.8-7.7); BASOPHIL # 0.1 TH/MM3 (0-0.2); EOSINOPHIL # 0.1 TH/MM3 (0-0.4); EOSINOPHIL % 0.9 % (0.0-4.0); HEMATOCRIT 34.2 % (35.0-46.0); HEMO FLAGS DIFF FINAL; LYMPH % 18.7 % (9.0-44.0); MEAN CORPUSCULAR HEMOGLOBIN 29.4 PG (27.0-34.0); MONO % 10.6 % (0.0-8.0); NEUT % 68.8 % (16.0-70.0); PLATELET COUNT 384 TH/MM3 (150-450); RED BLOOD COUNT 3.84 MIL/MM3 (4.00-5.30); WHITE BLOOD COUNT 10.9 TH/MM3 (4.0-11.0)
[2016-12-20 18:58] LABS: APTT (PATIENT) 24.9 SEC (24.3-30.1); INTERNATIONAL NORMALIZED RATIO 0.9 RATIO; PROTHROMBIN TIME - PATIENT 10.3 SEC (9.8-11.6)
--- NOTE | 2016-12-20 19:09 | RADRPT ---
EXAM DATE/TIME: 12/20/2016 18:55 [facility] COMPARISON: CT BRAIN W/O CONTRAST, December 10, 2016, 5:05. INDICATIONS : Altered mental status. RADIATION DOSE: 56.35 CTDIvol (mGy) MEDICAL HISTORY : Hypertension. Methicillin-resistant Staphylococcus aureus. SURGICAL HISTORY : Cholecystectomy. ENCOUNTER: Initial ACUITY: 1 day PAIN SCALE: 4/10 LOCATION: cranial TECHNIQUE: Multiple contiguous axial images were obtained of the head. Using automated exposure control and adj ustment of the mA and/or kV according to patient size, radiation dose was kept as low as reasonably a chievable to obtain optimal diagnostic quality images. FINDINGS: CEREBRUM: A coil pack is seen involving the middle cranial fossa on the right. The ventricles are normal for ag e. No evidence of midline shift, mass lesion, hemorrhage or acute infarction. No extra-axial fluid collections are seen. POSTERIOR FOSSA: The cerebellum and brainstem are intact. The 4th ventricle is midline. The cerebellopontine angle i s unremarkable. EXTRACRANIAL: The visualized portion of the orbits is intact. SKULL: The calvaria is intact. No evidence of skull fracture. CONCLUSION: 1. Prior aneurysm coiling involving the middle cranial fossa on the right. 2. Otherwise, unremarkable CT of the brain. In particular, no acute hemorrhage observed. Jacky Joseph Jr., MD on December 20, 2016 at 19:05 Board Certified Radiologist. This report was verified electronically.
== END 2016-12-20 20:08 | disposition left against medical advice (07) ==
LOC: NEPD 17:23
DX: R51 Headache (principal); I10 Essential (primary) hypertension
CPT/HCPCS: 70450; 85025; 85610; 85730; 96374; 99285; J0780

== ENCOUNTER 2017-05-16 12:32 | Emergency (ER) | payer SELFPAY ==
[~2017-05-16] VITALS: Ht 157.5 cm; Wt 100.0 kg
[2017-05-16 12:33] VITALS: BP 197/99; PULSE 70; RESP 16; TEMP 98.3; O2SAT 100
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
[2017-05-16] MEDS ORDERED: LISI-515 PO (14:13)
[2017-05-16] MEDS ORDERED: IBUP800T23 PO (14:13)
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
== END 2017-05-16 14:56 | disposition home or self-care (01) ==
LOC: NEPD 12:32
DX: S70.01XA Contusion of right hip, initial encounter (principal); I10 Essential (primary) hypertension; V18.4XXA Pedal cycle driver injured in noncollision transport accident in traffic accident, initial encounter; Z79.899 Other long term (current) drug therapy
CPT/HCPCS: 73502; 99283

== ENCOUNTER 2017-06-09 08:58 | Emergency (ER) | payer OTHER ==
[~2017-06-09] VITALS: Ht 157.5 cm; Wt 100.0 kg
[~2017-06-09 08:58] MED LIST changes: +IBUP1TAB7 PO
[2017-06-09 09:03] VITALS: BP 172/78; PULSE 80; RESP 16; TEMP 97.8; O2SAT 97
[2017-06-09] MEDS ORDERED: TYLE325T PO (09:27)
[2017-06-09] MEDS ORDERED: CEPH500C PO (09:27)
--- NOTE | 2017-06-09 09:27 | PD ---
HPI Chief Complaint: ENT Complaint Time Seen by Provider: 09:12 Travel History International Travel<30 days: No Contact w/Intl Traveler<30days: No Traveled to known affect area: No History of Present Illness HPI 51yo F with PMH of HTN presents to the ED with redness, swelling on her nose for 1 week. Said she woke up with it and denies any trauma. Denies any epistaxis, drainage from nose, fever, chest pain, sob, n/v, abdominal pain, ear pain, throat pain, focal weakness or numbness. Pt said the swelling has improved on its own but it is still painful. Denies any itching. PFSH Past Medical History Hx Anticoagulant Therapy: No Autoimmune Disease: No Cancer: No Cardiovascular Problems: Yes (HTN) Chemotherapy: No Cerebrovascular Accident: No Diabetes: No Diminished Hearing: No Endocrine: No Gastrointestinal Disorders: Yes (GALLSTONES) Genitourinary: No Hypertension: Yes Immune Disorder: No Implanted Vascular Access Dvce: No Musculoskeletal: No Neurologic: No Reproductive: No Respiratory: No Immunizations Current: No Thyroid Disease: No ?: Not Menopausal: Yes : 1 Para: 0 : 1 Past Surgical History Section: Yes Eye Surgery: Yes Hysterectomy: No Social History Alcohol Use: No Tobacco Use: No Substance Use: No Allergies-Medications (Allergen,Severity, Reaction): Coded Allergies: *MDRO Multi-Drug Resistant Organism (Verified Adverse Reaction, Unknown, ) MRSA (abdominal abscess) - 07/22/2015 MRSA PCR screen positive-12/03/16 Reported Meds & Prescriptions Reported Meds & Active Scripts Active Tylenol (Acetaminophen) 325 Mg Tab 650 Mg PO Q6H PRN Cephalexin 500 Mg Cap 500 Mg PO Q12H 7 Days Lisinopril 20 Mg Tab 20 Mg PO DAILY Review of Systems Except as stated in HPI: all other systems reviewed are Neg Physical Exam Narrative GENERAL: 51yo F not in distress. SKIN: Focused skin assessment warm/dry. HEAD: Atraumatic. Normocephalic. EYES: Pupils equal and round. No scleral icterus. No injection or drainage. ENT: No nasal bleeding or discharge. Localized 3cm by 3cm erythema and mild edema on tip of nose that is ttp. Do not feel any fluctuance. No vesicles. TM wnl. Throat: Clear. Uvula midline and nonerythematous with no exudate. NECK: Trachea midline. No JVD. CARDIOVASCULAR: Regular rate and rhythm. No murmur appreciated. RESPIRATORY: No accessory muscle use. Clear to auscultation. Breath sounds equal bilaterally. GASTROINTESTINAL: Abdomen soft, non-tender, nondistended. MUSCULOSKELETAL: No obvious deformities. No clubbing. No cyanosis. No edema. NEUROLOGICAL: Awake and alert. No obvious cranial nerve deficits. Motor grossly within normal limits. Normal speech. PSYCHIATRIC: Appropriate mood and affect; insight and judgment normal. Data Data Last Documented VS Vital Signs Date Time Temp Pulse Resp B/P (MAP) Pulse Ox O2 Delivery O2 Flow Rate FiO2 06/09/17 09:11 16 06/09/17 09:03 97.8 80 172/78 (109) 97 Orders Orders Cephalexin (Keflex) (06/09/17 09:30) Acetaminophen (Tylenol) (06/09/17 09:30) Ed Discharge Order (06/09/17 09:43) MDM Medical Decision Making Medical Screen Exam Complete: Yes Emergency Medical Condition: Yes Differential Diagnosis Cellulitis vs. atopic dermatitis Narrative Course 51yo F with localized swelling, erythema and pain to the tip of the nose that has gotten better on its own. Pt is nontoxic appearing. Will give first dose of cephalexin and acetaminophen here. Instructed pt to follow up with PMD or return to the ED if symptoms do not improve in 2 days. Diagnosis Primary Impression: Cellulitis Qualified Codes: L03.211 - Cellulitis of face Patient Instructions: General Instructions Departure Forms: Tests/Procedures Additional Instructions: Please follow up with your primary care physician in 3-7 days. Return to the ED if you have fever, vomiting, worsening pain or swelling or redness. Med/Other Pt SpecificInfo: Prescription(s) given Scripts Acetaminophen (Tylenol) 325 Mg Tab 650 MG PO Q6H Y for PAIN SCALE 1 TO 4, #20 TAB 0 Refills Prov: Latonya Infante DO 06/09/17 Cephalexin (Cephalexin) 500 Mg Cap 500 MG PO Q12H for Infection for 7 Days, #14 CAP 0 Refills Prov: Latonya Infante DO 06/09/17 Disposition: 01 DISCHARGE HOME Condition: Stable Latonya Infante DO Jun 09, 2017 09:27
[2017-06-09] MEDS ORDERED: CEPHALEXIN MONOHYDRATE 500 MG CAP PO ONE (09:30)
[2017-06-09] MEDS ORDERED: ACETAMINOPHEN 325 MG TAB PO ONE (09:30)
== END 2017-06-09 10:13 | disposition home or self-care (01) ==
LOC: NEPD 08:58
DX: L03.211 Cellulitis of face (principal); I10 Essential (primary) hypertension
CPT/HCPCS: 99283

== ENCOUNTER 2017-09-06 17:17 | Emergency (ER) | payer OTHER ==
[~2017-09-06] VITALS: Ht 157.5 cm; Wt 100.0 kg
[~2017-09-06 17:17] MED LIST changes: +AMLO5TAB2 PO; -CIPR500T2 PO; -IBUP1TAB7 PO; -NIFE60TA8 PO
[2017-09-06 17:19] VITALS: BP 166/88; PULSE 69; RESP 14; TEMP 98.2; O2SAT 100
[2017-09-06 19:59] VITALS: BP 156/74; PULSE 48; RESP 18; O2SAT 98
[2017-09-06] MEDS ORDERED: SODIUM CHLORIDE 0.9% FLUSH 10 ML FLUSH IVF PRN (20:45)
--- NOTE | 2017-09-06 21:12 | PD ---
HPI Chief Complaint: Dizziness Time Seen by Provider: 20:24 Travel History International Travel<30 days: No Contact w/Intl Traveler<30days: No Traveled to known affect area: No History of Present Illness HPI Patient is a 52-year-old female presents emergency department for evaluation of vertiginous symptoms. Patient states this happened to her before but did not know what it was from. She states she was at the dentist 3 days ago and started a prescription of antibiotics for an infected tooth but she does not think this had anything to do with it. She states she was spinning around the room but during her waiting time in the waiting room her symptoms have gotten better. Denies any focalized weakness headaches nausea vomiting diarrhea constipation head injury. Symptoms were mild in severity. On first encounter the patient is asking for a work note. PFSH Past Medical History Hx Anticoagulant Therapy: No Autoimmune Disease: No Cancer: No Cardiovascular Problems: Yes (HTN) Chemotherapy: No Cerebrovascular Accident: No Diabetes: No Diminished Hearing: No Endocrine: No Gastrointestinal Disorders: Yes (GALLSTONES) Genitourinary: No Hypertension: Yes Immune Disorder: No Implanted Vascular Access Dvce: No Musculoskeletal: No Neurologic: No Reproductive: No Respiratory: No Immunizations Current: No Thyroid Disease: No ?: Not Menopausal: Yes : 1 Para: 0 : 1 Past Surgical History Surgical History: No Previous Surgery Section: Yes Eye Surgery: Yes Hysterectomy: No Social History Alcohol Use: No Tobacco Use: No Substance Use: No Allergies-Medications (Allergen,Severity, Reaction): Coded Allergies: *MDRO Multi-Drug Resistant Organism (Verified Adverse Reaction, Unknown, ) MRSA (abdominal abscess) - 07/22/2015 MRSA PCR screen positive-12/03/16 Reported Meds & Prescriptions Reported Meds & Active Scripts Active Meclizine (Meclizine HCl) 25 Mg Tab 25 Mg PO TID PRN Amlodipine (Amlodipine Besylate) 5 Mg Tab 5 Mg PO DAILY Lisinopril 20 Mg Tab 20 Mg PO DAILY Review of Systems Except as stated in HPI: all other systems reviewed are Neg Physical Exam Narrative GENERAL: Well-developed well-nourished no acute distress SKIN: Focused skin assessment warm/dry. HEAD: Atraumatic. Normocephalic. EYES: Pupils equal and round. No scleral icterus. No injection or drainage. ENT: No nasal bleeding or discharge. Mucous membranes pink and moist. Poor dentition but no swelling on the gums or face. NECK: Trachea midline. No JVD. CARDIOVASCULAR: Regular rate and rhythm. No murmur appreciated. RESPIRATORY: No accessory muscle use. Clear to auscultation. Breath sounds equal bilaterally. GASTROINTESTINAL: Abdomen soft, non-tender, nondistended. Hepatic and splenic margins not palpable. MUSCULOSKELETAL: No obvious deformities. No clubbing. No cyanosis. No edema. NEUROLOGICAL: Awake and alert. Cranial nerves II through XII grossly intact and nonfocal, 5 out of 5 strength in all 4 extremities, cerebellar testing with finger-nose finger and heel patel testing negative, walks with an even narrow- base gait PSYCHIATRIC: Appropriate mood and affect; insight and judgment normal. Data Data Last Documented VS Vital Signs Date Time Temp Pulse Resp B/P (MAP) Pulse Ox O2 Delivery O2 Flow Rate FiO2 09/06/17 22:24 46 18 160/83 (108) 99 09/06/17 19:59 Room Air 09/06/17 17:19 98.2 Orders Orders Electrocardiogram (09/06/17 20:44) Basic Metabolic Panel (Bmp) (09/06/17 20:44) Complete Blood Count With Diff (09/06/17 20:44) Ecg Monitoring (09/06/17 20:44) Iv Access Insert/Monitor (09/06/17 20:44) Oximetry (09/06/17 20:44) Sodium Chloride 0.9% Flush (Ns Flush) (09/06/17 20:45) Ed Discharge Order (09/06/17 22:17) Labs Laboratory Tests Test 09/06/17 20:45 White Blood Count 7.5 TH/MM3 Red Blood Count 4.27 MIL/MM3 Hemoglobin 12.4 GM/DL Hematocrit 36.4 % Mean Corpuscular Volume 85.3 FL Mean Corpuscular Hemoglobin 29.1 PG Mean Corpuscular Hemoglobin Concent 34.1 % Red Cell Distribution Width 14.0 % Platelet Count 234 TH/MM3 Mean Platelet Volume 8.4 FL Neutrophils (%) (Auto) 65.2 % Lymphocytes (%) (Auto) 25.6 % Monocytes (%) (Auto) 7.2 % Eosinophils (%) (Auto) 1.5 % Basophils (%) (Auto) 0.5 % Neutrophils # (Auto) 4.9 TH/MM3 Lymphocytes # (Auto) 1.9 TH/MM3 Monocytes # (Auto) 0.5 TH/MM3 Eosinophils # (Auto) 0.1 TH/MM3 Basophils # (Auto) 0.0 TH/MM3 CBC Comment DIFF FINAL Differential Comment Blood Urea Nitrogen 13 MG/DL Creatinine 0.87 MG/DL Random Glucose 76 MG/DL Calcium Level 8.8 MG/DL Sodium Level 142 MEQ/L Potassium Level 3.6 MEQ/L Chloride Level 108 MEQ/L Carbon Dioxide Level 26.9 MEQ/L Anion Gap 7 MEQ/L Estimat Glomerular Filtration Rate 69 ML/MIN MDM Medical Decision Making Medical Screen Exam Complete: Yes Emergency Medical Condition: Yes Differential Diagnosis Vertigo, labyrinthitis, otitis, intracranial pathology highly unlikely, anemia, electrolyte abnormality Narrative Course Patient room to emerge primary, basic labs are reassuring, likely etiology of her symptoms is peripheral vertigo as her neurologic exam is reassuring discussed with her symptomatic management and return to criteria. She is stable for discharge. Discussed Kimmy's maneuver. Follow-up with his daily health clinic or primary care physician. Given her benign exam and neurologic intact there is no indication for CT examination at this time. She does have a history of subarachnoid hemorrhage but she has no headache. Diagnosis Primary Impression: Vertigo Med/Other Pt SpecificInfo: Prescription(s) given Scripts Meclizine (Meclizine) 25 Mg Tab 25 MG PO TID Y for VERTIGO, #30 TAB 0 Refills Prov: Aristides Russo MD 09/06/17 Disposition: 01 DISCHARGE HOME Condition: Stable Aristides Russo MD Sep 06, 2017 21:12
[2017-09-06 21:16] LABS: AUTOMATED NEUTROPHIL # 4.9 TH/MM3 (1.8-7.7); BASOPHIL % 0.5 % (0.0-2.0); EOSINOPHIL # 0.1 TH/MM3 (0-0.4); EOSINOPHIL % 1.5 % (0.0-4.0); HEMATOCRIT 36.4 % (35.0-46.0); HEMOGLOBIN 12.4 GM/DL (11.6-15.3); LYMPH % 25.6 % (9.0-44.0); LYMPHOCYTE # 1.9 TH/MM3 (1.0-4.8); MEAN CELL VOLUME 85.3 FL (80.0-100.0); MEAN CORPUSCULAR HEMOGLOBIN 29.1 PG (27.0-34.0); MEAN CORPUSCULAR HGB CONC 34.1 % (32.0-36.0); MEAN PLATELET VOLUME 8.4 FL (7.0-11.0); MONO % 7.2 % (0.0-8.0); MONOCYTE # 0.5 TH/MM3 (0-0.9); NEUT % 65.2 % (16.0-70.0); PLATELET COUNT 234 TH/MM3 (150-450); RED BLOOD COUNT 4.27 MIL/MM3 (4.00-5.30); WHITE BLOOD COUNT 7.5 TH/MM3 (4.0-11.0)
[2017-09-06 21:42] LABS: BICARBONATE 26.9 MEQ/L (21.0-32.0); CALCIUM 8.8 MG/DL (8.5-10.1); CREATININE 0.87 MG/DL (0.50-1.00)
[2017-09-06] MEDS ORDERED: MECL-62 PO (22:17)
[2017-09-06 22:24] VITALS: BP 160/83
--- NOTE | 2017-09-08 00:24 | EKG ---
Date Performed: 09/06/2017 Time Performed: 21:22:03 PTAGE: 52 years EKG: SINUS BRADYCARDIA MODERATE VOLTAGE CRITERIA FOR LVH, CONSIDER NORMAL VARIANT NONSPECIFIC T- WAVE ABNORMALITY BORDERLINE ECG PREVIOUS TRACING : 12/03/2016 19.58 Since the prior tracing, there has been no significant jeff DOCTOR: Jose Mane Interpretating Date/Time 09/08/2017 00:22:22
== END 2017-09-06 22:39 | disposition home or self-care (01) ==
LOC: NEPD 17:17
DX: R42 Dizziness and giddiness (principal); R94.31 Abnormal electrocardiogram [ECG] [EKG]; I10 Essential (primary) hypertension
CPT/HCPCS: 80048; 85025; 93005

== ENCOUNTER 2017-10-12 00:42 | Emergency (ER) | payer OTHER ==
[~2017-10-12] VITALS: Ht 157.5 cm; Wt 105.0 kg
[~2017-10-12 00:42] MED LIST changes: +MECL-62 PO
[2017-10-12 00:52] VITALS: BP 173/86; PULSE 57; RESP 18; TEMP 97.4; O2SAT 98
[2017-10-12 02:04] VITALS: BP 146/72; PULSE 56; RESP 18; O2SAT 98
--- NOTE | 2017-10-12 02:08 | RADRPT ---
EXAM DATE/TIME: 10/12/2017 01:48 [facility] COMPARISON: CHEST SINGLE AP, December 06, 2016, 21:06. INDICATIONS : Chest pain. MEDICAL HISTORY : Hypertension. SURGICAL HISTORY : None. ENCOUNTER: Initial ACUITY: 1 day PAIN SCORE: 8/10 LOCATION: Bilateral chest FINDINGS: A single view of the chest demonstrates the lungs to be symmetrically aerated without evidence of mas s, infiltrate or effusion. The cardiomediastinal contours are unremarkable. Osseous structures are intact. CONCLUSION: No acute disease. Darius Garcia MD on October 12, 2017 at 2:06 Board Certified Radiologist. This report was verified electronically.
[2017-10-12 02:09] LABS: BASOPHIL # 0.1 TH/MM3 (0-0.2); BASOPHIL % 0.7 % (0.0-2.0); EOSINOPHIL # 0.1 TH/MM3 (0-0.4); HEMATOCRIT 36.1 % (35.0-46.0); HEMOGLOBIN 12.3 GM/DL (11.6-15.3); LYMPH % 15.6 % (9.0-44.0); LYMPHOCYTE # 1.4 TH/MM3 (1.0-4.8); MEAN CELL VOLUME 85.9 FL (80.0-100.0); MEAN CORPUSCULAR HEMOGLOBIN 29.4 PG (27.0-34.0); MEAN CORPUSCULAR HGB CONC 34.2 % (32.0-36.0); MEAN PLATELET VOLUME 8.2 FL (7.0-11.0); MONO % 7.2 % (0.0-8.0); MONOCYTE # 0.7 TH/MM3 (0-0.9); NEUT % 75.5 % (16.0-70.0); PLATELET COUNT 235 TH/MM3 (150-450); RED CELL DISTRIBUTION WIDTH 14.4 % (11.6-17.2); WHITE BLOOD COUNT 9.2 TH/MM3 (4.0-11.0)
[2017-10-12 02:22] LABS: ALBUMIN 3.5 GM/DL (3.4-5.0); ALT (GPT) 21 U/L (10-53); AST (GOT) 16 U/L (15-37); BICARBONATE 28.4 MEQ/L (21.0-32.0); BLOOD UREA NITROGEN 13 MG/DL (7-18); CALCIUM 8.3 MG/DL (8.5-10.1); CHLORIDE 108 MEQ/L (98-107); CREATININE 0.85 MG/DL (0.50-1.00); GLOMERULAR FILTRATION RATE 71 ML/MIN (>89); GLUCOSE,RANDOM 87 MG/DL (74-106); SODIUM (NA) 143 MEQ/L (136-145)
[2017-10-12 02:27] LABS: ALKALINE PHOSPHATASE 89 U/L (45-117); TOTAL BILIRUBIN ADULT 0.3 MG/DL (0.2-1.0); TROPONIN I LESS THAN 0.02 NG/ML (0.02-0.05)
[2017-10-12] MEDS ORDERED: SODIUM CHLORID 0.9% 500 ML INJ 500 ML IV ONE (02:30)
[2017-10-12] MEDS ORDERED: ONDANSETRON HCL 4 MG/2 ML VIAL IV PUSH ONE (02:30)
[2017-10-12] MEDS ORDERED: FAMOTIDINE 20 MG/2 ML VIAL IV PUSH SCH (02:30)
[2017-10-12 03:18] VITALS: BP 149/70; PULSE 49; RESP 16; O2SAT 99
--- NOTE | 2017-10-12 04:07 | PD ---
HPI Chief Complaint: Chest Pain Time Seen by Provider: 01:42 Travel History International Travel<30 days: No Contact w/Intl Traveler<30days: No Traveled to known affect area: No History of Present Illness HPI Patient is a 52-year-old female who has a history of hypertension on lisinopril 20 and Norvasc 5. 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 She is coming in tonight complaining of right upper quadrant and epigastric pain. She is not taking any medication for this and she is continuing to have pain. She has not had seen a doctor for this and the pain began earlier today PFSH Past Medical History Hx Anticoagulant Therapy: No Autoimmune Disease: No Cancer: No Cardiovascular Problems: Yes (HTN) Chemotherapy: No Cerebrovascular Accident: No Diabetes: No Diminished Hearing: No Endocrine: No Gastrointestinal Disorders: Yes (GALLSTONES) Genitourinary: No Hypertension: Yes Immune Disorder: No Implanted Vascular Access Dvce: No Musculoskeletal: No Neurologic: No Reproductive: No Respiratory: No Immunizations Current: No Thyroid Disease: No Influenza Vaccination: Yes ?: Not Menopausal: Yes : 1 Para: 0 : 1 Past Surgical History Section: Yes Eye Surgery: Yes Hysterectomy: No Social History Alcohol Use: No Tobacco Use: No Substance Use: No Allergies-Medications (Allergen,Severity, Reaction): Coded Allergies: *MDRO Multi-Drug Resistant Organism (Verified Adverse Reaction, Unknown, ) MRSA (abdominal abscess) - 07/22/2015 MRSA PCR screen positive-12/03/16 Reported Meds & Prescriptions Reported Meds & Active Scripts Active Amlodipine (Amlodipine Besylate) 5 Mg Tab 5 Mg PO DAILY Lisinopril 20 Mg Tab 20 Mg PO DAILY Review of Systems Except as stated in HPI: all other systems reviewed are Neg Gastrointestinal: Positive: Abdominal Pain Physical Exam Narrative GENERAL: Nontoxic in no acute distress SKIN: Warm and dry. HEAD: Atraumatic. Normocephalic. EYES: Pupils equal and round. No scleral icterus. No injection or drainage. ENT: No nasal bleeding or discharge. Mucous membranes pink and moist. NECK: Trachea midline. No JVD. CARDIOVASCULAR: Regular rate and rhythm. RESPIRATORY: No accessory muscle use. Clear to auscultation. Breath sounds equal bilaterally. GASTROINTESTINAL: Abdomen tender in the epigastrium area patient is obese. Hepatic and splenic margins not palpable. MUSCULOSKELETAL: Extremities without clubbing, cyanosis, or edema. No obvious deformities. NEUROLOGICAL: Awake and alert. No obvious cranial nerve deficits. Motor grossly within normal limits. Five out of 5 muscle strength in the arms and legs. Normal speech. PSYCHIATRIC: Appropriate mood and affect; insight and judgment normal. Data Data Last Documented VS Vital Signs Date Time Temp Pulse Resp B/P (MAP) Pulse Ox O2 Delivery O2 Flow Rate FiO2 10/12/17 03:18 49 16 149/70 (96) 99 Room Air 10/12/17 00:52 97.4 Orders Orders Electrocardiogram (10/12/17 ) Electrocardiogram (10/12/17 01:44) Complete Blood Count With Diff (10/12/17 01:44) Comprehensive Metabolic Panel (10/12/17 01:44) Ckmb (Isoenzyme) Profile (10/12/17 01:44) Troponin I (10/12/17 01:44) Lipase (10/12/17 01:44) Chest, Single Ap (10/12/17 01:44) Famotidine Inj (Pepcid Inj) (10/12/17 02:30) Ondansetron Inj (Zofran Inj) (10/12/17 02:30) Sodium Chlorid 0.9% 500 Ml Inj (Ns 500 M (10/12/17 02:30) CKMB (10/12/17 02:00) CKMB% (10/12/17 02:00) Labs Laboratory Tests Test 10/12/17 02:00 White Blood Count 9.2 TH/MM3 Red Blood Count 4.20 MIL/MM3 Hemoglobin 12.3 GM/DL Hematocrit 36.1 % Mean Corpuscular Volume 85.9 FL Mean Corpuscular Hemoglobin 29.4 PG Mean Corpuscular Hemoglobin Concent 34.2 % Red Cell Distribution Width 14.4 % Platelet Count 235 TH/MM3 Mean Platelet Volume 8.2 FL Neutrophils (%) (Auto) 75.5 % Lymphocytes (%) (Auto) 15.6 % Monocytes (%) (Auto) 7.2 % Eosinophils (%) (Auto) 1.0 % Basophils (%) (Auto) 0.7 % Neutrophils # (Auto) 7.0 TH/MM3 Lymphocytes # (Auto) 1.4 TH/MM3 Monocytes # (Auto) 0.7 TH/MM3 Eosinophils # (Auto) 0.1 TH/MM3 Basophils # (Auto) 0.1 TH/MM3 CBC Comment DIFF FINAL Differential Comment Blood Urea Nitrogen 13 MG/DL Creatinine 0.85 MG/DL Random Glucose 87 MG/DL Total Protein 7.0 GM/DL Albumin 3.5 GM/DL Calcium Level 8.3 MG/DL Alkaline Phosphatase 89 U/L Aspartate Amino Transf (AST/SGOT) 16 U/L Alanine Aminotransferase (ALT/SGPT) 21 U/L Total Bilirubin 0.3 MG/DL Sodium Level 143 MEQ/L Potassium Level 3.8 MEQ/L Chloride Level 108 MEQ/L Carbon Dioxide Level 28.4 MEQ/L Anion Gap 7 MEQ/L Estimat Glomerular Filtration Rate 71 ML/MIN Total Creatine Kinase 158 U/L Creatine Kinase MB 2.2 NG/ML Troponin I LESS THAN 0.02 NG/ML Lipase 133 U/L [facility] Medical Decision Making Medical Screen Exam Complete: Yes Emergency Medical Condition: Yes Differential Diagnosis Differential diagnoses include gastritis versus viral enteritis versus pancreatitis versus cholecystitis versus abdomen pain NOS versus adenitis Narrative Course Labs LFTs are all normal she feels complete relief with Zofran Pepcid IV. Bedside ultrasound done by this MD shows a single gallstone that is not in the neck of the gallbladder and the common bile duct is within normal limits there is no pericholecystic fluid. Patient is safe to be discharged to follow-up as an outpatient Diagnosis Primary Impression: Gastritis Qualified Codes: K29.70 - Gastritis, unspecified, without bleeding Additional Impression: Gallstone Qualified Codes: K80.20 - Calculus of gallbladder without cholecystitis without obstruction Referrals: Bernard Montgomery MD Patient Instructions: Gallstones (ED), Gastritis (ED), General Instructions Scripts Famotidine (Pepcid) 20 Mg Tab 20 MG PO BID, #20 TAB 0 Refills Prov: Amado Beck MD 10/12/17 Ondansetron Odt (Zofran Odt) 4 Mg Tab 4 MG SL Q6HR Y for Nausea/Vomiting, #15 TAB 0 Refills Prov: Amado Beck MD 10/12/17 Amado Beck MD Oct 12, 2017 04:07
[2017-10-12] MEDS ORDERED: FAMO1TAB37 PO (04:08)
[2017-10-12] MEDS ORDERED: ZOFR4TAB3 SL (04:08)
--- NOTE | 2017-10-12 20:17 | EKG ---
Date Performed: 10/12/2017 Time Performed: 01:11:04 PTAGE: 52 years EKG: SINUS BRADYCARDIA Since previous tracing, no significant change noted BORDERLINE ECG PREVIOUS TRACING : 09/06/2017 21.22.03 DOCTOR: Frantz Sepulveda Interpretating Date/Time 10/12/2017 20:16:57
== END 2017-10-12 04:58 | disposition home or self-care (01) ==
LOC: NEPC 00:42
DX: K29.70 Gastritis, unspecified, without bleeding (principal); K80.20 Calculus of gallbladder without cholecystitis without obstruction; R94.31 Abnormal electrocardiogram [ECG] [EKG]; I10 Essential (primary) hypertension; Z86.79 Personal history of other diseases of the circulatory system
CPT/HCPCS: 71045; 80053; 82550; 82552; 83690; 84484; 85025; 93005; 96361; 96374; 96375; 99285; J2405; J7040

== ENCOUNTER 2017-10-20 00:36 | Emergency (ER) | payer OTHER ==
[~2017-10-20] VITALS: Ht 157.5 cm; Wt 104.5 kg
[~2017-10-20 00:36] MED LIST changes: +FAMO1TAB37 PO; -MECL-62 PO; +ZOFR4TAB3 SL
[2017-10-20 00:56] VITALS: BP 162/88; PULSE 55; RESP 16; TEMP 98.1; O2SAT 99
--- NOTE | 2017-10-20 03:56 | PD ---
HPI Chief Complaint: Headache Time Seen by Provider: 02:43 Travel History International Travel<30 days: No Contact w/Intl Traveler<30days: No Traveled to known affect area: No History of Present Illness HPI headache frontal for 1 day took ASpirin without relief , Pt has HTN take lisinopril and Norvasc , BP is controlled in ER . no N/V no visual changes PFSH Past Medical History Hx Anticoagulant Therapy: No Autoimmune Disease: No Cancer: No Cardiovascular Problems: Yes (HTN) Chemotherapy: No Cerebrovascular Accident: No Diabetes: No Diminished Hearing: No Endocrine: No Gastrointestinal Disorders: Yes (GALLSTONES) Genitourinary: No Hypertension: Yes Immune Disorder: No Implanted Vascular Access Dvce: No Musculoskeletal: No Neurologic: No Reproductive: No Respiratory: No Immunizations Current: No Thyroid Disease: No Tetanus Vaccination: < 5 Years Influenza Vaccination: Yes ?: Not Menopausal: Yes : 1 Para: 0 : 1 Past Surgical History Surgical History: No Previous Surgery Section: Yes Eye Surgery: Yes Hysterectomy: No Social History Alcohol Use: No Tobacco Use: No Substance Use: No Allergies-Medications (Allergen,Severity, Reaction): Coded Allergies: *MDRO Multi-Drug Resistant Organism (Verified Adverse Reaction, Unknown, ) MRSA (abdominal abscess) - 07/22/2015 MRSA PCR screen positive-12/03/16 Reported Meds & Prescriptions Reported Meds & Active Scripts Active Fioricet (Vcpxstnwdn-Gahbrcbpoucfw-Tzmobpdk) 50-300-40 Mg Cap 1 Cap PO Q4H PRN Fioricet (Ybkjupbcjq-Ldwztuxbewwfh-Gmpxyjdc) 50-300-40 Mg Cap 1 Cap PO Q4H PRN Amlodipine (Amlodipine Besylate) 5 Mg Tab 5 Mg PO DAILY Lisinopril 20 Mg Tab 20 Mg PO DAILY Review of Systems Except as stated in HPI: all other systems reviewed are Neg Physical Exam Narrative GENERAL: seems slow to answer question and non specific responses SKIN: Warm and dry. HEAD: Atraumatic. Normocephalic. EYES: Pupils equal and round. No scleral icterus. No injection or drainage. ENT: No nasal bleeding or discharge. Mucous membranes pink and moist. NECK: Trachea midline. No JVD. no pain in pressure points of neck CARDIOVASCULAR: Regular rate and rhythm. RESPIRATORY: No accessory muscle use. Clear to auscultation. Breath sounds equal bilaterally. GASTROINTESTINAL: Abdomen soft, non-tender, nondistended. Hepatic and splenic margins not palpable. MUSCULOSKELETAL: Extremities without clubbing, cyanosis, or edema. No obvious deformities. NEUROLOGICAL: Awake and alert. No obvious cranial nerve deficits. Motor grossly within normal limits. Five out of 5 muscle strength in the arms and legs. Normal speech. PSYCHIATRIC: Appropriate mood and affect; insight and judgment normal. Data Data Last Documented VS Vital Signs Date Time Temp Pulse Resp B/P (MAP) Pulse Ox O2 Delivery O2 Flow Rate FiO2 10/20/17 07:30 97.8 86 17 120/69 (86) 99 10/20/17 07:05 Room Air Orders Orders Qchq-Vugzg-Sxmt 325-50-40 Mg (Fioricet 3 (10/20/17 04:00) Acetamin-Hydrocod 325-5 Mg ([place] 5-325 (10/20/17 04:00) Ct Brain W/O Iv Contrast(Rout) (10/20/17 ) Ed Discharge Order (10/20/17 07:29) MDM Medical Decision Making Medical Screen Exam Complete: Yes Emergency Medical Condition: Yes Differential Diagnosis AVILA vs subarachnoid rebleed aneurysmal leak other , vs sinus AVILA tension AVILA Narrative Course pt has CT negative for bleed and fioricet and [place] feels better d/c home follow up outpt Diagnosis Primary Impression: Headache Qualified Codes: R51 - Headache Patient Instructions: General Headache (ED), General Instructions Scripts Ffahzcgqdj-Ydvczntilmisg-Omuwvrvt (Fioricet) 50-300-40 Mg Cap 1 CAP PO Q4H Y for HEADACHE, #12 CAP 0 Refills Prov: Amado Beck MD 10/20/17 Vkavpmdljo-Pezzthpxetrcl-Kakewtds (Fioricet) 50-300-40 Mg Cap 1 CAP PO Q4H Y for HEADACHE, #12 CAP 0 Refills Prov: Amado Beck MD 10/20/17 Disposition: 01 DISCHARGE HOME Condition: Good Amado Beck MD Oct 20, 2017 03:56
[2017-10-20] MEDS ORDERED: ACETAMINOPHEN/HYDROcodone 325 MG/5 MG TAB PO ONE (04:00)
[2017-10-20] MEDS ORDERED: ACETAMIN 325 MG/BUTALBITAL 50 MG/CAFFEINE 40 MG TAB PO ONE (04:00)
[2017-10-20 06:16] VITALS: BP 118/63; PULSE 55; RESP 15; O2SAT 97
--- NOTE | 2017-10-20 06:54 | RADRPT ---
EXAM DATE/TIME: 10/20/2017 06:41 [facility] COMPARISON: CT BRAIN W/O CONTRAST, December 20, 2016, 18:55. INDICATIONS : Cephalgia. RADIATION DOSE: 56.35 CTDIvol (mGy) MEDICAL HISTORY : Aneurysm, intracranial. SURGICAL HISTORY : Aneurysm clip. ENCOUNTER: Initial ACUITY: 1 day PAIN SCALE: 5/10 LOCATION: cranial TECHNIQUE: Multiple contiguous axial images were obtained of the head. Using automated exposure control and adj ustment of the mA and/or kV according to patient size, radiation dose was kept as low as reasonably a chievable to obtain optimal diagnostic quality images. DICOM format image data is available electro nically for review and comparison. FINDINGS: CEREBRUM: The ventricles are normal for age. No evidence of midline shift, mass lesion, hemorrhage or acute in farction. No extra-axial fluid collections are seen. Surgical clip along the right internal carotid bifurcation POSTERIOR FOSSA: The cerebellum and brainstem are intact. The 4th ventricle is midline. The cerebellopontine angle i s unremarkable. EXTRACRANIAL: The visualized portion of the orbits is intact. SKULL: The calvaria is intact. No evidence of skull fracture. CONCLUSION: Previous aneurysm clipping. No evidence of acute leak or hemorrhage. Otherwise normal exam. Dez Chowdhury MD on October 20, 2017 at 6:52 Board Certified Radiologist. This report was verified electronically.
[2017-10-20 07:00] VITALS: RESP 16
[2017-10-20] MEDS ORDERED: BUTA1CAP PO ×2 (07:18→07:45)
[2017-10-20 07:30] VITALS: BP 120/69; TEMP 97.8
== END 2017-10-20 07:30 | disposition home or self-care (01) ==
LOC: NEPE 00:36
DX: R51 Headache (principal); I10 Essential (primary) hypertension; Z79.899 Other long term (current) drug therapy
CPT/HCPCS: 70450; 99283

== ENCOUNTER 2017-11-10 10:53 | Observation (INO) | payer OTHER ==
[~2017-11-10] VITALS: Ht 157.5 cm; Wt 105.0 kg
[~2017-11-10 10:53] MED LIST changes: +BUTA1CAP PO; -FAMO1TAB37 PO; -ZOFR4TAB3 SL
[2017-11-10 10:59] VITALS: BP 144/68; PULSE 53; RESP 17; TEMP 98.2; O2SAT 99
[2017-11-10 11:09] VITALS: BP 159/82; PULSE 51; RESP 17; O2SAT 100
--- NOTE | 2017-11-10 11:36 | PD ---
HPI Chief Complaint: Chest Pain Time Seen by Provider: 11:08 Travel History International Travel<30 days: No Contact w/Intl Traveler<30days: No Traveled to known affect area: No History of Present Illness HPI 52yo F with PMH of HTN here with c/o midsternal chest pain since last night. Pain is sharp intermittent and nonradiating. +Cough. Denies any fever, n/v, abdominal pain, focal weakness or numbness. Pt has never had this chest pain before. Denies any previous cardiac work up. Denies any hemoptysis, history of PE/DVT, cig smoking or recent travel. PFSH Past Medical History Hx Anticoagulant Therapy: No Autoimmune Disease: No Cancer: No Cardiovascular Problems: Yes (HTN) Chemotherapy: No Cerebrovascular Accident: No Diabetes: No Diminished Hearing: No Endocrine: No Gastrointestinal Disorders: Yes (GALLSTONES) Genitourinary: No Hypertension: Yes Immune Disorder: No Implanted Vascular Access Dvce: No Musculoskeletal: No Neurologic: No Reproductive: No Respiratory: No Immunizations Current: No Thyroid Disease: No ?: Not Menopausal: Yes : 1 Para: 0 : 1 Past Surgical History Section: Yes Eye Surgery: Yes Hysterectomy: No Social History Alcohol Use: No Tobacco Use: No Substance Use: No Allergies-Medications (Allergen,Severity, Reaction): Coded Allergies: *MDRO Multi-Drug Resistant Organism (Verified Adverse Reaction, Unknown, ) MRSA (abdominal abscess) - 07/22/2015 MRSA PCR screen positive-12/03/16 Reported Meds & Prescriptions Reported Meds & Active Scripts Active Fioricet (Qsqgducdwe-Epjufvglzswmg-Ntawzlot) 50-300-40 Mg Cap 1 Cap PO Q4H PRN Fioricet (Komzypzlqb-Rqfrexodwyobj-Rporqeto) 50-300-40 Mg Cap 1 Cap PO Q4H PRN Amlodipine (Amlodipine Besylate) 5 Mg Tab 5 Mg PO DAILY Lisinopril 20 Mg Tab 20 Mg PO DAILY Review of Systems Except as stated in HPI: all other systems reviewed are Neg Physical Exam Narrative GENERAL: 52yo F not in distress. SKIN: Focused skin assessment warm/dry. HEAD: Atraumatic. Normocephalic. EYES: Pupils equal and round. No scleral icterus. No injection or drainage. ENT: No nasal bleeding or discharge. Mucous membranes pink and moist. NECK: Trachea midline. No JVD. CARDIOVASCULAR: Regular rate and rhythm. No murmur appreciated. RESPIRATORY: No accessory muscle use. Clear to auscultation. Breath sounds equal bilaterally. GASTROINTESTINAL: Abdomen soft, non-tender, nondistended. MUSCULOSKELETAL: No obvious deformities. No clubbing. No cyanosis. No edema. NEUROLOGICAL: Awake and alert. No obvious cranial nerve deficits. Motor grossly within normal limits. Normal speech. PSYCHIATRIC: Appropriate mood and affect; insight and judgment normal. Data Data Last Documented VS Vital Signs Date Time Temp Pulse Resp B/P (MAP) Pulse Ox O2 Delivery O2 Flow Rate FiO2 11/10/17 11:09 51 17 159/82 (107) 100 Room Air 11/10/17 10:59 98.2 Orders Orders Basic Metabolic Panel (Bmp) (11/10/17 11:20) Complete Blood Count With Diff (11/10/17 11:20) Prothrombin Time / Inr (Pt) (11/10/17 11:20) Act Partial Throm Time (Ptt) (11/10/17 11:20) Troponin I (11/10/17 11:20) Chest, Single Ap (11/10/17 11:20) Aspirin (Aspirin) (11/10/17 11:45) Admit Order (Ed Use Only) (11/10/17 12:41) Labs Laboratory Tests Test 11/10/17 11:15 White Blood Count 5.1 TH/MM3 Red Blood Count 4.22 MIL/MM3 Hemoglobin 12.6 GM/DL Hematocrit 36.9 % Mean Corpuscular Volume 87.5 FL Mean Corpuscular Hemoglobin 29.8 PG Mean Corpuscular Hemoglobin Concent 34.0 % Red Cell Distribution Width 13.4 % Platelet Count 190 TH/MM3 Mean Platelet Volume 8.6 FL Neutrophils (%) (Auto) 60.6 % Lymphocytes (%) (Auto) 29.9 % Monocytes (%) (Auto) 8.1 % Eosinophils (%) (Auto) 1.0 % Basophils (%) (Auto) 0.4 % Neutrophils # (Auto) 3.1 TH/MM3 Lymphocytes # (Auto) 1.5 TH/MM3 Monocytes # (Auto) 0.4 TH/MM3 Eosinophils # (Auto) 0.1 TH/MM3 Basophils # (Auto) 0.0 TH/MM3 CBC Comment DIFF FINAL Differential Comment Prothrombin Time 9.4 SEC Prothromb Time International Ratio 0.9 RATIO Activated Partial Thromboplast Time 23.9 SEC Blood Urea Nitrogen 13 MG/DL Creatinine 0.91 MG/DL Random Glucose 80 MG/DL Calcium Level 8.3 MG/DL Sodium Level 145 MEQ/L Potassium Level 3.4 MEQ/L Chloride Level 110 MEQ/L Carbon Dioxide Level 28.9 MEQ/L Anion Gap 6 MEQ/L Estimat Glomerular Filtration Rate 65 ML/MIN Troponin I LESS THAN 0.02 NG/ML MDM Medical Decision Making Medical Screen Exam Complete: Yes Emergency Medical Condition: Yes Interpretation(s) EKG: Sinus bradycardia at 48bpm. LAD. No ST segment elevation or depression. Biphasic T wave III. Differential Diagnosis ACS vs. GERD vs. pneumonia vs. musculoskeletal pain Narrative Course 52yo F with midsternal chest pain that is intermittent since yesterday. Pt said she current has no chest pain. Has never had this before. Will give aspirin and do cardiac work up. Labs reviewed, no leukocytosis. H/H normal. Troponin negative. CXR negative. Pt has not had any cardiac work up and said never had pain like this. 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 Will admit to chest pain center for serial EKG and enzymes. Pt agrees with plan. Diagnosis Primary Impression: Chest pain Qualified Codes: R07.9 - Chest pain, unspecified Admitting Information Admitting Physician Requests: Latonya Apple DO Nov 10, 2017 11:36
--- NOTE | 2017-11-10 11:41 | RADRPT ---
EXAM DATE/TIME: 11/10/2017 11:23 [facility] COMPARISON: CHEST SINGLE AP, October 12, 2017, 1:48. INDICATIONS : Chest pain. MEDICAL HISTORY : None. SURGICAL HISTORY : None. ENCOUNTER: Initial ACUITY: 1 day PAIN SCORE: 6/10 LOCATION: Bilateral chest FINDINGS: A single view of the chest demonstrates the lungs to be symmetrically aerated without evidence of mas s, infiltrate or effusion. The cardiomediastinal contours are unremarkable. Osseous structures are intact. CONCLUSION: No acute disease. Darius Garcia MD on November 10, 2017 at 11:38 Board Certified Radiologist. This report was verified electronically.
[2017-11-10] MEDS ORDERED: ASPIRIN 325 MG TAB PO ONE (11:45)
[2017-11-10 12:02] LABS: AUTOMATED NEUTROPHIL # 3.1 TH/MM3 (1.8-7.7); BASOPHIL % 0.4 % (0.0-2.0); EOSINOPHIL # 0.1 TH/MM3 (0-0.4); HEMATOCRIT 36.9 % (35.0-46.0); HEMOGLOBIN 12.6 GM/DL (11.6-15.3); LYMPH % 29.9 % (9.0-44.0); LYMPHOCYTE # 1.5 TH/MM3 (1.0-4.8); MEAN CELL VOLUME 87.5 FL (80.0-100.0); MEAN CORPUSCULAR HEMOGLOBIN 29.8 PG (27.0-34.0); MEAN PLATELET VOLUME 8.6 FL (7.0-11.0); MONO % 8.1 % (0.0-8.0); MONOCYTE # 0.4 TH/MM3 (0-0.9); NEUT % 60.6 % (16.0-70.0); PLATELET COUNT 190 TH/MM3 (150-450); RED BLOOD COUNT 4.22 MIL/MM3 (4.00-5.30); RED CELL DISTRIBUTION WIDTH 13.4 % (11.6-17.2); WHITE BLOOD COUNT 5.1 TH/MM3 (4.0-11.0)
[2017-11-10 12:12] LABS: INTERNATIONAL NORMALIZED RATIO 0.9 RATIO; PROTHROMBIN TIME - PATIENT 9.4 SEC (9.8-11.6)
[2017-11-10 12:30] LABS: BICARBONATE 28.9 MEQ/L (21.0-32.0); BLOOD UREA NITROGEN 13 MG/DL (7-18); CALCIUM 8.3 MG/DL (8.5-10.1); CHLORIDE 110 MEQ/L (98-107); CREATININE 0.91 MG/DL (0.50-1.00); GLOMERULAR FILTRATION RATE 65 ML/MIN (>89); GLUCOSE,RANDOM 80 MG/DL (74-106); SODIUM (NA) 145 MEQ/L (136-145)
[2017-11-10 12:33] LABS: TROPONIN I LESS THAN 0.02 NG/ML (0.02-0.05)
[2017-11-10] MEDS ORDERED: IOHEXOL 350 MG/ML 50 ML BTL (for Cath Lab) OTHER ONE (12:44)
[2017-11-10] MEDS ORDERED: NITROGLYCERIN 0.4 MG SL 25 TABS/BTL SL PRN (13:15)
[2017-11-10] MEDS ORDERED: ACETAMINOPHEN 500 MG CPLT PO PRN (13:15)
[2017-11-10] MEDS ORDERED: ONDANSETRON HCL 4 MG/2 ML VIAL IV PUSH PRN (13:15)
[2017-11-10] MEDS ORDERED: SODIUM CHLORIDE 0.9% FLUSH 10 ML FLUSH IV FLUSH PRN (13:15)
[2017-11-10 13:29] VITALS: O2SAT 99
--- NOTE | 2017-11-10 14:55 | HHI.HP ---
HPI Primary Care Physician Unknown-([facility] located in [address] building) Chief Complaint Chest pain History of Present Illness 52 year old female with history of hypertension presents the emergency room for further evaluation of chest pain. Onset yesterday afternoon. Location upper midchest. Characterized as sharp "pin-like pain." Discomfort comes on quickly , gradually goes away. Total of 2 episodes. Duration 5-10. No radiation of pain. No precipitating or relieving factors. Denies similar pain in the past. No known coronary artery disease, history of DVT/PE, or recent illness. Review of Systems General: No fatigue,weakness, fever, chills, or recent illness. Has been under general state of health. HEENT: No AVILA, no vision changes, no nasal congestion or drainage, no dysphasia CV: As stated above. No current chest pain or pressure. No palpitations, intermittent leg pain, or dizziness RESP: No SOB, cough, wheeze, or recent URI. No history of asthma. GI: No nausea, vomiting, bowel changes, diarrhea, constipation, pain, distention. No change in appetite. Intentional weight loss. Lost a total of 170 pounds in last 1.5 years, weighing over 400 pounds at one time in her life. : No dysuria, urgency, frequency EXT: Chronic right ankle edema, no paraesthesias MS: No discomfort, injury, trauma, or change in ROM NEURO: No change in memory, difficulty with balance, LOC, motor/sensory deficits PSYCH: No anxiety, depression, or suicidal ideation SKIN: No rashes, no concerning lesions Past Family Social History Allergies: Coded Allergies: *MDRO Multi-Drug Resistant Organism (Verified Adverse Reaction, Unknown, ) MRSA (abdominal abscess) - 07/22/2015 MRSA PCR screen positive-12/03/16 Past Medical History Hypertension, gallstones Past Surgical History None Reported Medications Reported Meds & Active Scripts Active Fioricet (Zcswxvvxce-Mkxyigxypqahq-Qerwbltl) 50-300-40 Mg Cap 1 Cap PO Q4H PRN Fioricet (Tohfanrqou-Vjstocalykatt-Aazzdila) 50-300-40 Mg Cap 1 Cap PO Q4H PRN Amlodipine (Amlodipine Besylate) 5 Mg Tab 5 Mg PO DAILY Lisinopril 20 Mg Tab 20 Mg PO DAILY Active Ordered Medications Current Medications Medications (Trade) Dose Ordered Sig/Rachel Route Start Time Stop Time Status Last Admin (NS Flush) 2 ml UNSCH PRN IV FLUSH 11/10/17 13:15 (NS Flush) 2 ml BID IV FLUSH 11/10/17 21:00 (Tylenol) 500 mg Q4H PRN PO 11/10/17 13:15 (Zofran Inj) 4 mg Q6H PRN IV PUSH 11/10/17 13:15 (Nitrostat Sl) 0.4 mg Q5M PRN SL 11/10/17 13:15 (Aspirin) 325 mg DAILY PO 11/11/17 09:00 Family History Noncontributory for early onset cardiovascular disease. Social History No known coronary artery disease, diabetes, or hyperlipidemia. Known hypertension. Lifelong non-smoker. Denies any alcohol or illegal drug use. Lives with Fiance. Endorses active lifestyle, attending gym on regular basis. Works at local factory. Past cardiac testing None Physical Exam Vital Signs Vital Signs Date Time Temp Pulse Resp B/P (MAP) Pulse Ox O2 Delivery O2 Flow Rate FiO2 11/10/17 13:29 99 11/10/17 11:09 51 17 159/82 (107) 100 Room Air 11/10/17 10:59 98.2 53 17 144/68 (93) 99 Physical Exam GENERAL: Alert WN, WD, NAD, pleasant, obese, female HEAD: NC, AT EYES: Sclera clear, conjunctiva without injection, pupils equal and round ENT: Mucous membranes pink and moist CV: RRR, without murmur, rub, gallop, no JVD, S1-S2 no S3-S4. No carotid or femoral bruits. Chest wall nontender with palpation. RESP: Clear lungs throughout bilateral, no crackles, wheeze, rhonchi, symmetrical chest rise, nonlabored, able to speak in full sentences ABD: Soft, NT, ND, no masses, positive bowel tones, obese EXT: Pulses +2x4, no dependent edema MS: Normal tone x4 extremities, no obvious deformities, full range of motion NEURO: CN II through CN XII grossly intact, motor strength 5/5, gait WNL PSYCH: A+O x3, pleasant affect, appropriate speech, mood, insight and judgment SKIN: Normal turgor, normal texture, no lesions, no rashes, even hair distribution Laboratory Laboratory Tests Test 11/10/17 11:15 11/10/17 14:10 White Blood Count 5.1 Red Blood Count 4.22 Hemoglobin 12.6 Hematocrit 36.9 Mean Corpuscular Volume 87.5 Mean Corpuscular Hemoglobin 29.8 Mean Corpuscular Hemoglobin Concent 34.0 Red Cell Distribution Width 13.4 Platelet Count 190 Mean Platelet Volume 8.6 Neutrophils (%) (Auto) 60.6 Lymphocytes (%) (Auto) 29.9 Monocytes (%) (Auto) 8.1 Eosinophils (%) (Auto) 1.0 Basophils (%) (Auto) 0.4 Neutrophils # (Auto) 3.1 Lymphocytes # (Auto) 1.5 Monocytes # (Auto) 0.4 Eosinophils # (Auto) 0.1 Basophils # (Auto) 0.0 CBC Comment DIFF FINAL Differential Comment Prothrombin Time 9.4 Prothromb Time International Ratio 0.9 Activated Partial Thromboplast Time 23.9 Blood Urea Nitrogen 13 Creatinine 0.91 Random Glucose 80 Calcium Level 8.3 Sodium Level 145 Potassium Level 3.4 Chloride Level 110 Carbon Dioxide Level 28.9 Anion Gap 6 Estimat Glomerular Filtration Rate 65 Troponin I LESS THAN 0.02 Result Diagram: 11/10/17 1115 11/10/17 1115 Imaging Last 48 hours Impressions Chest X-Ray 11/10/17 1120 Signed Impressions: Service Date/Time: Friday, November 10, 2017 11:23 - CONCLUSION: No acute disease. Darius Garcia MD Course EKG NSB, normal axis, no st t segment changes Caprini VTE Risk Assessment Caprini VTE Risk Assessment: No/Low Risk (score <= 1) Caprini Risk Assessment Model Point Value = 1 Point Value = 2 Point Value = 3 Point Value = 5 Age 41-60 Minor surgery BMI > 25 kg/m2 Swollen legs Varicose veins or History of unexplained or recurrent spontaneous Oral contraceptives or hormone replacement Sepsis (< 1 month) Serious lung disease, including pneumonia (< 1 month) Abnormal pulmonary function Acute myocardial infarction Congestive heart failure (< 1 month) History of inflammatory bowel disease Medical patient at bed rest Age 61-74 Arthroscopic surgery Major open surgery (> 45 min) Laparoscopic surgery (> 45 min) Malignancy Confined to bed (> 72 hours) Immobilizing plaster cast Central venous access Age >= 75 History of VTE Family history of VTE Factor V Leiden Prothrombin [id number] Lupus anticoagulant Anticardiolipin antibodies Elevated serum homocysteine Heparin-induced thrombocytopenia Other congenital or acquired thrombophilia Stroke (< 1 month) Elective arthroplasty Hip, pelvis, or leg fracture Acute spinal cord injury (< 1 month) Prophylaxis Regimen Total Risk Factor Score Risk Level Prophylaxis Regimen 0-1 Low Early ambulation 2 Moderate Order ONE of the following: *Sequential Compression Device (SCD) *Heparin 5000 units SQ BID 3-4 Higher Order ONE of the following medications: *Heparin 5000 units SQ TID *Enoxaparin/Lovenox 40 mg SQ daily (WT < 150 kg, CrCl > 30 mL/min) *Enoxaparin/Lovenox 30 mg SQ daily (WT < 150 kg, CrCl > 10-29 mL/min) *Enoxaparin/Lovenox 30 mg SQ BID (WT < 150 kg, CrCl > 30 mL/min) AND/OR *Sequential Compression Device (SCD) 5 or more Highest Order ONE of the following medications: *Heparin 5000 units SQ TID (Preferred with Epidurals) *Enoxaparin/Lovenox 40 mg SQ daily (WT < 150 kg, CrCl > 30 mL/min) *Enoxaparin/Lovenox 30 mg SQ daily (WT < 150 kg, CrCl > 10-29 mL/min) *Enoxaparin/Lovenox 30 mg SQ BID (WT < 150 kg, CrCl > 30 mL/min) AND *Sequential Compression Device (SCD) Assessment and Plan Assessment and Plan #1 Atypical chest pain-admitted chest pain center. Ruled out with 2 sets of EKGs and cardiac enzymes. Seen and evaluated by Dr. Delio Drummond. Proceed with Lexiscan this afternoon due to risks factors of hypertension and age. If unremarkable, plans to be to discharge home with follow-up with PCP. Verbalizes understanding and agreeable to plan of care. #2 History of hypertension-continue lisinopril and amlodipine Kimberly Nesbitt Nov 10, 2017 14:55
[2017-11-10 14:57] LABS: TROPONIN I LESS THAN 0.02 NG/ML (0.02-0.05)
[2017-11-10] MEDS ORDERED: REGADENOSON INJ 0.4 MG/5 ML SYR ONE (16:05)
--- NOTE | 2017-11-10 17:36 | RADRPT ---
EXAM DATE/TIME: 11/10/2017 16:01 [facility] COMPARISON: No previous studies available for comparison. INDICATIONS : Midsternal chest pain with a cough. Angina. DOSE: 35 mCi Tc99m Myoview at stress. 11 mCi Tc99m Myoview at rest. 0.4 mg Lexiscan STRESS SYMPTOMS: Dyspnea. EJECTION FRACTION: 64% MEDICAL HISTORY : Hypertension. SURGICAL HISTORY : section. ENCOUNTER: Initial ACUITY: 1 day PAIN SCALE: 8/10 LOCATION: Midsternal chest TECHNIQUE: The patient underwent pharmacologic stress with infusion of prescribed dose. Continuous ECG tracing was monitored during stress. Gated SPECT imaging was performed after stress and conventional SPECT i maging was performed at rest. The examination was performed on a SPECT/CT scanner, both attenuation and non-corrected datasets were reviewed. FINDINGS: DISTRIBUTION: The maximum perfused segment at stress is in the anterolateral wall. PERFUSION STUDY: The pattern of perfusion at stress shows some redistribution in the high lateral wall. Fixed diminish ed apical perfusion GATED STUDY: There is intact wall motion and thickening without hypokinetic or dyskinetic segments. CONCLUSION: 1. Redistribution in the high lateral wall concerning for ischemia in the circumflex territory. 2. 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 Adequate wall motion throughout with an estimated ejection fraction of 64% RISK CATEGORY: Intermediate (1-3% Annual Mortality Rate) Britton Nicole MD on November 10, 2017 at 17:31 Board Certified Radiologist. This report was verified electronically.
[2017-11-10 20:11] LABS: TROPONIN I LESS THAN 0.02 NG/ML (0.02-0.05)
[2017-11-10 21:17] VITALS: BP 112/62; PULSE 46; RESP 16; TEMP 98.3; O2SAT 97
[2017-11-10] MEDS: SODIUM CHLORIDE 0.9% FLUSH 10 ML FLUSH IV FLUSH SCH (21:55)
[2017-11-11] VITALS (9 sets, daily range): BP systolic 112–159; BP diastolic 57–85; PULSE 41–57; RESP 16–18; TEMP 96.8–98.6; O2SAT 96–99
[2017-11-11] MEDS: LISINOPRIL 20 MG TAB PO SCH (08:49)
[2017-11-11] MEDS: amLODIPine BESYLATE 5 MG TAB PO SCH (08:49)
[2017-11-11] MEDS: ASPIRIN 325 MG TAB PO SCH (08:50)
[2017-11-11] MEDS: SODIUM CHLORIDE 0.9% FLUSH 10 ML FLUSH IV FLUSH SCH ×2 (08:50→21:00)
--- NOTE | 2017-11-11 08:59 | HHI.PR ---
Subjective Remarks in no acute distress. denies chest pain or sob. Objective Vitals Vital Signs Date Time Temp Pulse Resp B/P (MAP) Pulse Ox O2 Delivery O2 Flow Rate FiO2 11/11/17 07:56 97.1 47 18 136/85 (102) 97 11/11/17 07:33 99 21 11/11/17 04:23 97.3 46 16 112/59 (76) 99 11/11/17 04:15 41 11/11/17 01:30 98.0 46 16 123/57 (79) 98 11/11/17 00:37 46 11/10/17 21:17 98.3 46 16 112/62 (79) 97 11/10/17 13:29 99 11/10/17 11:09 51 17 159/82 (107) 100 Room Air 11/10/17 10:59 98.2 53 17 144/68 (93) 99 Result Diagram: 11/10/17 1115 11/10/17 1115 Imaging Last Impressions Chest X-Ray 11/10/17 1120 Signed Impressions: Service Date/Time: Friday, November 10, 2017 11:23 - CONCLUSION: No acute disease. Darius Garcia MD Myocardial Perfusion Scan Nuc Med 11/10/17 0000 Signed Impressions: Service Date/Time: Friday, November 10, 2017 16:01 - CONCLUSION: 1. Redistribution in the high lateral wall concerning for ischemia in the circumflex territory. 2. 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 Adequate wall motion throughout with an estimated ejection fraction of 64%% RISK CATEGORY: Intermediate (1-3%% Annual Mortality Rate) Britton Nicole MD Objective Remarks GENERAL: This is a well-nourished, well-developed patient, in no apparent distress. CARDIOVASCULAR: Regular rate and regular rhythm without murmurs, gallops, or rubs. RESPIRATORY: Clear to auscultation. Breath sounds equal bilaterally. No wheezes , rales, or rhonchi. GASTROINTESTINAL: Abdomen soft, non-tender, nondistended. Normal, active bowel sounds MUSCULOSKELETAL: Extremities without clubbing, cyanosis, or edema. NEURO: Alert & Oriented x4 to person, place, time, situation. Moves all ext x4 Medications and IVs Inpatient Medications Acetaminophen (Tylenol) 500 mg Q4H PRN PO HEADACHE; Start 11/10/17 at 13:15 Amlodipine Besylate (Norvasc) 5 mg DAILY PO Last administered on 11/11/17at 08: 49; Start 11/11/17 at 09:00 Aspirin (Aspirin) 325 mg DAILY PO Last administered on 11/11/17at 08:50; Start 11/11/17 at 09:00 Lisinopril (Prinivil) 20 mg DAILY PO Last administered on 11/11/17at 08:49; Start 11/11/17 at 09:00 Nitroglycerin (Nitrostat Sl) 0.4 mg Q5M PRN SL CHEST PAIN; Start 11/10/17 at 13 :15 Ondansetron HCl (Zofran Inj) 4 mg Q6H PRN IV PUSH NAUSEA; Start 11/10/17 at 13: 15 Sodium Chloride (NS Flush) 2 ml BID IV FLUSH Last administered on 11/11/17at 08: 50; Start 11/10/17 at 21:00 A/P Assessment and Plan A/P chest pain-with abnormal stress test continue aspirin- cardiology consulted. History of hypertension-continue lisinopril and amlodipine Discharge Planning awaiting cardiology evaluation. Reyes Grace MD Nov 11, 2017 08:59
--- NOTE | 2017-11-11 10:57 | TR ---
Date Performed: 11/10/2017 Time Performed: 16:32:04 DOCTOR: Delio Drummond DRUG LIST: CLINICAL HISTORY: REASON FOR TEST: CHEST PAIN REASON FOR ENDING: OBSERVATION: CONCLUSION: COMMENTS: Lexiscan stress test was performed under standard four minute protocol. Radionuclide was injected one minute prior to ending the test. No electrocardiographic abormalities were present t o suggest ischemia. Nuclear imaging and interpretation are pending.
--- NOTE | 2017-11-11 11:03 | EKG ---
Date Performed: 11/10/2017 Time Performed: 18:31:02 PTAGE: 52 years EKG: SINUS BRADYCARDIA MINIMAL VOLTAGE CRITERIA FOR LVH, CONSIDER NORMAL VARIANT NONSPECIFIC T-W AVE ABNORMALITY BORDERLINE ECG Since PREVIOUS TRACING , no significant change noted DOCTOR: Delio Drummond Interpretating Date/Time 11/11/2017 11:01:42
--- NOTE | 2017-11-11 11:08 | EKG ---
Date Performed: 11/10/2017 Time Performed: 14:56:14 PTAGE: 52 years EKG: SINUS BRADYCARDIA MINIMAL VOLTAGE CRITERIA FOR LVH, CONSIDER NORMAL VARIANT NONSPECIFIC T-W AVE ABNORMALITY BORDERLINE ECG PREVIOUS TRACING : 11/10/2017 11.11 Since previous tracing, no significant change noted DOCTOR: Delio Drummond Interpretating Date/Time 11/11/2017 11:07:04
--- NOTE | 2017-11-11 11:08 | EKG ---
Date Performed: 11/10/2017 Time Performed: 11:11:53 PTAGE: 52 years EKG: SINUS BRADYCARDIA MODERATE VOLTAGE CRITERIA FOR LVH, CONSIDER NORMAL VARIANT NONSPECIFIC T- WAVE ABNORMALITY BORDERLINE ECG INTERPRETATION BASED ON A DEFAULT AGE OF 40 YEARS PREVIOUS TRACING : 10/12/2017 01.11 Since previous tracing, no significant change noted DOCTOR: Delio Drummond Interpretating Date/Time 11/11/2017 11:07:47
--- NOTE | 2017-11-11 13:01 | MB ---
cc: Ajay Elizondo MD,Cristiano Roper MD DATE: 11/11/2017 REASON FOR CONSULTATION: Chest pain. HISTORY OF PRESENT ILLNESS: Mrs. Whitman is a 52-year-old female with history of high blood pressure, morbid obesity, hyperlipidemia. admitted through the emergency room yesterday due to chest pressure on activity. During hospitalization, nuclear stress study was performed. The stress test was positive. I was consulted for further evaluation and management. The chart was reviewed. The patient was evaluated. ALLERGIES: MULTIPLE DRUG-RESISTANT ORGANISMS. SOCIAL HISTORY: Patient currently denies smoking and drinking. FAMILY HISTORY: Noncontributory to her current medical condition. MEDICATIONS AT HOME: She is taking amlodipine 5 mg a day, lisinopril 20 mg a day, and Fioricet. During hospitalization, aspirin was added. REVIEW OF SYSTEMS: Currently, the patient refers no chest pain, no chest discomfort, no fever. PHYSICAL EXAMINATION: GENERAL: Alert, fully oriented. VITAL SIGNS: Blood pressure 130/73, pulse 46, respiratory rate 18. LUNGS: Good air entry bilaterally. CARDIOVASCULAR: S1, S2. No gallop. No murmur. ABDOMEN: Obese. No mass or bruit. EXTREMITIES: No edema. LABORATORY DATA: Electrocardiogram indicates sinus rhythm, no acute ST and T-wave changes. Hemoglobin is 12.6, white blood cells 5.1, potassium 3.4, creatinine 0.91. Troponin less than 0.02. Total CK 135. INR 0.9. ASSESSMENT AND RECOMMENDATIONS: Mrs. Whitman has obesity, high blood pressure as some risk factors. She is not too active. Nuclear stress study was positive for the circumflex territory. She has a normal ejection fraction. At this point, I am going to keep her on the same medication. I am going to consult Dr. Meier for left heart catheterization. The risks, the nature and the benefits of the procedure were clearly said to her including pneumothorax, cardiac perforation, stroke, and even . She understood and agreed to proceed. Procedure will be performed during hospitalization. Ajay Elizondo MD HS/TI , 12:16 PM , 01:00 PM
[2017-11-11] MEDS ORDERED: diphenhydrAMINE HCL 50 MG CAP PO SCH (14:15)
[2017-11-11] MEDS ORDERED: DIAZEPAM 5 MG TAB PO SCH (14:15)
--- NOTE | 2017-11-11 14:40 | MB ---
cc: Cristiano Meier MD DATE: 11/11/2017 REASON FOR CONSULTATION: Possible cardiac catheterization from Dr. Elizondo. CHIEF COMPLAINT: Chest pain. HISTORY OF PRESENT ILLNESS: Sheila Whitman is a morbidly obese, 52-year-old woman with high blood pressure and elevated cholesterol, who I am consulted for cardiac catheterization following an abnormal stress test. The patient came in with a history of 3 episodes of chest pain. One occurred the night before and 2 occurred the morning of work. This was a sharp needle-like pain in the right parasternal region lasting 5-10 minutes, nonradiating, not associated with shortness of breath or diaphoresis. She has never had chest pain before. Her risk factors include cholesterol, hypertension, and morbid obesity. She is normally quite active according to her, she goes to the gym. She does a lot of walking. She has never had chest pain with exertion before. She underwent a nuclear stress test showing high lateral reversibility suggesting possible ischemia, as well as apical thinning, possible apical infarct. PAST MEDICAL HISTORY: Includes gallstones, subarachnoid hemorrhage in 11/2016. 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 PAST SURGICAL HISTORY: She has had a couple of skin abscess lanced, one 08/18/2016 and one 07/22/2015 that grew MRSA. SOCIAL HISTORY: She is . She works at [employer]. She is a nonsmoker, nondrinker. FAMILY HISTORY: Father of cancer. She is not sure what her mother from. Her siblings do not have any health problems that she is aware of. REVIEW OF SYSTEMS: Negative for bleeding. GI review of systems negative. Urinary review of systems negative. Remaining review of systems negative as well. PHYSICAL EXAMINATION: GENERAL: Morbidly obese white female, pleasant, in no acute distress. VITAL SIGNS: Charted. Telemetry shows bradycardia in the 40s and 50s. Looking through her chart this is old for her. She has no dizziness or lightheadedness. HEENT: Unremarkable. NECK: No JVD. No bruits. CHEST: Clear to auscultation. CARDIAC: Nonpalpable PMI. Normal first and second heart sounds, regular rate and rhythm. No murmurs, gallops. ABDOMEN: Very obese, soft, nontender. Cannot appreciate masses. EXTREMITIES: No clubbing, cyanosis or edema. Pulses are intact. LABORATORY DATA: EKG shows sinus rhythm, borderline limb lead voltage criteria for left ventricular hypertrophy. Troponins are negative. Stress test is abnormal as described. Hematocrit is 36.9, creatinine 0.91. IMPRESSION: A 52-year-old female with hypertension, morbid obesity and cholesterol, now presents with chest pain. It is not classic for ischemia, but now she has had a workup including a stress test which is abnormal. PLAN: Perform a diagnostic catheterization and possible intervention. She does have a history of a subarachnoid hemorrhage and a coiled aneurysm. Risks, benefits discussed and she is agreeable to proceed. Further therapy to be determined. Cristiano Meier MD VEW/TL , 02:12 PM , 02:39 PM
[2017-11-11] MEDS: SODIUM CHLOR 0.9% 1000 ML INJ 1,000 ML IV SCH (14:53)
[2017-11-11] MEDS: NITROGLYCERIN 2% OINT 1 GM PACKET TOPICAL SCH (22:03)
[2017-11-12] MEDS: SODIUM CHLOR 0.9% 1000 ML INJ 1,000 ML IV SCH (00:29)
[2017-11-12 01:00] VITALS: PULSE 51
[2017-11-12 04:10] VITALS: PULSE 42
[2017-11-12 04:21] VITALS: BP 138/72; PULSE 45; RESP 16; TEMP 97.9; O2SAT 98
[2017-11-12 04:35] LABS: BASOPHIL % 0.3 % (0.0-2.0); EOSINOPHIL # 0.1 TH/MM3 (0-0.4); EOSINOPHIL % 2.4 % (0.0-4.0); HEMATOCRIT 33.6 % (35.0-46.0); HEMOGLOBIN 11.9 GM/DL (11.6-15.3); LYMPH % 36.6 % (9.0-44.0); LYMPHOCYTE # 2.1 TH/MM3 (1.0-4.8); MEAN CELL VOLUME 85.6 FL (80.0-100.0); MEAN CORPUSCULAR HEMOGLOBIN 30.4 PG (27.0-34.0); MEAN CORPUSCULAR HGB CONC 35.6 % (32.0-36.0); MEAN PLATELET VOLUME 8.6 FL (7.0-11.0); MONO % 8.3 % (0.0-8.0); MONOCYTE # 0.5 TH/MM3 (0-0.9); NEUT % 52.4 % (16.0-70.0); PLATELET COUNT 185 TH/MM3 (150-450); RED BLOOD COUNT 3.92 MIL/MM3 (4.00-5.30); RED CELL DISTRIBUTION WIDTH 13.4 % (11.6-17.2); WHITE BLOOD COUNT 5.7 TH/MM3 (4.0-11.0)
[2017-11-12 04:47] LABS: ALBUMIN 3.2 GM/DL (3.4-5.0); AST (GOT) 14 U/L (15-37); BICARBONATE 27.3 MEQ/L (21.0-32.0); BLOOD UREA NITROGEN 12 MG/DL (7-18); CALCIUM 8.4 MG/DL (8.5-10.1); CHLORIDE 109 MEQ/L (98-107); CHOLESTEROL 127 MG/DL (120-200); CREATININE 0.72 MG/DL (0.50-1.00); GLOMERULAR FILTRATION RATE 86 ML/MIN (>89); GLUCOSE,RANDOM 95 MG/DL (74-106); SODIUM (NA) 144 MEQ/L (136-145); TRIGLYCERIDES 215 MG/DL (42-150)
[2017-11-12 04:50] LABS: ALKALINE PHOSPHATASE 84 U/L (45-117); ALT (GPT) 25 U/L (10-53); CHOLESTEROL/ HDL RATIO 4.48 RATIO; HDL CHOLESTEROL 28.3 MG/DL (40.0-60.0); LDL CHOLESTEROL 56 MG/DL (0-99); TOTAL BILIRUBIN ADULT 0.2 MG/DL (0.2-1.0); TOTAL PROTEIN 6.4 GM/DL (6.4-8.2)
[2017-11-12] MEDS: NITROGLYCERIN 2% OINT 1 GM PACKET TOPICAL SCH (05:35)
[2017-11-12] MEDS ORDERED: HEPARIN-NS/PF FLUSH BAG 2,000 ML IV FLUSH ONE (06:49)
[2017-11-12] MEDS ORDERED: MIDAZOLAM HCL 2 MG/2 ML VIAL ONE (06:55)
[2017-11-12] MEDS ORDERED: HEPARIN SODIUM - IV 10,000 UNITS/10 ML VIAL ONE (06:55)
[2017-11-12] MEDS ORDERED: VERAPAMIL HCL 5 MG/2 ML VIAL ONE (06:55)
[2017-11-12] MEDS ORDERED: LIDOCAINE HCL 1% PF 30 ML VIAL ONE (07:22)
[2017-11-12] MEDS ORDERED: SODIUM CHLOR 0.9% 1000 ML INJ 1,000 ML IV SCH (08:38)
--- NOTE | 2017-11-12 08:43 | CATHPROC ---
[email or web address] HIS Report Study Information Study Number Admission Scheduled Start Study Start [id number] Nov 10 2017 12:43PM 11/12/2017 Nov 12 2017 6:57AM [place] [facility] Cardiac Catheterization Admit Source Facility Department Emergency department [facility] - Mowing Machine Operator Physician and Clinical Staff Initial Cristiano Salazar Chiller Tender Robert Tony,RN Chiller Tender Pawan RN, Lm RecordSue Hernandez,RT(R) Scrub Jud Orantes ,RT(R) Procedures Performed Procedure Location (Site) Vessel Name Coronary Angiograms LCA Left Coronary Coronary Angiograms RCA Right Coronary L Heart Cath LV Gram-hand inj. LV LV Ventricle Equipment Time Registered Travel Nurse Description Size Mfg Part Number Used/Scraped TRANSDUCER, TRUWAVE [id number] 07:03 [employer] VILLAGRAN * Used W/STOCKCOCK *[id number] *[id number] [id number] *[id number] [id number] *[id number] 07:03 M[employer]INCKROD[employer] SYRINGE, ANGIOMAT 150ML 150ML *[id number] Used 2SUB [id number] 07:03 [employer] PACK, CCL CUSTOM * Used *[id number] 07:03 [employer] SUPPORT, ARTERIAL ADULT 03252 *[id number] Used [id number] 07:03 [employer] PACER PEN, SKIN DUAL W/ RULER * Used *[id number] BAND, RADIAL COMPRESSION TR [id number] 08:30 [employer] MEDICAL 24CM Used SHORT 24 *[id number] 07:03 [employer] WIRE, EXCHANGE 260CM 3MMJ 260CM Used *[id number] 07:03 [employer] MANIFOLD, 4 PORT * Used *[id number] 07:03 [employer] OMNIPAQUE, 350 MG, 100ML 100ML [id number] Used 08:28 [employer] OMNIPAQUE, 350 MG, 50ML 50ML [id number] Used [id number] 07:03 [employer] BLANKET,WARM AIR CCL * Used *[id number] 07:03 [employer] JELCO NEEDLE 4056 *[id number] Used CATHETER, FR5 OPTITORQUE [id number] 07:42 [employer] FR 5 Used RADIAL TIG 4.0 *[id number] SHEATH, FR6 TRANSRADIAL RM*[id number] 07:03 [employer] FR 6 Used SLENDER 10CM *[id number] History: Current Medications Medication Dosage/Unit Route Frequency Last Date/Time Taken LISINOPRIL ASA History: Allergies Allergy Reaction *MDRO Multi-Drug Resistant Organism History: Risk Factors Family History of Hypertension Dyslipidemia Previous OK Previous Heart Failure Premature CAD Yes Yes Yes No No Prior Valve Prior PCI Prior CABG Surgery No No No Cerebrovascular Peripheral Artery Chronic Lung On Dialysis Diabetes Disease Disease Disease No Yes No No No History: Symptoms/Diagnosis Selection Items Chest pain History: Stress Tests Stress or Imaging Studies Performed Yes Standard Exercise Stress Test No Stress Echo No Stress Test SPECT Stress Test SPECT Result Stress Test SPECT Ischemia Risk/Extent Yes Positive Intermediate Stress Test CMR No Cardiac CTA Coronary Calcium Score No No Labs Hgb (g/dl) Hct (%) WBC (l/cumm) Platelets (thousands) 11.60-17.00 35.00-51.00 4.00-11.00 150.00-450.00 11.9 33.6 5.7 185 Glucose (mg/dl) BUN (mg/dl) Creatinine (mg/dl) BUN:Creatinine (1:x) 74.00-106.00 7.00-18.00 0.50-1.30 10.00-20.00 95 12 0.7 17.1 Na (meq/l) K (meq/l) 136.00-145.00 3.50-5.10 144 3.5 INR (PTT:PT) 0.90-1.10 0.9 Troponin I (ng/ml) CPK (u/l) CPK-MB (ng/ML) 0.02-0.05 26.00-308.00 0.50-3.60 0.02 135 1.5 Medication Medication Total Dose (Bolus/Oral) Medication Total Dosage/Unit 1% XYLOCAINE 5 mL FENTANYL 50 mcg RADIAL COCKTAIL 5 mL (Bolus) VERSED 2 mg Medications (Bolus/Oral) Medication Time Given Dosage/Unit Administered By Reason VERSED 11/12/2017 8:01:44 AM 1 mg Cecily, Robert 1 mg VERSED given in lab by Robert Tony RN in Right Antecubital via Peripheral IV. Ordered by Cristiano Worrell. VERSED 11/12/2017 8:04:43 AM 1 mg Cecily, Robert 1 mg VERSED given in lab by Robert Tony RN in Right Antecubital via Peripheral IV. Ordered by Cristiano Worrell. FENTANYL 11/12/2017 8:07:39 AM 50 mcg Robert Tony 50 mcg FENTANYL given in lab by Robert Tony RN in Right Antecubital via Peripheral IV. Ordered by Cristiano Yuen. 1% XYLOCAINE 11/12/2017 8:10:01 AM 5 mL Cristiano Meier 5 mL 1% XYLOCAINE given in lab by Cristiano Meier in Left Radial via Subcutaneous. RADIAL COCKTAIL 11/12/2017 8:12:34 AM 5 mL (Bolus) Cristiano Meier 5 mL (Bolus) RADIAL COCKTAIL given in lab by Cristiano Meier in Left Radial via Radial. Using [Solution Name]. Reason: Ntg 200mcg Heparin 2500U. Medication (Drip) Medication Time Given Dosage/Unit Concentration/Unit Diluent (ml) Solution IV Solutions 11/12/2017 7:11:05 AM 50 mL (IV) NaCl .9 IV Solutions given in lab by Robert Tony RN in Right Antecubital via Peripheral IV. Pump/Drip Flow using NaCl .9. Initial Case Assessment Cardiovascular HR Rhythm NIBP Chest Pain 44 liane 133/89 0 Skin color Skin Normal Warm Dry Circulatory - Right Pulses Dorsalis Pedis Femoral 2 2 Scale (0,1,2,3,4,d) Circulatory - Left Pulses Dorsalis Pedis Femoral 2 2 Scale (0,1,2,3,4,d) Neurological State Oriented to time-place- Alert Moves all extremities person Respiration - General Respiration Rate SpO2 (%) (B/min) 10 100 Chronological Log Time Study Chronological Log 7:10:05 Patient arrived via Bed. 7:10:07 Patient Name, D.O.B, / Armband Verified By R.N. 7:10:09 Consent signed by the physician and the patient and verified by the Mowing Machine Operator staff. 7:10:11 Pre-op and post- op instructions given; patient acknowledges understanding of instructions. 7:10:48 Verbal Stimulation=2 Physical Stimulation=2 Airway=2 Respiration=2 TOTAL=8. (0=absent, 1=li mited, 2=present) 7:10:51 Presedation assessment performed by Mowing Machine Operator RN. 7:10:52 Allens test performed on the left radial and ulnar artery. 7:10:57 Patient has been NPO for More than 6Hrs. 7:10:57 Skin Breakdown- none per pt 7:10:58 Patient Warmer Placed on the Table. 7:11:00 Robbi Prominences Protected 7:11:04 A # 20 IV was noted in the Antecubital (right). Grade = 0 7:11:05 IV Solutions given in lab by Robert Tony, RN in Right Antecubital via Peripheral IV. Pump/ Drip Flow using NaCl .9. 7:11:05 History and physical on the chart or being dictated. Assessment: Initial Case, HR=44 BPM, Rhythm=liane, RNVA=015/89 mmhg, Chest Pain=0, Color=Esther l, Skin = Warm, Dry Right Pulses: Aaron Ped=2, Femoral=2 7:11:06 Left Pulses: Aaron Ped=2, Femoral=2, Radial=2 Neurological: State=Alert, Ox3, WRIGHT Respiration: Resp=10 B/min, KsY2=439 % Vitals capture started with the following parameters, Patient=Adult, Interval=5 min, Initial Pre tsjsg=936 mmHg, 7:15:50 Deflation Rate=5 mmHg, Cuff placed on Unknown 7:15:53 Reference ECG taken 7:16:29 HR=44 bpm, RYQW=466/89 mmhg, ObP6=192.0 %, Resp=20 B/min 7:21:28 HR=44 bpm, VNNO=498/112 mmhg, SpO2=99.0 %, Resp=15 B/min 7:24:48 Bilateral groins and left radial prepped with 2% chlorhexidine, and draped after a 3 minute waiting time. 7:26:22 HR=44 bpm, FPRN=074/105 mmhg, IcE8=630.0 %, Resp=14 B/min 7:27:05 MD paged 7:32:44 Pressure channel 1 zeroed. 7:33:04 HR=48 bpm, HKOM=376/115 mmhg, JnW1=872.0 %, Resp=14 B/min 7:36:33 HR=48 bpm, FWSN=127/112 mmhg, SpO2=99.0 %, Resp=15 B/min 7:40:51 NIBP STAT measurement started. 7:42:21 HR=45 bpm, NWEL=076/94 mmhg, SpO2=98.0 %, Resp=18 B/min 7:46:41 HR=42 bpm, VTEO=199/83 mmhg, SpO2=99.0 %, Resp=10 B/min 7:51:40 HR=41 bpm, NIBP=99/76 mmhg, SpO2=99.0 %, Resp=16 B/min 7:57:12 MD arrived. 7:57:45 HR=47 bpm, BZFD=673/94 mmhg, DwY5=705.0 %, Resp=17 B/min 8:01:38 HR=47 bpm, JELY=714/100 mmhg, CqZ5=695.0 %, Resp=14 B/min 8:01:44 1 mg VERSED given in lab by Robert Tony, RN in Right Antecubital via Peripheral IV. Ordered by Cristiano Meier. Time Out. Correct patient, correct procedure, correct physician, power injector loaded with cont rast with surgical team 8:03:09 present. Time Out Concurred by MD and individual staff in procedure. 8:03:24 Case Start 8:04:43 1 mg VERSED given in lab by Robert Tony RN in Right Antecubital via Peripheral IV. Ordered by Cristiano Meier. 8:06:41 HR=44 bpm, GZUU=707/90 mmhg, SpO2=98.0 %, Resp=17 B/min 8:07:39 50 mcg FENTANYL given in lab by Robert Tony RN in Right Antecubital via Peripheral IV. Ord ered by Cristiano Meier. 8:10:01 5 mL 1% XYLOCAINE given in lab by Cristiano Meier in Left Radial via Subcutaneous. 8:11:14 Access site was Left Radial Artery. A SHEATH, FR6 TRANSRADIAL SLENDER 10CM FR 6 was advanced into the Radial (left) using the Percut aneous 8:11:28 technique. 8:11:38 HR=48 bpm, SZML=054/94 mmhg, SpO2=98.0 %, Resp=15 B/min 5 mL (Bolus) RADIAL COCKTAIL given in lab by Cristiano Meier in Left Radial via Radial. Using [Tiara ution Name]. Reason: 8:12:34 Ntg 200mcg Heparin 2500U. A JL 4.0 INFINITI CATHETER FR 5 was advanced over a wire. OMNIPAQUE, 350 MG, 100ML 100ML was use d for 8:15:21 injections. 8:16:41 HR=53 bpm, NJBA=502/88 mmhg, SpO2=95.0 %, Resp=14 B/min Recorded Pressure: Ao, HR=50, Condition=Condition 1 8:17:02 (Aorta) Ao 146/86/110 8:17:48 The LCA was injected and visualized at various angles. OMNIPAQUE, 350 MG, 100ML 100ML used. After removing the current catheter a JR 4.0 INFINITI CATHETER FR 5 was advanced over a WIRE, EX CHANGE 260CM 8:20:24 3MMJ 260CM. 8:21:34 HR=56 bpm, PFQW=920/104 mmhg, SpO2=97.0 %, Resp=13 B/min 8:22:09 The RCA was injected and visualized at various angles. OMNIPAQUE, 350 MG, 100ML 100ML used. After removing the current catheter a PIGTAIL ANG. INFINITI CATHETER FR 4 was advanced over a WI RE, EXCHANGE 8:23:12 260CM 3MMJ 260CM. Recorded Pressure: LV, HR=59, Condition=Condition 1 8:26:57 (Left Ventricle) LV 173/8/17 8:27:14 HR=50 bpm, FDPF=900/94 mmhg, SpO2=97.0 %, Resp=15 B/min 8:27:26 The LV was manually injected with 10 cc's and visualized. OMNIPAQUE, 350 MG, 100ML 100ML u sed. Recorded Pressure: LV, Ao, HR=49, Condition=Condition 1 8:28:09 (Left Ventricle) LV 169/4/14, (Aorta) Ao 168/87/119 8:29:12 Catheter was removed 8:29:15 Case End Radial Compression Device Used. 10 mLs of air placed in BAND, RADIAL COMPRESSION TR SHORT 24 2 4CM. Affected 8:31:39 hand 97 % O2 saturation. 8:31:47 No case complications noted. 8:31:48 Cine recording checked. 8:31:50 Holding Area notified. 8:32:26 HR=45 bpm, UVMM=160/94 mmhg, SpO2=97.0 %, Resp=14 B/min 8:33:11 A Left Heart Cath was performed. 8:36:42 HR=51 bpm, YAVS=304/95 mmhg, SpO2=96.0 %, Resp=20 B/min 8:39:57 Patient moved to stretcher End Study - Contrast Media Used In Study Contrast Total Opened (mL) Total Used (mL) Total Wasted (mL) Omnipaque 40 40 0 End Study - Maximum Contrast Load Max Contrast Load (mL) 750.0 End Study - Radiation Exposure Fluoro Time (minutes) 4.6 End Study - Patient Disposition Complications Transferred To Interventional Outcome No Outpatient Bed No attempt made
[2017-11-12] MEDS ORDERED: BACITRACIN OINT 0.9 GM PKT TOP ONE (08:45)
[2017-11-12] MEDS ORDERED: SODIUM CHLORIDE 0.9% FLUSH 10 ML FLUSH IV FLUSH PRN (08:45)
[2017-11-12] MEDS ORDERED: MISC INFORMATION XX ONE (08:45)
--- NOTE | 2017-11-12 08:47 | MA ---
cc: Cristiano Meier MD DATE: 11/12/2017 PROCEDURES PERFORMED: Left heart catheterization, left ventriculography, coronary angiography, left radial artery approach. DESCRIPTION OF PROCEDURE: The patient was brought to the cardiac starch factory laborer in a fasting state. The wrists and groins were prepped and draped in a sterile fashion. She received a total of 2 mg of IV Versed and 50 mcg of IV fentanyl for sedation. Using 1% lidocaine for local anesthesia, a Terumo slender sheath was easily inserted into the left radial artery. Cardiac catheterization was then performed using a left 4, right 4 and 4-Swedish pigtail catheters in standard fashion. Her cardiac catheterization was normal. The sheath is to be removed with a Terumo band placed. There were no complications. FINDINGS: 1. Hemodynamics: Left ventricular pressure was 169/4 with an end diastolic pressure of 14. Aortic pressure is 168/87 with a mean of 119. There was no gradient during pullback from left ventricle to the aorta. 2. Left ventriculography: Left ventriculography is normal. Shows normal left ventricular function. EF is 60%. There is no mitral regurgitation. There is no coronary artery calcification. 3. Coronary angiography: Coronary circulation is left dominant. All 3 coronary arteries appear smooth and normal appearing with no irregularities or stenoses seen. PLAN: The patient is stable to be discharged home later today from a cardiac perspective. Cristiano Meier MD VEW/DL , 08:37 AM , 08:46 AM
[2017-11-12] MEDS: amLODIPine BESYLATE 5 MG TAB PO SCH (09:00)
[2017-11-12] MEDS: LISINOPRIL 20 MG TAB PO SCH (09:00)
[2017-11-12] MEDS ORDERED: SODIUM CHLORIDE 0.9% FLUSH 10 ML FLUSH IV FLUSH SCH (09:00)
[2017-11-12] MEDS: ASPIRIN 325 MG TAB PO SCH (09:00)
--- NOTE | 2017-11-12 12:46 | HHI.PR ---
Subjective Remarks in no acute distress. had cardiac cath earlier. no chest pain or sob. wants to go home today. Objective Vitals Vital Signs Date Time Temp Pulse Resp B/P (MAP) Pulse Ox O2 Delivery O2 Flow Rate FiO2 11/12/17 08:51 97 Room Air 11/12/17 04:21 97.9 45 16 138/72 (94) 98 11/12/17 04:10 42 11/12/17 01:30 14 11/12/17 01:00 51 11/11/17 20:54 98.6 55 16 137/64 (88) 98 11/11/17 14:48 96.8 57 18 159/77 (104) 96 Result Diagram: 11/12/17 0401 11/12/17 0401 Imaging Last Impressions Chest X-Ray 11/10/17 1120 Signed Impressions: Service Date/Time: Friday, November 10, 2017 11:23 - CONCLUSION: No acute disease. Darius Garcia MD Myocardial Perfusion Scan Nuc Med 11/10/17 0000 Signed Impressions: Service Date/Time: Friday, November 10, 2017 16:01 - CONCLUSION: 1. Redistribution in the high lateral wall concerning for ischemia in the circumflex territory. 2. 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 Adequate wall motion throughout with an estimated ejection fraction of 64%% RISK CATEGORY: Intermediate (1-3%% Annual Mortality Rate) Britton Nicole MD Objective Remarks GENERAL: This is a well-nourished, well-developed patient, in no apparent distress. CARDIOVASCULAR: Regular rate and regular rhythm without murmurs, gallops, or rubs. RESPIRATORY: Clear to auscultation. Breath sounds equal bilaterally. No wheezes , rales, or rhonchi. GASTROINTESTINAL: Abdomen soft, non-tender, nondistended. Normal, active bowel sounds MUSCULOSKELETAL: Extremities without clubbing, cyanosis, or edema. NEURO: Alert & Oriented x4 to person, place, time, situation. Moves all ext x4 Procedures cardiac cath. Medications and IVs Inpatient Medications Acetaminophen (Tylenol) 500 mg Q4H PRN PO HEADACHE Last administered on at 00:30; Start 11/10/17 at 13:15 Amlodipine Besylate (Norvasc) 5 mg DAILY PO Last administered on 11/12/17at 09: 00; Start 11/11/17 at 09:00 Aspirin (Aspirin) 325 mg DAILY PO Last administered on 11/11/17at 08:50; Start 11/11/17 at 09:00 Bacitracin (Bacitracin Oint Packet) 0.9 gm ONCE ONCE TOP Last administered on 11/12/17at 08:45; Start 11/12/17 at 08:45; Stop 11/12/17 at 08:46; Status DC Diazepam (Valium) 5 mg VOUCHER CLERK PO ; Start 11/11/17 at 14:15; Stop 11/15/17 at 14:14 Diphenhydramine HCl (Benadryl) 50 mg VOUCHER CLERK PO ; Start 11/11/17 at 14:15; Stop 11/15/17 at 14:14 Lisinopril (Prinivil) 20 mg DAILY PO Last administered on 11/12/17at 09:00; Start 11/11/17 at 09:00 Miscellaneous Information 1 ONCE ONCE XX ; Start 11/12/17 at 08:45; Stop at 08:46; Status DC Nitroglycerin (Nitroglycerin 2% Oint) 0.5 inch Q8HR TOPICAL ; Start 11/11/17 at 22:00; Stop 11/12/17 at 08:41; Status DC Nitroglycerin (Nitrostat Sl) 0.4 mg Q5M PRN SL CHEST PAIN; Start 11/10/17 at 13 :15 Ondansetron HCl (Zofran Inj) 4 mg Q6H PRN IV PUSH NAUSEA; Start 11/10/17 at 13: 15 Sodium Chloride 1,000 ml @ 100 mls/hr Q10H IV ; Start 11/12/17 at 08:38; Stop 11/12/17 at 16:37 Sodium Chloride (NS Flush) 2 ml UNSCH PRN IV FLUSH FLUSH AFTER USING IV ACCESS ; Start 11/12/17 at 08:45 A/P Assessment and Plan A/P chest pain-with abnormal stress test s/p cardiac cath ; Coronary circulation is left dominant. All 3 coronary arteries appear smooth and normal appearing with no irregularities or stenoses seen. cleared by cardiology for discharge. History of hypertension-continue lisinopril and amlodipine Discharge Planning dc home today. see med list. f/u; pcp. d/w the patient. Reyes Grace MD Nov 12, 2017 12:46
--- NOTE | 2017-11-12 12:48 | HHI.DS ---
Discharge Summary Admission Date Nov 10, 2017 at 12:43 Discharge Date: Nov 12, 2017 Admitting Diagnosis Chest pain (1) Chest pain ICD Code: R07.9 - Chest pain, unspecified Diagnosis: Principal Procedures cardiac cath. Brief History - From Admission 52 year old female with history of hypertension presents the emergency room for further evaluation of chest pain. Location upper midchest. Characterized as sharp "pin-like pain." Discomfort comes on quickly, gradually goes away. Total of 2 episodes. Duration 5-10. No radiation of pain. No precipitating or relieving factors. CBC/BMP: 11/12/17 0401 11/12/17 0401 Significant Findings Laboratory Tests Test 11/10/17 11:15 11/10/17 14:10 11/10/17 19:20 11/12/17 04:01 Monocytes (%) (Auto) 8.1 % (0.0-8.0) 8.3 % (0.0-8.0) Prothrombin Time 9.4 SEC (9.8-11.6) Activated Partial Thromboplast Time 23.9 SEC (24.3-30.1) Calcium Level 8.3 MG/DL (8.5-10.1) 8.4 MG/DL (8.5-10.1) Potassium Level 3.4 MEQ/L (3.5-5.1) Chloride Level 110 MEQ/L (98-107) 109 MEQ/L (98-107) Estimat Glomerular Filtration Rate 65 ML/MIN (>89) 86 ML/MIN (>89) Troponin I LESS THAN 0.02 NG/ML LESS THAN 0.02 NG/ML LESS THAN 0.02 NG/ML Red Blood Count 3.92 MIL/MM3 (4.00-5.30) Hematocrit 33.6 % (35.0-46.0) Albumin 3.2 GM/DL (3.4-5.0) Aspartate Amino Transf (AST/SGOT) 14 U/L (15-37) Triglycerides Level 215 MG/DL (42-150) HDL Cholesterol 28.3 MG/DL (40.0-60.0) Imaging Last Impressions Chest X-Ray 11/10/17 1120 Signed Impressions: Service Date/Time: Friday, November 10, 2017 11:23 - CONCLUSION: No acute disease. Darius Garcia MD Myocardial Perfusion Scan Nuc Med 11/10/17 0000 Signed Impressions: Service Date/Time: Friday, November 10, 2017 16:01 - CONCLUSION: 1. Redistribution in the high lateral wall concerning for ischemia in the circumflex territory. 2. 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 Adequate wall motion throughout with an estimated ejection fraction of 64%% RISK CATEGORY: Intermediate (1-3%% Annual Mortality Rate) Britton Nicole MD PE at Discharge GENERAL: This is a well-nourished, well-developed patient, in no apparent distress. CARDIOVASCULAR: Regular rate and regular rhythm without murmurs, gallops, or rubs. RESPIRATORY: Clear to auscultation. Breath sounds equal bilaterally. No wheezes , rales, or rhonchi. GASTROINTESTINAL: Abdomen soft, non-tender, nondistended. Normal, active bowel sounds MUSCULOSKELETAL: Extremities without clubbing, cyanosis, or edema. NEURO: Alert & Oriented x4 to person, place, time, situation. Moves all ext x4 Hospital Course chest pain-with abnormal stress test s/p cardiac cath ; Coronary circulation is left dominant. All 3 coronary arteries appear smooth and normal appearing with no irregularities or stenoses seen. cleared by cardiology for discharge. History of hypertension-continue lisinopril and amlodipine Pt Condition on Discharge: Good Discharge Disposition: Discharge Home Discharge Time: <= 30 minutes Reyes Grace MD Nov 12, 2017 12:48
== END 2017-11-12 14:27 | disposition home or self-care (01) ==
LOC: NEPC 10:53 → NEDA 12:43 → NEPFCDU 17:45 → HCIS 11-12 10:56
PROVIDERS: ADMIT Internal Medicine; ATTEND Internal Medicine
DX: R07.89 Other chest pain (principal); I10 Essential (primary) hypertension; R00.1 Bradycardia, unspecified; E78.00 Pure hypercholesterolemia, unspecified; R94.39 Abnormal result of other cardiovascular function study; E66.01 Morbid (severe) obesity due to excess calories; Z79.899 Other long term (current) drug therapy
CPT/HCPCS: 71045; 78452; 80048; 80053; 80061; 82550; 82552; 84484; 85025; 85610; 85730; 93005; 93017; 93458; 96360; 96361; 99152; 99153; 99285; A9502; C1769; C1893; G0378; J1644; J2250; J2785; J3010; J7030; Q9967

== ENCOUNTER 2017-12-21 15:07 | Emergency (ER) | payer SELFPAY ==
[~2017-12-21] VITALS: Ht 157.5 cm; Wt 105.0 kg
[2017-12-21 15:26] VITALS: BP 166/92; PULSE 62; RESP 19; TEMP 98.5; O2SAT 99
[2017-12-21] MEDS ORDERED: CEPH-460 PO (17:20)
[2017-12-21] MEDS ORDERED: BACT800T5 PO (17:20)
--- NOTE | 2017-12-21 17:20 | PD ---
HPI Chief Complaint: Skin Problem Time Seen by Provider: 17:11 Travel History International Travel<30 days: No Contact w/Intl Traveler<30days: No Traveled to known affect area: No History of Present Illness HPI Patient is a 52-year-old female who comes in complaining of a sore to her right thigh. She says she has had it for the past few days. She says it is painful. She denies any drainage from the area. She has not taken anything for the pain or for her symptoms. Nothing is seem to make it better or worse. She denies fever chills. She has never had this before. Severity is mild. PFSH Past Medical History Hx Anticoagulant Therapy: No Autoimmune Disease: No Blood Disorders: No Cancer: No Cardiovascular Problems: Yes (HTN) Chemotherapy: No Cerebrovascular Accident: No Diabetes: No Diminished Hearing: No Endocrine: No Gastrointestinal Disorders: Yes (GALLSTONES) Genitourinary: No Hypertension: Yes Immune Disorder: No Implanted Vascular Access Dvce: No Musculoskeletal: No Neurologic: No Psychiatric: No Reproductive: No Respiratory: No Immunizations Current: No Thyroid Disease: No Tetanus Vaccination: < 5 Years Influenza Vaccination: Yes ?: Not Menopausal: Yes : 1 Para: 0 : 1 Past Surgical History Section: Yes Eye Surgery: Yes Hysterectomy: No Social History Alcohol Use: No Tobacco Use: No Substance Use: No Allergies-Medications (Allergen,Severity, Reaction): Coded Allergies: *MDRO Multi-Drug Resistant Organism (Verified Adverse Reaction, Unknown, ) MRSA (abdominal abscess) - 07/22/2015 MRSA PCR screen positive-12/03/16 Reported Meds & Prescriptions Reported Meds & Active Scripts Active Amlodipine (Amlodipine Besylate) 5 Mg Tab 5 Mg PO DAILY Lisinopril 20 Mg Tab 20 Mg PO DAILY Review of Systems General / Constitutional: No: Fever, Chills HENT: No: Headaches, Lightheadedness Cardiovascular: No: Chest Pain or Discomfort Respiratory: No: Shortness of Breath Gastrointestinal: No: Nausea, Vomiting Musculoskeletal: No: Myalgias, Edema Skin: Positive Lesions Neurologic: No: Weakness, Dizziness Physical Exam Narrative GENERAL: Awake and alert, no acute distress. SKIN: 3 cm area of erythema, round in appearance, flat, no fluctuance. 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 HEAD: Atraumatic. Normocephalic. EYES: Pupils equal and round. No scleral icterus. No injection or drainage. ENT: Mucous membranes pink and moist. CARDIOVASCULAR: Regular rate and rhythm. No murmur appreciated. RESPIRATORY: No accessory muscle use. Clear to auscultation. Breath sounds equal bilaterally. MUSCULOSKELETAL: No obvious deformities. No clubbing. No cyanosis. No edema. NEUROLOGICAL: Awake and alert. No obvious cranial nerve deficits. Motor grossly within normal limits. Normal speech. Data Data Last Documented VS Vital Signs Date Time Temp Pulse Resp B/P (MAP) Pulse Ox O2 Delivery O2 Flow Rate FiO2 12/21/17 15:26 98.5 62 19 166/92 (116) 99 MDM Medical Decision Making Medical Screen Exam Complete: Yes Emergency Medical Condition: Yes Medical Record Reviewed: Yes Differential Diagnosis Cellulitis versus abscess versus insect bite Narrative Course Patient is a 52-year-old female comes in due to a lesion to her right thigh. Exam shows a small area of erythema, no fluctuance. Patient given prescription for Bactrim and Keflex. Advised take all of the antibiotics. Advised to apply warm compresses. Advised to come back if the lesion enlarges, as it may need drainage in the future, however there is no fluid to drain at this time. Diagnosis Primary Impression: Cellulitis of right lower extremity Patient Instructions: Cellulitis (ED), General Instructions Additional Instructions: Take all of your antibiotics. Apply a warm compress to the area. Follow-up with a primary care doctor. Return to the ED as needed for any worsening symptoms. Scripts Cephalexin (Keflex) 500 Mg Capsule 500 MG PO Q6H for Infection for 7 Days, #28 CAP 0 Refills Prov: Jania Gautam MD 12/21/17 Sulfamethoxazole-Trimethoprim (Bactrim DS) 800-160 Mg Tab 1 TAB PO BID for Infection, #14 TAB 0 Refills Prov: Jania Gautam MD 12/21/17 Disposition: 01 DISCHARGE HOME Condition: Stable Jania Gautam MD Dec 21, 2017 17:20
== END 2017-12-21 17:31 | disposition home or self-care (01) ==
LOC: NEPD 15:07
DX: L03.115 Cellulitis of right lower limb (principal); I10 Essential (primary) hypertension; Z79.899 Other long term (current) drug therapy
CPT/HCPCS: 99283

== ENCOUNTER 2017-12-24 08:30 | Emergency (ER) | payer SELFPAY ==
[~2017-12-24] VITALS: Ht 157.5 cm; Wt 105.0 kg
[~2017-12-24 08:30] MED LIST changes: +BACT800T5 PO; -BUTA1CAP PO; +CEPH-460 PO
[2017-12-24 08:34] VITALS: BP 152/96; PULSE 84; RESP 20; TEMP 98.2; O2SAT 98
[2017-12-24 09:40] VITALS: O2SAT 96
--- NOTE | 2017-12-24 09:46 | PD ---
HPI Chief Complaint: Chest Pain Time Seen by Provider: 09:27 Travel History International Travel<30 days: No Contact w/Intl Traveler<30days: No Traveled to known affect area: No History of Present Illness HPI Patient presents to the emergency department complaint of chest pain headache. Chest pain began at approximately 6 AM today while she was asleep. Pain is described as being intermittent, right side, diminished duration, nonradiating, similar pain in the past unsure the diagnosis, no alleviating or aggravating factors. Headache is described as being diffuse, frontal, pounding, alleviated with aspirin, no aggravating factors, states that she had similar pain in the past and was told that she possibly have blood in the brain. She denies fever, chills, vomiting, edema, recent travel, cough, reports dyspnea and nausea. Of note patient was seen in the emergency department secondary to cellulitis and she just started taking antibiotics yesterday which are Bactrim and Keflex. PFSH Past Medical History Hx Anticoagulant Therapy: No Autoimmune Disease: No Blood Disorders: No Cancer: No Cardiovascular Problems: Yes (HTN) Chemotherapy: No Cerebrovascular Accident: No Diabetes: No Diminished Hearing: No Endocrine: No Gastrointestinal Disorders: Yes (GALLSTONES) Genitourinary: No Hypertension: Yes Immune Disorder: No Implanted Vascular Access Dvce: No Musculoskeletal: No Neurologic: No Psychiatric: No Reproductive: No Respiratory: No Immunizations Current: No Thyroid Disease: No ?: Not Menopausal: Yes : 1 Para: 0 : 1 Past Surgical History Section: Yes Eye Surgery: Yes Hysterectomy: No Other Surgery: No Social History Alcohol Use: No Tobacco Use: No Substance Use: No Allergies-Medications (Allergen,Severity, Reaction): Coded Allergies: *MDRO Multi-Drug Resistant Organism (Verified Adverse Reaction, Unknown, ) MRSA (abdominal abscess) - 07/22/2015 MRSA PCR screen positive-12/03/16 Reported Meds & Prescriptions Reported Meds & Active Scripts Active Keflex (Cephalexin) 500 Mg Capsule 500 Mg PO Q6H 7 Days Bactrim DS (Sulfamethoxazole-Trimethoprim) 800-160 Mg Tab 1 Tab PO BID Amlodipine (Amlodipine Besylate) 5 Mg Tab 5 Mg PO DAILY Lisinopril 20 Mg Tab 20 Mg PO DAILY Review of Systems Except as stated in HPI: all other systems reviewed are Neg Physical Exam Narrative GENERAL: No acute distress. SKIN: Focused skin assessment warm/dry. HEAD: Atraumatic. Normocephalic. EYES: Pupils equal and round. No scleral icterus. No injection or drainage. ENT: No nasal bleeding or discharge. Mucous membranes pink and moist. NECK: Trachea midline. No JVD. CARDIOVASCULAR: Regular rate and rhythm. No murmur appreciated. RESPIRATORY: No accessory muscle use. Clear to auscultation. Breath sounds equal bilaterally. GASTROINTESTINAL: Abdomen soft, non-tender, nondistended. Hepatic and splenic margins not palpable. MUSCULOSKELETAL: Right lower extremity, positive indurated area with surrounding erythema tender to palpation, posterior aspect of leg NEUROLOGICAL: Awake and alert. No obvious cranial nerve deficits. Motor grossly within normal limits. Normal speech. PSYCHIATRIC: Appropriate mood and affect; insight and judgment normal. Data Data Last Documented VS Vital Signs Date Time Temp Pulse Resp B/P (MAP) Pulse Ox O2 Delivery O2 Flow Rate FiO2 12/24/17 13:24 66 18 128/68 (88) 100 Room Air 12/24/17 08:34 98.2 Orders Orders Complete Blood Count With Diff (12/24/17 09:34) Prothrombin Time / Inr (Pt) (12/24/17 09:34) Act Partial Throm Time (Ptt) (12/24/17 09:34) Ecg Monitoring (12/24/17 09:34) Iv Access Insert/Monitor (12/24/17 09:34) Oximetry (12/24/17 09:34) Oxygen Administration (12/24/17 09:34) Electrocardiogram (12/24/17 09:41) B-Type Natriuretic Peptide (12/24/17 09:41) Ckmb (Isoenzyme) Profile (12/24/17 09:41) Comprehensive Metabolic Panel (12/24/17 09:41) Magnesium (Mg) (12/24/17 09:41) Act Partial Throm Time (Ptt) (12/24/17 09:41) Troponin I (12/24/17 09:41) Chest, Single Ap (12/24/17 09:41) Ct Brain W/O Iv Contrast(Rout) (12/24/17 09:41) Us Leg Soft Tissue (12/24/17 09:41) Ckmb (Isoenzyme) Profile (12/24/17 14:17) Troponin I (12/24/17 14:17) Admit Order (Ed Use Only) (12/24/17 14:18) Labs Laboratory Tests Test 12/24/17 10:30 12/24/17 10:35 Blood Urea Nitrogen 9 MG/DL Creatinine 0.91 MG/DL Random Glucose 90 MG/DL Total Protein 7.2 GM/DL Albumin 3.5 GM/DL Calcium Level 8.5 MG/DL Magnesium Level 2.2 MG/DL Alkaline Phosphatase 91 U/L Aspartate Amino Transf (AST/SGOT) 18 U/L Alanine Aminotransferase (ALT/SGPT) 19 U/L Total Bilirubin 0.6 MG/DL Sodium Level 141 MEQ/L Potassium Level 4.0 MEQ/L Chloride Level 106 MEQ/L Carbon Dioxide Level 24.3 MEQ/L Anion Gap 11 MEQ/L Estimat Glomerular Filtration Rate 65 ML/MIN Total Creatine Kinase 98 U/L Troponin I LESS THAN 0.02 NG/ML White Blood Count 8.8 TH/MM3 Red Blood Count 4.30 MIL/MM3 Hemoglobin 12.9 GM/DL Hematocrit 37.5 % Mean Corpuscular Volume 87.2 FL Mean Corpuscular Hemoglobin 30.0 PG Mean Corpuscular Hemoglobin Concent 34.4 % Red Cell Distribution Width 13.4 % Platelet Count 237 TH/MM3 Mean Platelet Volume 8.4 FL Neutrophils (%) (Auto) 83.4 % Lymphocytes (%) (Auto) 3.8 % Monocytes (%) (Auto) 7.4 % Eosinophils (%) (Auto) 2.2 % Basophils (%) (Auto) 3.2 % Neutrophils # (Auto) 7.3 TH/MM3 Lymphocytes # (Auto) 0.3 TH/MM3 Monocytes # (Auto) 0.7 TH/MM3 Eosinophils # (Auto) 0.2 TH/MM3 Basophils # (Auto) 0.3 TH/MM3 CBC Comment AUTO DIFF Differential Comment AUTO DIFF CONFIRMED Prothrombin Time 9.6 SEC Prothromb Time International Ratio 0.9 RATIO Activated Partial Thromboplast Time 25.5 SEC B-Type Natriuretic Peptide 9 PG/ML MDM Medical Decision Making Medical Screen Exam Complete: Yes Emergency Medical Condition: Yes Interpretation(s) EKG: Sinus rhythm, rate 68 Labs: Within normal limits; patient has a second set of cardiac enzymes which are pending and will be followed up by the chest pain center Last Impressions Lower Extremity Ultrasound 6/11/07 940 Signed Impressions: CONCLUSION: Small fluid collection as above. Diagnostic considerations include a very small abscess or hematoma. Volume appears to be insufficient for percutaneous draina ge. Head CT 12/24/17940 Signed Impressions: CONCLUSION: 1. Prior aneurysm coiling on the right. 2. Nothing acute. Chest X-Ray 12/24/17940 Signed Impressions: CONCLUSION: Hypoinflation with no acute cardiac pulmonary process Differential Diagnosis Cellulitis, abscess, ACS, CVA, intracranial abnormality, Narrative Course Patient presents to the emergency department complaining of chest pain and headache of note she was seen recently and given antibiotic for cellulitis. Patient was placed on monitoring coordinator, IV access was obtained, EKG and labs done. Hold on aspirin pending CT of the head secondary to patient report of possible intracranial bleeding. patient given Tylenol 650 mg p.o. for headache. Patient head CT showed no acute process, given 325 mg p.o. ASA and admitted to the chest pain center. Diagnosis Primary Impression: Chest pain Qualified Codes: R07.9 - Chest pain, unspecified Additional Impressions: Headache Qualified Codes: R51 - Headache Cellulitis of right lower extremity Admitting Information Admitting Physician Requests: Observation Condition: Stable Ruth Roberts MD Dec 24, 2017 09:46
--- NOTE | 2017-12-24 10:45 | RADRPT ---
EXAM DATE: 12/24/2017 10:40 AM EDT AGE/SEX: 52 years / Female INDICATIONS: Right posterior thigh redness and pain. CLINICAL DATA: This is the patient's initial encounter. Patient reports that signs and symptoms have been present for 1 week and indicates a pain score of 8/10. Location: Laterality: MEDICAL/SURGICAL HISTORY: . Hypertension. Cardiac disorder. Gallstones. section. COMPARISON: No prior [facility] exams available for comparison. No external comparison. FINDINGS: Small, complex fluid collection approximately 1 cm below the skin surface in the posterior thigh fatoumata uring 1.1 x 1.9 x 0.7 cm. CONCLUSION: Small fluid collection as above. Diagnostic considerations include a very small abscess or hematoma. Volume appears to be insufficient for percutaneous drainage. Electronically signed by: Britton Nicole MD 12/24/2017 10:43 AM EDT
[2017-12-24 10:53] LABS: AUTOMATED NEUTROPHIL # 7.3 TH/MM3 (1.8-7.7); BASOPHIL # 0.3 TH/MM3 (0-0.2); BASOPHIL % 3.2 % (0.0-2.0); EOSINOPHIL # 0.2 TH/MM3 (0-0.4); EOSINOPHIL % 2.2 % (0.0-4.0); HEMATOCRIT 37.5 % (35.0-46.0); HEMOGLOBIN 12.9 GM/DL (11.6-15.3); LYMPH % 3.8 % (9.0-44.0); LYMPHOCYTE # 0.3 TH/MM3 (1.0-4.8); MEAN CELL VOLUME 87.2 FL (80.0-100.0); MEAN CORPUSCULAR HGB CONC 34.4 % (32.0-36.0); MEAN PLATELET VOLUME 8.4 FL (7.0-11.0); MONO % 7.4 % (0.0-8.0); MONOCYTE # 0.7 TH/MM3 (0-0.9); NEUT % 83.4 % (16.0-70.0); PLATELET COUNT 237 TH/MM3 (150-450); RED CELL DISTRIBUTION WIDTH 13.4 % (11.6-17.2); WHITE BLOOD COUNT 8.8 TH/MM3 (4.0-11.0)
--- NOTE | 2017-12-24 11:02 | RADRPT ---
EXAM DATE: 12/24/2017 10:42 AM EDT AGE/SEX: 52 years / Female INDICATIONS: Chest pain. CLINICAL DATA: This is the patient's initial encounter. Patient reports that signs and symptoms have been present for 1 day and indicates a pain score of 8/10. MEDICAL/SURGICAL HISTORY: None. None. COMPARISON: [facility] – [place], CHEST SINGLE AP, 11/10/2017. . FINDINGS: A single AP view of the chest demonstrates the lungs to be symmetrically hypoinflated without evidenc e of mass, infiltrate or effusion. The cardiomediastinal contours are unremarkable. Osseous structu res are intact with some degenerative spurring of the dorsal spine. CONCLUSION: Hypoinflation with no acute cardiac pulmonary process Electronically signed by: Britton Nicole MD 12/24/2017 11:01 AM EDT
[2017-12-24 11:08] LABS: INTERNATIONAL NORMALIZED RATIO 0.9 RATIO; PROTHROMBIN TIME - PATIENT 9.6 SEC (9.8-11.6)
--- NOTE | 2017-12-24 11:19 | RADRPT ---
EXAM DATE: 12/24/2017 11:12 AM EDT AGE/SEX: 52 years / Female INDICATIONS: Headache and nausea CLINICAL DATA: This is the patient's initial encounter. Patient reports that signs and symptoms have been present for 1 day and indicates a pain score of 10/10. MEDICAL/SURGICAL HISTORY: Hypertension. Aneurysm, intracranial. . Aneurysm clip RADIATION DOSE: 35.76 CTDI (mGy) COMPARISON: [facility] – [place], CT BRAIN W/O CONTRAST, 10/20/2017. . TECHNIQUE: CT of the head without contrast. Using automated exposure control and adjustment of the mA and/or kV according to patient size, radiation dose was kept as low as reasonably achievable to ob tain optimal diagnostic quality images. FINDINGS: Cerebrum: The ventricles are normal for age. No evidence of midline shift, mass lesion, hemorrhage or acute infarction. No extraaxial fluid collections are seen. Small coil packing in the anterior ri ght circulation characteristic of prior aneurysm treatment. Posterior Fossa: The cerebellum and brainstem are intact. The 4th ventricle is midline. The cerebe llopontine angle is unremarkable. Extracranial: The visualized portion of the orbits is intact. Skull: The calvaria is intact. No evidence of skull fracture. CONCLUSION: 1. Prior aneurysm coiling on the right. 2. Nothing acute. Electronically signed by: Britton Nicole MD 12/24/2017 11:17 AM EDT
[2017-12-24 11:31] LABS: ALBUMIN 3.5 GM/DL (3.4-5.0); ALKALINE PHOSPHATASE 91 U/L (45-117); ALT (GPT) 19 U/L (10-53); AST (GOT) 18 U/L (15-37); BICARBONATE 24.3 MEQ/L (21.0-32.0); BLOOD UREA NITROGEN 9 MG/DL (7-18); CALCIUM 8.5 MG/DL (8.5-10.1); CHLORIDE 106 MEQ/L (98-107); CREATININE 0.91 MG/DL (0.50-1.00); GLOMERULAR FILTRATION RATE 65 ML/MIN (>89); GLUCOSE,RANDOM 90 MG/DL (74-106); MAGNESIUM 2.2 MG/DL (1.5-2.5); SODIUM (NA) 141 MEQ/L (136-145); TOTAL BILIRUBIN ADULT 0.6 MG/DL (0.2-1.0); TOTAL PROTEIN 7.2 GM/DL (6.4-8.2); TROPONIN I LESS THAN 0.02 NG/ML (0.02-0.05)
[2017-12-24 13:24] VITALS: BP 128/68; PULSE 66; RESP 18; O2SAT 100
[2017-12-24] MEDS ORDERED: ACETAMINOPHEN 325 MG TAB PO ONE (14:30)
[2017-12-24] MEDS ORDERED: ASPIRIN 325 MG TAB PO ONE (14:30)
[2017-12-24 15:25] VITALS: BP 142/77; PULSE 75; RESP 17
[2017-12-24 15:37] LABS: TROPONIN I LESS THAN 0.02 NG/ML (0.02-0.05)
[2017-12-24 16:52] VITALS: BP 144/65
--- NOTE | 2017-12-25 15:26 | EKG ---
Date Performed: 12/24/2017 Time Performed: 10:17:11 PTAGE: 52 years EKG: Sinus rhythm NORMAL ECG PREVIOUS TRACING : 11/10/2017 18.31 Since the prior tracing, sinus bradycardia has resolved. DOCTOR: Dilcia Welch Interpretating Date/Time 12/25/2017 15:24:30
--- NOTE | 2017-12-25 15:26 | EKG ---
Date Performed: 12/24/2017 Time Performed: 14:28:14 PTAGE: 52 years EKG: Sinus rhythm MODERATE VOLTAGE CRITERIA FOR LVH, CONSIDER NORMAL VARIANT BORDERLINE ECG PREVIOUS TRACING : 12/24/2017 10.17 Since the most recent tracing, there has been no significan t serial change. DOCTOR: Dilcia Welch Interpretating Date/Time 12/25/2017 15:25:01
== END 2017-12-24 16:59 | disposition home or self-care (01) ==
LOC: NEPC 08:30 → UNDOADMOB 14:22 → NEDA 14:22 → UNDODISOB 15:56
DX: R07.9 Chest pain, unspecified (principal); R51 Headache; L03.115 Cellulitis of right lower limb; I10 Essential (primary) hypertension; Z79.899 Other long term (current) drug therapy
CPT/HCPCS: 70450; 71045; 76882; 80053; 82550; 83735; 83880; 84484; 85025; 85610; 85730; 93005

== ENCOUNTER 2017-12-29 12:33 | Emergency (ER) | payer SELFPAY ==
[~2017-12-29] VITALS: Ht 157.5 cm; Wt 104.5 kg
[2017-12-29 12:38] VITALS: BP 143/77; PULSE 90; RESP 22; TEMP 98.5; O2SAT 98
[2017-12-29 12:49] VITALS: BP 145/74; PULSE 80; RESP 18; O2SAT 96
[2017-12-29] MEDS ORDERED: SODIUM CHLORIDE 0.9% FLUSH 10 ML FLUSH IVF PRN (13:00)
[2017-12-29 13:16] VITALS: RESP 18; O2SAT 98
--- NOTE | 2017-12-29 13:17 | PD ---
HPI Chief Complaint: Respiratory Symptoms Time Seen by Provider: 12:42 Travel History International Travel<30 days: No Contact w/Intl Traveler<30days: No Traveled to known affect area: No History of Present Illness HPI Patient is a 52-year-old female presenting to emerge from for evaluation of shortness of breath. Patient states it started 30 minutes prior to arrival. She was at work when she became short of breath and felt like her heart was racing. She reports that she also became clammy and nauseated. Patient denies any chest pain, abdominal pain, fever, chills. Onset of symptoms was sudden, symptoms are mild to moderate nature. There are no alleviating factors. Symptoms are exacerbated with ambulation. Patient's past medical history significant for hypertension. She denies any history of blood clots. She has no other complaints at this time. PFSH Past Medical History Hx Anticoagulant Therapy: No Cardiovascular Problems: Yes (HTN) Gastrointestinal Disorders: Yes (GALLSTONES) Hypertension: Yes ?: Not Menopausal: Yes : 1 Para: 0 : 1 Past Surgical History Section: Yes Eye Surgery: Yes Hysterectomy: No Other Surgery: No Social History Alcohol Use: No Tobacco Use: No Substance Use: No Allergies-Medications (Allergen,Severity, Reaction): Coded Allergies: *MDRO Multi-Drug Resistant Organism (Verified Adverse Reaction, Unknown, ) MRSA (abdominal abscess) - 07/22/2015 MRSA PCR screen positive-12/03/16 Reported Meds & Prescriptions Reported Meds & Active Scripts Active Keflex (Cephalexin) 500 Mg Capsule 500 Mg PO Q6H 7 Days Bactrim DS (Sulfamethoxazole-Trimethoprim) 800-160 Mg Tab 1 Tab PO BID Amlodipine (Amlodipine Besylate) 5 Mg Tab 5 Mg PO DAILY Lisinopril 20 Mg Tab 20 Mg PO DAILY Review of Systems Except as stated in HPI: all other systems reviewed are Neg General / Constitutional: No: Fever, Chills Cardiovascular: Positive: Tachycardia, Diaphoresis Respiratory: Positive: Shortness of Breath, No: Cough Gastrointestinal: Positive: Nausea, No: Vomiting, Abdominal Pain Physical Exam Narrative GENERAL: Well-developed, well-nourished, alert female. Presenting in no acute distress. SKIN: Warm and dry. HEAD: Atraumatic. Normocephalic. EYES: Pupils equal and round. No scleral icterus. No injection or drainage. ENT: No nasal bleeding or discharge. Mucous membranes pink and moist. NECK: Trachea midline. No JVD. CARDIOVASCULAR: Regular rate and rhythm. RESPIRATORY: No accessory muscle use. Clear to auscultation. Breath sounds equal bilaterally. GASTROINTESTINAL: Abdomen soft, non-tender, nondistended. Hepatic and splenic margins not palpable. MUSCULOSKELETAL: Extremities without clubbing, cyanosis, or edema. No obvious deformities. NEUROLOGICAL: Awake and alert. No obvious cranial nerve deficits. Motor grossly within normal limits. Five out of 5 muscle strength in the arms and legs. Normal speech. PSYCHIATRIC: Appropriate mood and affect; insight and judgment normal. Data Data Last Documented VS Vital Signs Date Time Temp Pulse Resp B/P (MAP) Pulse Ox O2 Delivery O2 Flow Rate FiO2 12/29/17 13:16 97 Room Air 12/29/17 13:16 18 12/29/17 12:49 80 12/29/17 12:38 98.5 Orders Orders Complete Blood Count With Diff (12/29/17 12:48) Comprehensive Metabolic Panel (12/29/17 12:48) D-Dimer (12/29/17 12:48) Act Partial Throm Time (Ptt) (12/29/17 12:48) Prothrombin Time / Inr (Pt) (12/29/17 12:48) Magnesium (Mg) (12/29/17 12:48) Iv Access Insert/Monitor (12/29/17 12:48) Electrocardiogram (12/29/17 12:48) Ecg Monitoring (12/29/17 12:48) Oximetry (12/29/17 12:48) Oxygen Administration (12/29/17 12:48) Chest, Pa & Lat (12/29/17 12:48) Sodium Chloride 0.9% Flush (Ns Flush) (12/29/17 13:00) Ct Pulmonary Angiogram (12/29/17 ) Iohexol 350 Inj (Omnipaque 350 Inj) (12/29/17 15:30) Labs Laboratory Tests Test 12/29/17 13:06 White Blood Count 6.9 TH/MM3 Red Blood Count 4.37 MIL/MM3 Hemoglobin 13.4 GM/DL Hematocrit 38.8 % Mean Corpuscular Volume 88.7 FL Mean Corpuscular Hemoglobin 30.5 PG Mean Corpuscular Hemoglobin Concent 34.5 % Red Cell Distribution Width 13.6 % Platelet Count 233 TH/MM3 Mean Platelet Volume 8.3 FL Neutrophils (%) (Auto) 73.1 % Lymphocytes (%) (Auto) 11.9 % Monocytes (%) (Auto) 11.9 % Eosinophils (%) (Auto) 2.4 % Basophils (%) (Auto) 0.7 % Neutrophils # (Auto) 5.1 TH/MM3 Lymphocytes # (Auto) 0.8 TH/MM3 Monocytes # (Auto) 0.8 TH/MM3 Eosinophils # (Auto) 0.2 TH/MM3 Basophils # (Auto) 0.0 TH/MM3 CBC Comment DIFF FINAL Differential Comment Prothrombin Time 9.6 SEC Prothromb Time International Ratio 0.9 RATIO Activated Partial Thromboplast Time 22.9 SEC D-Dimer Quantitative (PE/DVT) 3.91 MG/L FEU Blood Urea Nitrogen 9 MG/DL Creatinine 1.00 MG/DL Random Glucose 86 MG/DL Total Protein 8.1 GM/DL Albumin 3.9 GM/DL Calcium Level 8.8 MG/DL Magnesium Level 2.0 MG/DL Alkaline Phosphatase 125 U/L Aspartate Amino Transf (AST/SGOT) 22 U/L Alanine Aminotransferase (ALT/SGPT) 29 U/L Total Bilirubin 0.3 MG/DL Sodium Level 138 MEQ/L Potassium Level 3.6 MEQ/L Chloride Level 107 MEQ/L Carbon Dioxide Level 22.7 MEQ/L Anion Gap 8 MEQ/L Estimat Glomerular Filtration Rate 59 ML/MIN [facility] Medical Decision Making Medical Screen Exam Complete: Yes Emergency Medical Condition: Yes Medical Record Reviewed: Yes Interpretation(s) Last Impressions Chest X-Ray 12/29/17 1248 Signed Impressions: CONCLUSION: No acute cardiopulmonary disease. CT Angiography 12/29/17 0000 Signed Impressions: CONCLUSION: 1. The study is negative for pulmonary embolism. 2. Focal pleural thickening lateral right midlung along the junction with the major fissure. The lungs are otherwise clear. Vital Signs Date Time Temp Pulse Resp B/P (MAP) Pulse Ox O2 Delivery O2 Flow Rate FiO2 12/29/17 13:16 97 Room Air 12/29/17 13:16 18 98 Room Air 12/29/17 12:49 80 18 145/74 (97) 96 Room Air 12/29/17 12:38 98.5 90 22 143/77 (99) 98 Differential Diagnosis Pleurisy versus anxiety versus malingering versus pulmonary embolism versus other Narrative Course Patient is a 52-year-old female presenting for evaluation of shortness of breath. Patient's vital signs are stable. Physical examination is unremarkable , labs imaging ordered and pending. Medical records reviewed. Patient has been to the emergency department several times in the last 2 weeks with different complaints. IV access was established, patient placed on telemetry monitoring continuous pulse oximetry. Initial EKG which was reviewed by my attending physician shows sinus rhythm. CBC and chemistry with no acute abnormalities. D-dimer is elevated at 3.91. CT pulmonary angiogram is ordered. Patient is well oxygenated on room air, her vital signs are otherwise stable. She is resting comfortably with a significant other at the bedside. Patient reported that she has not had a menstrual cycle since she was [address] pulmonary angiogram is negative for pulmonary embolism. Focal pleural thickening lateral right midlung along the junction with the major fissure. Lungs are otherwise clear. Patient was reassessed, she was sleeping, resting comfortably. Findings and plan of care discussed with my attending physician. Patient is recommended to have a CT scan of her chest in 6 months for resolution. Patient is to follow-up with her primary doctor. Additionally patient can return to emergency department for any new or worsening symptoms. She was reassured at this time that there were no acute findings. Diagnosis Primary Impression: Shortness of breath Referrals: Primary Care Physician 2 days Patient Instructions: General Instructions, Shortness of Breath (ED) Departure Forms: Tests/Procedures, Work Release Enter return to work date: Jan 01, 2018 Additional Instructions: Follow-up with your primary doctor in 2-3 days It is recommended that you have a repeated CT scan of the chest in 6 months. Return to emergency department for any new or worsening symptoms Med/Other Pt SpecificInfo: No Change to Meds Disposition: 01 DISCHARGE HOME Condition: Stable Camille Garcia Dec 29, 2017 13:17
[2017-12-29 13:26] LABS: AUTOMATED NEUTROPHIL # 5.1 TH/MM3 (1.8-7.7); BASOPHIL % 0.7 % (0.0-2.0); EOSINOPHIL # 0.2 TH/MM3 (0-0.4); EOSINOPHIL % 2.4 % (0.0-4.0); HEMATOCRIT 38.8 % (35.0-46.0); HEMOGLOBIN 13.4 GM/DL (11.6-15.3); LYMPH % 11.9 % (9.0-44.0); LYMPHOCYTE # 0.8 TH/MM3 (1.0-4.8); MEAN CELL VOLUME 88.7 FL (80.0-100.0); MEAN CORPUSCULAR HEMOGLOBIN 30.5 PG (27.0-34.0); MEAN CORPUSCULAR HGB CONC 34.5 % (32.0-36.0); MEAN PLATELET VOLUME 8.3 FL (7.0-11.0); MONO % 11.9 % (0.0-8.0); MONOCYTE # 0.8 TH/MM3 (0-0.9); NEUT % 73.1 % (16.0-70.0); PLATELET COUNT 233 TH/MM3 (150-450); RED BLOOD COUNT 4.37 MIL/MM3 (4.00-5.30); RED CELL DISTRIBUTION WIDTH 13.6 % (11.6-17.2); WHITE BLOOD COUNT 6.9 TH/MM3 (4.0-11.0)
--- NOTE | 2017-12-29 13:28 | RADRPT ---
EXAM DATE: 12/29/2017 1:25 PM EDT AGE/SEX: 52 years / Female INDICATIONS: Short of breath. CLINICAL DATA: This is the patient's initial encounter. Patient reports that signs and symptoms have been present for 1 day and indicates a pain score of 0/10. MEDICAL/SURGICAL HISTORY: None. None. COMPARISON: [facility] – [place], CHEST SINGLE AP, 12/24/2017. . FINDINGS: PA and lateral views of the chest demonstrate the lungs to be symmetrically aerated without evidence of mass, infiltrate or effusion. The cardiomediastinal contours are unremarkable. Moderate degenerati ve changes in the thoracic spine.. CONCLUSION: No acute cardiopulmonary disease. Electronically signed by: Jacky Currie MD 12/29/2017 1:27 PM EDT
[2017-12-29 13:35] LABS: INTERNATIONAL NORMALIZED RATIO 0.9 RATIO; PROTHROMBIN TIME - PATIENT 9.6 SEC (9.8-11.6)
[2017-12-29 13:37] LABS: D-DIMER 3.91 MG/L FEU (0.00-0.50)
[2017-12-29 13:42] LABS: ALBUMIN 3.9 GM/DL (3.4-5.0); ALT (GPT) 29 U/L (10-53); AST (GOT) 22 U/L (15-37); BICARBONATE 22.7 MEQ/L (21.0-32.0); BLOOD UREA NITROGEN 9 MG/DL (7-18); CALCIUM 8.8 MG/DL (8.5-10.1); CHLORIDE 107 MEQ/L (98-107); GLOMERULAR FILTRATION RATE 59 ML/MIN (>89); GLUCOSE,RANDOM 86 MG/DL (74-106); SODIUM (NA) 138 MEQ/L (136-145)
[2017-12-29 13:44] LABS: ALKALINE PHOSPHATASE 125 U/L (45-117); TOTAL BILIRUBIN ADULT 0.3 MG/DL (0.2-1.0); TOTAL PROTEIN 8.1 GM/DL (6.4-8.2)
[2017-12-29] MEDS ORDERED: IOHEXOL 350 MG/ML 10 ML VIAL (for RAD DIAG) IVCONTRAST ONE (15:30)
--- NOTE | 2017-12-29 15:40 | RADRPT ---
EXAM DATE: 12/29/2017 3:31 PM EDT AGE/SEX: 52 years / Female INDICATIONS: Upper chest pain, shortness of breath for 30 minutes. CLINICAL DATA: This is the patient's initial encounter. Patient reports that signs and symptoms have been present for 1 day and indicates a pain score of 4/10. MEDICAL/SURGICAL HISTORY: Cardiovascular disease. Hypertension. None. RADIATION DOSE: 23.05 CTDI (mGy) ; Patient body habitus COMPARISON: No prior exams available for comparison. TECHNIQUE: Volumetric scanning was performed using a multi-row detector CT scanner during bolus infu greg of 72 ml Omnipaque 350 (iohexol) nonionic water-soluble contrast as a single exam dose. The krystal a was post processed with a variety of visualization algorithms including full volume maximum intensi ty projection and sliding thin slab reformation. Using automated exposure control and adjustment of the mA and/or kV according to patient size, radiation dose was kept as low as reasonably achievable t o obtain optimal diagnostic quality images. FINDINGS: Pulmonary Arteries: No filling defects are seen in the pulmonary arteries out to the subsegmental ve ssels. The left and right pulmonary arteries are normal in diameter. Lung: There is a small area of thickening along the lateral pleura/major fissure interface lateral r ight midlung, image #[id number]. The remainder of the lungs are clear. No evidence of pneumothorax. Effusion: None. Mediastinum: No evidence of mediastinal or hilar adenopathy. Other: Multiple bilateral nonenlarged axillary lymph nodes. CONCLUSION: 1. The study is negative for pulmonary embolism. 2. Focal pleural thickening lateral right midlung along the junction with the major fissure. The kay gs are otherwise clear. Electronically signed by: Jacky Currie MD 12/29/2017 3:38 PM EDT
--- NOTE | 2017-12-30 15:12 | EKG ---
Date Performed: 12/29/2017 Time Performed: 11:46:53 PTAGE: 52 years EKG: Sinus rhythm MODERATE VOLTAGE CRITERIA FOR LVH, CONSIDER NORMAL VARIANT NONSPECIFIC T-WAVE ABNORMALITY BORDERLINE ECG PREVIOUS TRACING : 12/24/2017 14.28 Since the previous tracing, no significant change noted DOCTOR: Jonnie Quintana Interpretating Date/Time 12/30/2017 15:10:37
== END 2017-12-29 16:21 | disposition home or self-care (01) ==
LOC: NEPE 12:33
DX: R06.02 Shortness of breath (principal); R00.2 Palpitations; R11.0 Nausea; R94.31 Abnormal electrocardiogram [ECG] [EKG]; I10 Essential (primary) hypertension; Z87.19 Personal history of other diseases of the digestive system
CPT/HCPCS: 71046; 71275; 80053; 83735; 85025; 85379; 85610; 85730; 93005; 99285; Q9967